=== PATIENT | female | born 1955 | race Caucasian/White ===

== ENCOUNTER 2017-05-13 21:52 | Inpatient (IN) ==
[2017-05-13 22:33] LABS: MANUAL DIFF NEEDED? NO
[2017-05-13 22:38] LABS: BASO% 0.1 % (0.0-0.8); EOS# 0.05 X1000 (0.0-0.7); EOS% 0.4 % (0.0-10.0); HEMATOCRIT 40.6 % (37.0-47.0); HEMOGLOBIN 12.5 g/dL (12.0-16.0); IMM GRAN# 0.04 X1000 (0.0-0.04); IMM GRAN% 0.3 % (0.0-0.5); LYMPH# 1.51 X1000 (1.2-3.4); LYMPH% 12.3 % (20.5-51.1); MCH 28.7 PG (27-31); MCHC 30.8 g/dL (33-37); MCV 93.3 FL (81-99); MONO# 1.63 X1000 (0.11-0.59); MONO% 13.3 % (1.7-9.3); MPV 11.4 FL (7.4-10.4); NEUT% 73.6 % (42.2-75.2); PLT 202 X1000 (130-400); RBC 4.35 XMIL (4.2-5.4)
[2017-05-13 23:01] LABS: ALBUMIN 4.5 g/dL (3.5-5.0); CALCIUM 10.4 mg/dL (8.8-10.2); POTASSIUM 3.6 mmol/L (3.5-5.1); TOTAL BILIRUBIN 0.31 mg/dL (0.20-1.00); TOTAL PROTEIN 8.3 g/dL (6.3-8.3)
[2017-05-14] MEDS ORDERED: ZITHROMAX 500 MG/NS 500 MG/250 ML IVPB IV ONE (00:29)
[2017-05-14] MEDS ORDERED: ROCEPHIN 1 GM/NS 1 GM/50 ML IVPB IV ONE (00:29)
[2017-05-14 00:54] LABS: ALLEN TEST YES; BE 9.4 mmoll (-3.0-3.0); BLOOD TYPE ARTERIAL; DRAW SITE R RADIAL; METHB 0.8 % (0.0-1.5); PCO2(98.6) 50 mmHg (35-45); SAMPLE BLOOD; SAO2 89.2 % (95.0-100.0); THB 11.5 g/dL (11.5-17.4); pH(98.6) 7.45 (7.35-7.45)
[2017-05-14 00:55] LABS: MODALITY CANNULA
[2017-05-14 00:57] LABS: PO2(98.6) 47 mmHg (60-100)
--- NOTE | 2017-05-14 01:17 | PROVIDER DOCUMENTATION ---
This chart was entered by Ángel Villavicencio Scribe, acting as scribe for Denilson Du MD. HPI-Fever - General Chief Complaint: Shortness of Breath Stated Complaint: sob Time Seen by Provider: 05/13/17 22:17 Source: patient Allergies/Adverse Reactions: Patient Allergies Allergy/AdvReac Type Severity Reaction Status Date / Time Sulfa (Sulfonamide AdvReac RASH Verified 05/14/17 00:28 Antibiotics) Home Medications: Home Medication List Medication Instructions Recorded Confirmed Last Taken Type Aspirin 81 mg PO QAM 08/02/13 04/20/17 09/11/15 09:00 History 81 MG Furosemide [Lasix] 40 mg PO QAM 08/02/13 04/20/17 09/11/15 09:00 History 40 MG Ipratropium/Albuterol Sulfate 3 ml IH TID 08/02/13 04/20/17 09/11/15 09:00 History [Iprat-Albut 0.5-3(2.5) mg/3 ml] 3 ML Pantoprazole [Protonix] 40 mg PO QHS 08/02/13 04/20/17 09/10/15 21:00 History 40 MG Hydrocodone/Acetaminophen [Empire 1 each PO TID 04/04/14 04/20/17 09/11/15 09:00 History 10-325 Tablet] 1 EACH Doxepin HCl 100 mg PO HS 10/03/14 04/20/17 09/10/15 21:00 History 100 MG Melatonin/Pyridoxine HCl (B6) 1 each PO HS 10/03/14 04/20/17 09/10/15 21:00 History [Melatonin 10 mg Tablet] 1 EACH Biotin [Nail-Ex] 5,000 mcg PO QAM 07/16/15 04/20/17 09/11/15 09:00 History 5000 MCG Iron Carbonyl/Ascorbic Acid 1 each PO DAILY #30 tablet 09/19/15 04/20/17 Unknown Rx [Icar-C] Prednisone 10 mg PO DIRECTED #20 tablet 09/19/15 04/20/17 Unknown Rx Albuterol Sulfate [Proair Hfa] 2 puff INH 4XDAY 04/20/17 04/20/17 Unknown History Alprazolam [Xanax] 0.5 mg PO TID 04/20/17 04/20/17 Unknown History Amoxicillin 875 mg PO BID 04/20/17 04/20/17 04/20/17 History Benzonatate [Tessalon Perle] 200 mg PO TID 04/20/17 04/20/17 Unknown History Fluticasone/Vilanterol [Breo 2 puff INH DAILY 04/20/17 04/20/17 Unknown History Ellipta 200-25 Mcg INH] Magnesium Oxide 500 mg PO BID 04/20/17 04/20/17 Unknown History Meloxicam [Mobic] 15 mg PO DAILY 04/20/17 04/20/17 Unknown History Montelukast Sodium [Singulair] 10 mg PO DAILY 04/20/17 04/20/17 Unknown History Oxycodone E.r. [Oxycontin] 20 mg PO BID 04/20/17 04/20/17 Unknown History Potassium Chloride E.r. [Klor-Con] 20 meq PO BID 04/20/17 04/20/17 Unknown History Ropinirole HCl [Requip] 1 mg PO QHS 04/20/17 04/20/17 Unknown History Levofloxacin [Levaquin] 500 mg PO DAILY #10 tablet 04/21/17 Unknown Rx - History of Present Illness-Fever Nature of Presenting Problem: Pt is a 62 yowf who presents to ER via EMS with CC of fever. Pt reports that her daughter checked her temperature at home and reports it was 102. Pt states that her temperature was 100 on the ambulance. Pt also complains of SOB and reports hx of idiopathic pulmonary fibrosis, but has been unable to get a referral to a pharmacy analyst (pt unable to clarify reasons). Pt also reports that she as felt nauseas and has lost her appetite. Fever Severity/Quality: reports: greater than 100.5 F (102) Onset/Duration: reports: unsure, just prior to arrival Timing: reports: still present Severity: reports: moderate Cognitive Baseline: alert, oriented x3 Associated Symptoms: reports: fever/chills, loss of appetite, nausea, shortness of breath. denies: chest pain, cough, diarrhea, vomiting Similar Symptoms Previously?: Yes Recently seen or treated by another doctor?: No Review of Systems - Adult - REVIEW OF SYSTEMS - ADULT Constitutional: reports: fever. denies: chills, fatique, night sweats, weight gain, weight loss Eyes: reports: no symptoms reported Ears, Nose, Mouth & Throat: reports: no symptoms reported Cardiovascular: reports: no symptoms reported Respiratory: reports: chronic cough, shortness of breath. denies: cough, dyspnea on exertion, excessive sputum production, hemoptysis, pleurisy, wheezing Gastrointestinal: reports: nausea, poor appetite. denies: abdominal pain, hematemesis, constipation, diarrhea, difficulty swallowing, frequent heartburn, rectal bleeding, vomiting Genitourinary: reports: no symptoms reported Musculoskeletal: reports: no symptoms reported Integumentary: reports: no symptoms reported Neurological: reports: no symptoms reported Psychiatric: reports: no symptoms reported Endocrine: reports: no symptoms reported Hematologic/Lymphatic: reports: no symptoms reported Allergic/Immunologic: reports: no symptoms reported All Other Systems: Reviewed and Negative Past History - Adult - PAST MEDICAL HISTORY-ADULT Review of Records: reports: Nursing Assessment Review, Medications Reviewed Cardiovascular: reports: CAD, hyperlipidemia Respiratory: reports: COPD, sleep apnea, other (idiopathic pulmonary fibrosis) Gastrointestinal: reports: GERD Genitourinary: reports: kidney disease Neurological: reports: Seizures/Epilepsy Psychiatric: reports: depression Endocrine/Immune: reports: Diabetes - PRIOR SURGERIES/PROCEDURES Surgical/Procedure History: reports: cholecystectomy, hysterectomy, tonsillectomy - IMMUNIZATION STATUS Childhood Immunizations: See Nurse Assessment Flu Vaccine: See Nurse Assessment Physical Exam-General - PHYSICAL EXAM-ADULT Initial Vital Signs Reviewed: Yes - CONSTITUTIONAL General Appearance: appears well, alert, mild distress, lethargic - EYES Eyes: PERRL/EOMI, pink conjunctivae - HEAD, EARS, NOSE, MOUTH & THROAT HENMT: normocephalic/atraumatic, moist mucous membranes, normal ENT inspection - NECK Neck: non-tender, full range of motion, supple - RESPIRATORY Respiratory: chest non-tender, increased rate, other ("velcro" rales diffusely) - CARDIOVASCULAR Cardiovascular: normal peripheral pulses, tachycardia. negative: regular rate, rhythm, bradycardia, irregularly irregular - GASTROINTESTINAL (ABDOMEN) Abdominal Exam: normal bowel sounds, soft, no organomegaly, no pulsatile mass, tenderness (LLQ). negative: non tender - MUSCULOSKELETAL Back Exam: normal inspection Extremity: normal range of motion, non-tender, normal gait, normal inspection, no pedal edema, no calf tenderness, normal capillary refill, pelvis stable. negative: deformity, erythema, inflammation, swelling, tenderness - SKIN Integumentary: normal color, normal turgor, warm/dry, warm (warm/hot to touch) - NEUROLOGIC Neurologic: grossly normal - PSYCHIATRIC Psych/Mental Status: normal thought content, normal thought process, oriented x 3, depressed affect. negative: normal mood/affect Progress - PLAN OF CARE/RESULTS Progress/Plan/Lab Results: Vital Signs - 8 hr 05/13/17 22:21 Temperature 99.5 F Pulse Rate 136 H Respiratory Rate 27 H Blood Pressure 114/74 O2 Sat by Pulse Oximetry 97 Laboratory Results - last 24 hr 05/13/17 05/13/17 05/13/17 22:10 22:10 22:10 WBC RBC Hgb Hct MCV MCH MCHC RDW Std Deviation Plt Count MPV Immature Gran % (Auto) Neut % (Auto) Lymph % (Auto) Garrett % (Auto) Eos % (Auto) Baso % (Auto) Immature Gran # (Auto) Neut # (Auto) Lymph # (Auto) Garrett # (Auto) Eos # (Auto) Baso # (Auto) D-Dimer 0.43 Specimen Type Sample Site pH pCO2 pO2 HCO3 Base Excess Oxyhemoglobin ABG O2 Sat (Calculated) ABG O2 Saturation ABG Carboxyhemoglobin ABG Methemoglobin Addy Test A-a O2 Difference Total Hemoglobin Lactate Liter Flow Blood Gas Modality FiO2 % Sodium 142 Potassium 3.6 Chloride 94 L Carbon Dioxide 30 Anion Gap 18 BUN 14 Creatinine 1.0 H Estimated GFR/1.73 m2 57 BUN/Creatinine Ratio 14 Glucose 128 H Calculated Osmolality 285 Calcium 10.4 H Magnesium 2.0 Total Bilirubin 0.31 AST 16 ALT 15 Alkaline Phosphatase 166 H Creatine Kinase 34 Troponin T < 0.010 Aar-[id number]-Wgflwpddjnp Pept Total Protein 8.3 Albumin 4.5 Globulin 3.8 Albumin/Globulin Ratio 1.2 Plasma Lactate 05/13/17 05/13/17 05/13/17 22:10 22:10 22:10 WBC 12.30 H RBC 4.35 Hgb 12.5 Hct 40.6 MCV 93.3 MCH 28.7 MCHC 30.8 L RDW Std Deviation 14.2 Plt Count 202 MPV 11.4 H Immature Gran % (Auto) 0.3 Neut % (Auto) 73.6 Lymph % (Auto) 12.3 L Garrett % (Auto) 13.3 H Eos % (Auto) 0.4 Baso % (Auto) 0.1 Immature Gran # (Auto) 0.04 Neut # (Auto) 9.06 H Lymph # (Auto) 1.51 Garrett # (Auto) 1.63 H Eos # (Auto) 0.05 Baso # (Auto) 0.01 D-Dimer Specimen Type Sample Site pH pCO2 pO2 HCO3 Base Excess Oxyhemoglobin ABG O2 Sat (Calculated) ABG O2 Saturation ABG Carboxyhemoglobin ABG Methemoglobin Addy Test A-a O2 Difference Total Hemoglobin Lactate Liter Flow Blood Gas Modality FiO2 % Sodium Potassium Chloride Carbon Dioxide Anion Gap BUN Creatinine Estimated GFR/1.73 m2 BUN/Creatinine Ratio Glucose Calculated Osmolality Calcium Magnesium Total Bilirubin AST ALT Alkaline Phosphatase Creatine Kinase Troponin T Mkt-G-Zqjqllmnetr Pept 61 Total Protein Albumin Globulin Albumin/Globulin Ratio Plasma Lactate 1.5 05/14/17 00:50 WBC RBC Hgb Hct MCV MCH MCHC RDW Std Deviation Plt Count MPV Immature Gran % (Auto) Neut % (Auto) Lymph % (Auto) Garrett % (Auto) Eos % (Auto) Baso % (Auto) Immature Gran # (Auto) Neut # (Auto) Lymph # (Auto) Garrett # (Auto) Eos # (Auto) Baso # (Auto) D-Dimer Specimen Type ARTERIAL Sample Site R RADIAL pH 7.45 pCO2 50 H pO2 47 L* HCO3 32.0 H Base Excess 9.4 H Oxyhemoglobin 86.5 L* ABG O2 Sat (Calculated) 14.0 L ABG O2 Saturation 89.2 L ABG Carboxyhemoglobin 2.20 ABG Methemoglobin 0.8 Addy Test YES A-a O2 Difference 119.0 Total Hemoglobin 11.5 Lactate 1.00 Liter Flow 3.0 Blood Gas Modality CANNULA FiO2 % 32.0 Sodium Potassium Chloride Carbon Dioxide Anion Gap BUN Creatinine Estimated GFR/1.73 m2 BUN/Creatinine Ratio Glucose Calculated Osmolality Calcium Magnesium Total Bilirubin AST ALT Alkaline Phosphatase Creatine Kinase Troponin T Qxi-F-Ynzadypqfdn Pept Total Protein Albumin Globulin Albumin/Globulin Ratio Plasma Lactate Orders Category Date Time Status Oxygen Therapy- ED Nursing DIRECTED Care 05/13/17 22:22 Active CHEST-2 VIEWS [RAD] Stat Exams 05/13/17 22:22 Taken ABG [RESP] Routine Lab 05/14/17 00:50 Completed BLOOD CULTURE [BLDCUL] Stat Lab 05/13/17 22:15 Results CBC WITH ELECTRONIC DIFF [HEME] Stat Lab 05/13/17 22:10 Completed CK PROFILE [SP CHEM] Stat Lab 05/13/17 22:10 Completed COMPREHENSIVE METABOLIC PANEL [CHEM] Stat Lab 05/13/17 22:10 Completed D-DIMER [CHEM] Stat Lab 05/13/17 22:10 Completed LACTATE, PLASMA [CHEM] Stat Lab 05/13/17 22:10 Completed MAGNESIUM [CHEM] Stat Lab 05/13/17 22:10 Completed PRO B-NATRIURETIC PEPTIDE Stat Lab 05/13/17 22:10 Completed PROTIME WITH INR [COAG] Stat Lab 05/13/17 22:23 Ordered PTT [COAG] Stat Lab 05/13/17 22:23 Ordered TROPONIN T Stat Lab 05/13/17 22:10 Completed Azithromycin 500 mg/Ns [Zithromax 500 mg/Ns] Med 05/14/17 00:29 Active 500 mg in 250 ml IV NOW CefTRIAXONE 1 GM/NS [Rocephin 1 gm/Ns] Med 05/14/17 00:29 Discontinued 1 gm in 50 ml IV NOW EKG [EKG] Stat Ther 05/13/17 22:22 Ordered abg returned with normal phof 7.45,pCo2 of 50 but p02 of 50 Result Diagrams: 05/13/17 22:10 05/13/17 22:10 - XRAY 1 XRAY: Bilateral XRAY Study: Chest Impression: See EMR Report XRAY Interpretation: See report - CONSULTS/PCP/HOSPITALIST Notification #1 *Consult/PCP/Hospitalist*: Dr Perry Time Discussed: 01:12 Consult Disposition: Will see in ED, Admit Departure - Departure Date of Disposition Decision: 05/14/17 Time of Disposition Decision: 01:14 DIAGNOSIS: Interstitial lung disease, Pneumonia Disposition: ADMITTED INPATIENT 09 Certified Medical Emergency: Emergent Condition: Good Referrals and Follow-Ups: None,PCP [Primary Care Provider] - - Critical Care Note This patient required my direct & personal management of CC.: No Attestation - Physician/ LORENZO Attestation Patient care was provided by Advanced Practice Provider:: No The physician spent face to face time with patient:: Yes Advanced Practice Provider documentation review:: Supervising physician onsite and consulted in the evaluation and care of this patient. The physician did have a face to face encounter with the patient. This chart was documented by the indicated scribe, (Ángel Villavicencio Malcom) and accurately reflects the services I performed and decisions made by me, Denilson Du MD, as attested by the provider's signature.
[2017-05-14] MEDS ORDERED: VANCOMYCIN IV PER PHARMACY MISC SCH (02:01)
[2017-05-14] MEDS ORDERED: DUONEB (A & A) INH PRN (02:01)
[2017-05-14] MEDS: TYLENOL PO PRN ×2 (03:18→12:20)
[2017-05-14] MEDS ORDERED: PREDNISONE PO SCH (03:24)
[2017-05-14] MEDS: DUONEB (A & A) INH SCH ×6 (03:30→23:21)
--- NOTE | 2017-05-14 03:32 | HISTORY AND PHYSICAL ---
PRIMARY CARE PHYSICIAN: Dr. Adrian Salinas. CHIEF COMPLAINT: Shortness of breath and fever. HISTORY OF PRESENT ILLNESS: This is a 62-year-old female with a past medical history of pulmonary fibrosis and diabetes and hyperlipidemia, who presented to the emergency department complaining of shortness of breath. She reports that during the last week, she was having fever on-and-off, but she did not check the temperature. She reports also a dry cough that has been getting worse over the last 2 days. She also reports some chills as well. She reports generalized weakness and tiredness. The patient reports that she had been seen 4 months ago in the office. At this point, she also wants to have a 2nd opinion about her pulmonary fibrosis, because she was seen back in 1999 in [facility], and apparently she was told that she does not have any pulmonary fibrosis. In any case, the patient is going to be admitted for community-acquired pneumonia. PAST MEDICAL HISTORY: 1. Pulmonary fibrosis, idiopathic. Patient had been seen in 1999 in the [facility] clinic. Since then, patient has been followed by Dr. Russell and Dr. Bernal. The last visit to Pulmonary was to Dr. Bernal 4 months ago. 2. Chronic migraines. 3. Diabetes mellitus. Patient reports that since 2014, she is not taking any antidiabetic oral medications. 4. Obesity. 5. Hyperlipidemia. 6. Depression. PAST SURGICAL HISTORY: 1. Tonsillectomy. 2. Hysterectomy. 3. Lung biopsies. 4. Adenoidectomy. SOCIAL HISTORY: The patient lives with son and his fiance. Patient denies drinking alcohol, smoking tobacco, or using illicit drugs. She is single. FAMILY HISTORY: Niece with cystic fibrosis. Also, heart disease and cancer runs in her family. ALLERGIES: Patient is allergic to sulfa drugs. REVIEW OF SYSTEMS: Eleven systems were reviewed, and all symptoms are related to H P. PHYSICAL EXAMINATION: VITAL SIGNS: Temperature 99.5 degrees, heart rate 136, respiratory rate 27, blood pressure 114/74, O2 saturation 97% on 3 L nasal cannula. GENERAL: This is a 62-year-old obese female lying in bed, in no acute distress. HEENT: Head is normocephalic, atraumatic. Anicteric sclerae and pale conjunctivae. Mucous membranes moist. NECK: Supple. No JVD noted. No carotid bruits. No lymphadenopathy. No thyromegaly. CARDIOVASCULAR: S1, S2 heard. No murmurs, gallops, or rubs. Regular rate and rhythm. RESPIRATORY: There are some crackles in both pulmonary jalloh. Patient is not using any accessory muscles or having work of breathing. ABDOMEN: Soft, a little bit tender to palpation in the left upper quadrant. No signs of peritoneal irritation. Bowel sounds present. No organomegaly. EXTREMITIES: No clubbing, cyanosis, or edema. Peripheral pulses present in both legs. NEUROLOGICAL: Patient alert and oriented x3. Able to move 4 extremities. Cranial nerves 2-12 grossly normal. LABORATORY DATA: White cell count 12.30. ABG shows pH 7.45, with pCO2 50, PO2 47. BMP unremarkable, except glucose 128. Calcium 10.4. Troponins negative. ASSESSMENT: 1. Acute respiratory failure. 2. Community-acquired pneumonia. 3. Idiopathic pulmonary fibrosis. 4. Diabetes mellitus. 5. Hyperlipidemia. 6. Depression. PLAN: 1. The patient is going to be admitted to the hospital for further treatment of this community- acquired pneumonia. Patient had been admitted to the hospital last time 2 years ago. Because of this pulmonary fibrosis, I prefer to treat this pneumonia with broad spectrum antibiotics, in this case, vancomycin and Zosyn. Also, we are going to continue with nebulizations with albuterol and Atrovent every 4 hours as scheduled. Just to have a better visualization of the lung anatomy, we are going to do a CT of the chest. 2. For diabetes, patient reports that she has not been on any medications for diabetes for a while. In this case, we are going to check hemoglobin A1c, and start sliding scale insulin if needed. 3. For hyperlipidemia, we will continue home medications. 4. For depression, we will continue with home medications. Further recommendations to follow according to the clinical situation of the patient. cc: Tyrone Nolasco MD
[2017-05-14] MEDS: NS 1,000 ML IV SCH ×3 (04:06→22:34)
[2017-05-14] MEDS: LOVENOX SUBQ SCH (04:07)
[2017-05-14] MEDS ORDERED: VANCOMYCIN 2,150 MG in NS 500 ML IV ONE (05:00)
[2017-05-14 07:22] LABS: MANUAL DIFF NEEDED? NO
[2017-05-14 07:28] LABS: BASO% 0.1 % (0.0-0.8); EOS# 0.06 X1000 (0.0-0.7); EOS% 0.5 % (0.0-10.0); HEMATOCRIT 35.1 % (37.0-47.0); HEMOGLOBIN 10.7 g/dL (12.0-16.0); IMM GRAN# 0.04 X1000 (0.0-0.04); IMM GRAN% 0.4 % (0.0-0.5); LYMPH# 1.95 X1000 (1.2-3.4); LYMPH% 17.7 % (20.5-51.1); MCH 28.7 PG (27-31); MCHC 30.5 g/dL (33-37); MCV 94.1 FL (81-99); MONO# 1.76 X1000 (0.11-0.59); MONO% 15.9 % (1.7-9.3); MPV 12.1 FL (7.4-10.4); NEUT% 65.4 % (42.2-75.2); PLT 173 X1000 (130-400); RBC 3.73 XMIL (4.2-5.4)
[2017-05-14 07:35] LABS: INR 1.01; PROTIME 10.6 Seconds (9.2-11.7); PTT 25.5 Seconds (22.0-36.0)
--- NOTE | 2017-05-14 07:42 | Diag Imaging Result Doc PS360 ---
EXAM: CHEST-2 VIEWS HISTORY: CP TECHNIQUE: PA and lateral chest COMMENT: There are coarse parenchymal opacities with pleural thickening particularly over the right lung. These findings have been present on previous radiographs including the previous study of 04/20/2017. There has been no significant change. IMPRESSION: Pulmonary and pleural fibrosis. Electronically signed by Raghu Uriarte 05/14/2017 7:40 AM
--- NOTE | 2017-05-14 08:02 | Diag Imaging Result Doc PS360 ---
EXAM: CT THORAX W/O CONTRAST HISTORY: pna, pulmonary fibrosis TECHNIQUE: CT of the chest without contrast with dose reduction (clarity.) COMMENT: There are coarse pulmonary opacities throughout both lungs as well as areas of focal pleural thickening particularly on the right. These were also present at the time the previous study of 04/07/2017. There are areas of traction bronchiectasis and emphysematous change. There is a small focus of alveolar opacification with air bronchogram formation in the right middle lobe which was not present at the time the previous study. There are no abnormal fluid collections. The mediastinum is stable in appearance. The compression fracture at T6 is again noted. This was also present at the time the previous study. IMPRESSION: Pulmonary fibrosis with superimposed right middle lobe pneumonia. Chronic compression fracture of T6. Electronically signed by Raghu Uriarte 05/14/2017 8:00 AM
[2017-05-14] MEDS: LASIX PO SCH (10:13)
[2017-05-14] MEDS: SINGULAIR PO SCH (10:13)
[2017-05-14] MEDS: KLOR-CON PO SCH ×2 (10:13→20:34)
[2017-05-14] MEDS: OXYCONTIN PO SCH ×2 (10:14→20:35)
[2017-05-14] MEDS: ZOSYN 3.375 GM/NS 3.375 GM/50 ML IVPB IV SCH ×3 (10:14→20:34)
[2017-05-14] MEDS: TESSALON PO SCH ×3 (10:14→18:17)
[2017-05-14] MEDS: ASPIRIN PO SCH (10:14)
[2017-05-14] MEDS: XANAX PO SCH ×3 (10:15→18:17)
[2017-05-14] MEDS: ZOFRAN IV PRN ×2 (12:20→18:52)
--- NOTE | 2017-05-14 18:24 | ECHO REPORT ---
ORDER DATE: 05/14/2017 INTERPRETING PHYSICIAN: Dr. Alan REQUESTING PHYSICIAN: CLINICAL INDICATIONS: Shortness of breath, pulmonary fibrosis, diabetes. M-MODE MEASUREMENTS: Right ventricle: 3.0 cm. Left ventricle end diastole: 4.1 cm. Left ventricle end systole: 2.8 cm. Posterior wall: 1.0 cm. Interventricular septum: 1.0 cm. Left atrium: 2.8 cm. Aortic root: 3.5 cm. SUMMARY OF 2-DIMENSIONAL IMAGING: The left ventricular function is normal. Ejection fraction 60%. The chamber does not appear to be dilated. The right ventricle appears to be borderline enlarged. The pulmonic valve looks normal. Color flow mapping unremarkable. The tricuspid valve shows a mild degree of regurgitation. The inferior vena cava was not well visualized. Pulmonary pressure estimated to be somewhere in the range of 35-40 mmHg. The mitral valve looks normal. Color flow mapping unremarkable. Pulse wave Doppler of mitral inflow shows mild reversal of the E and the A wave. Tissue Doppler of septal and lateral mitral annulus averages 9 cm per second. The pulmonary venous flow is normal. The aortic valve shows calcification especially of the right coronary cusp. There is a mild degree of aortic stenosis. The maximum gradient across the valve is 46 mmHg. Mean gradient is 26 mmHg. The aortic valve area estimated by continuity equation is 1.8 cm squared which would be consistent with a mild degree of aortic stenosis. There is no pericardial effusion, masses or thrombus. IMPRESSION: In summary, this study shows: 1. Normal left ventricular systolic function. 2. Pulmonary pressure in the range of 35-40 mmHg. 3. No diastolic dysfunction. 4. Calcification of the aortic valve with mild degree of stenosis. Valve area calculated at 1.8 cm squared. Mean gradient is 26 mmHg. Clinical correlation recommended. cc: MD Tyrone Gilman MD
[2017-05-14] MEDS ORDERED: SODIUM CHLORIDE 0.9% INJ PRN (20:19)
[2017-05-14] MEDS: REQUIP PO SCH (20:35)
[2017-05-14] MEDS: PREDNISONE PO SCH (20:35)
[2017-05-14] MEDS: PHENERGAN IV PRN ×2 (20:35→22:33)
[2017-05-14] MEDS: SINEQUAN PO SCH (20:35)
[2017-05-14] MEDS: PROTONIX PO SCH (20:35)
[2017-05-15] MEDS: LOVENOX SUBQ SCH (02:35)
[2017-05-15] MEDS: ZOSYN 3.375 GM/NS 3.375 GM/50 ML IVPB IV SCH ×4 (02:35→20:30)
[2017-05-15] MEDS: DUONEB (A & A) INH SCH ×4 (03:25→23:11)
[2017-05-15] MEDS: VANCOMYCIN 1,750 MG in NS 500 ML IV SCH (04:20)
[2017-05-15 05:11] LABS: ALLEN TEST YES; BLOOD TYPE ARTERIAL; DRAW SITE R RADIAL; METHB 0.7 % (0.0-1.5); O2(CT) 20.7 mL/dL (15.0-23.0); PO2(98.6) 110 mmHg (60-100); SAMPLE BLOOD; SAO2 99.1 % (95.0-100.0); SRATE 10 BPM; THB 15.2 g/dL (11.5-17.4)
[2017-05-15 05:14] LABS: MODALITY BI PAP; PCO2(98.6) 64 mmHg (35-45)
[2017-05-15 06:22] LABS: CALCIUM 8.3 mg/dL (8.8-10.2); POTASSIUM 4.3 mmol/L (3.5-5.1)
[2017-05-15] MEDS: NS 1,000 ML IV SCH ×2 (06:38→20:32)
[2017-05-15 06:49] LABS: HEMATOCRIT 31.5 % (37.0-47.0); HEMOGLOBIN 9.7 g/dL (12.0-16.0); LYMPH# 0.44 X1000 (1.2-3.4); LYMPH% 4.8 % (20.5-51.1); MANUAL DIFF NEEDED? YES; MCHC 30.8 g/dL (33-37); MCV 94.3 FL (81-99); MONO# 0.46 X1000 (0.11-0.59); MPV 11.8 FL (7.4-10.4); NEUT% 90.2 % (42.2-75.2); PLT 154 X1000 (130-400); RBC 3.34 XMIL (4.2-5.4)
[2017-05-15 07:56] LABS: BANDS 8 % (0-1); LYMPHS 6 % (21-51); MONO 6 % (1-9)
[2017-05-15] MEDS: XANAX PO SCH ×2 (08:13→12:33)
[2017-05-15] MEDS: SINGULAIR PO SCH (08:13)
[2017-05-15] MEDS: OXYCONTIN PO SCH ×2 (08:13→20:31)
[2017-05-15] MEDS: KLOR-CON PO SCH ×2 (08:14→20:30)
[2017-05-15] MEDS: LASIX PO SCH (08:15)
[2017-05-15] MEDS: TESSALON PO SCH ×2 (08:15→12:33)
[2017-05-15] MEDS: ASPIRIN PO SCH (08:15)
[2017-05-15] MEDS ORDERED: TESSALON PO PRN (12:45)
--- NOTE | 2017-05-15 14:14 | PROGRESS NOTE ---
DATE: 05/15/2017 SUBJECTIVE: This patient states that she is feeling better. She is still having mild shortness of breath, but compared with yesterday, She is not having respiratory distress today. This patient is alert and oriented x3. She moves all 4 extremities. The Pulmonary Department is following this patient. We will follow their recommendations. OBJECTIVE: Vital Signs: Temperature 97.4 degrees, pulse 91, respiratory rate 20, blood pressure 104/66, oxygen saturation 100% on 4 L of nasal cannula. HEENT: Head normocephalic. No trauma. PERRLA. Neck: Supple. No JVD. No masses. Central trachea. Chest: Decreased breath sounds globally, with generalized scattered rhonchi and coarse breath sounds. Abdomen: Soft, nontender, nondistended. No hepatosplenomegaly. Extremities: No edema. No clubbing. No cyanosis. Neurological: The patient is alert and oriented x3. No focal neurological deficits. LABORATORY STUDIES: WBC 9.2, hemoglobin 9.7, hematocrit 31.5, platelets 154,000. pCO2 64. Sodium 139, potassium 4.3, chloride 97, bicarbonate 29, BUN 12, creatinine 1, glucose 163, calcium 8.3. ASSESSMENT AND PLAN: 1. Acute hypoxic and hypercapnic respiratory failure. This is much better. She is tolerating nasal cannula, and the oxygen saturation has been stable. 2. Community-acquired pneumonia. Continue with the same management. 3. Idiopathic pulmonary fibrosis. Pulmonary Department has been consulted. We will follow their recommendations. 4. Type 2 diabetes, controlled. Continue with the same management. 5. Hyperlipidemia, aware. 6. Depression. This patient looks stable at this moment. No signs of severe depression. cc: Reji Clay MD
[2017-05-15] MEDS ORDERED: NS 250 ML ONE (14:29)
[2017-05-15 14:42] LABS: ALLEN TEST NO; BE 9.4 mmoll (-3.0-3.0); BLOOD TYPE ARTERIAL; DRAW SITE R BRACHIAL; PO2(98.6) 145 mmHg (60-100); SAMPLE BLOOD; pH(98.6) 7.41 (7.35-7.45)
[2017-05-15 14:45] LABS: MODALITY CANNULA; PCO2(98.6) 57 mmHg (35-45)
--- NOTE | 2017-05-15 16:25 | CONSULTATION ---
DATE OF CONSULTATION: 05/15/2017 CHIEF COMPLAINT: Shortness of breath, cough, nausea. HISTORY OF PRESENT ILLNESS: This is a 62-year-old female who has a complaint of shortness of breath. She also has a complaint of nonproductive cough which has worsened over the last few days. She also has a complaint of nausea during assessment this a.m. Other manifestations include intermittent fever and chills. REVIEW OF SYSTEMS: A 10-point review of systems was obtained and the pertinent is listed within the HPI, otherwise noncontributory. PAST MEDICAL HISTORY: Idiopathic Pulmonary fibrosis, chronic migraines, depression, hyperlipidemia, obesity, and diabetes mellitus. PAST SURGICAL HISTORY: Tonsillectomy, lung biopsies, hysterectomy, adenoidectomy. SOCIAL HISTORY: The patient denies alcohol abuse, tobacco, or illicit drug use. States she is single and she lives with son and his fiancee. FAMILY HISTORY: She has a niece with cystic fibrosis. Also heart disease and cancer runs in her family. ALLERGIES: Sulfa drugs. Medications reviewed in EMR. PHYSICAL EXAMINATION: Vital signs: Temperature 97 degrees, pulse rate 84, respiratory rate 16, blood pressure 99/53, pulse ox 100% nasal cannula at 4 L. General: This is a 62-year-old female who appears weak, in no acute distress. HEENT: Head is normocephalic, atraumatic. Eyes: Pupils round and reactive to light and accommodation. Oral mucosa is pink and moist. Neck: Supple. Cardiovascular: S1 and S2 auscultated. No murmurs, gallops, or rubs. Regular rate and rhythm. Respiratory: Decreased breath sounds with crackles bilaterally. Abdomen: Soft, nontender, nondistended with active bowel sounds. Extremities: No clubbing or cyanosis or edema. Peripheral pulses palpable bilaterally. Neurological: Patient is alert and oriented x3. LABORATORY DATA: White blood cell is 9.24, red blood cells 3.34, hematocrit 31.5, hemoglobin 9.7. PH is 7.41, pCO2 of 57, PO2 of 145, HCO3 32.3, base excess 9.4, oxyhemoglobin 96.3. Sodium 139, chloride 97, glucose 163, calcium 8.3. DIAGNOSTIC DATA: Chest CT noted on 05/14/2017, impression: Pulmonary fibrosis with superimposed right middle lobe pneumonia, chronic compression fracture of T6. ASSESSMENT AND PLAN: 1. Pulmonary fibrosis and COPD. Community-acquired pneumonia possible. Continue vancomycin, Zosyn, bronchodilators, and steroids as prescribed. Will follow ABGs and CXR as course dictates. 2. Nausea. Continue Phenergan 12.5 mg p.r.n. 3. Cough. Continue Tessalon 200 mg t.i.d. p.r.n. 4. Continue gastrointestinal prophylaxis and deep vein thrombosis prophylaxis. Thank you for the courtesy of this consult. Dictated by CARSON Herrmann for Paola Bernal MD cc: CARSON Herrmann MD [facility]
--- NOTE | 2017-05-15 17:43 | CONSULTATION ---
DATE OF CONSULTATION: 05/15/2017 CONTINUATION Abdomen soft and nondistended. Bowel sounds active. Extremities: Without edema or cyanosis. Pulses palpated bilaterally. LABORATORY DATA: White blood cells 9.24, red blood cells 3.34, hemoglobin 9.7, hematocrit 31.5, MCHC 30.8. Blood gas with pH 7.41, pCO2 of 57, pO2 of 145, HCO3 of 32.3, base excess 9.4. Oxyhemoglobin 96.3. Creatinine 1.0, glucose 163, calcium 8.3. RADIOLOGY: Chest CT noted on 05/14/2017. Impression: Pulmonary fibrosis with superimposed right middle lobe pneumonia, chronic compression fracture of T6. ASSESSMENT AND PLAN: 1. Community-acquired pneumonia. Continue vancomycin, Zosyn, bronchodilators as prescribed, and steroids. 2. Nausea. Continue Phenergan 12.5 mg p.r.n. 3. Cough. Continue Tessalon 200 mg t.i.d. p.r.n. 4. Continue GI prophylaxis and DVT prophylaxis. Thank you for the courtesy of this consult. This is partial dictation. See full other dictation for consult. cc: Paola Bernal MD [facility]
[2017-05-15] MEDS: ZOFRAN IV PRN (19:07)
[2017-05-15] MEDS: PROTONIX PO SCH (20:30)
[2017-05-15] MEDS: REQUIP PO SCH (20:31)
[2017-05-15] MEDS: SINEQUAN PO SCH (20:31)
[2017-05-15] MEDS: PREDNISONE PO SCH (20:31)
[2017-05-16] MEDS: LOVENOX SUBQ SCH (02:53)
[2017-05-16] MEDS: NS 1,000 ML IV SCH ×3 (02:53→18:46)
[2017-05-16] MEDS: ZOSYN 3.375 GM/NS 3.375 GM/50 ML IVPB IV SCH ×4 (02:53→20:45)
[2017-05-16] MEDS: DUONEB (A & A) INH SCH ×7 (03:32→23:20)
[2017-05-16] MEDS: VANCOMYCIN 1,750 MG in NS 500 ML IV SCH (05:05)
[2017-05-16 05:19] LABS: MANUAL DIFF NEEDED? NO
[2017-05-16 05:25] LABS: BASO% 0.2 % (0.0-0.8); EOS# 0.01 X1000 (0.0-0.7); EOS% 0.2 % (0.0-10.0); HEMATOCRIT 31.5 % (37.0-47.0); HEMOGLOBIN 9.5 g/dL (12.0-16.0); IMM GRAN# 0.02 X1000 (0.0-0.04); IMM GRAN% 0.3 % (0.0-0.5); LYMPH% 8.5 % (20.5-51.1); MCH 28.7 PG (27-31); MCHC 30.2 g/dL (33-37); MCV 95.2 FL (81-99); MONO# 0.34 X1000 (0.11-0.59); MONO% 5.8 % (1.7-9.3); MPV 11.6 FL (7.4-10.4); PLT 171 X1000 (130-400); RBC 3.31 XMIL (4.2-5.4)
[2017-05-16 05:46] LABS: AGAP 9; BUN 7 mg/dL (8-22); CALCIUM 8.9 mg/dL (8.8-10.2); CHLORIDE 101 mmol/L (98-107); COSMO 288; POTASSIUM 4.3 mmol/L (3.5-5.1); SODIUM 144 mmol/L (136-145); TCO2 34 mmol/L (25-35)
--- NOTE | 2017-05-16 05:57 | EKG Report ---
Test Performed on : 05/13/2017 10:36:20 PM Test Reason : Chest Pain Blood Pressure : / mmHG Vent. Rate : 133 BPM Atrial Rate : 133 BPM P-R Int : 122 ms QRS Dur : 078 ms QT Int : 270 ms P-R-T Axes : 028 -12 036 degrees QTc Int : 401 ms Sinus tachycardia. Possible Left atrial enlargement Left ventricular hypertrophy Abnormal ECG When compared with ECG of 20-APR-2017 21:19, No significant change was found Unconfirmed Result
[2017-05-16] MEDS: BREO ELLIPTA 200/25 MCG INH INH SCH ×2 (07:43→19:48)
[2017-05-16] MEDS: SINGULAIR PO SCH (08:46)
[2017-05-16] MEDS: OXYCONTIN PO SCH ×2 (08:46→20:41)
[2017-05-16] MEDS: ASPIRIN PO SCH (08:46)
[2017-05-16] MEDS: LASIX PO SCH (08:46)
[2017-05-16] MEDS: KLOR-CON PO SCH ×2 (08:46→20:40)
--- NOTE | 2017-05-16 15:07 | PROGRESS NOTE ---
DATE: 05/16/2017 SUBJECTIVE: This patient states that she is feeling better. She is still having mild shortness of breath, mostly with physical activity. I have consulted Physical Therapy to evaluate this patient. Pulmonary Department on board. I will continue following their recommendations. OBJECTIVE: Vital Signs: Temperature 97.3 degrees, pulse 97, respiratory rate 18, blood pressure 105/72, oxygen saturation 100% on 4 L of nasal cannula. HEENT: Head normocephalic. No trauma. PERRLA. Neck: Supple. No JVD. No masses. Central trachea. Chest: Decreased breath sounds globally, with generalized rales and coarse breath sounds. Abdomen: Soft, nontender, nondistended. No hepatosplenomegaly. Extremities: No edema. No clubbing. No cyanosis. Neurological: The patient is alert and oriented x3. No focal neurological deficits. LABORATORY: WBC 5.8, hemoglobin 9.5, hematocrit 31.5, platelets 171,000. Sodium 144, potassium 4.3, chloride 101, bicarbonate 34, BUN 7, creatinine 0.7, glucose 159, calcium 8.9. ASSESSMENT AND PLAN: 1. Acute hypoxic and hypercapnic respiratory failure. She feels better. She is tolerating nasal cannula, and the oxygen saturation has been stable. I will continue with the same management for now. 2. Community-acquired pneumonia. Continue with the same management. She is getting better. 3. Idiopathic pulmonary fibrosis. Pulmonary Department has been following this patient. I will continue following their recommendations. 4. Type 2 diabetes, controlled. Continue with the same management. 5. Hyperlipidemia. Aware. 6. Depression. This patient looks stable at this moment. No signs of severe depression. 7. Physical deconditioning. I have consulted Physical Therapy. CRITICAL CARE TIME: 35 minutes. cc: Reji Clay MD
[2017-05-16] MEDS ORDERED: CALMOSEPTINE OINTMENT TOP PRN (19:45)
[2017-05-16] MEDS: PROTONIX PO SCH (20:42)
[2017-05-16] MEDS: REQUIP PO SCH (20:42)
[2017-05-16] MEDS: PREDNISONE PO SCH (20:42)
[2017-05-16] MEDS: SINEQUAN PO SCH (20:43)
[2017-05-17] MEDS: DUONEB (A & A) INH SCH ×6 (03:28→22:30)
[2017-05-17 03:54] LABS: MANUAL DIFF NEEDED? NO
[2017-05-17 03:58] LABS: BASO% 0.2 % (0.0-0.8); EOS# 0.01 X1000 (0.0-0.7); EOS% 0.2 % (0.0-10.0); HEMATOCRIT 29.6 % (37.0-47.0); HEMOGLOBIN 8.9 g/dL (12.0-16.0); LYMPH# 0.67 X1000 (1.2-3.4); LYMPH% 13.9 % (20.5-51.1); MCH 28.6 PG (27-31); MCHC 30.1 g/dL (33-37); MCV 95.2 FL (81-99); MONO# 0.27 X1000 (0.11-0.59); MONO% 5.6 % (1.7-9.3); MPV 11.1 FL (7.4-10.4); NEUT% 80.1 % (42.2-75.2); PLT 174 X1000 (130-400); RBC 3.11 XMIL (4.2-5.4)
[2017-05-17] MEDS: LOVENOX SUBQ SCH (03:58)
[2017-05-17] MEDS: ZOSYN 3.375 GM/NS 3.375 GM/50 ML IVPB IV SCH ×2 (03:58→08:43)
[2017-05-17 04:25] LABS: AGAP 8; BUN 5 mg/dL (8-22); CALCIUM 9.2 mg/dL (8.8-10.2); CHLORIDE 103 mmol/L (98-107); COSMO 285; POTASSIUM 4.3 mmol/L (3.5-5.1); SODIUM 143 mmol/L (136-145); TCO2 32 mmol/L (25-35)
[2017-05-17] MEDS: VANCOMYCIN 1,750 MG in NS 500 ML IV SCH (06:09)
[2017-05-17] MEDS: BREO ELLIPTA 200/25 MCG INH INH SCH (07:41)
[2017-05-17] MEDS: ASPIRIN PO SCH (08:43)
[2017-05-17] MEDS: LASIX PO SCH (08:43)
[2017-05-17] MEDS: OXYCONTIN PO SCH ×2 (08:43→21:03)
[2017-05-17] MEDS: SINGULAIR PO SCH (08:43)
[2017-05-17] MEDS: KLOR-CON PO SCH ×2 (08:44→21:03)
[2017-05-17] MEDS: NS 1,000 ML IV SCH ×2 (12:51→13:51)
--- NOTE | 2017-05-17 13:53 | PROGRESS NOTE ---
DATE: 05/17/2017 SUBJECTIVE: This patient feels better. She is still having mild shortness of breath and weakness. I have consulted physical therapy to evaluate this patient. Pulmonary department is on board. I will continue following their recommendations. OBJECTIVE: Vital Signs: Temperature 98.7 degrees, pulse 91, respiratory rate 16, blood pressure 109/92, oxygen saturation 100% on 3 L of nasal cannula. HEENT: Head normocephalic. No trauma. PERRLA. Neck: Supple. No JVD. No masses. Central trachea. Chest: Decreased breath sounds globally with generalized rales and coarse breath sounds. Abdomen: Soft, nontender, nondistended. No hepatosplenomegaly. Extremities: No edema. No clubbing. No cyanosis. Neurological: The patient is alert and oriented x3. No focal neurological deficits. LABORATORY: WBC 4.8, hemoglobin 8.9, hematocrit 29.6, platelet 174,000. Sodium 143, potassium 4.3, chloride 103, bicarbonate 32, BUN 5, creatinine 0.7, glucose 152, calcium 9.2. ASSESSMENT AND PLAN: 1. Acute hypoxic and hypercapnic respiratory failure. She is feeling better. She is tolerating nasal cannula. Oxygen saturation has been stable. Continue with the same management for now since she is getting better. I will transfer this patient to the medical floor. 2. Community-acquired pneumonia. Continue with the same management. 3. Idiopathic pulmonary fibrosis. Pulmonary department has been following this patient. 4. Type 2 diabetes, controlled. Continue with the same treatment. 5. Hyperlipidemia. Aware. 6. Depression. This patient looks stable at this moment. No signs of severe depression. 7. Physical deconditioning. We need to continue physical therapy. I had a large conversation with this patient about her pulmonary fibrosis. Apparently she has been seen as an outpatient by Dr. Bernal and Dr. Russell as well. Also she has been seeing at [facility] for the possibility of a lung transplant. As per the patient, for some reason, she is not a candidate for a lung transplant and she was discharged from [facility]. 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 We talked about Advanced Directive and DNR status for about 30 minutes and she still wants to be full code and make her own decisions. cc: Reji Clay MD
[2017-05-17] MEDS ORDERED: ZOSYN 3.375 GM in NS 50 ML IV SCH (15:00)
[2017-05-17] MEDS: ZOSYN 3.375 GM in NS 50 ML IV SCH ×2 (16:54→23:16)
[2017-05-17] MEDS: SINEQUAN PO SCH (21:02)
[2017-05-17] MEDS: PREDNISONE PO SCH (21:03)
[2017-05-17] MEDS: REQUIP PO SCH (21:03)
[2017-05-17] MEDS: PROTONIX PO SCH (21:03)
[2017-05-18] MEDS ORDERED: VANCOMYCIN 1,750 MG in NS 500 ML IV SCH ×2
[2017-05-18] MEDS: DUONEB (A & A) INH SCH ×4 (03:44→15:38)
[2017-05-18] MEDS: ZOSYN 3.375 GM in NS 50 ML IV SCH ×2 (05:36→11:08)
[2017-05-18] MEDS: NS 1,000 ML IV SCH (05:36)
[2017-05-18] MEDS: LOVENOX SUBQ SCH (05:36)
[2017-05-18 07:00] LABS: BASO% 0.3 % (0.0-0.8); EOS# 0.02 X1000 (0.0-0.7); EOS% 0.5 % (0.0-10.0); HEMATOCRIT 31.9 % (37.0-47.0); HEMOGLOBIN 9.4 g/dL (12.0-16.0); LYMPH# 0.81 X1000 (1.2-3.4); LYMPH% 20.3 % (20.5-51.1); MANUAL DIFF NEEDED? YES; MCH 28.4 PG (27-31); MCHC 29.5 g/dL (33-37); MCV 96.4 FL (81-99); MONO# 0.32 X1000 (0.11-0.59); MPV 11.5 FL (7.4-10.4); NEUT% 70.9 % (42.2-75.2); PLT 204 X1000 (130-400); RBC 3.31 XMIL (4.2-5.4)
[2017-05-18 07:02] LABS: AGAP 8; BUN 6 mg/dL (8-22); CALCIUM 9.1 mg/dL (8.8-10.2); CHLORIDE 104 mmol/L (98-107); COSMO 286; POTASSIUM 4.4 mmol/L (3.5-5.1); SODIUM 144 mmol/L (136-145); TCO2 32 mmol/L (25-35)
[2017-05-18] MEDS: BREO ELLIPTA 200/25 MCG INH INH SCH (07:19)
[2017-05-18 07:26] LABS: BANDS 2 % (0-1); LARGE PLATELETS 1+; LYMPHS 16 % (21-51); MONO 4 % (1-9)
[2017-05-18] MEDS: OXYCONTIN PO SCH (08:19)
[2017-05-18] MEDS: SINGULAIR PO SCH (08:20)
[2017-05-18] MEDS: KLOR-CON PO SCH (08:20)
[2017-05-18] MEDS: LASIX PO SCH (08:20)
[2017-05-18] MEDS: ASPIRIN PO SCH (08:20)
[2017-05-18 11:38] VITALS: BP 145/79
--- NOTE | 2017-05-19 05:45 | DISCHARGE SUMMARY ---
ADMISSION DATE: 05/13/2017 DISCHARGE DATE: 05/18/2017 CONSULTATIONS: Dr. Bernal of Pulmonology. PERTINENT PROCEDURES: 1. Chest CT showed pulmonary fibrosis with superimposed right middle lobe pneumonia. 2. Chronic compression fracture of T6. DISCHARGE DIAGNOSES: 1. Acute hypoxemic and hypercapnic respiratory failure, improved. The patient is being set up for BiPAP machine with . 2. Community-acquired pneumonia. Continue with p.o. antibiotics. 3. Idiopathic pulmonary fibrosis. She has seen Dr. Bernal, Dr. Russell, as well as [facility]. She has been turned down for transplant. 4. She will continue to follow Dr. Bernal. 5. Diabetes type 2 controlled. 6. Hyperlipidemia aware. 7. Depression stable. 8. Physical deconditioning. Patient worked up with physical therapy. HOSPITAL COURSE: Ms. Harper is a 62-year-old female with a past medical history of pulmonary fibrosis, diabetes mellitus, hyperlipidemia who presented to the ED complaining of shortness of breath. She reported last week she was having fever on and off and dry cough. Two days prior to her admission, she was getting worse. She reported chills and generalized weakness and tiredness. The patient reports she was seen 4 months ago in the office, but she wants to have a second opinion about her pulmonary fibrosis because she was seen back in 1999 at [facility]. Apparently, she was told she does not have any pulmonary fibrosis. The patient was admitted here for community-acquired pneumonia and acute respiratory failure. She was started on broad-spectrum antibiotics of vancomycin and Zosyn. She was continued on bronchodilators and aggressive pulmonary toilet. CT of the chest was obtained. It does show pulmonary fibrosis with superimposed right middle lobe pneumonia and chronic compression fracture of T6. Echocardiogram revealed an EF of 65% and pulmonary pressure of 35-40 mmHg. Pulmonology also followed along with the patient. The patient did work with physical therapy while in house. She continues to have shortness of breath with physical exertion. Looking over manager social responsibility notes, the patient did have a sleep study with Dr. Bernal and wound care is setting up and getting her a BiPAP machine sent to her residence as well as the need for a cardiac walker with a seat. Dr. Perry has assessed the patient and feels she is appropriate for discharge back home today. VITAL SIGNS: Temperature is 97.7 degrees, heart rate 80, respirations 18, blood pressure 145/79 and O2 is 100% on 3 L nasal cannula. DISCHARGE DIET: Diabetic. DISCHARGE MEDICATIONS: As per Dr. Perry, please see MAR. FOLLOW-UP: Ms. Harper is being discharged back home with wound care services for BiPAP as well as a cardiac walker with a seat. She will need to continue to follow up with Dr. Bernal. She has also been given the number to the physician referral line. She will need to take off her antibiotics as prescribed. She can return to the ED for any worsening of symptoms. Dictated by CARSON Baez for Tyrone Nolasco MD cc: Tyrone Nolasco MD
== END 2017-05-18 16:15 | disposition home health service (06) ==
LOC: ED 21:52 → SUATTDRO 21:53 → 3S 05-14 02:28 → SUATTDRO 05-14 02:28
PROVIDERS: ATTEND Internal Medicine

== ENCOUNTER 2017-06-27 13:02 | Inpatient (IN) ==
[2017-06-27] MEDS ORDERED: ASPIRIN PO STA (13:27)
[2017-06-27] MEDS ORDERED: DUONEB (A & A) INH ONE (13:32)
[2017-06-27] MEDS ORDERED: NS 500 ML IV ONE (13:41)
[2017-06-27] MEDS ORDERED: LOPRESSOR IV ONE (13:42)
[2017-06-27 13:46] LABS: BASO% 0.1 % (0.0-0.8); EOS# 0.05 X1000 (0.0-0.7); EOS% 0.2 % (0.0-10.0); HEMATOCRIT 38.5 % (37.0-47.0); IMM GRAN# 0.38 X1000 (0.0-0.04); IMM GRAN% 1.4 % (0.0-0.5); LYMPH% 6.9 % (20.5-51.1); MANUAL DIFF NEEDED? NO; MCH 29.1 PG (27-31); MCHC 31.2 g/dL (33-37); MCV 93.2 FL (81-99); MONO# 3.41 X1000 (0.11-0.59); MONO% 12.3 % (1.7-9.3); MPV 12.3 FL (7.4-10.4); NEUT% 79.1 % (42.2-75.2); PLT 221 X1000 (130-400); RBC 4.13 XMIL (4.2-5.4)
[2017-06-27 13:57] LABS: INR 1.06; PROTIME 11.2 Seconds (9.2-11.7); PTT 28.2 Seconds (22.0-36.0)
--- NOTE | 2017-06-27 13:57 | Diag Imaging Result Doc PS360 ---
EXAM: CHEST-PORTABLE HISTORY: CP, sob TECHNIQUE: Portable upright AP COMPARISON: 05/13/2017 FINDINGS: There are increased interstitial markings particularly in the mid and lower lungs. These appear slightly more pronounced than it did previously. Heart remains mildly enlarged. There is a small right pleural effusion versus pleural thickening. IMPRESSION: There is likely a combination of acute infiltrates with chronic fibrosis. Electronically signed by Moose Morgan 06/27/2017 1:55 PM
[2017-06-27] MEDS ORDERED: SOLU-MEDROL IV ONE (14:08)
[2017-06-27] MEDS ORDERED: ZITHROMAX 500 MG/NS 500 MG/250 ML IVPB IV ONE (14:08)
[2017-06-27 14:09] LABS: ALBUMIN 4.8 g/dL (3.5-5.0); CALCIUM 9.9 mg/dL (8.8-10.2); POTASSIUM 4.1 mmol/L (3.5-5.1); TOTAL BILIRUBIN 0.75 mg/dL (0.20-1.00); TOTAL PROTEIN 7.7 g/dL (6.3-8.3)
[2017-06-27] MEDS ORDERED: ROCEPHIN 1 GM in NS 50 ML IV ONE (14:09)
[2017-06-27] MEDS ORDERED: DILAUDID IV ONE (14:13)
[2017-06-27] MEDS ORDERED: ZOFRAN IV ONE (14:13)
[2017-06-27 14:21] LABS: ALLEN TEST YES; BE 5.9 mmoll (-3.0-3.0); BLOOD TYPE ARTERIAL; DRAW SITE R RADIAL; MODALITY CANNULA; PCO2(98.6) 44 mmHg (35-45); PO2(98.6) 78 mmHg (60-100); SAMPLE BLOOD; SAO2 98.6 % (95.0-100.0); THB 11.9 g/dL (11.5-17.4); pH(98.6) 7.45 (7.35-7.45)
[2017-06-27] MEDS ORDERED: DILAUDID ONE (14:22)
--- NOTE | 2017-06-27 15:36 | EKG Report ---
Test Performed on : 06/27/2017 1:37:16 PM Test Reason : SOB Blood Pressure : / mmHG Vent. Rate : 136 BPM Atrial Rate : 136 BPM P-R Int : 118 ms QRS Dur : 076 ms QT Int : 270 ms P-R-T Axes : 030 -19 049 degrees QTc Int : 406 ms Sinus tachycardia. Possible Left atrial enlargement Left ventricular hypertrophy Nonspecific ST and T wave abnormality Abnormal ECG When compared with ECG of 13-MAY-2017 22:36, No significant change was found Unconfirmed Result
[2017-06-27 16:41] LABS: URINE MICRO REVIEW NEEDED? NO; URINE SOURCE CLEAN CATCH
[2017-06-27 16:49] LABS: BILIRUBIN URINE SMALL (NEGATIVE); BLOOD URINE NEGATIVE (NEGATIVE); COLOR YELLOW; GLUCOSE URINE NEGATIVE (NEGATIVE); LEUKOCYTES URINE TRACE (NEGATIVE); NITRITE URINE NEGATIVE (NEGATIVE); PROTEIN URINE 100 mg/dL (NEGATIVE); SP GRAVITY URINE 1.019; TURBIDITY URINE HAZY (CLEAR); UROBILINOGEN URINE NORMAL (NORMAL)
[2017-06-27 16:50] LABS: UR EPITHELIAL CELLS <10 /HPF (<10); URINE BACTERIA NEGATIVE /HPF; URINE CULTURE NEEDED? YES; URINE WBC <10 /HPF (<10)
--- NOTE | 2017-06-27 18:04 | PROVIDER DOCUMENTATION ---
This chart was entered by Jaydon Crawford Scribe, acting as scribe for Rachel Francis MD. HPI-Cardiac General - General Chief Complaint: Palpitations Stated Complaint: HIGH HR, LOW BP, FEVER, VOMITING Time Seen by Provider: 06/27/17 13:20 Source: patient, family Allergies/Adverse Reactions: Patient Allergies Allergy/AdvReac Type Severity Reaction Status Date / Time Sulfa (Sulfonamide AdvReac RASH Verified 06/27/17 13:41 Antibiotics) Home Medications: Home Medication List Medication Instructions Recorded Confirmed Last Taken Type Aspirin 81 mg PO QAM 08/02/13 06/27/17 06/26/17 08:00 History Furosemide [Lasix] 40 mg PO QAM 08/02/13 06/27/17 06/26/17 08:00 History Ipratropium/Albuterol Sulfate 3 ml IH 4XDAY 08/02/13 06/27/17 06/26/17 22:00 History [Iprat-Albut 0.5-3(2.5) mg/3 ml] Pantoprazole [Protonix] 40 mg PO QHS 08/02/13 06/27/17 06/26/17 22:00 History Doxepin HCl 100 mg PO HS 10/03/14 06/27/17 06/26/17 22:00 History Melatonin/Pyridoxine HCl (B6) 1 each PO HS 10/03/14 06/27/17 06/26/17 22:00 History [Melatonin 10 mg Tablet] Fluticasone/Vilanterol [Breo 2 puff INH DAILY 04/20/17 06/27/17 06/26/17 08:00 History Ellipta 200-25 Mcg INH] Magnesium Oxide 500 mg PO BID 04/20/17 06/27/17 06/26/17 History Meloxicam [Mobic] 15 mg PO DAILY 04/20/17 06/27/17 06/26/17 22:00 History Montelukast Sodium [Singulair] 10 mg PO DAILY 04/20/17 06/27/17 06/26/17 22:00 History Oxycodone E.r. [Oxycontin] 20 mg PO BID 04/20/17 06/27/17 06/26/17 22:00 History Potassium Chloride E.r. [Klor-Con] 20 meq PO BID 04/20/17 06/27/17 06/26/17 22: 00 History Ropinirole HCl [Requip] 1 mg PO QHS 04/20/17 06/27/17 06/26/17 21:00 History Calcium Polycarbophil [Fibercon] 625 mg PO DAILY 05/14/17 06/27/17 06/26/17 22: 00 History Cyanocobalamin (Vitamin B-12) 1,000 mcg PO DAILY 05/14/17 06/27/17 06/26/17 22: 00 History [Vitamin B-12] Hydrocodone/Acetaminophen [[place] 1 each PO DAILY PRN PRN 05/14/17 06/27/1706/26 21:00 History 7.5-325 Tablet] Pravastatin Sodium 20 mg PO QHS 05/14/17 06/27/17 06/26/17 22:00 History Prednisone 10 mg PO QHS 05/14/17 06/27/17 06/26/17 22:00 History Tiotropium [place] Inhaler 1 puff INH DAILY 05/14/17 06/27/17 06/26/17 08:00 History [Spiriva] - History of Present Illness-Cardiac Nature of Presenting Problem: patient is a 62 y/o F that presents with increased shortness of breath, palpitations, and body aches. Symptoms began 3 days after using [employer] duct cleaner. patient has COPD. Denies fever, n/v, or chest pain. Quality of Pain: reports: fullness Severity in ED: moderate Onset/Duration: abrupt, 3 days ago Timing: still present, constant Context/Activities at Onset: reports: light activity (cleaning with [employer]) Modifying Factors: worse with: exercise Palpitation Quality: fast/pounding heart beat History of arrythmia: reports: none Recent use of:: reports: no stimulants Prior Chest Pain/Cardiac Workup: reports: non-cardiac Associated Symptoms: reports: shortness of breath, weakness. denies: edema, fatigue, fever/chills, nausea, vomiting Similar Symptoms Previously?: No Recently Seen Here or By Another Healthcare Provider: No Review of Systems - Adult - REVIEW OF SYSTEMS - ADULT Constitutional: denies: chills, fever Eyes: reports: no symptoms reported Ears, Nose, Mouth & Throat: reports: no symptoms reported Cardiovascular: reports: palpitations. denies: chest pain, orthopnea Respiratory: reports: cough, shortness of breath, wheezing Gastrointestinal: denies: abdominal pain, diarrhea, nausea, vomiting Genitourinary: reports: no symptoms reported Musculoskeletal: reports: muscle aches. denies: joint swelling Integumentary: reports: no symptoms reported Neurological: reports: no symptoms reported Psychiatric: reports: no symptoms reported Endocrine: reports: no symptoms reported Hematologic/Lymphatic: reports: no symptoms reported Allergic/Immunologic: reports: no symptoms reported All Other Systems: Reviewed and Negative Past History - Adult - PAST MEDICAL HISTORY-ADULT Review of Records: reports: Old Records Reviewed, Nursing Assessment Review, Medications Reviewed Cardiovascular: reports: CAD, hyperlipidemia Respiratory: reports: COPD, sleep apnea, other (idiopathic pulmonary fibrosis) Gastrointestinal: reports: GERD Genitourinary: reports: kidney disease Neurological: reports: Seizures/Epilepsy Psychiatric: reports: depression Endocrine/Immune: reports: Diabetes - PRIOR SURGERIES/PROCEDURES Surgical/Procedure History: reports: cholecystectomy, hysterectomy, tonsillectomy - IMMUNIZATION STATUS Childhood Immunizations: See Nurse Assessment Flu Vaccine: See Nurse Assessment - SOCIAL HISTORY Smoking: non-smoker Living Situation: family Physical Exam-General - PHYSICAL EXAM-ADULT Initial Vital Signs Reviewed: Yes - CONSTITUTIONAL General Appearance: alert, mild distress, moderate distress, anxious - EYES Eyes: PERRL/EOMI, pink conjunctivae - HEAD, EARS, NOSE, MOUTH & THROAT HENMT: normocephalic/atraumatic, moist mucous membranes, normal ENT inspection - NECK Neck: full range of motion, normal inspection. 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, no motor/sensory deficits - PSYCHIATRIC Psych/Mental Status: normal thought content, normal thought process, oriented x 3, anxious Progress - PLAN OF CARE/RESULTS Progress/Plan/Lab Results: Vital Signs - 8 hr 06/27/17 13:11 06/27/17 14:23 06/27/17 14:55 Temperature 98.3 F Pulse Rate 145 H 117 H Respiratory Rate 26 H 20 Blood Pressure 118/75 109/65 O2 Sat by Pulse Oximetry 100 95 93 L 06/27/17 15:35 06/27/17 16:00 06/27/17 16:05 Temperature 98.8 F 98.2 F Pulse Rate 96 H 102 H 97 H Respiratory Rate 17 32 H Blood Pressure 99/72 85/60 99/72 O2 Sat by Pulse Oximetry 2 L 96 96 Laboratory Results - last 24 hr 06/27/17 06/27/17 06/27/17 13:25 13:25 13:25 WBC 27.70 H RBC 4.13 L Hgb 12.0 Hct 38.5 MCV 93.2 MCH 29.1 MCHC 31.2 L RDW Std Deviation 14.1 Plt Count 221 MPV 12.3 H Immature Gran % (Auto) 1.4 H Neut % (Auto) 79.1 H Lymph % (Auto) 6.9 L [place] % (Auto) 12.3 H Eos % (Auto) 0.2 Baso % (Auto) 0.1 Immature Gran # (Auto) 0.38 H Neut # (Auto) 21.94 H Lymph # (Auto) 1.90 [place] # (Auto) 3.41 H Eos # (Auto) 0.05 Baso # (Auto) 0.02 PT INR PTT (Actin FS) Specimen Type Sample Site pH pCO2 pO2 HCO3 Base Excess Oxyhemoglobin ABG O2 Sat (Calculated) ABG O2 Saturation ABG Carboxyhemoglobin ABG Methemoglobin Addy Test A-a O2 Difference Total Hemoglobin Lactate Liter Flow Blood Gas Modality FiO2 % Sodium 140 Potassium 4.1 Chloride 94 L Carbon Dioxide 30 Anion Gap 16 BUN 16 Creatinine 1.3 H Estimated GFR/1.73 m2 42 BUN/Creatinine Ratio 12 Glucose 107 H Calculated Osmolality 281 Calcium 9.9 Magnesium 2.0 Total Bilirubin 0.75 AST 20 ALT 14 Alkaline Phosphatase 110 H Creatine Kinase 31 Troponin T [id number]-[id number] Pept 164 Total Protein 7.7 Albumin 4.8 Globulin 2.9 Albumin/Globulin Ratio 1.7 Plasma Lactate Urine Source Urine Color Urine Turbidity Urine pH Ur Specific [place] Urine Protein Ur Glucose (Stick) Ur Ketones (Stick) Urine Blood Urine Nitrite Urine Bilirubin Urobilinogen Dipstick Urine Leukocytes Urine WBC (Auto) Urine RBC (Auto) U Epithel Cells (Auto) Urine Bacteria (Auto) 06/27/17 06/27/17 06/27/17 13:25 13:25 13:25 WBC RBC Hgb Hct MCV MCH MCHC RDW Std Deviation Plt Count MPV Immature Gran % (Auto) Neut % (Auto) Lymph % (Auto) [place] % (Auto) Eos % (Auto) Baso % (Auto) Immature Gran # (Auto) Neut # (Auto) Lymph # (Auto) [place] # (Auto) Eos # (Auto) Baso # (Auto) PT 11.2 INR 1.06 PTT (Actin FS) 28.2 Specimen Type Sample Site pH pCO2 pO2 HCO3 Base Excess Oxyhemoglobin ABG O2 Sat (Calculated) ABG O2 Saturation ABG Carboxyhemoglobin ABG Methemoglobin Addy Test A-a O2 Difference Total Hemoglobin Lactate Liter Flow Blood Gas Modality FiO2 % Sodium Potassium Chloride Carbon Dioxide Anion Gap BUN Creatinine Estimated GFR/1.73 m2 BUN/Creatinine Ratio Glucose Calculated Osmolality Calcium Magnesium Total Bilirubin AST ALT Alkaline Phosphatase Creatine Kinase Troponin T < 0.010 [id number]-Mkgwzgkldza Pept Total Protein Albumin Globulin Albumin/Globulin Ratio Plasma Lactate 1.7 Urine Source Urine Color Urine Turbidity Urine pH Ur Specific [place] Urine Protein Ur Glucose (Stick) Ur Ketones (Stick) Urine Blood Urine Nitrite Urine Bilirubin Urobilinogen Dipstick Urine Leukocytes Urine WBC (Auto) Urine RBC (Auto) U Epithel Cells (Auto) Urine Bacteria (Auto) 06/27/17 06/27/17 14:10 16:00 WBC RBC Hgb Hct MCV MCH MCHC RDW Std Deviation Plt Count MPV Immature Gran % (Auto) Neut % (Auto) Lymph % (Auto) [place] % (Auto) Eos % (Auto) Baso % (Auto) Immature Gran # (Auto) Neut # (Auto) Lymph # (Auto) [place] # (Auto) Eos # (Auto) Baso # (Auto) PT INR PTT (Actin FS) Specimen Type ARTERIAL Sample Site R RADIAL pH 7.45 pCO2 44 pO2 78 HCO3 29.5 H Base Excess 5.9 H Oxyhemoglobin 95.4 ABG O2 Sat (Calculated) 16.0 ABG O2 Saturation 98.6 ABG Carboxyhemoglobin 2.20 ABG Methemoglobin 1.0 Addy Test YES A-a O2 Difference 95.0 Total Hemoglobin 11.9 Lactate 0.90 Liter Flow 3.0 Blood Gas Modality CANNULA FiO2 % 32.0 Sodium Potassium Chloride Carbon Dioxide Anion Gap BUN Creatinine Estimated GFR/1.73 m2 BUN/Creatinine Ratio Glucose Calculated Osmolality Calcium Magnesium Total Bilirubin AST ALT Alkaline Phosphatase Creatine Kinase Troponin T Gal-V-Fhntwnjiwhn Pept Total Protein Albumin Globulin Albumin/Globulin Ratio Plasma Lactate Urine Source CLEAN CATCH Urine Color YELLOW Urine Turbidity HAZY Urine pH 6.0 Ur Specific [place] 1.019 Urine Protein 100 A Ur Glucose (Stick) NEGATIVE Ur Ketones (Stick) 40 A Urine Blood NEGATIVE Urine Nitrite NEGATIVE Urine Bilirubin SMALL A Urobilinogen Dipstick NORMAL Urine Leukocytes TRACE A Urine WBC (Auto) <10 Urine RBC (Auto) 10-20 A U Epithel Cells (Auto) <10 Urine Bacteria (Auto) NEGATIVE Orders Category Date Time Status Cardiac Monitoring DIRECTED Care 06/27/17 13:27 Active Saline Loc NOW Care 06/27/17 13:27 Active CHEST-PORTABLE [RAD] Stat Exams 06/27/17 13:27 Completed ABG [RESP] Routine Lab 06/27/17 14:10 Completed BLOOD CULTURE [BLDCUL] Stat Lab 06/27/17 13:24 Results CBC WITH ELECTRONIC DIFF [HEME] Stat Lab 06/27/17 13:25 Completed CK PROFILE [SP CHEM] Stat Lab 06/27/17 13:25 Completed COMPREHENSIVE METABOLIC PANEL [CHEM] Stat Lab 06/27/17 13:25 Completed LACTATE, PLASMA [CHEM] Stat Lab 06/27/17 13:25 Completed MAGNESIUM [CHEM] Stat Lab 06/27/17 13:25 Completed PRO B-NATRIURETIC PEPTIDE Stat Lab 06/27/17 13:25 Completed PROTIME WITH INR [COAG] Stat Lab 06/27/17 13:25 Completed PTT [COAG] Stat Lab 06/27/17 13:25 Completed TROPONIN T Stat Lab 06/27/17 13:25 Completed URINALYSIS W/POSS RFLX CULT-1 [URINALYSIS] Stat Lab 06/27/17 16:00 Completed 0.9% Sodium Chloride Inj [Ns] 500 ml Med 06/27/17 13:41 Discontinued IV 150 mls/hr Albuterol 2.5MG/Ipratrop 0.5MG [Duoneb (A & A)] Med 06/27/17 13:32 Discontinued 3 ml INH NOW ONE Aspirin Med 06/27/17 13:27 Discontinued 325 mg PO STAT STA Azithromycin 500 mg/Ns [Zithromax 500 mg/Ns] Med 06/27/17 14:08 Discontinued 500 mg in 250 ml IV NOW CefTRIAXONE [Rocephin] 1 gm Med 06/27/17 14:09 Discontinued 0.9% Sodium Chloride Inj [Ns] 50 ml IV NOW Hydromorphone [Dilaudid] Med 06/27/17 14:13 Discontinued 1 mg IV NOW ONE Hydromorphone [Dilaudid] Med 06/27/17 14:22 Discontinued 2 mg .ROUTE .STK-MED ONE Methylprednisolone Sod Succ [Solu-Medrol] Med 06/27/17 14:08 Discontinued 125 mg IV NOW ONE Metoprolol [Lopressor] Med 06/27/17 13:42 Discontinued 2.5 mg IV NOW ONE Ondansetron [Zofran] Med 06/27/17 14:13 Discontinued 8 mg IV NOW ONE Aerosol Treatments Routine Oth 06/27/17 13:32 Completed Aerosol Treatments Stat Oth 06/27/17 13:32 Completed EKG [EKG] Stat Ther 06/27/17 13:27 Draft Transfer/Admit Order [TRANSFER] Routine Transfer 06/27/17 15:20 Ordered Result Diagrams: 06/27/17 13:25 06/27/17 13:25 - EKG 1 Time of EKG reading by physician:: 13:37 EKG Read and Signed by:: Rachel Francis EKG Interpretation (*Must complete 3 of following elements*): Abnormal Rate: 136 Rhythm: Sinus tachycardia [place]: normal QRS: LVH ND Interval: normal ST Wave: non-specific ST changes - XRAY 1 XRAY Study: Chest Impression: Abnormal XRAY Interpretation: Likely acute infiltrates with chronic fibrosis - CONSULTS/PCP/HOSPITALIST Notification #1 *Consult/PCP/Hospitalist*: Debbie BYRD with hospitalist Time Discussed: 14:18 Reason/Comments: accepted Consult Disposition: Will see in ED, Admit Departure - Departure Date of Disposition Decision: 06/27/17 Time of Disposition Decision: 14:20 DIAGNOSIS: Bilateral pneumonia, Palpitations, Dyspnea Disposition: ADMITTED INPATIENT 09 Certified Medical Emergency: Emergent Condition: Stable - Critical Care Note This patient required my direct & personal management of CC.: Yes Total Time (mins): 35 Critical Care Statement: This patient required my direct personal management to treat or rule out processes, the absence of which, could potentiallly result in sudden, clinically significant life or limb threatening deterioration. Attestation - Physician/ LORENZO Attestation The physician spent face to face time with patient:: Yes Advanced Practice Provider documentation review:: Supervising physician onsite and consulted in the evaluation and care of this patient. The physician did have a face to face encounter with the patient. This chart was documented by the indicated scribe, (Jaydon Crawford, Scribe) and accurately reflects the services I performed and decisions made by me, Rachel Francis MD, as attested by the provider's signature.
[2017-06-27] MEDS ORDERED: TYLENOL PO PRN (20:30)
[2017-06-27] MEDS ORDERED: ZOFRAN IV PRN (20:30)
[2017-06-27] MEDS: XOPENEX NEB INH SCH ×2 (20:30→23:30)
[2017-06-27] MEDS: PULMICORT INH SCH (20:30)
[2017-06-27] MEDS: MUCOMYST 20% INH SCH (20:30)
[2017-06-27] MEDS: HUMULIN R SUBQ SCH ×2 (20:30→23:10)
[2017-06-27] MEDS: ATROVENT NEB INH SCH ×2 (20:30→23:30)
[2017-06-27] MEDS: LEVAQUIN 750 MG/D5W 750 MG/150 ML IVPB IV SCH (21:38)
[2017-06-27] MEDS: NS 1,000 ML IV SCH (21:38)
[2017-06-27] MEDS: MAG-OX PO SCH (21:52)
[2017-06-27] MEDS: MELATONIN PO SCH (21:53)
[2017-06-27] MEDS: SINEQUAN PO SCH (21:53)
[2017-06-27] MEDS: PRAVACHOL PO SCH (21:53)
[2017-06-27] MEDS: OXYCONTIN PO SCH (21:53)
[2017-06-27] MEDS: REQUIP PO SCH (21:53)
[2017-06-27] MEDS: SOLU-MEDROL IV SCH (23:10)
[2017-06-28] MEDS: XOPENEX NEB INH SCH ×6 (02:55→23:18)
[2017-06-28] MEDS: ATROVENT NEB INH SCH ×6 (02:55→23:18)
--- NOTE | 2017-06-28 03:43 | HISTORY AND PHYSICAL ---
PRIMARY CARE PROVIDER: Dr. Jan Salinas. CHIEF COMPLAINT: Shortness of breath, fever. HISTORY OF PRESENT ILLNESS: Ms. Sowmya Harper is a 62-year-old female with a medical history of idiopathic pulmonary fibrosis, diabetes mellitus, hyperlipidemia, chronic migraine, who states that this past Tuesday both of her sons were cleaning the floor with 2 different chemicals, Fabuloso and vinegar, and apparently she had a big inhalation of the fumes and started coughing and having shortness of breath since that day. Other symptoms was vomiting, fever, and chills. She states her fever got up to 101.7, that she has a productive cough that is yellow, and despite her home breathing treatments nothing improved the symptoms. She denies any other symptoms. White count has shown to be 27,000. She has bilateral bibasilar pulmonary infiltrates. Lactate is normal at 0.9. Respiratory rate is elevated. Heart rate is up to the 140s. She received Rocephin and azithromycin in the ER. We will admit to the ICU as she is mildly hypotensive with signs of sepsis and consult pulmonary. PAST MEDICAL HISTORY: Idiopathic pulmonary fibrosis, chronic migraines, diabetes mellitus type 2, hyperlipidemia, depression, congestive heart failure. PAST SURGICAL HISTORY: Tonsillectomy, hysterectomy, lung biopsies, adenoidectomy, cholecystectomy. SOCIAL HISTORY: Denies tobacco, alcohol, or illicit drug use. Lives at home with her son. FAMILY HISTORY: Had a niece with cystic fibrosis. Also family history of coronary artery disease and cancer. ALLERGIES: Sulfonamide drugs. HOME MEDICATIONS: Aspirin 81 mg p.o. daily, FiberCon 625 mg p.o. daily, vitamin B12 1000 mcg p.o. daily, doxepin HCL 100 mg p.o. nightly, Breo Ellipta 200-25 mcg inhaled 2 puffs inhaled daily, Lasix 40 mg p.o. daily, [place] 7.5/325 1 tablet p.o. daily p.r.n., albuterol Atrovent inhaled nebulizers 4 times a day, magnesium oxide 500 mg p.o. twice daily, melatonin 10 mg p.o. nightly, Mobic 15 mg p.o. daily, Singulair 10 mg p.o. daily, OxyContin extended release 20 mg p.o. twice daily, Protonix 40 mg p.o. nightly, potassium chloride extended release 20 mEq p.o. twice daily, pravastatin sodium 20 mg p.o. nightly, prednisone 10 mg p.o. nightly, Requip 1 mg p.o. nightly, Spiriva 1 puff inhaled daily. PHYSICAL EXAMINATION: VITAL SIGNS: Temperature 98.3 degrees, heart rate 145, respiratory rate 26, blood pressure 118/75, O2 saturation 100% on 3 L nasal cannula. She is 5 feet 9 inches tall, 174 pounds, BMI is 25.7. GENERAL: Ms. Sowmya Harper is a 62-year-old female. She is in mild distress but is able answer questions appropriately. HEENT: Atraumatic, normocephalic. Pupils equal, round, reactive to light. Extraocular movements intact. Mucous membranes are dry. NECK: Trachea midline. CARDIOVASCULAR: S1, S2. Tachycardic rate and rhythm. No rubs, gallops, murmurs. Negative for JVD or carotid bruits. There are +1 dorsalis pedal pulses and +2 radial pulses. Trace lower extremity edema. EXTREMITIES: Moves all extremities equally. Lower extremities cool. NEUROLOGIC: A O x4. Moves all extremities equally. GI: Soft, nontender, nondistended. Positive bowel sounds x4. SKIN: Warm, dry, intact. LABORATORY DATA: White blood cells 27,000, hemoglobin 12 hematocrit 38, platelet count 221,000. INR is 1.06 PTT is 28.2. ABGs on 3 L nasal cannula, pH 7.45, pCO2 44, PO2 78, bicarb 29, base excess 5.9, saturation 95%, lactate 0.9. Sodium 140, potassium 4.1, BUN 16, creatinine is 1.3, glucose 107, calcium 9.9, magnesium 2.0, bilirubin 0.75, AST 20, ALT 14, CK 31. Troponin less than 0.01. ProBNP 164. IMAGING: Chest x-ray: Bilateral bibasilar acute infiltrates with chronic fibrosis. EKG: Sinus tachycardia, rate is 136, QTc is 406. ASSESSMENT AND PLAN: 1. Community-acquired pneumonia with bibasilar infiltrates with signs of sepsis. Respiratory rate elevated. She is tachycardic. She is afebrile here but apparently was febrile at home up to 101.7. White count is 27,000. Lactate is okay right now at 0.9. Will give IV fluid hydration and dual antibiotic therapy. 2. Chronic idiopathic pulmonary fibrosis. Will continue with nebulizers scheduled. Consult Dr. Russell to follow along. Apparently she had been seen back in 1999 by the [facility]. States that she has been followed by Dr. Russell and Dr. Bernal. Will do p.r.n. nasal cannula as needed for oxygenation. 3. Sepsis, elevated white count, elevated heart rate, respiratory rate. We will obtain a sputum culture, blood cultures, urinalysis to fully evaluate. She is on antibiotic therapy with aggressive IV fluid hydration. Currently lactate is okay at 0.9. She is mildly hypotensive. It appears that she did get a beta-angel while she was in the ER for tachycardia which may have caused more hypotension. We will monitor overnight in the ICU for possible risk of septic shock. 4. Diabetes mellitus type 2. We will do pattern blood glucoses and sliding scale insulin. 5. Chronic migraines. She takes chronic pain medication at home, oxycodone and [place]. Will continue those. 6. Hyperlipidemia. Continue statin. 7. Depression. Continue antidepressants. 8. Dehydration with mild acute kidney injury. Creatinine is 1.3. Should fully were resolve once IV fluid hydration is. Dictated by CARSON Moore for Tyrone Nolasco MD Addendum: Patient seen and examined by myself. Agree with CARSON note. It reflects my assessment and plan. She is being admitted to hospital for a pneumonia. WBC is greatly elevated and she has pulmonary fibrosis. Will start broad spectrum antibiotics, nebulizations with Duoneb and oxygen supplementation. Blood pressure is low so will provide aggressive fluid resuscitation and will send her to ICU in case she needs vasopressors. Will continue to follow closely. cc: MD Demarcus Alaniz MD Raina Brown, CRNP Cesar Garcia-Rodriguez, MD [facility]
[2017-06-28 04:54] LABS: ALLEN TEST YES; BE 6.8 mmoll (-3.0-3.0); BLOOD TYPE ARTERIAL; DRAW SITE R RADIAL; METHB 1.2 % (0.0-1.5); PO2(98.6) 96 mmHg (60-100); SAMPLE BLOOD; THB 10.3 g/dL (11.5-17.4); pH(98.6) 7.32 (7.35-7.45)
[2017-06-28 04:56] LABS: MODALITY CANNULA; PCO2(98.6) 67 mmHg (35-45)
[2017-06-28] MEDS: SOLU-MEDROL IV SCH ×3 (06:09→21:10)
[2017-06-28 06:32] LABS: HEMATOCRIT 30.3 % (37.0-47.0); HEMOGLOBIN 9.6 g/dL (12.0-16.0); IMM GRAN# 0.07 X1000 (0.0-0.04); IMM GRAN% 0.4 % (0.0-0.5); LYMPH# 0.56 X1000 (1.2-3.4); LYMPH% 3.5 % (20.5-51.1); MANUAL DIFF NEEDED? YES; MCH 29.3 PG (27-31); MCHC 31.7 g/dL (33-37); MCV 92.4 FL (81-99); MONO# 0.56 X1000 (0.11-0.59); MONO% 3.5 % (1.7-9.3); MPV 12.1 FL (7.4-10.4); NEUT% 92.6 % (42.2-75.2); PLT 167 X1000 (130-400); RBC 3.28 XMIL (4.2-5.4)
[2017-06-28 06:41] LABS: ALBUMIN 3.6 g/dL (3.5-5.0); CALCIUM 8.9 mg/dL (8.8-10.2); POTASSIUM 4.5 mmol/L (3.5-5.1); TOTAL BILIRUBIN 0.14 mg/dL (0.20-1.00); TOTAL PROTEIN 6.7 g/dL (6.3-8.3)
[2017-06-28 06:43] LABS: LYMPHS 6 % (21-51); MONO 1 % (1-9)
[2017-06-28] MEDS: HUMULIN R SUBQ SCH ×4 (06:44→20:15)
[2017-06-28] MEDS: BREO ELLIPTA 200/25 MCG INH INH SCH (07:13)
[2017-06-28] MEDS: MUCOMYST 20% INH SCH ×2 (07:14→19:15)
[2017-06-28] MEDS: SPIRIVA INH SCH (07:14)
[2017-06-28] MEDS: PULMICORT INH SCH (07:14)
[2017-06-28] MEDS: ASPIRIN PO SCH (08:19)
[2017-06-28] MEDS: PROTONIX PO SCH (08:20)
[2017-06-28] MEDS: LOVENOX SUBQ SCH (08:22)
[2017-06-28] MEDS: MAG-OX PO SCH ×2 (08:23→20:15)
[2017-06-28] MEDS: OXYCONTIN PO SCH ×2 (08:54→20:16)
[2017-06-28] MEDS: FIBERCON PO SCH (08:54)
[2017-06-28] MEDS: VITAMIN B-12 PO SCH (08:55)
[2017-06-28] MEDS: SINGULAIR PO SCH (08:55)
[2017-06-28] MEDS: NS 1,000 ML IV SCH ×3 (10:09→19:20)
[2017-06-28] MEDS ORDERED: ROCEPHIN 1 GM in NS 50 ML IV SCH (14:00)
--- NOTE | 2017-06-28 17:07 | PROGRESS NOTE ---
DATE: 06/28/2017 SUBJECTIVE: Patient reports feeling better, breathing better. He denies any fever or chills. Coughing a little bit better today. OBJECTIVE: Vital Signs: Temperature 97.7 degrees, heart rate 65, respiratory rate 18, blood pressure 92/59, O2 saturation 99% 2 L nasal cannula. General Examination: This is a 62-year-old female lying in bed, in no acute distress. HEENT: Head is normocephalic, atraumatic. Neck: Supple. No JVD noted. No carotid bruits. Cardiovascular: S1, S2 heard. No murmurs, gallops, or rubs. Regular rate and rhythm. Respiratory: Positive breath sounds are still present in both pulmonary jalloh with some mild wheezing noted. Patient is not using any accessory muscles or having work of breathing. Abdomen: Soft, nontender to palpation. Bowel sounds present. No organomegaly. Extremities: No clubbing, cyanosis, or edema. Peripheral pulses present in both legs. Neurological: Patient is alert and oriented x3. Moves 4 extremities. Cranial nerves 2-12 grossly normal. LABORATORY DATA: White cell count 15.99, hemoglobin 9.6, hematocrit 30.3, platelets 167,000, with ABG that shows pH 7.32, pCO2 of 67 on nasal cannula 3 L, and BMP shows 2 blood sugars 190, with 1.1 creatinine. ASSESSMENT AND PLAN: 1. Community-acquired pneumonia. The patient has been started on ceftriaxone and levofloxacin. White cell count has dropped significantly from 27,000 to 15,000. We will continue with the same management. We will continue with the albuterol and Atrovent every 4 hours scheduled. 2. Sepsis secondary to condition #1. Blood pressure is still mildly low in the range of 90s most of the time. The patient reports that her blood pressure ranges between 100 and 120. We will increase the rate of IV fluids from 75 to 125 mL/h normal saline and we will see how this patient does. 3. Chronic idiopathic pulmonary fibrosis. Dr. Russell, Pulmonary, has been consulted. We will follow recommendations. 4. Diabetes mellitus type 2. Patient reports that she is not diabetic. The only time that she got really high blood sugars is when she was on IV steroids. In any case, we prefer to change diet to regular diet. 5. Migraines. We will continue with pain medications. 6. Hyperlipidemia. We will continue with the statin. 7. Depression. We will continue with home medications for this condition. 8. Mild acute kidney injury. That condition is completely resolved. cc: Tyrone Nolasco MD
[2017-06-28] MEDS: LEVAQUIN 750 MG/D5W 750 MG/150 ML IVPB IV SCH (19:44)
[2017-06-28] MEDS: PRAVACHOL PO SCH (20:16)
[2017-06-28] MEDS: MELATONIN PO SCH (20:16)
[2017-06-28] MEDS: REQUIP PO SCH (20:16)
[2017-06-28] MEDS: SINEQUAN PO SCH (20:24)
[2017-06-29] MEDS: ATROVENT NEB INH SCH ×5 (03:21→19:14)
[2017-06-29] MEDS: XOPENEX NEB INH SCH ×5 (03:21→19:14)
[2017-06-29 04:20] LABS: ALLEN TEST YES; BE 6.5 mmoll (-3.0-3.0); BLOOD TYPE ARTERIAL; DRAW SITE R RADIAL; METHB 1.4 % (0.0-1.5); PO2(98.6) 84 mmHg (60-100); SAMPLE BLOOD; SAO2 97.8 % (95.0-100.0); THB 9.6 g/dL (11.5-17.4); pH(98.6) 7.31 (7.35-7.45)
[2017-06-29 04:21] LABS: MODALITY CANNULA; PCO2(98.6) 68 mmHg (35-45)
[2017-06-29 05:02] LABS: EOS# 0.14 X1000 (0.0-0.7); EOS% 0.8 % (0.0-10.0); HEMATOCRIT 28.4 % (37.0-47.0); HEMOGLOBIN 8.9 g/dL (12.0-16.0); IMM GRAN# 0.13 X1000 (0.0-0.04); IMM GRAN% 0.8 % (0.0-0.5); LYMPH# 0.56 X1000 (1.2-3.4); LYMPH% 3.3 % (20.5-51.1); MANUAL DIFF NEEDED? YES; MCH 29.2 PG (27-31); MCHC 31.3 g/dL (33-37); MCV 93.1 FL (81-99); MONO# 0.69 X1000 (0.11-0.59); MONO% 4.1 % (1.7-9.3); MPV 12.8 FL (7.4-10.4); PLT 183 X1000 (130-400); RBC 3.05 XMIL (4.2-5.4)
[2017-06-29 05:11] LABS: AGAP 9; BUN 16 mg/dL (8-22); CALCIUM 9.3 mg/dL (8.8-10.2); CHLORIDE 100 mmol/L (98-107); COSMO 282; POTASSIUM 4.4 mmol/L (3.5-5.1); SODIUM 138 mmol/L (136-145); TCO2 29 mmol/L (25-35)
[2017-06-29] MEDS: HUMULIN R SUBQ SCH ×4 (06:11→20:18)
[2017-06-29] MEDS: SOLU-MEDROL IV SCH ×3 (06:12→21:07)
[2017-06-29] MEDS: PROTONIX PO SCH (06:12)
[2017-06-29 07:15] LABS: BANDS 14 % (0-1); LYMPHS 2 % (21-51); MONO 2 % (1-9)
[2017-06-29 07:16] LABS: HYPOCHROM 1+
[2017-06-29] MEDS: SPIRIVA INH SCH (08:08)
[2017-06-29] MEDS: BREO ELLIPTA 200/25 MCG INH INH SCH (08:08)
[2017-06-29] MEDS: MUCOMYST 20% INH SCH (08:10)
[2017-06-29] MEDS: LOVENOX SUBQ SCH (08:18)
--- NOTE | 2017-06-29 08:42 | CONSULTATION ---
DATE OF CONSULTATION: 06/29/2017 CHIEF COMPLAINT: Shortness of breath and fever. HISTORY OF PRESENT ILLNESS: This is a 62-year-old, female with past medical history of idiopathic pulmonary fibrosis, diabetes, hyperlipidemia, chronic migraines, who has been short of breath and coughing since Tuesday night. She states her symptoms began after breathing a mixture of Fabuloso and vinegar cleaning agents. She also had vomiting, fever, and chills. Diagnostics, thus far, have revealed bilateral bibasilar pulmonary infiltrates as well as hypotension and sepsis. Her symptoms have moderately improved since admission. REVIEW OF SYSTEMS: A 10-point review of systems was conducted, pertinent on HPI , otherwise, noncontributory. PAST MEDICAL HISTORY: As mentioned in HPI, otherwise, noncontributory. PAST SURGICAL HISTORY: Tonsillectomy, hysterectomy, lung biopsies, adenoidectomy, cholecystectomy. ALLERGIES: Sulfonamide drugs. FAMILY HISTORY: Notable for cystic fibrosis, CAD, and cancer. SOCIAL HISTORY: She lives at home with her son. Denies the use of tobacco, alcohol, or illicit drugs. ACTIVE MEDICATIONS: 1. Tylenol. 2. Mucomyst. 3. Aspirin. 4. FiberCon. 5. Rocephin. 6. Vitamin B12. 7. Sinequan. 8. Lovenox. 9. Breo Ellipta. 10. Lortab. 11. Humulin R. 12. Atrovent. 13. Xopenex. 14. Levaquin. 15. Mag-Ox. 16. Melatonin. 17. Solu-Medrol. 18. Singulair. 19. Zofran. 20. OxyContin. 21. Protonix. 22. Pravachol. 23. Requip. 24. Spiriva. PHYSICAL EXAMINATION: Vital Signs: Blood pressure 83/45, heart rate 93, respiratory rate 20, temperature 97.6, oxygen saturation 100%. General: No acute distress noted. HEENT: Normocephalic and atraumatic. PERRL. Cardiovascular: S1-S2 present. Chest: Reduced entry. Abdomen: Soft, nontender, nondistended. Bowel sounds present in all quadrants. Extremities: Distal pulses palpable. No edema noted. Neurologic: Alert and oriented x3. No focal deficits. LABORATORY DATA AND INVESTIGATIONS: WBC 16.77, RBC 3.05, hemoglobin 8.9, hematocrit 28.4, platelet count 183. Sodium 138, potassium 4.4, chloride 100, CO2 of 29, anion gap 9. BUN 16, creatinine 0.9, glucose 192. Blood gas reveals a pH of 7.31, pCO2 of 68, PO2 of 84, HC03 of 30. Base excess 6.5, saturated oxygen 98%. ASSESSMENT AND PLAN: This is a 62-year-old female with past medical history mentioned in the history of present illness, who was admitted to the hospital for: 1. Community-acquired pneumonia and is currently on IV antibiotics as well as inhaled bronchodilators. 2. Sepsis secondary to pneumonia. Fluids and pressors. 3. The patient has a history of chronic idiopathic pulmonary fibrosis. 4. COPD and chronic respiratory failure. 5. Diabetes that requires pattern fingersticks with sliding scale insulin. Continue with antibiotics, GI and DVT prophylaxis, steroids, and inhaled bronchodilators. Further recommendations pending diagnostic studies. Thank you for the courtesy of this consult. Dictated by CARSON Cotto for Paola Bernal MD cc: CARSON Cotto MD MTDD
[2017-06-29] MEDS: OXYCONTIN PO SCH ×3 (08:54→20:19)
[2017-06-29] MEDS: VITAMIN B-12 PO SCH (08:54)
[2017-06-29] MEDS: ASPIRIN PO SCH (08:55)
[2017-06-29] MEDS: SINGULAIR PO SCH (08:55)
[2017-06-29] MEDS: MAG-OX PO SCH ×2 (08:55→20:19)
[2017-06-29] MEDS ORDERED: VANCOMYCIN IV PER PHARMACY MISC SCH (09:00)
--- NOTE | 2017-06-29 09:37 | PROGRESS NOTE ---
DATE: 06/29/2017 SUBJECTIVE: Patient reports feeling better. Denies any fever or chills. She is still coughing but the same in comparing with yesterday. OBJECTIVE: Vital Signs: Temperature 97.6 degrees, heart rate 95, respiratory rate 20, blood pressure 83/45, O2 saturation 94% on 2 L nasal cannula. General Examination: This is a 62-year- old, female lying in bed, in no acute distress. HEENT: Head is normocephalic and atraumatic. Neck: Supple. No JVD noted. No carotid bruits. No lymphadenopathy. No thyromegaly. Cardiovascular Examination: S1 and S2 heard. No murmurs, gallops, or rubs. Regular rate and rhythm. Respiratory Examination: Coarse breath sounds still present in both pulmonary jalloh with mild wheezing noted. Patient is not using any accessory muscles or having work of breathing. Abdomen: Soft, nontender to palpation. Bowel sounds present. No organomegaly. Extremities: No clubbing, cyanosis, or edema. Peripheral pulses present in both legs. Neurological Examination: Patient is alert and oriented x3. Moves 4 extremities. Cranial nerves 2-12 grossly normal. Laboratory Data: White cell count 16.77, hemoglobin 8.9, hematocrit 28.4, platelets 183,000. ABG shows pH 7.31, pCO2 of 68, PO2 84. BMP shows normal renal function and glucose 192. ASSESSMENT/PLAN: 1. Septic shock secondary to community-acquired pneumonia. The patient has been started on ceftriaxone and levofloxacin, and although the first day white cell count dropped from 27,000 to 15,000, today the white cell count is 16,000. Blood pressure has been 80/50 all night long. The patient reports that her usual blood pressure ranges between 100-120 systolic blood pressure. In any case, the patient is on normal saline at 125 mL per hour. We were going to provide 1 bolus of normal saline at 500 mL and if that does not help and blood pressure is still the same, we are going to start vasopressors on this patient. 2. Community-acquired pneumonia. Because of the elevated white cell count and the fact that the blood pressure is still low despite using antibiotics, we prefer to switch those 2 broad spectrum antibiotics. We are going to start vancomycin and Zosyn. We will leave off Levaquin for possible atypical bacteria. 3. Chronic idiopathic pulmonary fibrosis. Dr. Bernal from pulmonary has been consulted. We will follow his recommendations. 4. Vaginal candidiasis, most likely secondary to antibiotic use. Patient will be provided fluconazole. 5. Diabetes mellitus type 2. The patient reports that she is not diabetic and the only time that blood sugars started getting higher is when she is admitted to the hospital and she receives intravenous steroids. In any case, she is on sliding scale level 2. We will continue with the same management. 6. Migraines. The patient is not complaining of any headache since she was admitted to the hospital. 7. Hyperlipidemia. We will continue with the statins. The patient will continue home medications for the condition. 8. Acute kidney injury. That condition is completely resolved. 9. Disposition. We are going to continue to monitor this patient closely here in the intensive care unit. cc: Tyrone Nolasco MD
[2017-06-29] MEDS: DIFLUCAN PO SCH (09:45)
[2017-06-29] MEDS: ZOSYN 3.375 GM in NS 50 ML IV SCH ×3 (09:46→21:07)
[2017-06-29] MEDS ORDERED: CALMOSEPTINE OINTMENT TOP PRN (09:52)
--- NOTE | 2017-06-29 10:58 | Diag Imaging Result Doc PS360 ---
EXAM: CT THORAX W/O CONTRAST HISTORY: pna, septic shock TECHNIQUE: CT chest without contrast. Dose reduction technique. COMPARISON: 05/14/2017 FINDINGS: No pleural effusions. Heart is mildly enlarged. No thoracic aortic aneurysm. Mildly prominent mediastinal adenopathy similar to the prior exam. There is prominent bronchiectasis as well as fibrosis. There are underlying emphysematous changes. Markings in the right middle lobe are less pronounced than oral prior study. Mild compression fracture to a mid thoracic vertebra. I believe this is the T6 vertebra. No change from prior exam. IMPRESSION: Prominent bilateral bronchiectasis and fibrosis. Near complete clearing of the right middle lobe infiltrate. Electronically signed by Moose Morgan 06/29/2017 10:55 AM
[2017-06-29] MEDS: FIBERCON PO SCH (11:25)
[2017-06-29] MEDS ORDERED: VANCOMYCIN 2.2 GM in NS 500 ML IV ONE (12:00)
[2017-06-29] MEDS ORDERED: HYDROCORTISONE 1% CREAM TOP PRN (14:06)
[2017-06-29] MEDS: BENADRYL PO PRN ×2 (14:55→20:19)
[2017-06-29] MEDS: LEVAQUIN 750 MG/D5W 750 MG/150 ML IVPB IV SCH (19:30)
[2017-06-29] MEDS: PRAVACHOL PO SCH (20:19)
[2017-06-29] MEDS: MELATONIN PO SCH (20:19)
[2017-06-29] MEDS: REQUIP PO SCH (20:19)
[2017-06-29] MEDS: SINEQUAN PO SCH (21:30)
[2017-06-30] MEDS: ATROVENT NEB INH SCH ×7 (00:03→23:15)
[2017-06-30] MEDS: XOPENEX NEB INH SCH ×7 (00:03→23:15)
[2017-06-30] MEDS: ZOSYN 3.375 GM in NS 50 ML IV SCH ×4 (04:13→21:42)
[2017-06-30 04:33] LABS: ALLEN TEST YES; BLOOD TYPE ARTERIAL; DRAW SITE R RADIAL; METHB 1.1 % (0.0-1.5); O2(CT) 13.1 mL/dL (15.0-23.0); PO2(98.6) 162 mmHg (60-100); SAMPLE BLOOD; SAO2 99.4 % (95.0-100.0); THB 9.3 g/dL (11.5-17.4); pH(98.6) 7.41 (7.35-7.45)
[2017-06-30 04:35] LABS: MODALITY BI PAP; PCO2(98.6) 55 mmHg (35-45)
[2017-06-30 05:32] LABS: EOS# 0.03 X1000 (0.0-0.7); EOS% 0.3 % (0.0-10.0); HEMATOCRIT 33.9 % (37.0-47.0); HEMOGLOBIN 10.4 g/dL (12.0-16.0); IMM GRAN# 0.06 X1000 (0.0-0.04); IMM GRAN% 0.5 % (0.0-0.5); LYMPH# 0.51 X1000 (1.2-3.4); LYMPH% 4.5 % (20.5-51.1); MANUAL DIFF NEEDED? NO; MCH 29.2 PG (27-31); MCHC 30.7 g/dL (33-37); MCV 95.2 FL (81-99); MONO# 0.34 X1000 (0.11-0.59); MPV 12.3 FL (7.4-10.4); NEUT% 91.7 % (42.2-75.2); PLT 208 X1000 (130-400); RBC 3.56 XMIL (4.2-5.4)
[2017-06-30] MEDS: SOLU-MEDROL IV SCH ×3 (05:48→21:43)
[2017-06-30] MEDS: PROTONIX PO SCH (05:59)
[2017-06-30] MEDS: HUMULIN R SUBQ SCH ×4 (06:00→21:45)
[2017-06-30 06:31] LABS: AGAP 15; BUN 17 mg/dL (8-22); CALCIUM 9.6 mg/dL (8.8-10.2); CHLORIDE 101 mmol/L (98-107); COSMO 292; POTASSIUM 4.8 mmol/L (3.5-5.1); SODIUM 144 mmol/L (136-145); TCO2 28 mmol/L (25-35)
[2017-06-30] MEDS: VITAMIN B-12 PO SCH (08:06)
[2017-06-30] MEDS: FIBERCON PO SCH (08:06)
[2017-06-30] MEDS: OXYCONTIN PO SCH ×2 (08:06→21:44)
[2017-06-30] MEDS: SINGULAIR PO SCH (08:06)
[2017-06-30] MEDS: DIFLUCAN PO SCH (08:08)
[2017-06-30] MEDS: LOVENOX SUBQ SCH (08:08)
[2017-06-30] MEDS: MAG-OX PO SCH ×2 (08:08→21:44)
[2017-06-30] MEDS: ASPIRIN PO SCH (08:08)
[2017-06-30] MEDS: SPIRIVA INH SCH (08:17)
[2017-06-30] MEDS: BREO ELLIPTA 200/25 MCG INH INH SCH (08:17)
--- NOTE | 2017-06-30 09:44 | PROGRESS NOTE ---
DATE: 06/30/2017 SUBJECTIVE: Patient reports feeling better. No fever or chills reported. OBJECTIVE: Vital Signs: Temperature 98.2 degrees, heart rate 63, respiratory rate 18, blood pressure 121/70, O2 saturation 96% 2 L nasal cannula. General Examination: This is a 62-year-old female lying in bed, in no acute distress. HEENT: Head is normocephalic, atraumatic. Neck: Supple. No JVD noted. No carotid bruits. Cardiovascular: S1, S2 heard. No murmurs, gallops, or rubs. Regular rate and rhythm. Respiratory: Coarse breath sounds is still present in both pulmonary jalloh with no wheezing noted. Patient is not using any accessory muscles or having work of breathing. Abdomen: Soft, nontender to palpation. Bowel sounds present. No organomegaly. Extremities: No clubbing, cyanosis, or edema. Peripheral pulses present in both legs. Neurological: Patient alert and oriented x3. Moves 4 extremities. LABORATORY DATA: White cell count 11.3, hemoglobin 10.4, hematocrit 33.9, platelets with ABG that shows pH 7.31 with pCO2 55. That ABG was taken on BiPAP. BMP unremarkable except glucose 164. The CT of the chest done yesterday showed prominent bilateral bronchiectasis and fibrosis, but near complete occlusion of the right middle lobe infiltrate. ASSESSMENT AND PLAN: 1. Septic shock secondary to community-acquired pneumonia. By now, this patient is doing fine with blood pressure that is most of the time systolic blood pressure 100 and above. Her usual blood pressure is within the range too. The patient has been started yesterday on vancomycin and Zosyn. We have continued with levofloxacin. The white cell count is almost back to normal at 11,000 today. At this point, we are going to continue with the same management. We are going to transfer this patient out of the unit today. She was never on vasopressors. 2. Community-acquired pneumonia. As I mentioned before, we will continue with antibiotics as above, and white cell count is almost back to normal. 3. Chronic idiopathic pulmonary fibrosis. Pulmonary is following this patient. We will continue with the same management. 4. Vaginal candidiasis. Patient reports that she is feeling better on this condition. Patient will continue receiving fluconazole here. 5. Diabetes mellitus type 2. Patient actually does not have diabetes. The blood sugar goes high because of the steroids. At this point, we will use insulin sliding scale. She is not going to be given any medications for diabetes. 6. Migraines. The patient does not complain of any headache in here. 7. Hyperlipidemia. We will continue with the statin. 8. Acute kidney injury, resolved. 9. Disposition. We are going to transfer this patient out to the intensive care unit. cc: Tyrone Nolasco MD
[2017-06-30] MEDS: VANCOMYCIN 1.8 GM in NS 250 ML IV SCH (11:58)
[2017-06-30] MEDS: NORCO-7.5 PO PRN (14:25)
[2017-06-30] MEDS: LEVAQUIN 750 MG/D5W 750 MG/150 ML IVPB IV SCH (21:42)
[2017-06-30] MEDS: REQUIP PO SCH (21:43)
[2017-06-30] MEDS: MELATONIN PO SCH (21:43)
[2017-06-30] MEDS: SINEQUAN PO SCH (21:43)
[2017-06-30] MEDS: PRAVACHOL PO SCH (21:44)
[2017-07-01] MEDS: XOPENEX NEB INH SCH ×8 (03:15→23:05)
[2017-07-01] MEDS: ATROVENT NEB INH SCH ×8 (03:15→23:05)
[2017-07-01] MEDS ORDERED: ZOSYN ONE (04:18)
[2017-07-01] MEDS: ZOSYN 3.375 GM in NS 50 ML IV SCH ×4 (04:23→21:58)
[2017-07-01 04:41] LABS: ALLEN TEST YES; BE 8.5 mmoll (-3.0-3.0); BLOOD TYPE ARTERIAL; DRAW SITE R RADIAL; METHB 1.2 % (0.0-1.5); O2(CT) 17.4 mL/dL (15.0-23.0); PO2(98.6) 121 mmHg (60-100); SAMPLE BLOOD; SAO2 99.6 % (95.0-100.0); THB 12.6 g/dL (11.5-17.4); pH(98.6) 7.35 (7.35-7.45)
[2017-07-01 04:43] LABS: MODALITY CANNULA; PCO2(98.6) 66 mmHg (35-45)
[2017-07-01] MEDS: SOLU-MEDROL IV SCH ×4 (05:29→21:58)
[2017-07-01] MEDS: HUMULIN R SUBQ SCH ×4 (06:02→20:33)
[2017-07-01 06:05] LABS: BASO% 0.1 % (0.0-0.8); HEMATOCRIT 28.5 % (37.0-47.0); HEMOGLOBIN 8.7 g/dL (12.0-16.0); IMM GRAN# 0.11 X1000 (0.0-0.04); IMM GRAN% 1.5 % (0.0-0.5); LYMPH# 0.54 X1000 (1.2-3.4); LYMPH% 7.3 % (20.5-51.1); MANUAL DIFF NEEDED? YES; MCH 29.2 PG (27-31); MCHC 30.5 g/dL (33-37); MCV 95.6 FL (81-99); MONO# 0.29 X1000 (0.11-0.59); MONO% 3.9 % (1.7-9.3); MPV 11.9 FL (7.4-10.4); NEUT% 87.2 % (42.2-75.2); PLT 182 X1000 (130-400); RBC 2.98 XMIL (4.2-5.4)
[2017-07-01 06:06] LABS: AGAP 7; BUN 17 mg/dL (8-22); CALCIUM 9.7 mg/dL (8.8-10.2); CHLORIDE 104 mmol/L (98-107); COSMO 293; POTASSIUM 4.5 mmol/L (3.5-5.1); SODIUM 145 mmol/L (136-145); TCO2 34 mmol/L (25-35)
[2017-07-01] MEDS: PROTONIX PO SCH (06:14)
[2017-07-01 06:52] LABS: LYMPHS 8 % (21-51); MONO 4 % (1-9)
--- NOTE | 2017-07-01 07:40 | Diag Imaging Result Doc PS360 ---
EXAM: CHEST-1 VIEW INDICATION: SOB TECHNIQUE: One view COMPARISON: 06/27/2017 FINDINGS: Increased interstitial markings with a basilar predominance persist but appear to have improved slightly. No new consolidation is appreciated. Similar to the previous study, there is probably a small right effusion versus chronic pleural thickening. Cardiac silhouette is stable. IMPRESSION: Interval slight improvement of increased interstitial markings at the lung bases. Electronically signed by Johann Valerio 07/01/2017 7:38 AM
[2017-07-01] MEDS: BREO ELLIPTA 200/25 MCG INH INH SCH ×2 (07:50→09:31)
[2017-07-01] MEDS: SPIRIVA INH SCH ×2 (07:50→09:30)
[2017-07-01] MEDS: OXYCONTIN PO SCH ×2 (09:06→20:32)
[2017-07-01] MEDS: LOVENOX SUBQ SCH (09:07)
[2017-07-01] MEDS: MAG-OX PO SCH ×2 (09:07→20:32)
[2017-07-01] MEDS: VITAMIN B-12 PO SCH (09:07)
[2017-07-01] MEDS: DIFLUCAN PO SCH (09:09)
[2017-07-01] MEDS: FIBERCON PO SCH (09:10)
[2017-07-01] MEDS: ASPIRIN PO SCH (09:11)
[2017-07-01] MEDS: SINGULAIR PO SCH (09:11)
[2017-07-01] MEDS: VANCOMYCIN 1.8 GM in NS 250 ML IV SCH (11:32)
[2017-07-01] MEDS: NORCO-7.5 PO PRN (16:34)
--- NOTE | 2017-07-01 17:54 | PROGRESS NOTE ---
DATE: 07/01/2017 SUBJECTIVE: Patient reports feeling better. Definitely not short of breath today. Still coughing. OBJECTIVE: Vital Signs: Temperature 98.4, heart rate 85, respiratory rate 16, blood pressure 161/80. O2 saturation 97% on room air. General: Examination, this is a 62-year-old female lying in bed, in no acute distress. HEENT: Head is normocephalic, atraumatic. Neck: Supple. No JVD noted. No carotid bruits. No lymphadenopathy. No thyromegaly. Cardiovascular: S1, S2 heard. No murmurs, gallops, or rubs. Regular rate and rhythm. Respiratory: Coarse breath sounds still present in both pulmonary jalloh. Same in comparing with previous days. No wheezing noted. Patient is not using any accessory muscles or work of breathing. Abdomen: Soft, nontender to palpation. Bowel sounds present. No organomegaly. Extremities: No clubbing, cyanosis, or edema. Peripheral pulses present in both legs. Neurological: Patient is alert and oriented x3. Moves 4 extremities. LABORATORY DATA: White cell count 7.32, hemoglobin 8.7, hematocrit 28.5, platelets 182. ABG shows pH 7.35 with pCO2 of 66, pO2 of 121. BMP normal except 155 blood sugars. ASSESSMENT AND PLAN: 1. Sepsis, secondary to community-acquired pneumonia. Patient is on vancomycin and Zosyn. White cell count is back to normal finally today. Also, she is on levofloxacin. At this point, we are going to continue with the same management. We are going to continue with IV fluids. 2. Community-acquired pneumonia on antibiotics as above. 3. Chronic idiopathic pulmonary fibrosis. Patient is on her usual oxygen need baseline, which is 2 L/minute. The only thing on this patient is the CO2 that is still high. Recommended patient, also instructed the nurse, to use BiPAP at least from 10 p.m. to 6 a.m. and see how she does. 4. Vaginal candidiasis. Patient is getting better. We will continue fluconazole. 5. Diabetes mellitus type 2. As we mentioned before, patient does not have any diabetes. Just the steroids that makes those blood sugars go up. At this point, we are going to use insulin sliding scale, but she is not going to be given any medication for diabetes. 6. Migraines. She does not have any headache. 7. Hyperlipidemia. We will continue the statin. 8. Acute kidney injury, resolved. DISPOSITION: We are going to keep this patient over the weekend and if she is feeling better and CO2 is better, we are going to discharge her Tuesday. Patient is working with physical therapy. cc: Tyrone Nolasco MD
[2017-07-01] MEDS: MELATONIN PO SCH (20:32)
[2017-07-01] MEDS: LEVAQUIN 750 MG/D5W 750 MG/150 ML IVPB IV SCH (20:32)
[2017-07-01] MEDS: SINEQUAN PO SCH (20:32)
[2017-07-01] MEDS: REQUIP PO SCH (20:32)
[2017-07-01] MEDS: PRAVACHOL PO SCH (20:32)
[2017-07-02] MEDS: ZOSYN 3.375 GM in NS 50 ML IV SCH ×4 (05:16→23:27)
[2017-07-02] MEDS: SOLU-MEDROL IV SCH ×3 (05:16→21:14)
[2017-07-02 05:25] LABS: ALLEN TEST YES; BE 15.5 mmoll (-3.0-3.0); BLOOD TYPE ARTERIAL; DRAW SITE R RADIAL; METHB 0.9 % (0.0-1.5); O2(CT) 12.5 mL/dL (15.0-23.0); PO2(98.6) 76 mmHg (60-100); SAMPLE BLOOD; THB 9.2 g/dL (11.5-17.4); pH(98.6) 7.42 (7.35-7.45)
[2017-07-02 05:27] LABS: MODALITY BI PAP; PCO2(98.6) 65 mmHg (35-45)
[2017-07-02] MEDS: PROTONIX PO SCH ×2 (05:54→06:16)
[2017-07-02 06:08] LABS: MANUAL DIFF NEEDED? NO
[2017-07-02 06:11] LABS: BASO% 0.1 % (0.0-0.8); EOS# 0.01 X1000 (0.0-0.7); EOS% 0.1 % (0.0-10.0); HEMATOCRIT 29.9 % (37.0-47.0); IMM GRAN# 0.34 X1000 (0.0-0.04); LYMPH# 0.82 X1000 (1.2-3.4); LYMPH% 9.6 % (20.5-51.1); MCH 28.7 PG (27-31); MCHC 30.1 g/dL (33-37); MCV 95.2 FL (81-99); MONO# 0.52 X1000 (0.11-0.59); MONO% 6.1 % (1.7-9.3); MPV 11.6 FL (7.4-10.4); NEUT% 80.1 % (42.2-75.2); PLT 197 X1000 (130-400); RBC 3.14 XMIL (4.2-5.4)
[2017-07-02] MEDS: HUMULIN R SUBQ SCH ×4 (06:16→21:15)
[2017-07-02 06:25] LABS: AGAP 5; BUN 16 mg/dL (8-22); CALCIUM 8.9 mg/dL (8.8-10.2); CHLORIDE 100 mmol/L (98-107); COSMO 289; POTASSIUM 4.3 mmol/L (3.5-5.1); SODIUM 143 mmol/L (136-145); TCO2 38 mmol/L (25-35)
[2017-07-02] MEDS: XOPENEX NEB INH SCH ×5 (08:06→23:19)
[2017-07-02] MEDS: ATROVENT NEB INH SCH ×5 (08:06→23:19)
[2017-07-02] MEDS: BREO ELLIPTA 200/25 MCG INH INH SCH (08:07)
[2017-07-02] MEDS: SPIRIVA INH SCH (08:07)
[2017-07-02] MEDS: ASPIRIN PO SCH (08:09)
[2017-07-02] MEDS: SINGULAIR PO SCH (08:09)
[2017-07-02] MEDS: FIBERCON PO SCH (08:10)
[2017-07-02] MEDS: VITAMIN B-12 PO SCH (08:10)
[2017-07-02] MEDS: OXYCONTIN PO SCH ×2 (08:10→21:12)
[2017-07-02] MEDS: LOVENOX SUBQ SCH (08:10)
[2017-07-02] MEDS: MAG-OX PO SCH ×2 (08:10→21:18)
[2017-07-02] MEDS ORDERED: LASIX IV ONE (10:15)
[2017-07-02] MEDS: VANCOMYCIN 1.8 GM in NS 250 ML IV SCH (13:45)
[2017-07-02] MEDS: NORCO-7.5 PO PRN ×2 (14:01→23:17)
--- NOTE | 2017-07-02 14:38 | Diag Imaging Result Doc PS360 ---
EXAM: CHEST-2 VIEWS INDICATION: pna TECHNIQUE: 2 views COMPARISON: 07/01/2017 FINDINGS: Inspiration is suboptimal. Bilateral increased interstitial markings are approximately stable. Most of this probably represents fibrosis. No new consolidation is appreciated. Cardiac silhouette is stable. IMPRESSION: Stable chest. Electronically signed by Johann Valerio 07/02/2017 2:36 PM
--- NOTE | 2017-07-02 17:14 | PROGRESS NOTE ---
DATE: 07/02/2017 SUBJECTIVE: Patient reports feeling fine. Denies any fever, chills. OBJECTIVE: Vital Signs: Temperature 98.0 degrees, heart rate 65, respiratory 16, blood pressure 152/79, O2 saturation 100% on 2 L nasal cannula. General Examination: This is a 62- year-old female lying in bed in no acute distress. HEENT: Head is normocephalic, atraumatic. Neck: Supple. No JVD noted. No carotid bruits. No lymphadenopathy. No thyromegaly. Cardiovascular: S1, S2 heard. No murmurs, gallops, or rubs. Regular rate and rhythm. Respiratory: Coarse breath sounds still noted in both pulmonary jalloh but patient is not using any accessory muscles or having work of breathing. Abdomen: Soft, nontender to palpation. Bowel sounds present. No organomegaly. Extremities: No clubbing, cyanosis, or edema. Peripheral pulses present in both legs. Neurologic: Patient alert and oriented x3. Moves 4 extremities. LABORATORY DATA: Reviewed. ASSESSMENT AND PLAN: 1. Sepsis secondary to community-acquired pneumonia. Patient on vancomycin and Zosyn. White cell count back to normal. Will continue with same management. 2. Chronic idiopathic pulmonary fibrosis. Continue with BiPAP because CO2 is high. 3. Vaginal candidiasis better. Patient receiving fluconazole. 4. Diabetes mellitus type 2 stable, will continue with sliding scale insulin. 5. Migraines, no headaches reported. 6. Hyperlipidemia. Will continue with the statin. 7. Acute kidney injury resolved. 8. We are going to continue keeping this patient here in the hospital over the weekend until Tuesday and will continue with physical therapy as well. cc: Tyrone Nolasco MD
[2017-07-02] MEDS: REQUIP PO SCH (21:12)
[2017-07-02] MEDS: PRAVACHOL PO SCH (21:12)
[2017-07-02] MEDS: MELATONIN PO SCH (21:14)
[2017-07-02] MEDS: SINEQUAN PO SCH (21:14)
[2017-07-02] MEDS: LEVAQUIN 750 MG/D5W 750 MG/150 ML IVPB IV SCH (21:20)
[2017-07-03] MEDS: ATROVENT NEB INH SCH ×6 (04:09→23:22)
[2017-07-03] MEDS: XOPENEX NEB INH SCH ×6 (04:09→23:22)
[2017-07-03] MEDS: ZOSYN 3.375 GM in NS 50 ML IV SCH ×4 (04:34→22:16)
[2017-07-03] MEDS: NORCO-7.5 PO PRN ×4 (04:35→23:19)
[2017-07-03 06:04] LABS: BASO% 0.4 % (0.0-0.8); HEMATOCRIT 33.5 % (37.0-47.0); HEMOGLOBIN 10.5 g/dL (12.0-16.0); IMM GRAN# 0.53 X1000 (0.0-0.04); IMM GRAN% 6.3 % (0.0-0.5); LYMPH# 0.75 X1000 (1.2-3.4); LYMPH% 8.9 % (20.5-51.1); MANUAL DIFF NEEDED? YES; MCH 29.3 PG (27-31); MCHC 31.3 g/dL (33-37); MCV 93.6 FL (81-99); MONO# 0.74 X1000 (0.11-0.59); MONO% 8.7 % (1.7-9.3); MPV 11.5 FL (7.4-10.4); NEUT% 75.7 % (42.2-75.2); PLT 216 X1000 (130-400); RBC 3.58 XMIL (4.2-5.4)
[2017-07-03] MEDS: SOLU-MEDROL IV SCH ×3 (06:15→22:16)
[2017-07-03] MEDS: VANCOMYCIN 1.8 GM in NS 250 ML IV SCH (06:16)
[2017-07-03] MEDS: PROTONIX PO SCH (06:16)
[2017-07-03] MEDS: HUMULIN R SUBQ SCH ×4 (06:17→22:15)
[2017-07-03 06:27] LABS: AGAP 10; BUN 18 mg/dL (8-22); CALCIUM 9.3 mg/dL (8.8-10.2); CHLORIDE 96 mmol/L (98-107); COSMO 292; SODIUM 144 mmol/L (136-145); TCO2 38 mmol/L (25-35)
[2017-07-03 06:48] LABS: BANDS 4 % (0-1); LYMPHS 18 % (21-51)
[2017-07-03] MEDS: BREO ELLIPTA 200/25 MCG INH INH SCH (08:05)
[2017-07-03] MEDS: SPIRIVA INH SCH (08:05)
[2017-07-03] MEDS: LOVENOX SUBQ SCH (08:34)
[2017-07-03] MEDS: SINGULAIR PO SCH (08:35)
[2017-07-03] MEDS: MAG-OX PO SCH ×2 (08:35→20:44)
[2017-07-03] MEDS: OXYCONTIN PO SCH ×2 (08:35→20:43)
[2017-07-03] MEDS: VITAMIN B-12 PO SCH (08:35)
[2017-07-03] MEDS: ASPIRIN PO SCH (08:36)
[2017-07-03] MEDS: FIBERCON PO SCH (10:31)
--- NOTE | 2017-07-03 13:36 | PROGRESS NOTE ---
DATE: 07/03/2017 SUBJECTIVE: Patient reports she is breathing better. She reports that she was using BiPAP last night. She denies any fever or chills. She is still having a mild cough. OBJECTIVE: Vital Signs: Temperature 98.0, heart rate 69, respiratory rate 18, blood pressure 153/78, O2 saturation 100% on 2 L nasal cannula. General: This is a 62-year-old female lying in bed, in no acute distress. HEENT: Head is normocephalic and atraumatic. Neck: Supple. No JVD noted. No carotid bruits. Cardiovascular: S1, S2 heard. No murmurs, gallops, or rubs. Regular rate and rhythm. Respiratory: Coarse breath sounds still present in both pulmonary jalloh, but patient is not using any accessory muscles or having work of breathing. Abdomen: Soft, nontender to palpation. Bowel sounds present. No organomegaly. Extremities: No clubbing, cyanosis, or edema. Peripheral pulses present in both legs. Neurological: Patient alert, oriented x3. Moves 4 extremities. LABORATORY DATA: White cell count 8.46, hemoglobin 10.5, hematocrit 33.5, platelets 216. No ABG from today. BMP remarkable for blood sugar 161. ASSESSMENT AND PLAN: 1. Sepsis, secondary to community-acquired pneumonia. Patient on vancomycin, Zosyn, and levofloxacin. White cell count is back to normal for the last 3 days. She is on 2 L of oxygen by nasal cannula, which is the amount of oxygen that she uses at home. We will continue at this point with the same management. 2. Acute hypercapnic respiratory failure secondary to pneumonia. The patient is on BIPAP at night, but CO2 is still high during the last 3 days. We have not checked ABG today, but we have recommend this patient to continue using BiPAP at night. We will check ABG tomorrow. 3. Vaginal candidiasis, resolved. 4. Diabetes mellitus, type 2. Actually, as was mentioned before, the patient does not have any diabetes. She just has high blood sugar secondary to IV steroids. At this time, we will continue with the sliding scale insulin. 5. Migraines. No headache is reported. 6. Hyperlipidemia. We will continue with home medications. 7. Acute kidney injury, resolved. 8. Disposition: We are going to keep this patient most likely until this Tuesday, for the next 2- 3 days. Hopefully, she will be ready to discharge when CO2 is almost back to normal, or at least in the range of low 50s. cc: Tyrone Nolasco MD
[2017-07-03] MEDS: SINEQUAN PO SCH (20:43)
[2017-07-03] MEDS: REQUIP PO SCH (20:43)
[2017-07-03] MEDS: PRAVACHOL PO SCH (20:43)
[2017-07-03] MEDS: LEVAQUIN 750 MG/D5W 750 MG/150 ML IVPB IV SCH (20:45)
[2017-07-03] MEDS: MELATONIN PO SCH (21:27)
[2017-07-04] MEDS: VANCOMYCIN 1.8 GM in NS 250 ML IV SCH ×2 (00:24→22:59)
[2017-07-04] MEDS: XOPENEX NEB INH SCH ×6 (03:37→23:35)
[2017-07-04] MEDS: ATROVENT NEB INH SCH ×6 (03:37→23:35)
[2017-07-04] MEDS: ZOSYN 3.375 GM in NS 50 ML IV SCH ×3 (03:38→16:00)
[2017-07-04 04:47] LABS: ALLEN TEST YES; BLOOD TYPE ARTERIAL; DRAW SITE R RADIAL; PO2(98.6) 121 mmHg (60-100); SAMPLE BLOOD; SAO2 99.6 % (95.0-100.0); pH(98.6) 7.39 (7.35-7.45)
[2017-07-04 04:48] LABS: MODALITY BI PAP
[2017-07-04 04:51] LABS: PCO2(98.6) 67 mmHg (35-45)
[2017-07-04 05:55] LABS: BASO% 0.3 % (0.0-0.8); HEMATOCRIT 33.6 % (37.0-47.0); HEMOGLOBIN 10.1 g/dL (12.0-16.0); IMM GRAN% 8.9 % (0.0-0.5); LYMPH# 0.62 X1000 (1.2-3.4); LYMPH% 6.9 % (20.5-51.1); MANUAL DIFF NEEDED? YES; MCH 28.1 PG (27-31); MCHC 30.1 g/dL (33-37); MCV 93.3 FL (81-99); MONO# 0.87 X1000 (0.11-0.59); MONO% 9.7 % (1.7-9.3); MPV 10.9 FL (7.4-10.4); NEUT% 74.2 % (42.2-75.2); PLT 216 X1000 (130-400)
[2017-07-04 06:07] LABS: CALCIUM 9.2 mg/dL (8.8-10.2)
[2017-07-04] MEDS: NORCO-7.5 PO PRN ×2 (06:20→14:36)
[2017-07-04] MEDS: PROTONIX PO SCH (06:21)
[2017-07-04] MEDS: SOLU-MEDROL IV SCH ×4 (06:21→23:01)
[2017-07-04] MEDS: HUMULIN R SUBQ SCH ×4 (06:31→20:13)
[2017-07-04 06:57] LABS: BANDS 6 % (0-1); HYPOCHROM 1+; LYMPHS 12 % (21-51)
[2017-07-04] MEDS: BREO ELLIPTA 200/25 MCG INH INH SCH (07:49)
[2017-07-04] MEDS: LOVENOX SUBQ SCH (08:30)
[2017-07-04] MEDS: OXYCONTIN PO SCH ×2 (08:30→20:12)
[2017-07-04] MEDS: SINGULAIR PO SCH (08:30)
[2017-07-04] MEDS: MAG-OX PO SCH ×2 (08:31→20:12)
[2017-07-04] MEDS: VITAMIN B-12 PO SCH (08:31)
[2017-07-04] MEDS: ASPIRIN PO SCH (08:31)
[2017-07-04] MEDS: FIBERCON PO SCH (08:31)
--- NOTE | 2017-07-04 11:13 | PROGRESS NOTE ---
DATE: 07/04/2017 SUBJECTIVE: Patient reports breathing better. Less cough. No fever or chills reported. She was using her BiPAP at night as she is supposed to. OBJECTIVE: Vital Signs: Temperature 98.7, heart rate 85, respiratory rate 18, blood pressure 151/86, O2 saturation 96% on 2 L nasal cannula. General Examination: This is a 62-year-old, female lying in bed, in no acute distress. HEENT: Head is normocephalic and atraumatic. Anicteric sclerae and pale conjunctivae. Mucous membranes moist. Neck: Supple. No JVD noted. No carotid bruits. No lymphadenopathy. No thyromegaly. Cardiovascular Examination: S1 and S2 heard. No murmurs, gallops, or rubs. Regular rate and rhythm. Respiratory Examination: Coarse breath sounds are still present in both pulmonary jalloh but less in comparing with previous days. Patient is not using any accessory muscles or having work of breathing. Abdomen: Soft, nontender to palpation. Bowel sounds present. No organomegaly. Extremities: No clubbing, cyanosis, or edema. Peripheral pulses present in both legs. Neurological Examination: Patient is alert and oriented x3. Moves 4 extremities. Laboratory Data: The CBC shows white cell count 8.96, hemoglobin 10.1, hematocrit 33.6, platelets 216,000. ABG shows pH 7.39, pCO2 67, PO2 121, with normal BMP. ASSESSMENT AND PLAN: 1. Sepsis secondary to community-acquired pneumonia. Patient is on vancomycin, Zosyn, and levofloxacin. She has been on those medications since admission. White cell count is back to normal for the last 4 days. She is requiring 2 L of oxygen per nasal cannula which is what she uses at home. We will continue with breathing treatments every 4 hours as scheduled. 2. Acute hypercapnic respiratory failure secondary to pneumonia. Patient is on BiPAP at night. This patient is having a pCO2 that is ranging from [address] Bernal is her primary dimensional engineer. Patient has a BiPAP machine at home. We will check with him when she is ready to go from his standpoint. My understanding is that she may need to stay until we reach levels in the 50s but in any case, we prefer to check with Dr. Bernal to see what he thinks. 3. Vaginal candidiasis, resolved. 4. Diabetes mellitus type 2. We have mentioned in our previous notes before, patient does not have any diabetes. She had elevated blood sugars when she received steroids. At discharge, she is not going to receive anything for diabetes. 5. Migraines, resolved. 6. Hyperlipidemia. We will continue home medications. 7. Acute kidney injury, resolved. 8. Disposition. Clinically, this patient is doing good. Patient is working with physical therapy and walking with them, and having just mild shortness of breath. Regarding the pCO2, this is still elevated. We will check with Dr. Bernal when she is able to go. cc: Tyrone Nolasco MD
[2017-07-04] MEDS: SPIRIVA INH SCH (11:38)
[2017-07-04] MEDS: PRAVACHOL PO SCH (20:12)
[2017-07-04] MEDS: SINEQUAN PO SCH (20:12)
[2017-07-04] MEDS: MELATONIN PO SCH (20:13)
[2017-07-04] MEDS: REQUIP PO SCH (20:13)
[2017-07-04] MEDS: LEVAQUIN 750 MG/D5W 750 MG/150 ML IVPB IV SCH (20:24)
[2017-07-05] MEDS: ZOSYN 3.375 GM in NS 50 ML IV SCH ×2 (01:31→06:30)
[2017-07-05] MEDS: NORCO-7.5 PO PRN (01:31)
[2017-07-05 02:09] VITALS: BP 129/72
[2017-07-05] MEDS: ATROVENT NEB INH SCH ×3 (03:30→11:34)
[2017-07-05] MEDS: XOPENEX NEB INH SCH ×3 (03:38→11:35)
[2017-07-05] MEDS ORDERED: ZOSYN ONE ×2 (05:50→06:15)
[2017-07-05] MEDS: PROTONIX PO SCH (06:07)
[2017-07-05] MEDS: SOLU-MEDROL IV SCH (06:08)
[2017-07-05] MEDS: HUMULIN R SUBQ SCH (06:32)
[2017-07-05] MEDS: BREO ELLIPTA 200/25 MCG INH INH SCH (08:04)
[2017-07-05] MEDS: SPIRIVA INH SCH (08:04)
[2017-07-05] MEDS: FIBERCON PO SCH (08:36)
[2017-07-05] MEDS: VITAMIN B-12 PO SCH (08:36)
[2017-07-05] MEDS: LOVENOX SUBQ SCH (08:36)
[2017-07-05] MEDS: SINGULAIR PO SCH (08:36)
[2017-07-05] MEDS: ASPIRIN PO SCH (08:36)
[2017-07-05] MEDS: MAG-OX PO SCH (08:36)
[2017-07-05] MEDS: OXYCONTIN PO SCH (08:44)
[2017-07-05 09:41] LABS: ALLEN TEST YES; BE 8.5 mmoll (-3.0-3.0); BLOOD TYPE ARTERIAL; DRAW SITE R RADIAL; O2(CT) 14.2 mL/dL (15.0-23.0); PO2(98.6) 107 mmHg (60-100); SAMPLE BLOOD; SAO2 99.7 % (95.0-100.0); THB 10.3 g/dL (11.5-17.4)
[2017-07-05 09:44] LABS: MODALITY CANNULA
[2017-07-05 09:47] LABS: PCO2(98.6) 56 mmHg (35-45)
--- NOTE | 2017-07-06 05:10 | DISCHARGE SUMMARY ---
ADMISSION DATE: 06/27/2017 DISCHARGE DATE: 07/05/2017 CONSULTATIONS: Paola Bernal MD with Pulmonology. PERTINENT PROCEDURES: 1. Chest x-ray showed a combination of acute infiltrates with chronic fibrosis. 2. Chest CT showed prominent bilateral bronchiectasis and fibrosis, near complete clearing of the right middle lobe infiltrate. 3. Final chest x-ray showed a stable chest. DISCHARGE DIAGNOSES: 1. Sepsis secondary to community-acquired pneumonia. The patient will continue on p.o. Levaquin as well as her home O2. 2. Acute hypercapnic respiratory failure secondary to pneumonia. She has been evaluated by Dr. Bernal. She does wear BiPAP machine at night at home. 3. Vaginal candidiasis, resolved. 4. Diabetes mellitus type 2 that has been ruled out. She does have hyperglycemia secondary to steroids. 5. Migraines, resolved. 6. Hyperlipidemia. Continue home medication. 7. Acute kidney injury, resolved. HOSPITAL COURSE: Ms. Harper is a 62-year-old female with a past medical history of idiopathic pulmonary fibrosis, hyperlipidemia, chronic migraine who reports that her sons were cleaning the floor with 2 to chemicals, [place] and vinegar and apparently she a big inhalation of the fumes and started coughing, having shortness of breath since that day on the previous Tuesday. Other symptoms were vomiting, fever and chills. She states her fever got up to 101.7 with a productive cough that is yellow. In the ED, her white count was noted to be 27. She has a bibasilar pulmonary infiltrates. Lactate was normal. Respiratory rate was elevated. Her heart rate was in the 140s. She was placed on Rocephin and azithromycin in the ED. She was admitted to the ICU. She was mildly hypotensive with signs of sepsis with a Pulmonary consult and started on IV hydration and bronchodilators. Her antibiotics were changed to vancomycin, Zosyn and levofloxacin. They were able to wean her O2 down to her regular home O2 at 2 L. She continue to use her home BiPAP at night. Clinically, Ms. Harper has improved. We are awaiting Pulmonology's okay to discharge her. Her CO2 on nasal cannula is back down to the 50s and Dr. Perry is discharging her back home today to continue with her home O2, as well as her nightly BiPAP and to follow up with her shipping support. Vital signs at the time of her discharge, temperature was 98.1 degrees, heart rate 91, respirations 20, blood pressure 129/72, O2 is 98% on 2 L nasal cannula, DISCHARGE DIET: Regular. DISCHARGE MEDICATIONS: As per Dr. Perry: 1. Aspirin 81 mg p.o. q.a.m. 2. FiberCon 625 mg p.o. daily. 3. Vitamin B12 1000 mcg p.o. daily. 4. Doxepin 100 mg p.o. at bedtime. 5. Breo Ellipta 200-25 mcg inhaler 2 puffs inhaled daily. 6. Lasix 40 mg p.o. q.a.m. 7. [place] 7.5-325 one each p.o. daily p.r.n. 8. Ipratropium albuterol sulfate 3 mL inhaled 4 times a day. 9. Levaquin 750 mg p.o. daily for 7 days. 10. Mag-Ox 500 mg p.o. b.i.d. 11. Melatonin 10 mg p.o. at bedtime. 12. Mobic 15 mg p.o. daily p.r.n. 13. Singulair 10 mg p.o. daily. 14. OxyContin 20 mg p.o. b.i.d. 15. Protonix 40 mg p.o. at bedtime. 16. Klor-Con 20 mEq p.o. b.i.d. 17. Pravastatin 20 mg p.o. at bedtime. 18. Prednisone 10 mg p.o. at bedtime. 19. Requip 1 mg p.o. at bedtime. 20. Spiriva 1 puff inhaled daily. FOLLOWUP: Ms. Sowmya Harper is being discharged back home with her son and daughter -in-law. She has home health with [facility]. She is to continue with her home O2 as well as her nightly BiPAP and take all medications as prescribed. She can return to the ED for any worsening of symptoms. Dictated by CARSON Baez for Tyrone Nolasco MD Addendum: Patient seen and examined by myself. Agree with CARSON note. It reflects my assessment and plan. Patient admitted to hospital for pneumonia in the setting of pulmonary fibrosis. She also developed sepsis so she was initially admitted to ICU and then blood pressure and WBC started to improved. She also started to retain CO2. After more than a week with breathing treatments and antibiotics she started to improve so she is being discharged in stable condition and follow up with primary shipping support. cc: MD Jan Schumacher MD MTDD
== END 2017-07-05 11:36 | disposition home health service (06) ==
LOC: ED 13:02 → EDIPHOLD 16:14 → ICU 06-28 16:29 → 4N 06-30 13:15
PROVIDERS: ATTEND Internal Medicine

== ENCOUNTER 2018-12-14 11:47 | Inpatient (IN) ==
--- NOTE | 2018-12-14 12:23 | Diag Imaging Result Doc PS360 ---
KUB ABDOMEN - 12/14/2018 INDICATION: abd pain COMPARISON: 01/15/2018 FINDINGS: There is a nonobstructive bowel gas pattern. No free air or abdominal calcifications. Stable cholecystectomy clips. Stable right total hip prosthesis. No significant constipation. IMPRESSION: No acute disease. Electronically signed by Vidal Roberts 12/14/2018 12:21 PM
[2018-12-14 12:44] LABS: URINE SOURCE CLEAN CATCH
[2018-12-14] MEDS ORDERED: MORPHINE IV ONE (12:52)
[2018-12-14] MEDS ORDERED: NS 1,000 ML IV ONE (12:52)
[2018-12-14] MEDS ORDERED: ZOFRAN IV ONE ×2 (12:52→17:41)
[2018-12-14] MEDS ORDERED: LR 1,000 ML IV ONE (12:53)
[2018-12-14] MEDS ORDERED: VANCOMYCIN 1 GM/NS 1 GM/250 ML IVPB IV ONE (12:54)
[2018-12-14 13:02] LABS: BILIRUBIN URINE NEGATIVE (NEGATIVE); BLOOD URINE NEGATIVE (NEGATIVE); COLOR STRAW; GLUCOSE URINE NEGATIVE (NEGATIVE); KETONE URINE NEGATIVE (NEGATIVE); LEUKOCYTES URINE NEGATIVE (NEGATIVE); NITRITE URINE NEGATIVE (NEGATIVE); PROTEIN URINE NEGATIVE (NEGATIVE); TURBIDITY URINE CLEAR (CLEAR); UROBILINOGEN URINE NORMAL (NORMAL)
[2018-12-14 13:03] LABS: UR EPITHELIAL CELLS <10 /HPF (<10); URINE BACTERIA NEGATIVE /HPF; URINE RBC <10 /HPF (<10); URINE WBC <10 /HPF (<10)
[2018-12-14 13:20] LABS: BASO# 0.02 X1000 (0.0-0.2); BASO% 0.1 % (0.0-0.8); HEMATOCRIT 37.2 % (37.0-47.0); IMM GRAN# 0.13 X1000 (0.0-0.04); IMM GRAN% 0.7 % (0.0-0.5); LYMPH# 0.46 X1000 (1.2-3.4); LYMPH% 2.6 % (20.5-51.1); MCH 27.4 PG (27-31); MCHC 29.6 g/dL (33-37); MCV 92.5 FL (81-99); MONO# 1.17 X1000 (0.11-0.59); MONO% 6.6 % (1.7-9.3); MPV 10.9 FL (7.4-10.4); NEUT# 15.96 X1000 (1.4-6.5); PLT 318 X1000 (130-400); RBC 4.02 XMIL (4.2-5.4); RDW 14.9 % (11.5-14.5); WBC 17.74 X1000 (4.8-10.8)
[2018-12-14 13:57] LABS: AGAP 13; ALBUMIN 3.8 g/dL (3.5-5.0); ALKALINE PHOSPHATASE 138 U/L (32-104); AMYLASE 57 U/L (20-200); BUN 22 mg/dL (8-22); CALCIUM 9.9 mg/dL (8.8-10.2); CHLORIDE 96 mmol/L (98-107); COSMO 287; CREATININE 0.9 mg/dL (0.5-0.9); ESTIMATED GFR > 60; GLUCOSE 144 mg/dL (70-104); GOT 18 U/L (10-30); GPT 11 U/L (10-36); LIPASE 15 U/L (13-60); SODIUM 141 mmol/L (136-145); TCO2 32 mmol/L (25-35); TOTAL BILIRUBIN 0.25 mg/dL (0.20-1.00); TOTAL PROTEIN 7.5 g/dL (6.3-8.3)
[2018-12-14] MEDS: ZOSYN 4.5 GM in NS 100 ML IV SCH ×2 (14:18→20:10)
[2018-12-14] MEDS ORDERED: DILAUDID IV ONE (17:41)
[2018-12-14] MEDS ORDERED: ZOFRAN ONE (17:49)
[2018-12-14] MEDS ORDERED: DILAUDID ONE (17:51)
--- NOTE | 2018-12-14 18:45 | PROVIDER DOCUMENTATION ---
This chart was entered by Radha Salgado Scribe, acting as scribe for Denilson Connolly MD. HPI-Abdominal Pain/GI Problem - General Source: patient, family - History of Present Illness-ABD Nature of Presenting Problems: 63 yowf presents to the ed with c/o abdominal pain RLQ>LLQ and suprapubic, constipation and urine has foul smell. pt on exam is nontoxic in appearance Abdominal Pain Onset Location: reports: suprapubic Pain Radiation: reports: RLQ, LLQ Quality of Pain: reports: aching, cramping Severity in ED: reports: moderate Onset/Duration: reports: other (11/29/18) Timing: reports: still present, intermittent Activities at Onset: reports: light activity Modifying Factors: improves with: nothing. worse with: palpation Associated Symptoms: reports: constipation, genitourinary problems (foul smell to urine), loss of appetite, malaise. denies: back/neck pain, chest pain, fever/chills, nausea, shortness of breath, vomiting, weakness Last BM: this morning Dark Stools Present?: reports: none noticed Rectal Bleeding: reports: none # of Diarrhea Episodes: 0 Rectal Pain: reports: none # of Vomiting Episodes: 0 Emesis Description: reports: none Bruising or Bleeding Gums?: No Similar Symptoms Previously?: Yes Recently seen or treated by another doctor?: Yes (saw dr krueger) <Denilson Connolly - Last Filed: 12/14/18 18:44> <Francisco Joseph - Last Filed: 12/14/18 20:31> - General Chief Complaint: Abdominal Pain Stated Complaint: R-SIDE PAIN/BACK PAIN Time Seen by Provider: 12/14/18 12:51 Allergies/Adverse Reactions: Patient Allergies Allergy/AdvReac Type Severity Reaction Status Date / Time methocarbamol [From Robaxin] Allergy Unknown Verified 02/17/18 23:53 Sulfa (Sulfonamide AdvReac RASH Verified 02/17/18 21:26 Antibiotics) Home Medications: Home Medication List Medication Instructions Recorded Confirmed Last Taken Type Aspirin 81 mg PO QAM 08/02/13 09/04/18 04/01/18 08:00 History Ropinirole HCl [Requip] 1.5 mg PO QHS 04/20/17 09/04/1803/31/18 20:00 History Pravastatin Sodium 20 mg PO QHS 05/14/17 09/04/18 03/31/18 20:00 History Albuterol 2.5MG/Ipratrop 0.5MG 3 ml INH Q2H PRN PRN neb 01/17/18 09/04/18 04/01/18 18:00 Rx [Duoneb (A & A)] Furosemide [Lasix] 40 mg PO QAM #90 tab 01/17/18 09/04/18 04/01/18 08:00 Rx Guaifenesin E.r. [Mucinex] 600 mg PO BID #10 tab 01/17/18 09/04/18 03/30/18 08:00 Rx Melatonin 10 mg PO HS #90 tab 01/17/18 09/04/18 03/31/18 20:00 Rx Biotin 1,000 mcg PO DAILY 02/17/18 09/04/18 04/01/18 08:00 History Doxepin HCl 100 mg PO HS 02/17/18 09/04/18 03/31/18 20:00 History Hydrocodone/Acetaminophen [Lindsay 1 each PO DAILY 02/17/18 09/04/18 04/01/18 08:00 History 7.5-325 Tablet] Magnesium Oxide [Diasense 400 mg PO HS 02/17/18 09/04/18 03/31/18 20:00 History Magnesium] Meloxicam [Mobic] 15 mg PO DAILY 02/17/18 09/04/18 04/01/18 08:00 History Morphine E.r. [Ms Contin] 1 tab PO Q12H 02/17/18 09/04/18 04/01/18 08:00 History Potassium Chloride E.r. [Klor-Con] 20 meq PO BID 2 Days tablet 02/22/1809/0404/01/18 08:00 Rx Fluticasone/Vilanterol [Breo 1 puff IH DAILY 04/01/18 09/04/18 04/01/18 08:00 History Ellipta 100-25 Mcg INH] Pantoprazole [Protonix] 40 mg PO QHS 04/01/18 09/04/18 03/31/18 20:00 History Tiotropium [place] Inhaler 1 puff IH DAILY 04/01/18 09/04/18 04/01/18 08:00 Hi story [Spiriva] Metoprolol Succinate E.r. [Toprol 25 mg PO DAILY #30 tab 04/09/18 09/04/18 U nknown Rx Xl] Omeprazole [Prilosec] 40 mg PO DAILY #30 capsule. 04/09/18 09/04/18 Unknown Rx Ciprofloxacin HCl [Cipro] 500 mg PO BID 14 Days #28 tab 09/08/18 Unknown Rx Doxycycline 100 mg PO BID 14 Days #24 tab 09/08/18 Unknown Rx Prednisone 20 mg PO DAILY 15 Days #1 tab 09/08/18 Unknown Rx Review of Systems - Adult - REVIEW OF SYSTEMS - ADULT Constitutional: denies: fever Eyes: reports: no symptoms reported Ears, Nose, Mouth & Throat: reports: no symptoms reported Cardiovascular: denies: chest pain, palpitations Respiratory: denies: cough, excessive sputum production, shortness of breath, wheezing Gastrointestinal: reports: see HPI, abdominal pain, constipation. denies: diarrhea, nausea, vomiting Genitourinary: reports: no symptoms reported Musculoskeletal: denies: back pain, neck pain Integumentary: reports: no symptoms reported Neurological: reports: no symptoms reported Psychiatric: reports: no symptoms reported Endocrine: reports: no symptoms reported Hematologic/Lymphatic: reports: no symptoms reported Allergic/Immunologic: reports: no symptoms reported All Other Systems: Reviewed and Negative <Denilson Connolly - Last Filed: 12/14/18 18:44> Past History - Adult - PAST MEDICAL HISTORY-ADULT Review of Records: reports: Old Records Reviewed, Nursing Assessment Review, Medications Reviewed, Social history reviewed & non-contributory. Major Childhood Illnesses: reports: denies history Cardiovascular: reports: CAD, hyperlipidemia Respiratory: reports: COPD, sleep apnea, other (idiopathic pulmonary fibrosis) Gastrointestinal: reports: GERD, other (constipation) Obstetrical/Gynecological: reports: denies history Genitourinary: reports: kidney disease Musculoskeletal: reports: denies history Hand Dominance: Right Handed Neurological: reports: Seizures/Epilepsy Psychiatric: reports: depression Endocrine/Immune: reports: Diabetes Diabetes Type: Type 2 Other Conditions: reports: denies history - PRIOR SURGERIES/PROCEDURES Surgical/Procedure History: reports: cholecystectomy, hysterectomy, tonsillectomy - IMMUNIZATION STATUS Childhood Immunizations: See Nurse Assessment Flu Vaccine: See Nurse Assessment - FAMILY HISTORY Family History: reviewed, not pertinent - SOCIAL HISTORY Smoking: denies Substance Use: denies Living Situation: family <Denilson Connolly - Last Filed: 12/14/18 18:44> Physical Exam-General - PHYSICAL EXAM-ADULT Initial Vital Signs Reviewed: Yes - CONSTITUTIONAL General Appearance: appears well, alert, mild distress - EYES Eyes: PERRL/EOMI, pink conjunctivae - HEAD, EARS, NOSE, MOUTH & THROAT HENMT: normocephalic/atraumatic, moist mucous membranes, normal ENT inspection - NECK Neck: non-tender, full range of motion, supple, normal inspection - RESPIRATORY Respiratory: chest non-tender, lungs clear, normal breath sounds - CARDIOVASCULAR Cardiovascular: normal peripheral pulses, tachycardia (158) - GASTROINTESTINAL (ABDOMEN) Abdominal Exam: soft, abnormal bowel sounds (hyper), guarding, tenderness. negative: rigid, rebound - LYMPHATIC Lymphatic: no adenopathy - MUSCULOSKELETAL Back Exam: normal inspection, no CVA tenderness, no vertebral tenderness Extremity: normal range of motion, non-tender, normal gait, normal inspection - SKIN Integumentary: normal turgor, warm/dry, pallor - NEUROLOGIC Neurologic: grossly normal, no motor/sensory deficits - PSYCHIATRIC Psych/Mental Status: normal mood/affect, normal thought content, normal thought process, oriented x 3 <Denilson Connolly - Last Filed: 12/14/18 18:44> Progress - PLAN OF CARE/RESULTS Progress/Plan/Lab Results: Vital Signs - 8 hr 12/14/18 11:50 Temperature 97.8 F Pulse Rate 158 H Respiratory Rate 20 Blood Pressure 135/108 O2 Sat by Pulse Oximetry 93 L Laboratory Results - last 24 hr 12/14/18 12:41 Urine Source CLEAN CATCH Urine Color STRAW Urine Turbidity CLEAR Urine pH 7.0 Ur Specific [place] 1.000 Urine Protein NEGATIVE Ur Glucose (Stick) NEGATIVE Ur Ketones (Stick) NEGATIVE Urine Blood NEGATIVE Urine Nitrite NEGATIVE Urine Bilirubin NEGATIVE Urobilinogen Dipstick NORMAL Urine Leukocytes NEGATIVE Urine WBC (Auto) <10 Urine RBC (Auto) <10 U Epithel Cells (Auto) <10 Urine Bacteria (Auto) NEGATIVE Orders Category Date Time Status NPO Diet 12/14/18 11:54 Active KUB ABDOMEN [RAD] Stat Exams 12/14/18 11:55 Completed AMYLASE [CHEM] Stat Lab 12/14/18 13:05 Received CBC WITH ELECTRONIC DIFF [HEME] Stat Lab 12/14/18 13:05 Results COMPREHENSIVE METABOLIC PANEL [CHEM] Stat Lab 12/14/18 13:05 Received LACTATE, PLASMA [CHEM] Stat Lab 12/14/18 13:05 Received LIPASE [CHEM] Stat Lab 12/14/18 13:05 Received TYPE & SCREEN [BBK] Stat Lab 12/14/18 13:05 Received URINALYSIS W/POSS RFLX CULT [URINALYSIS] Stat Lab 12/14/18 12:41 Completed 0.9% Sodium Chloride Inj [Ns] 1,000 ml Med 12/14/18 12:52 Active IV 999 mls/hr Lactated Ringers Inj [Lr] 1,000 ml Med 12/14/18 12:53 Discontinued IV Wide Open mls/hr Morphine Med 12/14/18 12:52 Discontinued 4 mg IV NOW ONE Ondansetron [Zofran] Med 12/14/18 12:52 Discontinued 4 mg IV NOW ONE Piperacillin/Tazobactam [Zosyn] 4.5 gm Med 12/14/18 13:00 Active 0.9% Sodium Chloride Inj [Ns] 100 ml IV Q6H Vancomycin 1 gm/Ns Med 12/14/18 12:54 Active 1 gm in 250 ml IV NOW Result Diagrams: 12/14/18 13:05 12/14/18 13:05 - REASSESSMENT Reassessment #1 Time Reassessed: 17:49 (dr connolly at bedside) Status: unchanged Reassessment #2 Time Reassessed: 18:30 Status: unchanged (I JUST CHECKED AND PT STILL HAS NOT RECEIVED ORDERED CT ABD, STILL IN RLQ PAIN) - XRAY 1 XRAY: Bilateral XRAY Study: Abdomen Impression: See EMR Report (KUB ABDOMEN - 12/14/2018 INDICATION: abd pain COMPARISON: 01/15/2018 FINDINGS: There is a nonobstructive bowel gas pattern. No free air or abdominal calcifications. Stable cholecystectomy clips. Stable right total hip prosthesis. No significant constipation. IMPRESSION: No acute disease. Electronically signed by Vidal Roberts 12/14/2018 12:21 PM 12/14/18 1221 Interpreting Physician: Vidal Roberts MD Dictated Date/Time: 12/14/18 1220 cc: Denilson Connolly MD; José Miguel Krueger MD) - CHANGE OF SHIFT REPORT (ED Provider) 1 Report Given and Care Transferred to:: DR Al BAHENA Time of Transfer: 19:00 Items Pending: CT/MRI Results <Denilson Connolly - Last Filed: 12/14/18 18:44> - PLAN OF CARE/RESULTS Progress/Plan/Lab Results: Vital Signs - 8 hr 12/14/18 11:50 12/14/18 12:52 12/14/18 12:53 Temperature 97.8 F Pulse Rate 158 H 147 H 141 H Respiratory Rate 20 16 16 Blood Pressure 135/108 135/91 O2 Sat by Pulse Oximetry 93 L 98 100 12/14/18 13:00 12/14/18 13:10 12/14/18 13:20 Temperature Pulse Rate 143 H 142 H 139 H Respiratory Rate 16 20 20 Blood Pressure O2 Sat by Pulse Oximetry 91 L 100 100 12/14/18 13:30 12/14/18 13:40 12/14/18 13:50 Temperature Pulse Rate 143 H 137 H 134 H Respiratory Rate 17 20 20 Blood Pressure O2 Sat by Pulse Oximetry 99 100 100 12/14/18 14:00 12/14/18 14:10 12/14/18 14:20 Temperature Pulse Rate 130 H 128 H 123 H Respiratory Rate 20 18 22 Blood Pressure O2 Sat by Pulse Oximetry 100 100 99 12/14/18 14:30 12/14/18 14:40 12/14/18 14:50 Temperature Pulse Rate 119 H 112 H 114 H Respiratory Rate 20 18 20 Blood Pressure O2 Sat by Pulse Oximetry 100 99 99 12/14/18 15:00 12/14/18 15:14 12/14/18 15:20 Temperature Pulse Rate 112 H 111 H 98 H Respiratory Rate 20 20 19 Blood Pressure O2 Sat by Pulse Oximetry 98 100 12/14/18 15:30 12/14/18 15:40 12/14/18 15:50 Temperature Pulse Rate 93 H 93 H 99 H Respiratory Rate 17 22 20 Blood Pressure O2 Sat by Pulse Oximetry 100 100 99 12/14/18 16:00 12/14/18 16:10 12/14/18 16:20 Temperature Pulse Rate 102 H 96 H 98 H Respiratory Rate 18 18 21 Blood Pressure O2 Sat by Pulse Oximetry 99 100 100 12/14/18 16:30 12/14/18 16:40 12/14/18 16:50 Temperature Pulse Rate 94 H 95 H 89 Respiratory Rate 17 16 19 Blood Pressure O2 Sat by Pulse Oximetry 100 100 100 12/14/18 17:00 12/14/18 17:10 12/14/18 17:20 Temperature Pulse Rate 90 87 93 H Respiratory Rate 19 19 17 Blood Pressure O2 Sat by Pulse Oximetry 100 100 100 12/14/18 17:30 12/14/18 17:47 12/14/18 17:50 Temperature Pulse Rate 99 H 94 H 92 H Respiratory Rate 18 20 20 Blood Pressure O2 Sat by Pulse Oximetry 100 97 99 12/14/18 18:00 12/14/18 18:10 12/14/18 18:20 Temperature Pulse Rate 85 81 84 Respiratory Rate 21 17 20 Blood Pressure O2 Sat by Pulse Oximetry 100 99 100 12/14/18 19:07 12/14/18 19:10 12/14/18 19:20 Temperature Pulse Rate 94 H 91 H 98 H Respiratory Rate 19 21 17 Blood Pressure O2 Sat by Pulse Oximetry 99 100 100 12/14/18 19:21 Temperature Pulse Rate 91 H Respiratory Rate 15 Blood Pressure 112/68 O2 Sat by Pulse Oximetry 100 Laboratory Results - last 24 hr 12/14/18 12/14/18 12/14/18 12:41 13:05 13:05 WBC 17.74 H RBC 4.02 L Hgb 11.0 L Hct 37.2 MCV 92.5 MCH 27.4 MCHC 29.6 L RDW Std Deviation 14.9 H Plt Count 318 MPV 10.9 H Immature Gran % (Auto) 0.7 H Neut % (Auto) 90.0 H Lymph % (Auto) 2.6 L [place] % (Auto) 6.6 Eos % (Auto) 0.0 Baso % (Auto) 0.1 Immature Gran # (Auto) 0.13 H Neut # (Auto) 15.96 H Lymph # (Auto) 0.46 L [place] # (Auto) 1.17 H Eos # (Auto) 0.00 Baso # (Auto) 0.02 Sodium 141 Potassium 4.0 Chloride 96 L Carbon Dioxide 32 Anion Gap 13 BUN 22 Creatinine 0.9 Estimated GFR/1.73 m2 > 60 BUN/Creatinine Ratio 24 Glucose 144 H Calculated Osmolality 287 Calcium 9.9 Total Bilirubin 0.25 AST 18 ALT 11 Alkaline Phosphatase 138 H Total Protein 7.5 Albumin 3.8 Globulin 3.7 Albumin/Globulin Ratio 1.0 Amylase 57 Lipase 15 Plasma Lactate Urine Source CLEAN CATCH Urine Color STRAW Urine Turbidity CLEAR Urine pH 7.0 Ur Specific [place] 1.000 Urine Protein NEGATIVE Ur Glucose (Stick) NEGATIVE Ur Ketones (Stick) NEGATIVE Urine Blood NEGATIVE Urine Nitrite NEGATIVE Urine Bilirubin NEGATIVE Urobilinogen Dipstick NORMAL Urine Leukocytes NEGATIVE Urine WBC (Auto) <10 Urine RBC (Auto) <10 U Epithel Cells (Auto) <10 Urine Bacteria (Auto) NEGATIVE Blood Type Antibody Screen 12/14/18 12/14/18 13:05 13:05 WBC RBC Hgb Hct MCV MCH MCHC RDW Std Deviation Plt Count MPV Immature Gran % (Auto) Neut % (Auto) Lymph % (Auto) Loving % (Auto) Eos % (Auto) Baso % (Auto) Immature Gran # (Auto) Neut # (Auto) Lymph # (Auto) Loving # (Auto) Eos # (Auto) Baso # (Auto) Sodium Potassium Chloride Carbon Dioxide Anion Gap BUN Creatinine Estimated GFR/1.73 m2 BUN/Creatinine Ratio Glucose Calculated Osmolality Calcium Total Bilirubin AST ALT Alkaline Phosphatase Total Protein Albumin Globulin Albumin/Globulin Ratio Amylase Lipase Plasma Lactate 1.7 Urine Source Urine Color Urine Turbidity Urine pH Ur Specific [place] Urine Protein Ur Glucose (Stick) Ur Ketones (Stick) Urine Blood Urine Nitrite Urine Bilirubin Urobilinogen Dipstick Urine Leukocytes Urine WBC (Auto) Urine RBC (Auto) U Epithel Cells (Auto) Urine Bacteria (Auto) Blood Type A NEGATIVE Antibody Screen NEGATIVE Orders Category Date Time Status Repeat Vital Signs .Blood Pressure Care 12/14/18 19:15 Active NPO Diet 12/14/18 11:[address] ABD/PELVIS W/IV CONT ONLY [CT] Stat Exams 12/14/18 16:07 Completed KUB ABDOMEN [RAD] Stat Exams 12/14/18 11:55 Completed AMYLASE [CHEM] Stat Lab 12/14/18 13:05 Completed BLOOD CULTURE [BLDCUL] Stat Lab 12/14/18 14:06 Results CBC WITH ELECTRONIC DIFF [HEME] Stat Lab 12/14/18 13:05 Completed COMPREHENSIVE METABOLIC PANEL [CHEM] Stat Lab 12/14/18 13:05 Completed LACTATE, PLASMA [CHEM] Stat Lab 12/14/18 13:05 Completed LIPASE [CHEM] Stat Lab 12/14/18 13:05 Completed TYPE & SCREEN [BBK] Stat Lab 12/14/18 13:05 Completed URINALYSIS W/POSS RFLX CULT [URINALYSIS] Stat Lab 12/14/18 12:41 Completed 0.9% Sodium Chloride Inj [Ns] 1,000 ml Med 12/14/18 12:52 Discontinued IV 999 mls/hr Hydromorphone [Dilaudid] Med 12/14/18 17:41 Discontinued 0.5 mg IV NOW ONE Hydromorphone [Dilaudid] Med 12/14/18 17:51 Discontinued 2 mg .ROUTE .STK-MED ONE Lactated Ringers Inj [Lr] 1,000 ml Med 12/14/18 12:53 Discontinued IV Wide Open mls/hr Morphine Med 12/14/18 12:52 Discontinued 4 mg IV NOW ONE Ondansetron [Zofran] Med 12/14/18 17:49 Discontinued 4 mg .ROUTE .STK-MED ONE Ondansetron [Zofran] Med 12/14/18 12:52 Discontinued 4 mg IV NOW ONE Ondansetron [Zofran] Med 12/14/18 17:41 Discontinued 4 mg IV NOW ONE Piperacillin/Tazobactam [Zosyn] 4.5 gm Med 12/14/18 13:00 Active 0.9% Sodium Chloride Inj [Ns] 100 ml IV Q6H Vancomycin 1 gm/Ns Med 12/14/18 12:54 Discontinued 1 gm in 250 ml IV NOW Result Diagrams: 12/14/18 13:05 12/14/18 13:05 - CT/MRI 1 CT Study: Abdomen Impression: Abnormal, See EMR Report (EXAM: CT ABD/PELVIS W/IV CONT ONLY HISTORY: RLQ TENDER TECHNIQUE: CT abdomen and pelvis with intravenous contrast COMPARISON: None. FINDINGS: There is bronchiectasis most pronounced in the right lung base. There is free air beneath the diaphragm. The gallbladder has been removed. No focal hepatic abnormality. Normal spleen. There is fatty infiltration of the pancreas. Normal adrenal glands and kidneys. No hydronephrosis. No aortic aneurysm. Prominent stool within the colon. There are distal diverticula. The uterus has been removed. The urinary bladder is only mildly distended. Small amount of free fluid within the pelvis. L1 compression fracture. IMPRESSION: 1.Free air in the abdomen and pelvis 2.Diverticulosis 3.Constipation 4.Hysterectomy 5.Cholecystectomy 6.Bronchiectasis This report was discussed with Dr. Denilson Connolly in the emergency room on 12/14/2018 at 7:30 PM and was readback. This exam was performed using automated exposure control, adjustment of mA or kV according to patient size, and/or use of iterative reconstruction technique. Electronically signed by Moose Morgan 12/14/2018 7:31 PM 12/14/181930 Interpreting Physician: Moose Morgan MD Dictated Date/Time: 12/14/181924 cc: Denilson Connolly MD; José Miguel Krueger MD) - CONSULTS/PCP/HOSPITALIST Notification #1 *Consult/PCP/Hospitalist*: Dr Hernandez Time Discussed: 19:43 Consult Disposition: Will see in ED <Francisco Joseph - Last Filed: 12/14/18 20:31> Departure <Denilson Connolly - Last Filed: 12/14/18 18:44> - Departure Date of Disposition Decision: 12/14/18 Time of Disposition Decision: 20:26 Certified Medical Emergency: Emergent - Critical Care Note This patient required my direct & personal management of CC.: Yes Total Time (mins): 35 Critical Care Statement: This patient required my direct personal management to treat or rule out processes, the absence of which, could potentiallly result in sudden, clinically significant life or limb threatening deterioration. <Francisco Joseph - Last Filed: 12/14/18 20:31> - Departure DIAGNOSIS: Abdominal pain, Bowel perforation Disposition: ADMITTED INPATIENT 09 Condition: Fair Referrals and Follow-Ups: José Miguel Krueger MD [Primary Care Provider] - Attestation - Physician/ LORENZO Attestation Patient care was provided by Advanced Practice Provider:: No The physician spent face to face time with patient:: Yes Advanced Practice Provider documentation review:: Supervising physician onsite and consulted in the evaluation and care of this patient. The physician did have a face to face encounter with the patient. <Denilson Connolly - Last Filed: 12/14/18 18:44> - Physician/ LORENZO Attestation Patient care was provided by Advanced Practice Provider:: No The physician spent face to face time with patient:: Yes Advanced Practice Provider documentation review:: Supervising physician onsite and consulted in the evaluation and care of this patient. The physician did have a face to face encounter with the patient. <Francisco Joseph - Last Filed: 12/14/18 20:31> This chart was documented by the indicated scribe, (Radha Salgado, Malcom) and accurately reflects the services I performed and decisions made by me, Denilson Connolly MD, as attested by the provider's signature.
--- NOTE | 2018-12-14 19:34 | Diag Imaging Result Doc PS360 ---
EXAM: CT ABD/PELVIS W/IV CONT ONLY HISTORY: RLQ TENDER TECHNIQUE: CT abdomen and pelvis with intravenous contrast COMPARISON: None. FINDINGS: There is bronchiectasis most pronounced in the right lung base. There is free air beneath the diaphragm. The gallbladder has been removed. No focal hepatic abnormality. Normal spleen. There is fatty infiltration of the pancreas. Normal adrenal glands and kidneys. No hydronephrosis. No aortic aneurysm. Prominent stool within the colon. There are distal diverticula. The uterus has been removed. The urinary bladder is only mildly distended. Small amount of free fluid within the pelvis. L1 compression fracture. IMPRESSION: 1.Free air in the abdomen and pelvis 2.Diverticulosis 3.Constipation 4.Hysterectomy 5.Cholecystectomy 6.Bronchiectasis This report was discussed with Dr. Denilson Coelho in the emergency room on 12/14/2018 at 7:30 PM and was readback. This exam was performed using automated exposure control, adjustment of mA or kV according to patient size, and/or use of iterative reconstruction technique. Electronically signed by Moose Morgan 12/14/2018 7:31 PM
--- NOTE | 2018-12-14 21:10 | HISTORY AND PHYSICAL ---
CHIEF COMPLAINT: Abdominal pain. HISTORY OF PRESENT ILLNESS: This is a 63-year-old female who reports an over 2 week history of initially low back pain, progressing to right and left lower quadrant abdominal pain which especially started getting worse over the last week, and even today was at its worst. It is worsened with coughing and movement. It is lessened with lying still. She thinks she has had some low-grade fever. No chills. No nausea or vomiting. She has had some loose stools this week, but has been on MiraLAX per her primary care physician for constipation. PAST MEDICAL HISTORY: 1. Pulmonary fibrosis. 2. Diabetes. 3. Depression. 4. Chronic neck and back pain. PAST SURGICAL HISTORY: 1. Laparoscopic cholecystectomy. 2. Chest tube placement. 3. Right hip replacement. 4. Tonsillectomy, 5. Adenoidectomy. 6. Vaginal hysterectomy. ALLERGIES: No known drug allergies. FAMILY HISTORY: Reviewed and nonpertinent. SOCIAL HISTORY: Negative for tobacco, alcohol, or illicit drug use. CURRENT MEDICATIONS: 1. Aspirin. 2. Requip. 3. Pravastatin. 4. Lasix. 5. Mucinex. 6. Doxepin. 7. [place]. 8. Mobic. 9. MS Contin. 10. Klor-Con. 11. Fluticasone. 12. Protonix. 13. Spiriva. REVIEW OF SYSTEMS: 10 systems were reviewed and negative except as noted above. PHYSICAL EXAMINATION: VITAL SIGNS: Temperature 97.8 degrees. Pulse initially in the 140s and 150s. Some fluids have been given and now it is 108. Respiratory rate 19. Blood pressure initially 135/108, now 94/57. O2 saturation 100%. GENERAL: Well developed, elderly female who looks her stated age, in no acute distress. HEENT: Normocephalic, atraumatic. Extraocular muscles intact. Pupils equal, round, reactive to light. Sclerae anicteric. Moist mucous membranes. NECK: Supple. No thyromegaly. CV: Tachycardic and regular. RESPIRATORY: Bilateral breath sounds. No work of breathing. GI: Soft, nondistended, very tender in the lower abdomen, left greater than right, with some guarding. No organomegaly or mass appreciated. No hernias appreciated. EXTREMITIES: No clubbing, cyanosis, or edema. SKIN: Warm and dry. No rash. MUSCULOSKELETAL: Moves all extremities equally and well. LABORATORY: White blood cell count 17,000, hemoglobin 11, hematocrit 37, platelet count 318,000. Electrolytes reviewed and unremarkable. Urinalysis reviewed and unremarkable. IMAGING: Abdominal and pelvic CT scan was reviewed by me as well as the official report. There is free air under the diaphragm and focal droplets of air scattered throughout the mesentery and notably around the sigmoid colon. There appears to be a little free fluid around the sigmoid colon on my view. Otherwise, there is apparent constipation. ASSESSMENT AND PLAN: A 63-year-old female with abdominal pain and perforated viscus. Differential diagnosis includes perforated diverticulitis, perforated peptic ulcer or other small bowel or colon source. Given her free air and abdominal tenderness and septic picture, we are proceeding to the operating room tonight for exploratory laparotomy. I discussed the risks, benefits, and alternatives with her, including bleeding, infection, injury to surrounding organs such as the intestines, ureter, bladder, respiratory failure, cardiac complications, and other imponderables. She understands and agrees to proceed. cc: Gilberto Hernandez MD
[2018-12-14] MEDS ORDERED: KETAMINE ONE (22:58)
[2018-12-14] MEDS ORDERED: DIPRIVAN 1% ONE (23:26)
[2018-12-14] MEDS ORDERED: STERILE WATER INJ. ONE (23:27)
[2018-12-14] MEDS ORDERED: QUELICIN (DOSE) ONE (23:27)
[2018-12-14] MEDS ORDERED: OFIRMEV 1000 MG/ISOTONIC SOLN 1,000 MG/100 ML BOTTLE ONE (23:27)
[2018-12-14] MEDS ORDERED: SUFENTA ONE (23:27)
[2018-12-14] MEDS ORDERED: ROBINUL ONE (23:27)
[2018-12-14] MEDS ORDERED: SOLU-CORTEF ONE (23:27)
[2018-12-14] MEDS ORDERED: NORCURON ONE (23:27)
[2018-12-14] MEDS ORDERED: NEO-SYNEPHRINE ONE (23:27)
[2018-12-14] MEDS ORDERED: VENTOLIN HFA ONE (23:27)
[2018-12-14] MEDS ORDERED: XYLOCAINE-MPF 2% ONE (23:27)
[2018-12-15] MEDS ORDERED: LR 1,000 ML ONE (00:51)
[2018-12-15 01:11] LABS: ALLEN TEST YES; BE 5.6 mmoll (-3.0-3.0); BLOOD TYPE ARTERIAL; HCO3-(ACT) 29.3 mmoll (20.0-26.0); METHB 1.2 % (0.0-1.5); O2(CT) 13.1 mL/dL (15.0-23.0); O2HB 96.4 % (95.0-99.0); PO2(98.6) 120 mmHg (60-100); SAMPLE BLOOD; SAO2 98.6 % (95.0-100.0); THB 9.5 g/dL (11.5-17.4); pH(98.6) 7.33 (7.35-7.45)
[2018-12-15 01:12] LABS: MODALITY CANNULA; PCO2(98.6) 62 mmHg (35-45)
[2018-12-15] MEDS ORDERED: DUONEB (A & A) INH ONE (01:21)
[2018-12-15 01:38] LABS: ALLEN TEST YES; BE 5.1 mmoll (-3.0-3.0); BLOOD TYPE ARTERIAL; HCO3-(ACT) 28.9 mmoll (20.0-26.0); O2(CT) 13.4 mL/dL (15.0-23.0); O2HB 96.6 % (95.0-99.0); PO2(98.6) 132 mmHg (60-100); SAMPLE BLOOD; THB 9.7 g/dL (11.5-17.4); pH(98.6) 7.26 (7.35-7.45)
[2018-12-15 01:39] LABS: MODALITY BI PAP; PCO2(98.6) 75 mmHg (35-45)
[2018-12-15] MEDS: DUONEB (A & A) INH SCH ×4 (01:46→21:39)
[2018-12-15] MEDS: ZOSYN 4.5 GM in NS 100 ML IV SCH ×5 (02:15→20:07)
[2018-12-15] MEDS ORDERED: NS 1,000 ML ONE (02:26)
[2018-12-15] MEDS: DILAUDID ONE ×3 (02:28→07:23)
--- NOTE | 2018-12-15 03:00 | OPERATIVE NOTE ---
PROCEDURE DATE: 12/15/2018 PREOPERATIVE DIAGNOSIS: Perforated viscus. POSTOPERATIVE DIAGNOSIS: Perforated viscus. OPERATION: 1. Exploratory laparotomy. 2. Open sigmoid colon resection and creation of end colostomy. SURGEON: Gilberto Hernandez MD ANESTHESIA: General. ESTIMATED BLOOD LOSS: 50 mL COMPLICATIONS: None apparent. SPECIMEN: Sigmoid colon. FINDINGS: There was quite a bit of feculent liquid material and exudate on the surface of the small bowel, cecum and sigmoid colon. We found an area of perforation of the sigmoid colon where there was significant inflammation around it. It did not feel like a malignant mass. The rest of the colon, appendix and right small bowel all appeared normal, aside from reactive peritonitis. DRAINS: None. PROCEDURE: The patient was brought to the operating room and placed supine on the table. After general anesthesia was induced she was prepped and draped in the usual sterile fashion. Dr. Kelly, the anesthesiologist, performed a TAP block procedure prior to prepping and draping. I then made a midline incision from above the umbilicus down to the symphysis pubis with a knife and carried it down through the subcutaneous tissues with the knife and then cautery. We entered through the fascia and peritoneum with cautery and blunt finger dissection through the peritoneum. I lengthened the peritoneum and fascial incision throughout without injuring underlying bowel. We immediately encountered feculent fluid. We cultured it. I examined the cecum and appendix. There was thickened feculent rind on it, but no evidence of perforation of the cecum. The appendix had some reactive peritonitis, but did not appear to be acutely inflamed. I then ran the small bowel from the terminal ileum back to the ligament of Treitz, and it appeared to be okay. I then examined the sigmoid colon and rectum, and we indeed found an area of perforation and severe inflammation of sigmoid colon. There was no gross stool, but again, murky malodorous fluid was in the pelvis. We suctioned this out. I then proceeded to mobilize the left fallopian tube and ovary off of the inflamed colon bluntly and with cautery. I then went down to the rectum several centimeters proximal to the peritoneal reflection, probably more in the mid rectum. I scored the mesentery on either side and bluntly dissected through it with my finger, and then transected it with a TA stapler. I also placed 2-0 Prolene sutures on either side for future marking of this rectal stump. I then went up above the area of pathology to the descending colon-sigmoid junction and created a mesenteric window as before, and divided it with a linear TERESITA stapler. I then divided the intervening mesentery with the LigaSure device. The specimen was passed off the field. We copiously irrigated the pelvis, followed by the right and left quadrants and up above the liver and spleen with warm saline and suctioned this out. I checked for any bleeding. There was none seen. I then mobilized the descending colon, incising the lateral peritoneal attachments along the white line of Toldt for several centimeters. I also divided a band of remaining sigmoid mesentery to further allow the stoma to reach up to the anterior abdominal wall. It appeared to have adequate blood supply. I then made a circular incision over the left rectus muscle and somewhat inferolateral to the umbilicus. This was carried down through the skin and subcutaneous tissue with cautery, and then through the rectus muscle with cautery. I could admit 3 fingers through it. I then brought the stoma up through this defect. I then closed the peritoneum with a running #1 Vicryl and the fascia with a running #1 looped Maxon suture. The skin was closed with skin clips. I should also point out that I did place a wound protector in our wound while we were performing the operation to hopefully reduce the chance of a wound infection. I then covered the incision with a blue towel. The staple line was removed with cautery. I began maturing the ostomy using 3- 0 Polysorb, taking a full-thickness bite of the bowel and attaching it to the dermis at 12 o'clock, 3 o'clock, 6 o'clock and 9 o'clock, and then some intervening sutures in between. During this time, the patient did have copious amounts of soft stool come through the stoma and we did our best to clean it and keep it away from the incision, but inevitably some stool did contaminate the periumbilical part of the incision. I washed this area off with saline, completed the maturation of the stoma and then placed a stoma bag. A sterile dressing was then placed on the skin. She was transferred to the recovery room in stable condition, without apparent complication. cc: Gilberto Hernandez MD
--- NOTE | 2018-12-15 03:07 | CONSULTATION ---
DATE OF CONSULTATION: 12/15/2018 PRIMARY CARE PROVIDER: José Miguel Krueger. JOURNEYMAN PIPE FITTER: Dr. Russell. CONSULTING PHYSICIAN: Gilberto Hernandez. REASON FOR CONSULTATION: Assistance with medical management. HISTORY OF PRESENT ILLNESS: Ms. Harper is a 63-year-old female well known to our service. She has a history of idiopathic pulmonary fibrosis, COPD, diabetes mellitus type 2, hyperlipidemia, congestive heart failure which I believe may be diastolic in nature and depression. She has had multiple admissions in the past for acute respiratory failure. Yesterday, she came in through the emergency room related to abdominal pain. From what I understand, she has had abdominal pain for the past couple of weeks. I believe she saw her primary care provider, José Miguel Krueger, yesterday. At any rate, yesterday became to where she felt as if she had possibly broken her back that the pain in her abdomen was so bad so she came into the emergency room. CT of the abdomen showed free air likely related to a perforation. Dr. Hernandez was consulted and took the patient to surgery for repair of perforated viscus. From what I understand, she did well during the surgical procedure. After intubation, the patient started having dyspnea and hypoxia. She was placed on BiPAP. Chest x-ray was obtained which showed her chronic pulmonary fibrosis but increased pulmonary vascular congestion. The patient is also marginally hypotensive. She will be placed in the ICU for further evaluation and treatment. PAST MEDICAL HISTORY: See HPI. PREVIOUS SURGICAL HISTORY: 1. Tonsillectomy. 2. Hysterectomy. 3. Lung biopsies. 4. Adenoidectomy. 5. Cholecystectomy. 6. Perforated viscus repair with ostomy placement by Dr. Hernandez. SOCIAL HISTORY: No alcohol, tobacco or illicit drugs. Lives with her son. She is on home oxygen 25/04. FAMILY HISTORY: Lung cancer, diabetes mellitus type 2, coronary artery disease and cystic fibrosis. ALLERGIES: Sulfa and Robaxin. HOME MEDICATION LIST: A medication list is not available. Order was placed for Nursing to reconcile medications and these can be restarted when appropriate. REVIEW OF SYSTEMS: Fourteen point review of systems conducted with the patient. Resting comfortably on BiPAP. She has no complaint at this time. Her pain is well controlled. Other pertinent positives are listed above in the HPI. All other systems are reviewed and found to be negative. PHYSICAL EXAMINATION: VITAL SIGNS: Temperature 97.8, pulse 108, respirations 20, blood pressure 96/64, oxygen saturation 98% on BiPAP. GENERAL: A 63-year-old female lying in the PACU stretcher, is alert and oriented times 3, chronically ill appearing. She is on BiPAP and is in no acute respiratory distress at this time. HEENT: Head is atraumatic, normocephalic. Pupils equal, round, reactive to light. Extraocular eye movement is intact. Sclerae are anicteric. Conjunctiva is pink. Oral mucosa is moist. NECK: Supple. Mild JVD noted. Trachea is midline. No cervical lymphadenopathy. CARDIAC: S1, S2 appreciated. No murmurs, gallops, or rubs. LUNGS: Coarse bilaterally. Lung jalloh are decreased. No wheezing. Symmetrical rise and fall with respirations. ABDOMEN: Soft, nondistended, diffusely tender to palpation. Midline incision dressing clean, dry and intact. Left-sided stoma noted. Very minimal drainage in bag. EXTREMITIES: No clubbing, cyanosis, or edema. Mildly cool to touch. Decreased pedal pulses bilaterally. SKIN: Cool, dry and intact. No acute lesions or rash. NEUROLOGICAL: Awake, alert and oriented times 3. No focal motor deficits. Otherwise nonfocal examination. DIAGNOSTIC DATA: Chest x-ray shows pulmonary fibrosis with increased pulmonary vascular congestion. LABORATORY DATA: WBC 17.74. Hemoglobin 11. Hematocrit 37. Platelet count 318. ABG: pH 7.33, pCO2 of 62, pO2 of 120, bicarbonate 29.3. Chemistry panel within normal limits other than glucose of 144. Urine unremarkable. ASSESSMENT AND PLAN: 1. Status post repair of perforated viscus. Continue Zosyn. Dilaudid for pain management. Patient is NPO. We will place in ICU as patient is marginally hypotensive as well as fluid volume overloaded. We may have to start pressors as she will need to be diuresed somewhat to improve her respiratory status. 2. Acute on chronic respiratory failure, likely secondary to fluid volume overload. The patient received multiple boluses in the emergency room. I am unsure how much fluid she received during surgery. We will decrease her maintenance fluids to 50 mL an hour, give 40 mL of Lasix. Continue to monitor in the ICU with strict I's and O's. Reassess fluid volume status tomorrow morning. We will consult Dr. Russell, her developer trading systems. Continue her bronchodilators and aggressive pulmonary toilet. 3. Diabetes mellitus type 2. Fingerstick blood sugars with low-dose sliding scale. She is NPO. Continue to monitor. 4. History of hypertension. As noted above, she is hypotensive. We will not resume any antihypertensives at this time. These can be restarted when appropriate. Thank you for this consultation. Further recommendations per patient clinical course. Dictated by CARSON Perla for Danny Muñoz MD cc: CARSON Perla MD James E. Boyle, MD Jason R. Seale, MD Jeb S. Hornsby, MD I have seen and examined Ms Harper who is immediate postop for medical management. She underwent exploratory lap for perforated sigmoid colon. She developed hypoxemic respiratory failure after abdominal surgery. She is currently under Bipap. I agree with the above consult note MTDD
[2018-12-15] MEDS ORDERED: LEVOPHED 8 MG in D5 1/2 NS 250 ML IV SCH (03:34)
[2018-12-15] MEDS ORDERED: LASIX IV ONE (03:34)
[2018-12-15] MEDS ORDERED: ZOFRAN IV PRN (03:34)
[2018-12-15] MEDS: NS 1,000 ML IV SCH (03:50)
[2018-12-15] MEDS: OFIRMEV 1000 MG/ISOTONIC SOLN 1,000 MG/100 ML BOTTLE IV SCH ×5 (03:55→21:03)
[2018-12-15] MEDS: DILAUDID IV PRN ×6 (05:14→23:31)
[2018-12-15 05:19] LABS: BASO# 0.06 X1000 (0.0-0.2); BASO% 0.2 % (0.0-0.8); HEMATOCRIT 33.4 % (37.0-47.0); HEMOGLOBIN 9.5 g/dL (12.0-16.0); IMM GRAN# 0.44 X1000 (0.0-0.04); IMM GRAN% 1.4 % (0.0-0.5); LYMPH# 0.56 X1000 (1.2-3.4); LYMPH% 1.8 % (20.5-51.1); MCH 26.8 PG (27-31); MCHC 28.4 g/dL (33-37); MCV 94.1 FL (81-99); MONO# 0.84 X1000 (0.11-0.59); MONO% 2.7 % (1.7-9.3); MPV 11.4 FL (7.4-10.4); NEUT# 29.46 X1000 (1.4-6.5); NEUT% 93.9 % (42.2-75.2); PLT 280 X1000 (130-400); RBC 3.55 XMIL (4.2-5.4); RDW 15.3 % (11.5-14.5); WBC 31.36 X1000 (4.8-10.8)
[2018-12-15 05:28] LABS: AGAP 12; BUN 18 mg/dL (8-22); CALCIUM 8.6 mg/dL (8.8-10.2); CHLORIDE 99 mmol/L (98-107); COSMO 288; CREATININE 0.9 mg/dL (0.5-0.9); ESTIMATED GFR > 60; GLUCOSE 190 mg/dL (70-104); POTASSIUM 3.8 mmol/L (3.5-5.1); SODIUM 141 mmol/L (136-145); TCO2 30 mmol/L (25-35)
[2018-12-15] MEDS: HUMALOG SUBQ SCH ×4 (06:14→20:01)
--- NOTE | 2018-12-15 06:45 | EKG Report ---
Test Performed on : 12/14/2018 8:56:29 PM Test Reason : preop Blood Pressure : / mmHG Vent. Rate : 101 BPM Atrial Rate : 101 BPM P-R Int : 124 ms QRS Dur : 080 ms QT Int : 328 ms P-R-T Axes : 034 -25 038 degrees QTc Int : 425 ms Sinus tachycardia. Possible Left atrial enlargement Left ventricular hypertrophy Abnormal ECG When compared with ECG of 01-APR-2018 20:29, Vent. rate has decreased BY 59 BPM Nonspecific T wave abnormality now evident in Anterior leads T wave inversion no longer evident in Lateral leads Unconfirmed Result
--- NOTE | 2018-12-15 07:18 | Diag Imaging Result Doc PS360 ---
CHEST-PORTABLE - 12/15/2018 INDICATION: s/p surgery COMPARISON: 09/05/2018 FINDINGS: There are extensive bilateral anomaly interstitial peripheral opacities compatible with fibrosis. There may be new infiltrates in the right upper and lower lobes. No pneumothorax or significant pleural effusion. Heart size remains enlarged. IMPRESSION: Pulmonary fibrosis. Cardiomegaly. Questionable infiltrates in the right upper and lower lobes. Electronically signed by Vidal Roberts 12/15/2018 7:16 AM
[2018-12-15] MEDS: SPIRIVA INH SCH (07:38)
[2018-12-15] MEDS: BREO ELLIPTA 100/25 MCG INH INH SCH (07:45)
[2018-12-15] MEDS: LOVENOX SUBQ SCH (08:37)
[2018-12-15] MEDS: PERIDEX MT SCH ×2 (08:39→20:01)
--- NOTE | 2018-12-15 09:46 | GENERAL SURGERY PROGRESS NOTE ---
DATE: 12/15/2018 SUBJECTIVE: She feels better overall. No nausea or vomiting. OBJECTIVE: Vital Signs: She is afebrile. Vital signs are stable. Pulse 97, blood pressure 105/70, O2 saturation 100%, respiratory rate 17. Urine output 1150 mL. General: She is awake, alert, oriented x4. No acute distress. CV: Regular rate and rhythm. Respiratory: Bilateral breath sounds. No work of breathing. GI: Soft, nondistended, appropriately tender. Incisional dressing is clean and dry. Stoma is a little dusky, but appears viable. LABORATORY: White blood cell count 31,000, hemoglobin 9.5, hematocrit 33, platelet count 280. Electrolytes reviewed and unremarkable. ASSESSMENT AND PLAN: A 63-year-old female status post Leigha procedure for perforated sigmoid colon, likely diverticulitis. She will remain on Zosyn as there was gross fecal soilage and wound contamination. We will get her up to a chair today and consult physical therapy. I will let her have a liquid diet as tolerated, and I anticipate she can transfer to the floor tomorrow. The hospitalist has been consulted to assist with her medical management. She does have pulmonary fibrosis. My partners will assist in her care over the next week as I am out of town. cc: MD Twin Harrison MD
[2018-12-15 10:35] LABS: ALLEN TEST YES; BE 11.6 mmoll (-3.0-3.0); BLOOD TYPE ARTERIAL; METHB 1.3 % (0.0-1.5); O2(CT) 13.2 mL/dL (15.0-23.0); O2HB 96.6 % (95.0-99.0); PO2(98.6) 152 mmHg (60-100); SAMPLE BLOOD; SAO2 99.1 % (95.0-100.0); THB 9.5 g/dL (11.5-17.4); pH(98.6) 7.36 (7.35-7.45)
[2018-12-15 10:37] LABS: MODALITY CANNULA; PCO2(98.6) 69 mmHg (35-45)
--- NOTE | 2018-12-15 12:20 | PROGRESS NOTE ---
DATE: 12/15/2018 The patient is looking better. She was a bit hypercapnic this morning, but that is improved so we will continue treatment and follow. Blood sugars are stable. We will continue to monitor closely. Blood sugars are pretty stable. We will continue to follow closely. cc: Twin Camacho MD
--- NOTE | 2018-12-15 16:07 | ECHO REPORT ---
ORDER DATE: 12/15/2018 ECHOCARDIOGRAPHIC MEASUREMENTS: 1. Interventricular septum 1.1. 2. Left ventricular posterior wall 1.0. 3. Diastolic diameter 4.9. 4. Left atrium 3.8. 5. Aorta 3.5. SUMMARY: 1. Pulmonic valve was normal. There is trace pulmonary regurgitation. 2. Aortic valve leaflets sclerosed, trileaflet opening normally. 3. Mitral valve was normal. 4. Tricuspid valve was normal. 5. There is mild mitral regurgitation. 6. Mild tricuspid regurgitation. 7. Peak velocity across the tricuspid valve was 3.2 m/sec. 8. Pulmonary artery systolic pressure of 51 mmHg. 9. Peak velocity across the aortic valve was 2.6 m/sec. 10. There is aortic sclerosis, there is no aortic stenosis. 11. There is mild aortic regurgitation. 12. Normal left ventricular cavity size. 13. Estimated ejection fraction of 60%. 14. There is mild hypokinesis in the inferior base. 15. Estimated ejection fraction of 60%. 16. There is diastolic dysfunction. 17. There is left atrial enlargement. 18. There is no pericardial effusion. cc: MD Toni Hdz CRNP Alexis R. Penot, MD
--- NOTE | 2018-12-15 17:42 | CONSULTATION ---
DATE OF CONSULTATION: 12/15/2018 REASON FOR CONSULTATION: Pulmonary fibrosis. HISTORY OF PRESENT ILLNESS: This is a 63-year-old female with a medical history of pulmonary fibrosis, bronchiectasis, diabetes, hyperlipidemia, depression, congestive heart failure. She presented to the ER yesterday late afternoon with suprapubic and abdominal pain, right lower quadrant worse than left lower quadrant. Initial workup in the ER revealed perforated viscus. She underwent open sigmoid colon resection and creation of end-colostomy by Dr. Hernandez early this morning. After the surgical procedure, the patient was extubated and she developed dyspnea and hypoxia. She was placed on BiPAP. Chest x-ray revealed pulmonary fibrosis, cardiomegaly, and questionable infiltrate in the right upper and lower lobes. She has been placed in the ICU for further evaluation and management. At the time of my examination, the patient is resting in bed comfortably with no acute respiratory distress noted. She states she feel much better generally. She has no nausea or vomiting. She did have ostomy from the surgery. She is complaining of severe pain on the surgical site. She also states she already got her pain medicine and it is getting better slowly. She reports dry cough at times which is really painful with a midline abdominal incision. She has no chest pain, or palpitations. PAST MEDICAL AND SURGICAL HISTORY: 1. Pulmonary fibrosis, idiopathic, on continuous oxygen, Breo and Spiriva at home. 2. Bronchiectasis. 3. Diabetes mellitus type 2. 4. Hyperlipidemia. 5. Depression. 6. Congestive heart failure. 7. Cholecystectomy. 8. Adenoidectomy. 9. Tonsillectomy. 10. Vaginal hysterectomy. 11. Right hip replacement. 12. Lung biopsy. 13. Chest tube placement. SOCIAL HISTORY: The patient lives at home with her son. She has no history of tobacco, alcohol or illicit drug use. FAMILY HISTORY: Positive for lung cancer, diabetes, coronary artery disease, and cystic fibrosis. ALLERGIES: Methocarbamol and sulfa. REVIEW OF SYSTEMS: A 10 point review of systems was conducted and the pertinent is listed within the HPI, otherwise noncontributory. PHYSICAL EXAMINATION: Vital Signs: Blood pressure 93/61, pulse 91, respiratory rate 19, oxygen saturation 99% on nasal cannula at 3 L. General: The patient appears chronically ill, weak and drowsy at this time. She rests comfortably in bed with no acute respiratory distress noted. HEENT: Atraumatic. Trachea midline. Mucosa pink and slightly dry. Respiratory: Lung expansion equal bilaterally. Auscultation revealed diminished breathing sounds bibasilarly with rhonchi and crackles bilaterally noted. Cardiovascular: Regular rate and rhythm with no murmur noted. Gastrointestinal: Tender, semi-firm, foam distended. Midline incision. Dressing dry and clean. Left-sided stoma noted. No drainage noted in bed at this time. Extremities: No pedal edema. No cyanosis. No clubbing. Dorsalis pedis 2+ bilaterally. Neurologic: Alert, oriented x3. Speech fluent. Follow commands. IMAGING DATA: See HPI. LABORATORY DATA: White blood cells 31.36, hemoglobin 9.5, hematocrit 33.4, platelets 280,000. Sodium 141, potassium 3.8, chloride 99, carbon dioxide 30, BUN 18, creatinine 0.9, glucose 119. ABG, pH 7.26, pCO2 75, pO2 132, HC03 28.9, base excess 5.1, oxyhemoglobin 96.6. ASSESSMENT: This is a 63-year-old female with a medical history of idiopathic pulmonary fibrosis, bronchiectasis, diabetes mellitus type 2, hyperlipidemia, depression, congestive heart failure. She has been admitted to the ICU with perforated viscus status post repair, acute on chronic hypoxic hypercapnic respiratory failure likely secondary to fluid volume overload and idiopathic pulmonary fibrosis. 1. Acute hypercapnic respiratory failure. 2. Acute on chronic hypoxemic respiratory failure. 3. Volume overload. 4. Status post repair of perforated viscus. PLAN: 1. Continue supplemental oxygen as needed. 2. Start BiPAP at bedtime as needed. 3. Continue antibiotic, bronchodilators, and aerosol treatments. 4. Encourage patient to use incentive spirometry, take a deep breath and cough hourly. 4. The patient did received Lasix 40 mg IV 1 dose early this morning. She has been improved. She is currently on nasal cannula at 3 L. 5. Follow up with chest x-ray, CBC, BMP and ABG. 6. Continue GI and DVT prophylaxis. 7. Further recommendations pending hospital course. Thank you for the courtesy of this consult. Dictated by CARSON Gonzalez for Paola Bernal MD cc: CARSON Gonzalez MD Twin R. Penot, MD [facility]
[2018-12-15] MEDS ORDERED: PHENERGAN IV ONE (21:00)
[2018-12-15] MEDS ORDERED: SODIUM CHLORIDE 0.9% INJ ONE (21:00)
[2018-12-16] MEDS: NS 1,000 ML IV SCH (01:33)
[2018-12-16] MEDS: DUONEB (A & A) INH SCH ×4 (02:45→22:03)
[2018-12-16] MEDS: ZOSYN 4.5 GM in NS 100 ML IV SCH ×4 (03:24→20:22)
[2018-12-16] MEDS: DILAUDID IV PRN ×6 (04:09→21:23)
[2018-12-16] MEDS ORDERED: CHLORASEPTIC SPRAY MT PRN (04:14)
[2018-12-16 05:10] LABS: ALLEN TEST YES; BE 11.1 mmoll (-3.0-3.0); BLOOD TYPE ARTERIAL; HCO3-(ACT) 33.6 mmoll (20.0-26.0); METHB 0.8 % (0.0-1.5); O2(CT) 14.9 mL/dL (15.0-23.0); O2HB 96.6 % (95.0-99.0); PO2(98.6) 117 mmHg (60-100); SAMPLE BLOOD; SAO2 98.8 % (95.0-100.0); THB 10.8 g/dL (11.5-17.4); pH(98.6) 7.32 (7.35-7.45)
[2018-12-16 05:12] LABS: MODALITY CANNULA; PCO2(98.6) 77 mmHg (35-45)
[2018-12-16 06:11] LABS: HEMATOCRIT 31.8 % (37.0-47.0); HEMOGLOBIN 9.2 g/dL (12.0-16.0); MCH 27.5 PG (27-31); MCHC 28.9 g/dL (33-37); MCV 94.9 FL (81-99); MPV 11.5 FL (7.4-10.4); RBC 3.35 XMIL (4.2-5.4); RDW 15.4 % (11.5-14.5); WBC 23.57 X1000 (4.8-10.8)
[2018-12-16] MEDS: HUMALOG SUBQ SCH ×4 (06:35→21:21)
[2018-12-16 06:53] LABS: POTASSIUM 2.9 mmol/L (3.5-5.1)
--- NOTE | 2018-12-16 07:16 | Diag Imaging Result Doc PS360 ---
CHEST-PORTABLE - 12/16/2018 INDICATION: NG tube placement COMPARISON: 12/15/2018 FINDINGS: There is a new nasogastric tube with the tip in the stomach. IMPRESSION: Nasogastric tube with the tip in the stomach. Electronically signed by Vidal Roberts 12/16/2018 7:14 AM
[2018-12-16] MEDS: PERIDEX MT SCH ×2 (08:27→20:22)
[2018-12-16] MEDS: LOVENOX SUBQ SCH (08:28)
[2018-12-16] MEDS: SPIRIVA INH SCH (09:35)
[2018-12-16] MEDS: BREO ELLIPTA 100/25 MCG INH INH SCH (09:35)
[2018-12-16] MEDS: D5 1/2 NS + KCL 20 MEQ 1,000 ML IV SCH (11:56)
--- NOTE | 2018-12-16 13:01 | PROGRESS NOTE ---
DATE: 12/16/2018 Ms. Sowmya Harper is a 63-year-old female who underwent an open sigmoid colon resection with end colostomy per Dr. Hernandez on 12/15/2018. She is in the ICU. We had to place an NG tube last night because of nausea. This morning she is awake and seems to be comfortable. She has an NG tube and Negrete catheter tube in. Her heart rate is 115, blood pressure 111/70, and O2 saturation 100%. She is afebrile. She is receiving IV antibiotics. Her white blood cell count is 23. Hematocrit is 32%. Electrolytes were within normal limits. PLAN: We will continue her NG tube today. We will leave her Negrete catheter tube in place. We will try to increase her activity. Continue IV antibiotics. cc: MD Twin Hendrix MD
[2018-12-16] MEDS: POTASSIUM CHLORIDE 20 MEQ/SWI 20 MEQ/100 ML IVPB IV SCH ×2 (13:30→15:04)
--- NOTE | 2018-12-16 14:06 | PROGRESS NOTE ---
DATE: 12/16/2018 SUBJECTIVE: Patient has no focal complaints. OBJECTIVE: Vital Signs: Blood pressure 111/70, heart rate 115, respiratory rate 13, temperature 97.4 degrees, 100% on 3 L. Cardiovascular: Regular rate and rhythm. Pulmonary: Bilateral breath sounds. Clear to auscultation. GI: Soft, nontender, nondistended. Bowel sounds are positive. LABORATORY DATA: White count 23,000, hemoglobin 9, hematocrit 31, platelets 294,000. pH 7.32, pCO2 77, PaO2 117. Potassium 2.9, creatinine of 1. ProBNP 327. PROBLEM LIST: 1. Perforated diverticulitis. Clinically, she seems to be doing okay but she did develop nausea and vomiting for which we had to place an NG tube. She is on Zosyn for possible residual peritonitis. 2. Acute on chronic respiratory failure. We will continue to follow closely. The patient is overall improved. She is still requiring intermittent BiPAP. Pulmonary is following. 3. Type 2 diabetes. She has sliding scale insulin. We will continue to monitor. 4. History of hypertension. She is a bit on the hypotensive side but overall doing okay. DISPOSITION: Pending her clinical status. She is hypokalemic. We will supplement that. Follow her magnesium and phosphorus levels. Appreciate consultation and follow closely. cc: Twin Camacho MD
--- NOTE | 2018-12-16 15:21 | PULMONOLOGY PROGRESS NOTE ---
DATE: 12/16/2018 SUBJECTIVE: The patient is awake, alert, and conversant. She is without specific complaints except for mild abdominal tenderness. She did have an episode of emesis yesterday. OBJECTIVE: Vital Signs: The patient has been afebrile for the last 24 hours. Blood pressure 111/70, heart rate 115, respiratory rate 13, oxygen saturation 100% on nasal cannula at 3 L. HEENT: Pupils are equal and reactive. Oropharynx appears clear. Neck: Supple. Chest: Bilateral crackles. Cardiac: S1, S2. Abdomen: Soft with mild tenderness. Bowel sounds are present. Extremities: Without edema. LABORATORY DATA: White blood count 40654, hemoglobin 9.2, platelet count 294,000. Sodium 142, potassium 2.9, chloride 96, bicarbonate 38, BUN 20, creatinine 1.0. Arterial blood gas, pH 7.32, pCO2 of 77, PO2 of 117. Chest x-ray reveals bilateral pulmonary infiltrates. IMPRESSION: A 63-year-old with pulmonary fibrosis status post emergent surgery for perforated colon requiring end colostomy and a Leigha's pouch. The patient has developed acute hypoxemic and acute hypercapnic respiratory failure. Her pulmonary status remains marginal. RECOMMENDATIONS: 1. Continue oxygen and BiPAP for acute hypoxemic and acute hypercapnic respiratory failure. 2. Continue bronchial hygiene with incentive spirometry and nebulizer therapy. 3. Begin physical therapy soon. cc: MD Twin Sandhu MD
[2018-12-17] MEDS: D5 1/2 NS + KCL 20 MEQ 1,000 ML IV SCH (01:24)
[2018-12-17] MEDS: ZOSYN 4.5 GM in NS 100 ML IV SCH ×4 (01:24→20:00)
[2018-12-17] MEDS: DILAUDID IV PRN ×6 (02:04→22:09)
[2018-12-17] MEDS: DUONEB (A & A) INH SCH ×2 (03:39→09:35)
[2018-12-17 05:02] LABS: BLOOD TYPE ARTERIAL; SAMPLE BLOOD
[2018-12-17 05:03] LABS: pH(98.6) 7.35 (7.35-7.45)
[2018-12-17 05:04] LABS: HCO3-(ACT) 42.5 mmoll (20.0-26.0); PCO2(98.6) 77 mmHg (35-45); PO2(98.6) 118 mmHg (60-100)
[2018-12-17 05:06] LABS: ALLEN TEST YES; MODALITY CANNULA
[2018-12-17 06:51] LABS: AGAP 10; ALB/GLOB RATIO 0.8; ALBUMIN 2.3 g/dL (3.5-5.0); ALKALINE PHOSPHATASE 102 U/L (32-104); BUN 19 mg/dL (8-22); CALCIUM 8.8 mg/dL (8.8-10.2); CHLORIDE 101 mmol/L (98-107); COSMO 296; CREATININE 0.9 mg/dL (0.5-0.9); ESTIMATED GFR > 60; GLUCOSE 121 mg/dL (70-104); GOT 14 U/L (10-30); GPT 13 U/L (10-36); MAGNESIUM 1.9 mg/dL (1.5-2.7); PHOSPHORUS 2.5 mg/dL (2.7-4.5); POTASSIUM 3.4 mmol/L (3.5-5.1); SODIUM 147 mmol/L (136-145); TCO2 36 mmol/L (25-35); TOTAL BILIRUBIN < 0.15 mg/dL (0.20-1.00); TOTAL PROTEIN 5.3 g/dL (6.3-8.3)
[2018-12-17 06:55] LABS: BASO# 0.01 X1000 (0.0-0.2); EOS# 0.06 X1000 (0.0-0.7); EOS% 0.3 % (0.0-10.0); HEMATOCRIT 29.6 % (37.0-47.0); HEMOGLOBIN 8.3 g/dL (12.0-16.0); IMM GRAN# 0.13 X1000 (0.0-0.04); IMM GRAN% 0.6 % (0.0-0.5); LYMPH# 0.65 X1000 (1.2-3.4); LYMPH% 3.1 % (20.5-51.1); MCH 26.8 PG (27-31); MCV 95.5 FL (81-99); MONO# 0.96 X1000 (0.11-0.59); MONO% 4.6 % (1.7-9.3); MPV 11.4 FL (7.4-10.4); NEUT# 19.18 X1000 (1.4-6.5); NEUT% 91.4 % (42.2-75.2); PLT 299 X1000 (130-400); RDW 15.4 % (11.5-14.5); WBC 20.99 X1000 (4.8-10.8)
[2018-12-17 07:15] LABS: ANISOCYTOSIS 1+; BANDS 26 % (0-1); HYPOCHROM 2+; LYMPHS 6 % (21-51); SEGS 68 % (42-75)
[2018-12-17] MEDS: HUMALOG SUBQ SCH ×4 (07:22→20:09)
--- NOTE | 2018-12-17 07:55 | Diag Imaging Result Doc PS360 ---
CHEST-PORTABLE - 12/17/2018 INDICATION: abnormal exam COMPARISON: 12/16/2018 FINDINGS: Stable nasogastric tube in good position. Stable coarse interstitial infiltrates diffusely and bilaterally. Heart size remains top normal. IMPRESSION: No change from prior. Electronically signed by Vidal Roberts 12/17/2018 7:53 AM
[2018-12-17] MEDS: LOVENOX SUBQ SCH (08:01)
[2018-12-17] MEDS: PERIDEX MT SCH ×2 (08:01→20:43)
[2018-12-17] MEDS: SPIRIVA INH SCH (09:35)
[2018-12-17] MEDS: BREO ELLIPTA 100/25 MCG INH INH SCH (09:35)
[2018-12-17] MEDS ORDERED: B & O 15A SUPP PR ONE (11:00)
[2018-12-17] MEDS: D5W 1,000 ML IV SCH (11:42)
[2018-12-17] MEDS: POTASSIUM CHLORIDE 20 MEQ/SWI 20 MEQ/100 ML IVPB IV SCH ×2 (11:43→13:30)
[2018-12-17] MEDS ORDERED: B & O 15A SUPP PR PRN (11:51)
[2018-12-17] MEDS ORDERED: SODIUM CHLORIDE 0.9% INJ SCH (12:00)
[2018-12-17] MEDS ORDERED: PROTONIX IV SCH (12:00)
--- NOTE | 2018-12-17 12:11 | PROGRESS NOTE ---
DATE: 12/17/2018 SUBJECTIVE: Patient has no major complaints except for her NG tube. OBJECTIVE: Vital Signs: Blood pressure 81/61. The last one I saw was in the 100s/60s. Heart rate was in the 110s. Saturations 94-97 on 2 L. Cardiovascular: Regular rate and rhythm. Pulmonary: Bilateral breath sounds clear to auscultation. GI: Soft, nontender, nondistended. Bowel sounds were positive. Extremity Examination: No clubbing or cyanosis. Lymph Examination: No peripheral edema. Neurological: Examination was nonfocal. Laboratory Data: She seems to be doing okay. White count is 20, hemoglobin and hematocrit 8 and 29, platelets 299,000. PH 7.35, pCO2 77, PaO2 118. Sodium is 147, potassium 3.4. PROBLEM LIST: 1. Perforated viscus associated with diverticulitis. She is status post colostomy. She has a nasogastric tube in place because of ileus. She is currently on Zosyn for peritonitis. This will be day 3 of treatment. 2. Chronic obstructive pulmonary disease exacerbation or chronic obstructive pulmonary disease with hypercapnia. She seems to be doing okay. She is a bit on the tachycardic side so we will continue to follow closely. Pulmonary is also following. 3. Hypercapnic respiratory failure. She is not very tolerant of BiPAP. She refuses it, in fact, but her pH has normalized so we will continue to monitor that. 4. Hypernatremia, hypokalemia. These have been corrected by Dr. Russell. 5. Disposition. I think she is probably stable enough to go to stepdown. I will go ahead and work on that, assuming surgical folks are accepting of that plan. Disposition pending her clinical status. cc: Twin Camacho MD
--- NOTE | 2018-12-17 12:52 | PULMONOLOGY PROGRESS NOTE ---
DATE: 12/17/2018 SUBJECTIVE: The patient has some sputum production. She denies shortness of breath at rest. She is having some bladder spasms associated with her catheter. OBJECTIVE: Vital Signs: The patient is afebrile for the last 24 hours, blood pressure 108/76, heart rate 109, respiratory rate 21, oxygen saturation 97% on 2 L per nasal cannula. HEENT: Pupils are equal and reactive. Oropharynx is clear. Neck: Supple. Chest: Scattered crackles and rhonchi. Cardiac: S1, S2. Abdomen: Soft. No bowel sounds present. Postsurgical colostomy at the left base. Extremities: Without edema. DIAGNOSTIC STUDIES: Chest x-ray reveals coarse bilateral infiltrates diffusely, which are unchanged. White blood count 20.9K, hemoglobin 8.3, platelet count 299,000. Arterial blood gas, pH 7.35, pCO2 of 77, PO2 of 118. Sodium 147, potassium 3.4, chloride 101, bicarbonate 36, BUN 19, creatinine 0.9. IMPRESSION: A 63-year-old with: 1. Pulmonary fibrosis. 2. Chronic hypoxemic respiratory failure with acute hypoxemic and acute hypercapnic respiratory failure following emergent surgery for perforated colon. 3. The patient required a colostomy and Leigha's pouch. 4. She is having some bladder spasms. 5. Pulmonary status remains marginal, but she otherwise is doing well. RECOMMENDATION: 1. Continue oxygen and BiPAP for acute hypoxemic and acute hypercapnic respiratory failure. 2. Continue bronchial hygiene with incentive spirometry. 3. We will give a B O suppository for bladder spasm. 4. Initiate D5W for hypernatremia. 5. Recommend physical therapy soon. cc: MD Twin Sandhu MD
[2018-12-17] MEDS: PROTONIX IV SCH (14:34)
[2018-12-17] MEDS: XOPENEX NEB INH SCH ×2 (15:36→22:52)
--- NOTE | 2018-12-17 18:30 | PROGRESS NOTE ---
DATE: 12/17/2018 Ms. Sowmya Harper is postop day 2 from open sigmoid colon resection with end colostomy. She has been hospitalized in the ICU but was transferred to CICU today. She still has an NG tube and Negrete catheter tube in place. She is awake. She seems to be comfortable. She has had not much output from her ostomy. Her abdomen is mostly soft. Her midline incision is dressed. Her heart rate is 119, blood pressure 109/69, O2 saturation 98%. She is afebrile. She is on IV Zosyn. Her white blood cell count is decreased from 24 to 21. Hematocrit is 30%. Electrolytes are within normal limits. Her ABG is satisfactory. A chest x-ray was essentially normal. PLAN: We will leave her NG tube in place for now and her Negrete catheter tube. She has been good about getting up in a chair. We will continue to increase her activity. Keep her on IV antibiotics. cc: MD Twin Hendrix MD
[2018-12-18] MEDS: XOPENEX NEB INH SCH ×4 (03:24→21:00)
[2018-12-18 04:07] LABS: ALLEN TEST YES; BE 29.7 mmoll (-3.0-3.0); BLOOD TYPE ARTERIAL; HCO3-(ACT) 48.1 mmoll (20.0-26.0); METHB 0.9 % (0.0-1.5); O2(CT) 11.9 mL/dL (15.0-23.0); O2HB 96.6 % (95.0-99.0); PO2(98.6) 153 mmHg (60-100); SAMPLE BLOOD; THB 8.5 g/dL (11.5-17.4); pH(98.6) 7.39 (7.35-7.45)
[2018-12-18 04:08] LABS: MODALITY CANNULA
[2018-12-18 04:09] LABS: PCO2(98.6) 97 mmHg (35-45)
[2018-12-18] MEDS: ZOSYN 4.5 GM in NS 100 ML IV SCH ×5 (04:19→21:22)
[2018-12-18] MEDS: D5W 1,000 ML IV SCH ×2 (04:19→08:29)
[2018-12-18] MEDS: DILAUDID IV PRN ×5 (04:20→21:21)
[2018-12-18 05:40] LABS: HEMATOCRIT 27.8 % (37.0-47.0); HEMOGLOBIN 7.7 g/dL (12.0-16.0); MCH 27.3 PG (27-31); MCHC 27.7 g/dL (33-37); MCV 98.6 FL (81-99); MPV 10.8 FL (7.4-10.4); RBC 2.82 XMIL (4.2-5.4); RDW 15.7 % (11.5-14.5); WBC 10.1 X1000 (4.8-10.8)
[2018-12-18 05:44] LABS: INR 1.05; PROTIME 14.6 Seconds (11.0-16.0)
[2018-12-18 05:57] LABS: AGAP 5; ALB/GLOB RATIO 0.8; ALBUMIN 2.4 g/dL (3.5-5.0); ALKALINE PHOSPHATASE 97 U/L (32-104); BUN 16 mg/dL (8-22); CALCIUM 8.6 mg/dL (8.8-10.2); CHLORIDE 99 mmol/L (98-107); COSMO 288; CREATININE 0.6 mg/dL (0.5-0.9); ESTIMATED GFR > 60; GLUCOSE 103 mg/dL (70-104); GOT 11 U/L (10-30); GPT 10 U/L (10-36); PHOSPHORUS 2.2 mg/dL (2.7-4.5); POTASSIUM 3.5 mmol/L (3.5-5.1); SODIUM 144 mmol/L (136-145); TCO2 40 mmol/L (25-35); TOTAL BILIRUBIN < 0.15 mg/dL (0.20-1.00); TOTAL PROTEIN 5.6 g/dL (6.3-8.3)
[2018-12-18] MEDS: HUMALOG SUBQ SCH ×4 (06:29→21:06)
--- NOTE | 2018-12-18 07:38 | Diag Imaging Result Doc PS360 ---
CHEST-PORTABLE - 12/18/2018 INDICATION: abnormal exam COMPARISON: 12/17/2018 FINDINGS: Stable nasogastric tube in the stomach. Stable coarse bilateral interstitial opacities. No new infiltrates. Stable mild cardiomegaly. IMPRESSION: No change from prior. Electronically signed by Vidal Roberts 12/18/2018 7:36 AM
[2018-12-18] MEDS: BREO ELLIPTA 100/25 MCG INH INH SCH (07:57)
[2018-12-18] MEDS: SPIRIVA INH SCH (07:58)
[2018-12-18] MEDS: NS NEB INH SCH (07:59)
[2018-12-18] MEDS: PERIDEX MT SCH ×2 (08:27→21:22)
[2018-12-18] MEDS ORDERED: NS 250 ML ONE (08:44)
[2018-12-18 09:33] LABS: URINE SOURCE CATH
[2018-12-18 09:37] LABS: BILIRUBIN URINE NEGATIVE (NEGATIVE); BLOOD URINE MODERATE (NEGATIVE); COLOR YELLOW; GLUCOSE URINE NEGATIVE (NEGATIVE); KETONE URINE NEGATIVE (NEGATIVE); LEUKOCYTES URINE NEGATIVE (NEGATIVE); NITRITE URINE NEGATIVE (NEGATIVE); PH URINE 8.5; PROTEIN URINE 30 mg/dL (NEGATIVE); TURBIDITY URINE HAZY (CLEAR); UROBILINOGEN URINE NORMAL (NORMAL)
[2018-12-18 09:43] LABS: UR EPITHELIAL CELLS >10 /HPF (<10); URINE BACTERIA NEGATIVE /HPF; URINE WBC <10 /HPF (<10)
[2018-12-18 10:02] LABS: URINE YEAST NONE SEEN
[2018-12-18] MEDS: LOVENOX SUBQ SCH (11:38)
[2018-12-18] MEDS: PROTONIX IV SCH ×2 (11:46→12:07)
[2018-12-18 12:25] LABS: HEMATOCRIT 28.6 % (37.0-47.0); HEMOGLOBIN 7.8 g/dL (12.0-16.0)
--- NOTE | 2018-12-18 14:08 | PROGRESS NOTE ---
DATE: 12/18/2018 SUBJECTIVE: Patient has no focal complaints. OBJECTIVE: Vital signs: Blood pressure is stable at 118/68, heart rate 98, respiratory 21, temperature 98 degrees, 100% on 2 L. Cardiovascular: Regular rate and rhythm. Pulmonary: Bilateral breath sounds clear to auscultation. Gastrointestinal: Soft, nontender, nondistended. Bowel sounds are positive. Ostomy output looks good. LABORATORY DATA: White count is 10, hemoglobin 7.8, hematocrit 28, platelets 278. The pH is 7.39, pCO2 of 97, PaO2 of 153. UA was negative. PROBLEM LIST: 1. Perforated viscus related to diverticulitis, status post colostomy. This is postoperative day 3. She has good ostomy output. She just has persistent NG output, although I feel like her NG is starting to reba a bit and we may be able to start cycling it. I am going to go ahead and proceed with that. 2. Hypercapnic respiratory failure. Overall, patient seems to be doing better. She is not really tolerating BiPAP. 3. She is hypernatremic. That is improved. I am going to go ahead and start Clinimix on her because she is still not eating and it has been several days and she is nutritionally depleted. I do not think at baseline she has a very strong nutritional standpoint. I am going to stop the D5 because the Clinimix tends to be hypotonic. 4. Chronic obstructive pulmonary disease (COPD). Appears to be well compensated. We will continue to follow closely. I think if she is stable, we may be able to get her to the floor tomorrow at the discretion of Surgical Services. cc: Twin Camacho MD
[2018-12-18] MEDS: CLINIMIX E 4.25%-5% SOLUTION 1,000 ML IV SCH ×2 (14:30→23:40)
--- NOTE | 2018-12-18 19:25 | PROGRESS NOTE ---
DATE: 12/18/2018 SUBJECTIVE: Ms. Sowmya Harper is now postop day 3 from a sigmoid colon resection with end- colostomy and Leigha's pouch. She has had some gas out of her ostomy. Her abdomen is still distended. She has had little output from her NG tube. She still has a Negrete catheter tube in place. Midline incision looks okay. She is awake and cooperative, but she has not moved around much. OBJECTIVE: Her heart rate is 86, blood pressure 119/68, O2 saturation 100%. She is afebrile. She is on IV antibiotics. Her white blood cell count is now normal. Hematocrit is 28%. PLAN: I have removed her NG tube this evening. I will remove her Negrete catheter tube first thing tomorrow. We will start her on some liquids and we need to increase her activity. cc: MD Twin Hendrix MD
[2018-12-19] MEDS: DILAUDID IV PRN ×7 (00:09→21:00)
--- NOTE | 2018-12-19 00:41 | PULMONOLOGY PROGRESS NOTE ---
DATE: 12/18/2018 SUBJECTIVE: The patient has been transferred to the CIC unit. She reports she is having a good day. She is not yet taking p.o. intake. She is having some gas from her colostomy which did come loose today and had to be replaced. OBJECTIVE: Vital Signs: The patient has been afebrile for the last 24 hours. Blood pressure 126/63, heart rate 106, respiratory rate 28, oxygen saturation 97% on 2 L per nasal cannula. HEENT: Pupils are equal and reactive. Oropharynx is clear. Neck: Is supple. Chest: Reveals bilateral crackles. Cardiac: S1-S2. Abdomen: Is soft with positive bowel sounds. Extremities: Reveal trace edema. LABORATORIES: Chest x-ray reveals coarse bilateral infiltrates which have not changed. White blood count has now normalized at 10.1, hemoglobin 7.7, platelet count 270,000. Arterial blood gas pH 7.39, pCO2 of 97, PO2 of 153. Chemistry. Sodium 144, potassium 3.5, chloride 99, bicarbonate 40, BUN 16, creatinine 0.6, magnesium 2.0, phosphorus 2.2. IMPRESSION: 1. A 63-year-old with pulmonary fibrosis. 2. Chronic hypoxemic respiratory failure. 3. Status post emergent surgery for perforated colon requiring a colostomy and a Leigha pouch. 4. Protein calorie malnutrition. RECOMMENDATIONS: 1. Continue to cycle oxygen and BiPAP as needed for hypoxemic respiratory failure. 2. Continue bronchial hygiene. 3. Agree with Clinimix and discontinuation of D5W following correction of her hypernatremia. 4. Anticipate transition to p.o. intake in the near future. cc: MD Twin Sandhu MD
[2018-12-19] MEDS: ZOSYN 4.5 GM in NS 100 ML IV SCH ×4 (02:45→21:00)
[2018-12-19] MEDS: NS NEB INH SCH (03:29)
[2018-12-19] MEDS: XOPENEX NEB INH SCH ×4 (03:29→21:04)
[2018-12-19 05:38] LABS: BASO# 0.02 X1000 (0.0-0.2); BASO% 0.2 % (0.0-0.8); EOS# 0.02 X1000 (0.0-0.7); EOS% 0.2 % (0.0-10.0); HEMATOCRIT 29.2 % (37.0-47.0); HEMOGLOBIN 8.1 g/dL (12.0-16.0); IMM GRAN# 0.37 X1000 (0.0-0.04); IMM GRAN% 3.1 % (0.0-0.5); LYMPH# 0.92 X1000 (1.2-3.4); LYMPH% 7.6 % (20.5-51.1); MCH 26.8 PG (27-31); MCHC 27.7 g/dL (33-37); MCV 96.7 FL (81-99); MONO# 1.23 X1000 (0.11-0.59); MONO% 10.2 % (1.7-9.3); MPV 10.7 FL (7.4-10.4); NEUT# 9.47 X1000 (1.4-6.5); NEUT% 78.7 % (42.2-75.2); PLT 260 X1000 (130-400); RBC 3.02 XMIL (4.2-5.4); RDW 15.7 % (11.5-14.5); WBC 12.03 X1000 (4.8-10.8)
[2018-12-19 05:52] LABS: AGAP 8; BUN 17 mg/dL (8-22); CALCIUM 8.3 mg/dL (8.8-10.2); CHLORIDE 97 mmol/L (98-107); COSMO 285; CREATININE 0.4 mg/dL (0.5-0.9); ESTIMATED GFR > 60; GLUCOSE 144 mg/dL (70-104); PHOSPHORUS 2.4 mg/dL (2.7-4.5); POTASSIUM 3.7 mmol/L (3.5-5.1); SODIUM 141 mmol/L (136-145); TCO2 36 mmol/L (25-35)
[2018-12-19] MEDS: HUMALOG SUBQ SCH ×4 (06:33→22:28)
[2018-12-19] MEDS: LOVENOX SUBQ SCH (08:08)
[2018-12-19] MEDS: PERIDEX MT SCH ×2 (08:08→21:00)
[2018-12-19] MEDS: CLINIMIX E 4.25%-5% SOLUTION 1,000 ML IV SCH ×2 (08:09→11:07)
[2018-12-19] MEDS: SPIRIVA INH SCH (09:23)
[2018-12-19] MEDS: BREO ELLIPTA 100/25 MCG INH INH SCH (09:23)
[2018-12-19] MEDS ORDERED: SODIUM PHOSPHATE 40 MEQ in NS 250 ML IV ONE (09:54)
--- NOTE | 2018-12-19 11:41 | PROGRESS NOTE ---
DATE: 12/19/2018 Ms. Sowmya Harper is now postoperative day 4 from a sigmoid colon resection and colostomy with Leigha's pouch per Dr. Hernandez. Her ostomy is starting a function. I placed her on clear liquids last night. She seems to be tolerating those well. She is sitting up in a chair. She is awake, cooperative. Her midline incision is intact. She is receiving some IV nutrition. PLAN: We will advance her diet to a full liquid diet and will plan to stop her Clinimix when this current bags has infused. Teaching of the care of her ostomy needs to continue. cc: MD Twin Hendrix MD
[2018-12-19] MEDS: PROTONIX IV SCH (14:05)
--- NOTE | 2018-12-19 14:35 | PROGRESS NOTE ---
DATE: 12/19/2018 SUBJECTIVE: She looks a lot better today. No major complaints. NG tube was discontinued or is out. OBJECTIVE: Vital signs: Blood pressure is 124/65, heart rate 110, respiratory rate 18, temperature 97.9 degrees, 100% on 2.5 L. Cardiovascular: Regular rate and rhythm. Pulmonary: Bilateral breath sounds. Clear to auscultation. GI: Soft, nontender, nondistended. Bowel sounds are positive. LABORATORY DATA: White count is 12, hemoglobin and hematocrit 8 and 29, platelets 260,000. Basic looked okay. PROBLEM LIST: 1. Perforated viscus due to diverticulitis, status post colostomy. I think this is postop day 4. NG is finally out and she is doing well. Surgery following. 2. Hypercapnic respiratory failure. She is also stable, at baseline. 3. Moderate protein calorie malnutrition. She has been on Clinimix. We just started some Clinimix. Surgery, I think, discontinued it because I am sure just a concern over impeding her ability to eat or taking away her drive to eat. Of course, I think that is the way to go. 4. Chronic obstructive pulmonary disease. Appears to be stable. 5. As far as her diverticulitis, she is on Zosyn. Day 7 will be tomorrow. I defer to them about stopping antibiotics, maybe a 10 day course. We will continue to follow. We need to start getting her up, getting PT involved. She tends to not participate in activity, but we will work on getting her a little stronger and go from there. cc: Twin Camacho MD
[2018-12-19] MEDS: TOPROL XL PO SCH (14:57)
[2018-12-19] MEDS ORDERED: CLINIMIX E 4.25%-5% SOLUTION 1,000 ML IV SCH (17:00)
--- NOTE | 2018-12-19 21:17 | PULMONOLOGY PROGRESS NOTE ---
DATE: 12/19/2018 SUBJECTIVE: The patient is awake and alert. She reports she is tolerating p.o. liquids. She denies shortness of breath. OBJECTIVE: Vital Signs: The patient has been afebrile for the last 24 hours. Blood pressure 133/64, heart rate 102, respiratory rate 19, oxygen saturation 99% on 2 L nasal cannula. HEENT: Pupils are equal and reactive. Oropharynx is clear. Neck: Supple. Chest: Reveals bilateral crackles. Cardiac: S1, S2. Abdomen: Soft, with positive air in the ostomy. Extremities: Reveal trace edema. LABORATORIES: White blood count 12.0, hemoglobin 8.1, platelet count 260,000. Chemistries: Sodium 141, potassium 3.7, chloride 97, bicarbonate 36, BUN 17, creatinine 0.4. IMPRESSION: A 63-year-old with: 1. Pulmonary fibrosis. 2. Chronic hypoxemic respiratory failure. 3. Protein calorie malnutrition. 4. Status post surgery for perforated colon requiring a colostomy and Leigha pouch. RECOMMENDATIONS: 1. Continue bronchial hygiene. 2. Wean oxygen as tolerated. 3. Encourage p.o. intake as tolerated. 4. Anticipate probable need for rehab at the time of discharge. cc: MD Twin Sandhu MD
[2018-12-20] MEDS: DILAUDID IV PRN ×8 (00:05→23:30)
[2018-12-20] MEDS: ZOSYN 4.5 GM in NS 100 ML IV SCH ×4 (02:41→20:26)
[2018-12-20] MEDS: XOPENEX NEB INH SCH ×4 (03:00→21:12)
[2018-12-20 03:40] LABS: ALLEN TEST YES; BLOOD TYPE ARTERIAL; HCO3-(ACT) 36.6 mmoll (20.0-26.0); METHB 0.6 % (0.0-1.5); O2(CT) 12.4 mL/dL (15.0-23.0); O2HB 95.9 % (95.0-99.0); PO2(98.6) 91 mmHg (60-100); SAMPLE BLOOD; SAO2 97.9 % (95.0-100.0); THB 9.1 g/dL (11.5-17.4); pH(98.6) 7.45 (7.35-7.45)
[2018-12-20 03:42] LABS: MODALITY BI PAP; PCO2(98.6) 59 mmHg (35-45)
[2018-12-20 05:46] LABS: BASO# 0.03 X1000 (0.0-0.2); BASO% 0.2 % (0.0-0.8); EOS# 0.05 X1000 (0.0-0.7); EOS% 0.3 % (0.0-10.0); HEMATOCRIT 28.3 % (37.0-47.0); IMM GRAN% 3.5 % (0.0-0.5); LYMPH# 1.14 X1000 (1.2-3.4); LYMPH% 6.7 % (20.5-51.1); MCH 26.9 PG (27-31); MCHC 28.3 g/dL (33-37); MCV 95.3 FL (81-99); MONO# 1.86 X1000 (0.11-0.59); MONO% 10.9 % (1.7-9.3); MPV 11.1 FL (7.4-10.4); NEUT# 13.44 X1000 (1.4-6.5); NEUT% 78.4 % (42.2-75.2); PLT 255 X1000 (130-400); RBC 2.97 XMIL (4.2-5.4); RDW 15.8 % (11.5-14.5); WBC 17.12 X1000 (4.8-10.8)
[2018-12-20] MEDS: HUMALOG SUBQ SCH ×4 (06:31→20:26)
[2018-12-20 06:57] LABS: AGAP 8; BUN 12 mg/dL (8-22); CALCIUM 8.6 mg/dL (8.8-10.2); CHLORIDE 102 mmol/L (98-107); COSMO 288; CREATININE 0.4 mg/dL (0.5-0.9); ESTIMATED GFR > 60; GLUCOSE 96 mg/dL (70-104); MAGNESIUM 1.8 mg/dL (1.5-2.7); PHOSPHORUS 2.8 mg/dL (2.7-4.5); POTASSIUM 3.5 mmol/L (3.5-5.1); SODIUM 145 mmol/L (136-145); TCO2 35 mmol/L (25-35)
[2018-12-20 07:25] LABS: LYMPHS 8 % (21-51); MONO 2 % (1-9); SEGS 90 % (42-75)
[2018-12-20] MEDS: LOVENOX SUBQ SCH (08:08)
[2018-12-20] MEDS: TOPROL XL PO SCH (08:08)
[2018-12-20] MEDS: PERIDEX MT SCH ×2 (08:08→20:26)
[2018-12-20] MEDS: BREO ELLIPTA 100/25 MCG INH INH SCH (09:17)
[2018-12-20] MEDS: SPIRIVA INH SCH (09:18)
--- NOTE | 2018-12-20 10:01 | PROGRESS NOTE ---
DATE: 12/20/2018 SUBJECTIVE: Ms. Sowmya Harper is a 63-year-old white female who is status post open sigmoid colon resection with end colostomy and Leigha's pouch per Dr. Hernandez for ruptured diverticulum and intra-abdominal infection. She has been hospitalized and receiving IV antibiotics post surgery. Her NG tube is out, as is her Negrete catheter tube. We have started a diet on her, and we are stopping her peripheral nutrition. Her ostomy is beginning to function. It is viable. Midline incision is without infection. OBJECTIVE: Her abdomen is mostly soft. She is awake and cooperative. Her heart rate is 94, blood pressure 130/63, O2 saturation is 100% on nasal cannula O2, she is afebrile. LABORATORY DATA: Her white blood cell count has gone up. She remains on IV Zosyn postoperatively. Her white count is 17, hematocrit is 28%. Electrolytes are within normal limits. PLAN: Will continue to advance her diet, and now start increasing her activity. She is also being followed by Dr. Russell for her pulmonary function. cc: MD Twin Hendrix MD
[2018-12-20] MEDS: SODIUM CHLORIDE 0.9% INJ SCH (14:30)
[2018-12-20] MEDS: PROTONIX IV SCH (14:30)
--- NOTE | 2018-12-20 14:51 | PROGRESS NOTE ---
DATE: 12/20/2018 SUBJECTIVE: The patient looks well. She is much improved. She is eating. I think she is doing a lot better. OBJECTIVE: Vital signs: Blood pressure is 114/57, heart rate 85, respiratory rate 15, temperature is 97.3 degrees and afebrile. Cardiovascular: Regular rate and rhythm. Pulmonary: Bilateral breath sounds clear to auscultation. Gastrointestinal: Soft, nontender, nondistended. Bowel sounds are positive. LABORATORY DATA: White count is 17, hemoglobin 8, hematocrit 28, platelets 255,000. PH 7.45, pCO2 of 59 PaO2 of 91. Basic was normal. PROBLEM LIST: 1. Perforated viscus related to diverticulitis status post colon resection and currently with colostomy, postoperative day 4. Diet is being advanced. 2. Acute on chronic hypercapnic respiratory failure. She seems to be improving. 3. Moderate protein-calorie malnutrition. She is on Clinimix and seems to be doing okay. 4. Leukocytosis. She had a drop, and then now she is going back up. No fevers. It is really unclear what is causing this, but we will repeat chest x-ray, abdomen, and urine and see if anything turns up. DISPOSITION: I think she is stable to go out of step-down, and we will follow. I think we probably could advance her diet, which I think Dr. Salgado already has. We will continue to follow. cc: Twin Camacho MD
--- NOTE | 2018-12-20 16:35 | Diag Imaging Result Doc PS360 ---
EXAM: FLAT/UPRIGHT ABD/1 VIEW CHEST INDICATION: elevated wbc TECHNIQUE: 3 views COMPARISON: Chest radiograph dated 12/18/2018 FINDINGS: Midline skin germán project over the abdomen. There are cholecystectomy clips in the right upper quadrant and there is a bowel staple line rejecting of the pelvis. There are unremarkable bowel gas and stool patterns. There is no obstructive bowel pattern. There is no evidence of large volume free abdominal gas. There has been interval placement of right PICC line. The tip projects over the region of the atriocaval junction in the expected position. An NG tube has been removed. Coarse interstitial opacities throughout both lungs are stable. No new consolidation is identified. Cardiac silhouette is stable. IMPRESSION: 1.Grossly unremarkable postsurgical abdomen by plain radiograph. 2.Stable coarse interstitial opacities throughout both lungs. 3.Interval placement of right PICC line as described. Electronically signed by Johann Valerio 12/20/2018 4:33 PM
--- NOTE | 2018-12-20 21:46 | PULMONOLOGY PROGRESS NOTE ---
DATE: 12/20/2018 SUBJECTIVE: The patient is drinking some liquids. She has had some abdominal distention and tenderness today but is passing gas. OBJECTIVE: Vital Signs: Blood pressure 105/66, heart rate 97, respiratory rate 18, oxygen saturation 100% on 2 L per nasal cannula. HEENT: Pupils are equal and reactive. Oropharynx is clear. Neck: Supple. Chest: Reveals bilateral crackles. Abdomen: Soft and mildly distended, with increased tympany. She has flatus with some air in the ostomy bag. Extremities: Without edema. LABORATORIES: White blood count 17.1, hemoglobin 8.0, platelet count 255,000. Arterial blood gas: pH 7.45, pCO2 of 59, pO2 of 91. IMPRESSION: A 63-year-old with: 1. Pulmonary fibrosis. 2. Chronic hypoxemic respiratory failure. 3. Protein-calorie malnutrition. 4. Status post surgery for perforated colon requiring a colostomy and a Leigha pouch. RECOMMENDATION: 1. Continue bronchial hygiene. 2. Wean oxygen as tolerated. 3. Cautious p.o. intake. 4. Anticipate the need for rehab stay. cc: MD Twin Sandhu MD
[2018-12-21] MEDS: ZOSYN 4.5 GM in NS 100 ML IV SCH ×4 (02:22→21:20)
[2018-12-21] MEDS: DILAUDID IV PRN ×8 (02:22→23:51)
[2018-12-21] MEDS: XOPENEX NEB INH SCH ×4 (03:05→21:17)
[2018-12-21 05:37] LABS: BASO# 0.03 X1000 (0.0-0.2); BASO% 0.2 % (0.0-0.8); EOS# 0.03 X1000 (0.0-0.7); EOS% 0.2 % (0.0-10.0); HEMATOCRIT 28.5 % (37.0-47.0); HEMOGLOBIN 7.9 g/dL (12.0-16.0); IMM GRAN% 3.9 % (0.0-0.5); LYMPH# 1.44 X1000 (1.2-3.4); LYMPH% 8.1 % (20.5-51.1); MCH 26.6 PG (27-31); MCHC 27.7 g/dL (33-37); MONO# 2.14 X1000 (0.11-0.59); MPV 10.8 FL (7.4-10.4); NEUT# 13.47 X1000 (1.4-6.5); NEUT% 75.6 % (42.2-75.2); PLT 251 X1000 (130-400); RBC 2.97 XMIL (4.2-5.4); RDW 15.8 % (11.5-14.5); WBC 17.81 X1000 (4.8-10.8)
[2018-12-21 05:41] LABS: AGAP 7; BUN 7 mg/dL (8-22); CALCIUM 8.5 mg/dL (8.8-10.2); CHLORIDE 101 mmol/L (98-107); COSMO 286; CREATININE 0.4 mg/dL (0.5-0.9); ESTIMATED GFR > 60; GLUCOSE 127 mg/dL (70-104); POTASSIUM 3.5 mmol/L (3.5-5.1); SODIUM 144 mmol/L (136-145); TCO2 36 mmol/L (25-35)
[2018-12-21] MEDS: HUMALOG SUBQ SCH ×4 (06:13→21:21)
[2018-12-21] MEDS: PERIDEX MT SCH ×2 (08:21→20:51)
[2018-12-21] MEDS: LOVENOX SUBQ SCH (08:21)
[2018-12-21] MEDS: TOPROL XL PO SCH (08:21)
[2018-12-21] MEDS: SPIRIVA INH SCH (11:38)
[2018-12-21] MEDS: BREO ELLIPTA 100/25 MCG INH INH SCH (11:39)
[2018-12-21] MEDS: PROTONIX IV SCH (14:57)
[2018-12-21] MEDS: SODIUM CHLORIDE 0.9% INJ SCH (14:57)
--- NOTE | 2018-12-21 17:00 | PROGRESS NOTE ---
DATE: 12/21/2018 SUBJECTIVE: Ms. Sowmya Harper is now postop day 6 from a low anterior colon resection with end colostomy and Leigha's pouch for ruptured diverticula. She is being transferred from the [facility] to the 4th floor. We have advanced her diet over this week. Her ostomy started functioning. However, her white blood cell count has gone from 12 to 17. Hematocrit is 28%. OBJECTIVE: Her heart rate is 101, blood pressure 111/65, O2 saturation is 100% on nasal cannula O2. She is afebrile. ASSESSMENT AND PLAN: She is on IV Zosyn. She is good about getting in the chair. She is on a cardiac diet with protein shakes. cc: MD Adarsh Hendrix MD
--- NOTE | 2018-12-21 17:17 | PROGRESS NOTE ---
DATE: 12/21/2018 SUBJECTIVE: Patient resting in bed. Seems to have some abdominal discomfort. Otherwise she is doing okay. OBJECTIVE: Vital signs: Temperature 98.6 degrees, pulse 101, respiratory rate is 19, blood pressure 111/65, oxygen saturation 100%. HEENT: Atraumatic, normocephalic. Cardiovascular system: S1, S2. Respiratory system: Has evidence of good entry bilaterally. Abdomen: Soft. Nontender. Has an ostomy on the left side of the abdomen. Extremities: No evidence of edema. Central nervous system: No obvious focal deficits noted. LABORATORY DATA: WBC is 17.81, hematocrit. 28.5, with a platelet count of 251. Sodium is 144, potassium 3.5, chloride is 101, bicarbonate is 36, BUN 7, creatinine 0.4. ASSESSMENT AND PLAN: 1. Perforated viscus related to diverticulitis status post colon resection. Currently the patient has a colostomy. Optimize her pain control. Maintain patient on DVT prophylaxis. Surgery is following. 2. Pulmonary fibrosis/chronic hypercapnic respiratory failure. Maintain patient on oxygen. Use BiPAP if necessary. Pulmonary team is following. 3. Moderate protein-calorie malnutrition. Continue Clinimix. 4. Leukocytosis. The patient's white counts seem to be trending upwards. Cultures from the ascitic fluid are positive for Escherichia coli as well as Providencia alcalifaciens. The patient is currently on piperacillin/tazobactam, and both organisms are sensitive to that antibiotic. We will continue patient on Zosyn and ]follow up on patient's white count. 5. Deep vein thrombosis (DVT) prophylaxis. Lovenox. 6. Gastrointestinal (GI) prophylaxis. PPI. cc: Adarsh Paige MD [facility]
[2018-12-22] MEDS: ZOSYN 4.5 GM in NS 100 ML IV SCH ×4 (02:30→21:02)
[2018-12-22] MEDS: DILAUDID IV PRN ×7 (02:30→21:03)
[2018-12-22] MEDS: XOPENEX NEB INH SCH ×4 (03:30→21:08)
--- NOTE | 2018-12-22 08:23 | Diag Imaging Result Doc PS360 ---
EXAM: CHEST-PORTABLE 12/22/2018 HISTORY: dyspnea TECHNIQUE: AP portable at 0810 COMMENT: There is a PICC line on the right with its tip in the right atrium. There is pleural thickening and/or loculated effusion on the right. There are coarse opacities throughout both lungs. There is slightly denser opacification of the left lower lobe than on the previous study of 12/20/2018. IMPRESSION: Pulmonary and pleural fibrosis with possible superimposed pneumonia in the left lower lobe. Electronically signed by Raghu Uriarte 12/22/2018 8:20 AM
[2018-12-22] MEDS: PERIDEX MT SCH ×2 (08:45→21:03)
[2018-12-22] MEDS: TOPROL XL PO SCH (08:45)
[2018-12-22] MEDS: LOVENOX SUBQ SCH (08:46)
--- NOTE | 2018-12-22 08:50 | PROGRESS NOTE ---
DATE: 12/22/2018 SUBJECTIVE: Ms. Sowmya Harper is now 1 week status post sigmoid colon resection with end colostomy and Leigha's secondary to ruptured diverticulum per Dr. Hernandez. She is now on [address] [place] [address] [place]. OBJECTIVE: She is sitting up in a chair. She is awake and appears to be comfortable. Her midline incision is without infection. Her end colostomy is functional. She has nasal cannula in place. Her heart rate is 104, blood pressure 109/60, O2 saturation 100% on 2 L nasal cannula. She is afebrile. She remains on IV Zosyn. Her white blood cell count is 17, hematocrit is 28%. Electrolytes are within normal limits. A recent chest x-ray suggested pulmonary fibrosis, possible left lower lobe pneumonia. She does have a right-sided PICC line in place. PLAN: She is on a regular diet. Her ostomy is functioning. Her midline incision is without infection. She needs to increase her activity and strength. I think the plan at discharge is to send her to rehab. We will continue to follow with you. cc: MD Andie Hendrix MD
[2018-12-22] MEDS ORDERED: ZYVOX 600 MG/D5W 600 MG/300 ML IVPB IV SCH (09:15)
[2018-12-22 09:39] LABS: BASO# 0.07 X1000 (0.0-0.2); BASO% 0.4 % (0.0-0.8); EOS# 0.05 X1000 (0.0-0.7); EOS% 0.3 % (0.0-10.0); IMM GRAN# 0.34 X1000 (0.0-0.04); LYMPH# 1.14 X1000 (1.2-3.4); LYMPH% 6.5 % (20.5-51.1); MCH 26.6 PG (27-31); MCHC 27.6 g/dL (33-37); MCV 96.3 FL (81-99); MONO# 2.31 X1000 (0.11-0.59); MONO% 13.3 % (1.7-9.3); MPV 11.2 FL (7.4-10.4); NEUT% 77.5 % (42.2-75.2); PLT 279 X1000 (130-400); RBC 3.01 XMIL (4.2-5.4); WBC 17.41 X1000 (4.8-10.8)
[2018-12-22] MEDS ORDERED: MAXIPIME 2 GM in NS 100 ML IV SCH (10:00)
[2018-12-22 10:05] LABS: AGAP 9; ALB/GLOB RATIO 0.6; ALBUMIN 2.2 g/dL (3.5-5.0); ALKALINE PHOSPHATASE 96 U/L (32-104); BANDS 1 % (0-1); BUN 5 mg/dL (8-22); CALCIUM 8.4 mg/dL (8.8-10.2); CHLORIDE 98 mmol/L (98-107); COSMO 283; CREATININE 0.5 mg/dL (0.5-0.9); ESTIMATED GFR > 60; GLUCOSE 141 mg/dL (70-104); GOT 17 U/L (10-30); GPT 9 U/L (10-36); HYPOCHROM 1+; LYMPHS 8 % (21-51); MONO 7 % (1-9); POTASSIUM 4.2 mmol/L (3.5-5.1); SEGS 82 % (42-75); SODIUM 142 mmol/L (136-145); TARGET CELLS OCCASIONAL; TCO2 35 mmol/L (25-35); TOTAL BILIRUBIN < 0.15 mg/dL (0.20-1.00); TOTAL PROTEIN 6.2 g/dL (6.3-8.3)
[2018-12-22 10:06] LABS: STOMATOCYTES 1+
[2018-12-22] MEDS: HUMALOG SUBQ SCH ×4 (13:21→21:24)
[2018-12-22] MEDS: PROTONIX IV SCH (15:02)
[2018-12-22] MEDS: BREO ELLIPTA 100/25 MCG INH INH SCH (15:45)
[2018-12-22] MEDS: SPIRIVA INH SCH (15:46)
--- NOTE | 2018-12-22 16:09 | PROGRESS NOTE ---
DATE: 12/22/2018 SUBJECTIVE: The patient is resting comfortably in bed. She complains of a productive cough with abdominal pain. She is afebrile. No acute events noted overnight. She is having liquid stools. OBJECTIVE: Vital Signs: Temperature 97.8 degrees, blood pressure 125/73, heart rate 113, respirations 16, O2 saturation 95% on 3 L nasal cannula. General: This is an elderly female lying in bed in no acute distress. Heart: S1, S2 normal. Tachycardic. Lungs: Diminished breath sounds at the bases. No wheezing, no rales. Abdomen: Positive bowel sounds. Soft, nontender, nondistended. Extremities: No edema, no cyanosis, no calf tenderness. Neurologic: The patient is alert and oriented x4. LABS: White blood cell count 17, hemoglobin 8, hematocrit 29, platelets 279. Sodium 142, potassium 4.2, chloride 98, CO2 35. BUN 5, creatinine 0.5, glucose 141, calcium 8.4. AST 17, ALT 9, albumin 2.2. X-RAYS: Chest x-ray shows left lower lobe pneumonia. ASSESSMENT AND PLAN: 1. Pneumonia. Continue on zosyn. Will increase the dosage to 4.5gm. Pulmonary is following. 2. Status post exploratory laparotomy with open sigmoid colon resection and end- colostomy. Management as per the general surgeon. 3. Pulmonary fibrosis. Aware. 4. Leukocytosis. Unchanged. 5. Deep vein thrombosis prophylaxis. Continue on Lovenox. cc: Andie Michel MD MTDD
[2018-12-22] MEDS: DIFLUCAN PO SCH (17:46)
--- NOTE | 2018-12-22 18:51 | PULMONOLOGY PROGRESS NOTE ---
DATE: 12/22/2018 SUBJECTIVE: The patient reports her breathing is doing well, and she has a clear cough, but she is having some intermittent abdominal pain and bloating. She is tolerating liquids and p.o. intake yesterday, but she reports she is eating less today. OBJECTIVE: Vital signs: Heart rate 101, respiratory rate 16, blood pressure 125/73, oxygen saturation 95%. HEENT: Pupils are equal and reactive. Oropharynx appears clear. Neck: Supple. Chest: Reveals bilateral crackles and rhonchi. Cardiac exam: S1, S2. Abdomen: Soft with mild increased tympany. Extremities: Reveal trace edema. LABORATORIES: Chest x-ray reveals increased interstitial markings bilaterally. Shallow lung jalloh on the right. No obvious change when compared to 12/20/2018, but the radiologist suggest she may have increased infiltrate in the left base. IMPRESSION: A 63-year-old with: 1. Chronic hypoxemic respiratory failure. 2. Protein calorie malnutrition. 3. Pulmonary fibrosis. 4. Status post surgery for a perforated colon requiring a colostomy and a Leigha pouch. RECOMMENDATIONS: 1. Continue current antibiotic regimen. 2. Continue bronchial hygiene. 3. Continue oxygen. 4. P.o. intake as tolerated. 5. Anticipate a rehabilitation stay. 6. Followup chest x-ray planned for tomorrow. cc: MD Andie Sandhu MD
[2018-12-23] MEDS: DILAUDID IV PRN ×8 (00:13→23:05)
[2018-12-23] MEDS: XOPENEX NEB INH SCH ×4 (03:21→21:10)
[2018-12-23] MEDS: ZOSYN 4.5 GM in NS 100 ML IV SCH ×4 (03:30→23:38)
[2018-12-23] MEDS: HUMALOG SUBQ SCH ×4 (06:06→23:05)
[2018-12-23 07:00] LABS: AGAP 9; BUN 6 mg/dL (8-22); CALCIUM 8.5 mg/dL (8.8-10.2); CHLORIDE 100 mmol/L (98-107); COSMO 289; CREATININE 0.5 mg/dL (0.5-0.9); ESTIMATED GFR > 60; GLUCOSE 107 mg/dL (70-104); POTASSIUM 3.6 mmol/L (3.5-5.1); SODIUM 146 mmol/L (136-145); TCO2 37 mmol/L (25-35)
[2018-12-23 07:22] LABS: BASO# 0.03 X1000 (0.0-0.2); BASO% 0.2 % (0.0-0.8); EOS# 0.02 X1000 (0.0-0.7); EOS% 0.1 % (0.0-10.0); HEMATOCRIT 26.6 % (37.0-47.0); HEMOGLOBIN 7.6 g/dL (12.0-16.0); IMM GRAN# 0.31 X1000 (0.0-0.04); IMM GRAN% 1.8 % (0.0-0.5); LYMPH% 8.2 % (20.5-51.1); MCH 27.3 PG (27-31); MCHC 28.6 g/dL (33-37); MCV 95.7 FL (81-99); MONO# 2.32 X1000 (0.11-0.59); MONO% 13.6 % (1.7-9.3); MPV 11.7 FL (7.4-10.4); NEUT# 12.97 X1000 (1.4-6.5); NEUT% 76.1 % (42.2-75.2); PLT 202 X1000 (130-400); RBC 2.78 XMIL (4.2-5.4); WBC 17.05 X1000 (4.8-10.8)
[2018-12-23 07:24] LABS: LYMPHS 9 % (21-51); MONO 14 % (1-9); SEGS 77 % (42-75)
--- NOTE | 2018-12-23 07:58 | Diag Imaging Result Doc PS360 ---
EXAM: CHEST-PORTABLE INDICATION: pneumonia TECHNIQUE: 2 views COMPARISON: 12/22/2018 FINDINGS: The right PICC line is in stable position. Coarse interstitial opacities throughout both lungs are stable. No new consolidation is identified. Cardiac silhouette is stable. IMPRESSION: Stable chest. Electronically signed by Johann Valerio 12/23/2018 7:56 AM
[2018-12-23] MEDS: DIFLUCAN PO SCH (09:06)
[2018-12-23] MEDS: PERIDEX MT SCH ×2 (09:06→23:04)
[2018-12-23] MEDS: TOPROL XL PO SCH (09:06)
[2018-12-23] MEDS: LOVENOX SUBQ SCH (09:06)
[2018-12-23] MEDS: SPIRIVA INH SCH (10:32)
--- NOTE | 2018-12-23 13:46 | PROGRESS NOTE ---
DATE: 12/23/2018 SUBJECTIVE: The patient continues to complain of lower abdominal pain. OBJECTIVE: Vital Signs: Temperature 97.8 degrees, blood pressure 115/70, heart rate 103, respirations 16, O2 saturations 100% on 2.5 L nasal cannula. General: This is an elderly female lying in bed in no acute distress. Heart: S1, S2 normal. Tachycardic. Lungs: Equal air entry bilaterally. No wheezing. No rales. Abdomen: Positive bowel sounds. Tender to palpation. The incision site is clean, dry and intact. No erythema noted. Extremities: No edema. No cyanosis. No calf tenderness. Neurologic: The patient is alert and oriented x4. LABS: White blood cell count 17, hemoglobin 7.6, hematocrit 26, platelets 202,000. Sodium 146, potassium 3.6, chloride 100, CO2 37, BUN 6, creatinine 0.5, glucose 107, calcium 8.5. Chest x-ray shows coarse interstitial opacities throughout both lungs. ASSESSMENT AND PLAN: 1. Acute hypoxemic respiratory failure. Continue with pulmonary toiletry. The patient has been encouraged to continue with her incentive spirometer. 2. Pulmonary infiltrates. Continue with antibiotic therapy and bronchodilator therapy. 3. Status post exploratory laparotomy with open sigmoid colon resection and colostomy. Management as per the general surgeon. 4. Pulmonary fibrosis. Aware. 5. Leukocytosis. Unchanged. Continue with antibiotic therapy. 6. Deep vein thrombosis prophylaxis. Continue on Lovenox. cc: Andie Michel MD MTDD
[2018-12-23] MEDS: PROTONIX IV SCH (14:17)
[2018-12-23] MEDS: BREO ELLIPTA 100/25 MCG INH INH SCH (15:37)
[2018-12-23] MEDS: D5W 1,000 ML IV SCH (16:28)
--- NOTE | 2018-12-23 17:02 | GENERAL SURGERY PROGRESS NOTE ---
DATE: 12/23/2018 Ms. Harper is now about 9 days after a sigmoid resection and end colostomy for diverticular disease with perforation. She is eating. Her stoma is functional. Her midline wound looks okay. There is no erythema. She does complain about some a little induration inferiorly and some discomfort but there is no induration or redness that I can appreciate. Her white count though remains elevated at 17,000, hemoglobin 7.6, hematocrit 26.6. Her chemistry is satisfactory. She is mildly tachypneic and her chest x-ray is read as some bilateral interstitial infiltrates. PLAN: To continue with the IV antibiotic therapy. We will recheck her labs tomorrow to see if her white count is improving. cc: MD Andie Morin MD
--- NOTE | 2018-12-23 19:51 | PULMONOLOGY PROGRESS NOTE ---
DATE: 12/23/2018 SUBJECTIVE: The patient is awake and alert. She is eating. She is having ostomy output. She has pain, but no specific complaints. OBJECTIVE: BP 118/70, heart rate 93, respiratory rate 16, oxygen saturation 100%. HEENT: Pupils are equal and reactive. Oropharynx is clear. Neck is supple. Chest reveals coarse crackles bilaterally with no increased accessory muscle use. Cardiac exam: S1, S2. Abdomen is soft, with positive bowel sounds and positive ostomy output. Extremities are without edema. LABORATORY DATA: White blood count 17.0, hemoglobin 7.6, platelet count 202,000. Sodium 146, potassium 3.6, chloride 100, bicarbonate 37, BUN 6, creatinine 0.5, glucose is 107. DIAGNOSTIC DATA: Chest x-ray reveals chronic interstitial infiltrates bilaterally without change. IMPRESSION: A 63-year-old with: 1. Chronic hypoxemic respiratory failure. 2. Protein-calorie malnutrition following surgery. 3. Pulmonary fibrosis, which is stable. 4. Status post surgery for perforated colon requiring a colostomy and a Leigha pouch. RECOMMENDATIONS: 1. Continue oxygen for hypoxemic respiratory failure. 2. Continue bronchial hygiene. 3. Continue antibiotic regimen. 4. Continue physical therapy. 5. Anticipate need for rehabilitation stay. cc: MD Andie Sandhu MD
[2018-12-24] MEDS: DILAUDID IV PRN ×7 (02:09→21:03)
[2018-12-24] MEDS: XOPENEX NEB INH SCH ×4 (03:28→21:22)
[2018-12-24] MEDS: ZOSYN 4.5 GM in NS 100 ML IV SCH ×4 (05:21→21:04)
[2018-12-24] MEDS: HUMALOG SUBQ SCH ×4 (06:44→21:00)
[2018-12-24 06:56] LABS: BASO# 0.03 X1000 (0.0-0.2); BASO% 0.1 % (0.0-0.8); EOS# 0.02 X1000 (0.0-0.7); EOS% 0.1 % (0.0-10.0); HEMOGLOBIN 7.3 g/dL (12.0-16.0); IMM GRAN# 0.19 X1000 (0.0-0.04); IMM GRAN% 0.9 % (0.0-0.5); LYMPH# 1.28 X1000 (1.2-3.4); MCH 26.2 PG (27-31); MCV 96.8 FL (81-99); MONO# 2.13 X1000 (0.11-0.59); MONO% 9.9 % (1.7-9.3); MPV 11.1 FL (7.4-10.4); NEUT# 17.77 X1000 (1.4-6.5); PLT 314 X1000 (130-400); RBC 2.79 XMIL (4.2-5.4); RDW 15.8 % (11.5-14.5); WBC 21.42 X1000 (4.8-10.8)
[2018-12-24 07:15] LABS: AGAP 9; BUN 6 mg/dL (8-22); CALCIUM 8.5 mg/dL (8.8-10.2); CHLORIDE 99 mmol/L (98-107); COSMO 285; CREATININE 0.4 mg/dL (0.5-0.9); ESTIMATED GFR > 60; GLUCOSE 108 mg/dL (70-104); POTASSIUM 3.6 mmol/L (3.5-5.1); SODIUM 144 mmol/L (136-145); TCO2 36 mmol/L (25-35)
--- NOTE | 2018-12-24 07:47 | GENERAL SURGERY PROGRESS NOTE ---
DATE: 12/24/2018 Ms. Harper remains afebrile, heart rate 109, blood pressure 119/72. She had 1598 in and 1955 out. She has eaten some of her meals. Her colostomy is functioning. Her white count today, however, is up to 21,000, hemoglobin 7.3, hematocrit 27. Chemistry looks fine. I did open up her inferior incision and there was purulence underneath. I did culture the wound. We probed it. This may be the source of her white count, even though she does have some pulmonary dysfunction as well. Opening the lower wound and releasing the purulence there may help her white count. She is on Zosyn and Diflucan. cc: MD Andie Morin MD
[2018-12-24] MEDS: DIFLUCAN PO SCH (08:24)
[2018-12-24] MEDS: TOPROL XL PO SCH (08:25)
[2018-12-24] MEDS: PERIDEX MT SCH ×2 (08:25→21:03)
[2018-12-24] MEDS: LOVENOX SUBQ SCH (08:25)
--- NOTE | 2018-12-24 08:55 | Diag Imaging Result Doc PS360 ---
EXAM: CHEST-PORTABLE INDICATION: pneumonia TECHNIQUE: One view COMPARISON: 05/25/2019 FINDINGS: The right PICC line is in stable position. Bilateral diffuse coarse interstitial opacities, worse on the right, are essentially stable. No new consolidation is identified. Cardiac silhouette is stable. IMPRESSION: Stable chest. Electronically signed by Johann Valerio 12/24/2018 8:53 AM
[2018-12-24] MEDS: SPIRIVA INH SCH (11:08)
[2018-12-24] MEDS: BREO ELLIPTA 100/25 MCG INH INH SCH (11:23)
[2018-12-24] MEDS: D5W 1,000 ML IV SCH ×2 (13:31→14:22)
[2018-12-24] MEDS: ZYVOX 600 MG/D5W 600 MG/300 ML IVPB IV SCH (13:31)
--- NOTE | 2018-12-24 14:22 | INFECTIOUS DISEASE PROGRESS NO ---
DATE: 12/24/2018 CONCLUSION: I have been asked to see the patient because she appears to have developed pneumonia. She is status post resection of part of the colon and creation of a colostomy secondary to a perforated colon most likely due to diverticulitis. 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 The patient has developed a sanguinous type drainage from the bottom of her incision. There may be a localized infection present. RECOMMENDATIONS: The patient already is on Zosyn and to this I have added Zyvox. I have ordered immunoglobulin levels. DISCUSSION: The patient had right lower quadrant abdominal pain and tenderness. She underwent surgery performed by Dr. Hernandez with the findings as mentioned above. Postoperatively, she has had continued pain in her abdomen, although it is slightly better. She has not been coughing a lot and she has not been vomiting. Her laboratory studies show a CBC with a white count of 21,420, hemoglobin 7.3, and platelet count 314,000 creatinine is 0.4, GFR is greater than 60. Procalcitonin was 0.19. From the ascites E- coli and Providencia were grown. The patient's sputum gram stain shows gram-positive cocci. Blood cultures are negative. Wound culture from the patient's lower part of the incision is pending. The patient's X-ray shows bilateral opacities. TITLE AGENT HISTORY: She is a 3 para 2 AB1. She has had a hysterectomy review. REVIEW OF SYSTEMS: Eyes ears she has decreased vision but her hearing is okay. Neck: No pain with movement. Respiratory: The patient has not been coughing much and she is not complaining of dyspnea. She, however, does have COPD due to pulmonary fibrosis and she has dyspnea especially with exertion. Cardiac: No chest pain or palpitations. Genitourinary: No dysuria or flank pain. GI: She is not having any vomiting and prior to surgery she was not having any diarrhea. Neurologic: No history of seizures. The patient has not lost any motor or sensory function recently. PREVIOUS HOSPITALIZATIONS AND OPERATIONS: She has had atelectasis of her lung. She has had admissions for pneumonia. She has also had a total hip arthroplasty performed. Another time she was hospitalized with bacteremia but the origin of it was not known by the patient. MEDICAL DISEASES: Positive for hyperlipidemia, diabetes mellitus ( but only when she is receiving steroids), COPD due to pulmonary fibrosis and use of steroids for her pulmonary fibrosis. INFECTIOUS DISEASE HISTORY: Positive for recurrent pneumonia and sinusitis. Patient has also had a urinary tract infection in the past. FAMILY HISTORY: Positive for hypertension, myocardial infarction and cancer. SOCIAL HISTORY: [place] She is . She lives with her son. She has dogs for pets. She does not smoke cigarettes. She rarely takes an alcoholic drink. She does not abuse drugs. ALLERGIES: Methocarbamol and Sulfa HOME MEDICATIONS: Include the following 1. Albuterol inhaler. 2. Doxepin. 3. Fluticasone. 4. Lasix. 5. Mucinex. 6. Hydrocodone. 7. Melatonin. 8. Mobic. 9. Metoprolol. 10. Morphine. 11. Pantoprazole. 12. Pravastatin. 13. Prednisone. 14. Requip. 15. Spiriva. PHYSICAL EXAMINATION: Vital Signs: Temperature is 98.3 degrees, pulse 95, respirations 18, blood pressure 111/70. The patients weight is listed as 150 pounds. General: This is an ill-appearing middle-aged female. She is in no acute distress. Head/eyes/ears/nose/throat: She can hear my spoken words and see near objects. She does not have any white patches on her tongue. Neck: No pain with movement. Lungs: Clear to auscultation. Cardiovascular: Heart rate is regular. Abdomen: The patient's incision is intact except for the lower part where there is some sanguinous drainage. The patient's colostomy is functioning well. The abdomen was soft and was and was slightly tender in the right lower quadrant. Neurologic: The patient is alert. She can move her extremities. There is no tremor. Her sensation was intact to touch. Her memory as regarding her medical history is intact. Thank you for the consult. cc: MD Andie Daley MD
[2018-12-24] MEDS: PROTONIX IV SCH (14:23)
[2018-12-24] MEDS: SODIUM CHLORIDE 0.9% INJ SCH (14:23)
--- NOTE | 2018-12-24 15:16 | PROGRESS NOTE ---
DATE: 12/24/2018 SUBJECTIVE: The patient is resting comfortably in bed. No acute events noted overnight. OBJECTIVE: Vital Signs: Temperature 98.3, blood pressure 111/70, heart rate 95, respirations 18. O2 sat is 100% on 3 L nasal cannula. General: This is an elderly female lying in bed in no acute distress. Heart: S1, S2 normal. Tachycardic. Lungs: Equal air entry bilaterally. No wheezing. No rales. No rhonchi. Abdomen: Positive bowel sounds. Soft. Generalized tenderness. The incision site is clean, dry and intact. Extremities: No edema no cyanosis. Neurologic: The patient is alert and oriented x 4. LABS: White blood cell count 21, hemoglobin 7.3, hematocrit 27, platelets 314,000. Sodium 144, potassium 3.6, chloride 99, CO2 36, BUN 6, creatinine 0.4, glucose 108. ASSESSMENT AND PLAN: 1. Acute hypoxemic respiratory failure. Continue with the current treatment regimen. 2. Pulmonary infiltrates. The patient's white blood cell count is increased. Will continue with antibiotic therapy as directed by Dr. Armstrong. 3. Abdominal drainage. Wound culture was taken today. Antibiotics have been adjusted by Dr. Armstrong. 4. Status post exploratory laparotomy with open sigmoid colon resection and colostomy. Management as per the general surgeon. 5. Pulmonary fibrosis. Aware. 6. Leukocytosis. Worse. The patient's antibiotic therapy has been adjusted. 7. DVT prophylaxis. Continue on Lovenox. cc: Andie Michel MD
--- NOTE | 2018-12-24 16:39 | PULMONOLOGY PROGRESS NOTE ---
DATE: 12/24/2018 SUBJECTIVE: The patient is awake, alert, and conversant. She reports she had some drainage from her lower excision and a staple has been removed and purulence cultured. OBJECTIVE: Vital Signs: The patient has been afebrile for the last 24 hours. Blood pressure 117/67, heart rate 106, respiratory rate 16, oxygen saturation 100% on nasal cannula. HEENT: Pupils are equal and reactive. Oropharynx is clear. Neck: Supple. Chest: Reveals bilateral crackles. Cardiac exam: Increased rate, regular rhythm. Abdomen: Soft with a dressing over removal of the lower staple. IMAGING: Chest x-ray reveals increased interstitial markings bilaterally without change. IMPRESSIONS: This is a 63-year-old with: 1. Chronic hypoxemic respiratory failure. 2. Stable pulmonary fibrosis. 3. Protein calorie malnutrition. 4. Status post surgery for perforated colon requiring colostomy and a Leigha's pouch. 5. Leukocytosis with possible localized wound infection which has been drained by Dr. Sprague. RECOMMENDATIONS: 1. Continue oxygen for hypoxemic respiratory failure. 2. Continue bronchial hygiene. 3. Continue antibiotics per Dr. Marty Armstrong. 4. Anticipate the need for a rehabilitation stay after this hospitalization. cc: MD Andie Sandhu MD
[2018-12-25] MEDS: ZYVOX 600 MG/D5W 600 MG/300 ML IVPB IV SCH ×2 (00:26→13:04)
[2018-12-25] MEDS: DILAUDID IV PRN ×7 (00:26→20:22)
[2018-12-25] MEDS: XOPENEX NEB INH SCH ×4 (03:35→22:45)
[2018-12-25] MEDS: ZOSYN 4.5 GM in NS 100 ML IV SCH ×4 (03:57→20:22)
[2018-12-25 06:14] LABS: BASO# 0.01 X1000 (0.0-0.2); EOS# 0.04 X1000 (0.0-0.7); EOS% 0.2 % (0.0-10.0); HEMATOCRIT 25.6 % (37.0-47.0); IMM GRAN# 0.13 X1000 (0.0-0.04); IMM GRAN% 0.6 % (0.0-0.5); LYMPH# 0.97 X1000 (1.2-3.4); LYMPH% 4.8 % (20.5-51.1); MCH 26.6 PG (27-31); MCHC 27.3 g/dL (33-37); MCV 97.3 FL (81-99); MONO# 1.93 X1000 (0.11-0.59); MONO% 9.6 % (1.7-9.3); MPV 11.1 FL (7.4-10.4); NEUT# 16.94 X1000 (1.4-6.5); NEUT% 84.8 % (42.2-75.2); PLT 359 X1000 (130-400); RBC 2.63 XMIL (4.2-5.4); RDW 15.6 % (11.5-14.5); RETIC% 1.31 % (0.8-2.1); RETIC-HE 32.4 PG (28.2-36.6); WBC 20.02 X1000 (4.8-10.8)
[2018-12-25 06:22] LABS: AGAP 7; BUN 3 mg/dL (8-22); CALCIUM 8.5 mg/dL (8.8-10.2); CHLORIDE 90 mmol/L (98-107); COSMO 280; CREATININE 0.5 mg/dL (0.5-0.9); ESTIMATED GFR > 60; GLUCOSE 364 mg/dL (70-104); IRON SATURATION 15 %; POTASSIUM 3.4 mmol/L (3.5-5.1); SODIUM 134 mmol/L (136-145); TCO2 37 mmol/L (25-35); TIBC 142 ug/dL; TOTAL IRON 22 ug/dL (49-151); UNBOUND IRON 120 ug/dL (112-346)
[2018-12-25] MEDS ORDERED: LASIX IV SCH ×2 (06:30→17:00)
[2018-12-25 06:38] LABS: LYMPHS 2 % (21-51); SEGS 90 % (42-75)
[2018-12-25 06:39] LABS: FERRITIN 282 ng/mL (13-150)
[2018-12-25] MEDS: HUMALOG SUBQ SCH ×4 (06:48→21:07)
[2018-12-25] MEDS ORDERED: KLOR-CON PO ONE (08:00)
[2018-12-25] MEDS: PERIDEX MT SCH ×2 (08:59→20:22)
[2018-12-25] MEDS: LOVENOX SUBQ SCH (08:59)
[2018-12-25] MEDS: TOPROL XL PO SCH (08:59)
[2018-12-25] MEDS: DIFLUCAN PO SCH (09:00)
[2018-12-25] MEDS ORDERED: NS 500 ML IV SCH (09:00)
[2018-12-25] MEDS: BREO ELLIPTA 100/25 MCG INH INH SCH (10:00)
[2018-12-25] MEDS: SPIRIVA INH SCH (10:05)
[2018-12-25] MEDS: SODIUM CHLORIDE 0.9% INJ SCH (13:05)
[2018-12-25] MEDS: PROTONIX IV SCH (13:05)
[2018-12-25] MEDS: MYCOSTATIN SUSP PO SCH ×2 (17:07→20:22)
--- NOTE | 2018-12-25 17:23 | INFECTIOUS DISEASE PROGRESS NO ---
DATE: 12/25/2018 PRESENT ILLNESS: Ms. Harper had a perforated viscus and is status post open sigmoid colon resection with end colostomy. She is being treated for a peritonitis, which has grown Escherichia coli and Providencia alcalifaciens. There may also be a local infection to the lower incisional area, which is draining. On x-ray, there are diffuse, coarse interstitial opacities, which may represent some pneumonia. She also has a leukocytosis. Today, there are early signs of oral candidiasis. MEDICATIONS: The patient is receiving Zosyn 4.5 g IV every 6 hours and Zyvox 600 mg IV every 12 hours. PHYSICAL EXAMINATION: Vital Signs: Temperature is 98.5 degrees, pulse rate 104, respiratory rate 18, blood pressure 114/75, O2 saturations 100% on 2 L nasal cannula. General: This is an acutely ill-appearing, middle-aged female. She is lying in bed, currently in no acute distress. HEENT: Atraumatic, normocephalic. Oral mucous membranes are mildly erythematous, and she is complaining of some soreness on her on her tongue and hard palate. Conjunctiva are pink. Neck: Supple. Trachea is midline. Cardiovascular: Heart rate and rhythm are regular and tachycardic. Sinus tach on the monitor. Respiratory: Lung sounds are clear to auscultation in the upper lobes. Diminished in the bases with some bibasilar rales. Abdomen: Soft, round, and tender. Bowel sounds are active. The incision is open to air with germán in place except for a dressing to the lower part of the incision where some drainage has occurred. There is a colostomy with a pink budded stoma and green-brown stool in the bag. Neurologic: She is awake, alert, oriented, and able to get up with assistance to the bedside commode. LABORATORY AND X-RAY: Today her white count is 20.02, hemoglobin 7, platelet count 359,000, creatinine is 0.5, estimated GFR is greater than 60. Her immunoglobulin levels are normal. The abdominal wound culture from yesterday has shown no growth on the preliminary report. No imaging reports today. ASSESSMENT AND PLAN: Ms. Harper is being treated for a peritonitis as well as a possible pneumonia. I have encouraged her to use her incentive spirometry regularly. She is receiving broad-spectrum coverage with Zosyn and Zyvox, which will cover the organisms that had grown in her ascitic fluid previously and will also cover the possibility of methicillin-resistant Staphylococcus aureus pneumonia. For now we will continue Zyvox and Zosyn as ordered. There is a continued leukocytosis, which decreased slightly today. There is also an early oral candidiasis developing. We will go ahead and start her on nystatin swish and swallow. These plans have been discussed with and recommended by Dr. Armstrong. COMORBIDITIES: For Ms. Harper include diabetes mellitus, COPD with pulmonary fibrosis and frequent use of steroids. Dictated by CARSON Augustine for Marty Armstrong MD This chart was documented by, CARSON Augustine and accurately reflects the services performed, treatment plan and medical decisions as attested by the providers signature Marty Armstrong MD. cc: MD Andie Daley MD MTDD
[2018-12-26] MEDS: ZYVOX 600 MG/D5W 600 MG/300 ML IVPB IV SCH ×2 (00:01→15:27)
[2018-12-26] MEDS: DILAUDID IV PRN ×6 (00:01→20:48)
[2018-12-26] MEDS: XOPENEX NEB INH SCH ×4 (03:27→22:50)
--- NOTE | 2018-12-26 03:45 | PROGRESS NOTE ---
DATE: 12/25/2018 SUBJECTIVE: The patient is resting comfortably in bed. No acute events noted overnight. OBJECTIVE: Vital Signs: Temperature 97.9 degrees, blood pressure 123/76, heart rate 109, respirations 18, O2 saturation is 100% on 2 L nasal cannula. General: This is a chronically ill- appearing elderly female, lying in bed in no acute distress. Heart: S1, S2 normal, tachycardic. Lungs: Coarse breath sounds bilaterally. Abdomen: Positive bowel sounds. Soft, nontender, nondistended. Extremities: No edema, no cyanosis. Neurologic: The patient is alert and oriented x3. LABORATORY DATA: White blood cell count 20, hemoglobin 7, hematocrit 25, platelets 359,000. Sodium 134, potassium 3.4, chloride 90, CO2 of 37, BUN 3, creatinine 0.5, glucose 364. ASSESSMENT AND PLAN: 1. Pneumonia. Continue with antibiotic therapy as directed by Dr. Armstrong. 2. Peritonitis. The patient is on antibiotic therapy. 3. Status post exploratory laparotomy with open sigmoid colon resection and colostomy. Management as per the general surgeon. 4. Pulmonary fibrosis. Aware. 5. Leukocytosis. Unchanged. Continue with antibiotic therapy. 6. Gastrointestinal prophylaxis. Continue on Protonix. 7. Iron deficiency anemia. The patient will receive 2 units of packed red blood cells today. 8. Deep vein thrombosis (DVT) prophylaxis. Continue on Lovenox. cc: Andie Michel MD
[2018-12-26] MEDS: ZOSYN 4.5 GM in NS 100 ML IV SCH ×3 (04:01→22:23)
[2018-12-26 06:18] LABS: BASO# 0.02 X1000 (0.0-0.2); BASO% 0.1 % (0.0-0.8); EOS# 0.07 X1000 (0.0-0.7); EOS% 0.4 % (0.0-10.0); HEMATOCRIT 35.8 % (37.0-47.0); HEMOGLOBIN 10.7 g/dL (12.0-16.0); IMM GRAN# 0.15 X1000 (0.0-0.04); IMM GRAN% 0.9 % (0.0-0.5); LYMPH# 1.02 X1000 (1.2-3.4); MCH 27.6 PG (27-31); MCHC 29.9 g/dL (33-37); MCV 92.3 FL (81-99); MONO# 1.74 X1000 (0.11-0.59); MONO% 10.2 % (1.7-9.3); MPV 11.2 FL (7.4-10.4); NEUT# 14.03 X1000 (1.4-6.5); NEUT% 82.4 % (42.2-75.2); PLT 231 X1000 (130-400); RBC 3.88 XMIL (4.2-5.4); RDW 16.6 % (11.5-14.5); WBC 17.03 X1000 (4.8-10.8)
[2018-12-26 06:28] LABS: AGAP 10; BUN 4 mg/dL (8-22); CALCIUM 8.9 mg/dL (8.8-10.2); CHLORIDE 92 mmol/L (98-107); COSMO 279; CREATININE 0.6 mg/dL (0.5-0.9); ESTIMATED GFR > 60; GLUCOSE 111 mg/dL (70-104); POTASSIUM 3.5 mmol/L (3.5-5.1); SODIUM 141 mmol/L (136-145); TCO2 39 mmol/L (25-35)
[2018-12-26 06:29] LABS: HEMOGLOBIN A1C 5.7 % (4.8-6.0)
[2018-12-26] MEDS: HUMALOG SUBQ SCH ×4 (06:38→20:50)
[2018-12-26 06:53] LABS: ANISOCYTOSIS 1+; BANDS 2 % (0-1); HYPOCHROM 1+; LARGE PLATELETS 1+; LYMPHS 12 % (21-51); MONO 6 % (1-9); SEGS 78 % (42-75)
[2018-12-26] MEDS: PERIDEX MT SCH ×2 (09:10→22:29)
[2018-12-26] MEDS: MYCOSTATIN SUSP PO SCH ×4 (09:11→22:29)
[2018-12-26] MEDS: TOPROL XL PO SCH (09:11)
[2018-12-26] MEDS: DIFLUCAN PO SCH (09:11)
[2018-12-26] MEDS: LOVENOX SUBQ SCH (09:11)
[2018-12-26] MEDS: BREO ELLIPTA 100/25 MCG INH INH SCH (11:17)
[2018-12-26] MEDS: SPIRIVA INH SCH (11:17)
[2018-12-26] MEDS ORDERED: CATHFLO IV ONE ×2 (12:48→12:53)
[2018-12-26] MEDS ORDERED: STERILE WATER INJ. INJ ONE ×2 (12:48→12:53)
--- NOTE | 2018-12-26 14:01 | PROGRESS NOTE ---
DATE: 12/26/2018 SUBJECTIVE: Patient was admitted on 12/14/2018, came in with abdominal pain. A 63-year-old with 2-week history of lower back pain, progressive right and lower quadrant abdominal pain, increased coughing. She has a history of pulmonary fibrosis, diabetes mellitus, hypertension, chronic neck and back pain with surgical history of laparoscopic cholecystectomy, chest tube, right hip replacement, tonsillectomy and adenoidectomy, vaginal hysterectomy. Was admitted with abdominal pain and perforated viscus. Abdominopelvic CT showed some free air. Patient underwent surgery, exploratory laparotomy, open sigmoid colon resection with creation of an end colostomy. She is comfortable. She is still hurting in her abdomen. Apparently she has had trouble with infusion in her PICC line, so they wanted to use some to see if they can open up the PICC line. OBJECTIVE: Exam today, temperature 98.5 degrees, pulse 109, respirations 20, blood pressure 126/74. Pupils are equal and round. Lungs: Clear in all lung jalloh. Cardiovascular: Regular rhythm and rate without murmur or S3. Abdomen is soft. Skin is warm and dry. Output: Urine output was 2000 mL. DIAGNOSTIC STUDIES: Review of her lab from yesterday: White count elevated at 17,030, hematocrit is 35, hemoglobin 10, platelet count 231,000. Sodium 141, potassium 3.5, chloride 92, BUN 4, creatinine 0.6, blood sugars 111, 108, 186. ASSESSMENT AND PLAN: 1. Pneumonia. Continue present antibiotics. 2. Peritonitis. On antibiotic therapy. 3. Status post exploratory laparotomy, open sigmoid colon resection, and colostomy. Seems to be improving as far as bowel motility and function. 4. Pulmonary fibrosis. Aware. 5. Leukocytosis. Aware. 6. Gastrointestinal prophylaxis. On Protonix. 7. Iron deficiency anemia. She got 2 units of packed red blood cells yesterday. 8. Continue deep venous thrombosis (DVT) prophylaxis. 9. I do not see any change: On Lovenox 40 mg subcutaneous q.24 h., Diflucan 100 mg p.o. daily, fluticasone inhaler 1 a day, Lasix 20 mg IV was received yesterday, Xopenex 1.25 mg inhalation q.6 h., metoprolol 25 mg daily, opium belladonna 1 per rectum q.6 h. p.r.n., Protonix 40 mg IV q.24 h., tiotropium bromide 1 puff daily, Zosyn 4.5 g IV q.6 h., linezolid 600 mg IV q.12 h., and she received some Cathflo trying to open up her left PICC line. 10. Once again, on review of lab today: Hematocrit 35, hemoglobin 10. Yesterday, hematocrit was 25 and hemoglobin 7. Received 2 units of packed red blood cells. cc: Addy Martinez MD [facility]
[2018-12-26] MEDS: PROTONIX IV SCH (14:54)
[2018-12-26] MEDS: SODIUM CHLORIDE 0.9% INJ SCH (14:54)
--- NOTE | 2018-12-26 18:04 | GENERAL SURGERY CONSULTATION ---
DATE: 12/26/2018 SUBJECTIVE: The patient complains of ongoing abdominal soreness; however, she does report that it is better today than it was a week ago. No nausea or vomiting. She is eating and stooling, and able to ambulate some with assistance. OBJECTIVE: She is afebrile. Pulse is 87 to 111 today, respiratory rate 20 to 21, blood pressure 126/74, O2 saturation 96%. General: She is a well-developed female in no distress. She looks her stated age. CV: Regular rate and rhythm. Respiratory: No work of breathing. Gastrointestinal: Soft, nondistended. Appropriately tender. Incision is clean and dry. There is some mild erythema around some of the germán in the midportion. The lower part of the incision has had germán removed and there is minimal serous drainage. No surrounding erythema. Her left lower quadrant stoma is patent. LABORATORY DATA: White blood cell count 17,000, hemoglobin 10.7, hematocrit 35.8. Electrolytes reviewed and unremarkable. ASSESSMENT AND PLAN: A 63-year-old female status post end colostomy and Leigha pouch for perforated diverticulitis. She also has longstanding pulmonary fibrosis and has been treated for perioperative pneumonia. She overall appears to be making progress. I have discussed with Dr. Armstrong stopping her antibiotics, which I am in agreement with. I would anticipate her being able to go to rehab very soon. I did remove some of the other germán today. cc: MD Addy Harrison MD
--- NOTE | 2018-12-26 18:09 | INFECTIOUS DISEASE PROGRESS NO ---
DATE: 12/26/2018 PRESENT ILLNESS: The patient is status post surgery for perforated viscus. She has peritonitis from which E coli and Providencia were isolated. The patient on x-ray had diffuse coarse interstitial opacities; however, her procalcitonin level is only 0.19 and I doubt that she has pneumonia. The patient also has oral candidiasis. MEDICATIONS: The patient is receiving Zosyn and see receiving Zosyn, Zyvox and fluconazole. OBJECTIVE: Vital signs: Temperature is 98.5 degrees, pulse 109, respirations 21, blood pressure 126/74. Generally this is an ill-appearing middle-aged female. She is in no acute distress. Head, eyes, ears, nose, throat: She can hear my spoken words and see near objects. There is no white coating of her tongue. Neck: No meningismus. Lungs are clear to auscultation. Cardiovascular: Heart rate is regular with a systolic murmur. Abdomen is soft and not tender to light palpation. The patient does have an incision, and the lower part of the incision which previously was draining has stopped draining and it is not erythematous. The patient also has a colostomy present and it is working well. Neurologic: The patient is alert. She can move her extremities. There is no tremor. LABORATORY DATA: The patient's CBC shows a white count 17,030, hemoglobin 10.7, platelet count 231,000. Creatinine is 0.6. GFR is greater than 60. Immunoglobulin levels are normal. Procalcitonin level is 0.19, which makes pneumonia unlikely. ASSESSMENT AND PLAN: 1. The patient had a peritonitis due to viscus perforation; therefore, for right now I am going to leave the patient on Zosyn but discontinue Zyvox and fluconazole. Also nystatin will be continued for the patient's oral candidiasis. 2. Comorbidities: She has diabetes mellitus, chronic obstructive pulmonary disease, pulmonary fibrosis and frequent use of steroids. cc: MD Addy Daley MD
--- NOTE | 2018-12-26 22:13 | PULMONOLOGY PROGRESS NOTE ---
DATE: 12/26/2018 SUBJECTIVE: Patient is awake, alert, and conversant. Her appetite is improving. She is without specific complaints today. OBJECTIVE: Vital Signs: The patient has been afebrile for the last 24 hours. Blood pressure 113/77, heart rate 92, respiratory rate 20, oxygen saturation 98% on 2 L per nasal cannula. HEENT: Pupils are equal and reactive. Oropharynx is clear. Neck: Supple. Chest: Reveals bilateral crackles. Cardiac exam: S1, S2. Abdomen: Soft without drainage. Extremities: Reveal trace edema. LABORATORIES: White blood count 17,000, hemoglobin 10.7, platelet count 231,000, sodium 141, potassium 3.5, chloride 92, bicarbonate 31, BUN 4, creatinine 0.6. IMPRESSION: A 63-year-old with: 1. Chronic hypoxemic respiratory failure. 2. Pulmonary fibrosis. 3. Protein calorie malnutrition. 4. Leukocytosis with some improvement. 5. Status post surgery for a perforated colon requiring colostomy and a Leigha pouch. RECOMMENDATIONS: 1. Continue oxygen for chronic hypoxemic respiratory failure. 2. Continue bronchial hygiene. 3. Follow up chest x-ray tomorrow. cc: MD Addy Sandhu MD
[2018-12-27] MEDS: DILAUDID IV PRN ×8 (00:02→21:33)
[2018-12-27] MEDS: ZOSYN 4.5 GM in NS 100 ML IV SCH ×4 (03:08→21:33)
[2018-12-27] MEDS: XOPENEX NEB INH SCH ×4 (04:00→22:30)
[2018-12-27] MEDS: HUMALOG SUBQ SCH ×4 (06:36→21:33)
[2018-12-27] MEDS: MYCOSTATIN SUSP PO SCH ×4 (08:51→21:33)
[2018-12-27] MEDS: PERIDEX MT SCH ×2 (08:51→21:33)
[2018-12-27] MEDS: LOVENOX SUBQ SCH (08:51)
[2018-12-27] MEDS: TOPROL XL PO SCH (08:51)
--- NOTE | 2018-12-27 10:17 | GENERAL SURGERY PROGRESS NOTE ---
DATE: 12/27/2018 SUBJECTIVE: The patient is doing okay this morning. No new complaints. Some mild continued abdominal pain. No nausea or vomiting she is eating, stooling in the bag and walking. OBJECTIVE: She is afebrile. Vital signs are stable.General: She is awake, alert, no acute distress. Respiratory: No work of breathing. Gastrointestinal: Soft, mildly tender along the incision. No rebound or guarding. She has stool in her stoma. LABORATORY: None today. ASSESSMENT AND PLAN: A 63-year-old female status post end colostomy with Leigha's pouch for perforated diverticulitis. She has had perioperative respiratory failure and pneumonia. She overall appears improved. Her GI function appears to be working well and I anticipate her being able to be discharged to rehab soon. cc: MD Addy Harrison MD
[2018-12-27] MEDS: BREO ELLIPTA 100/25 MCG INH INH SCH (11:36)
[2018-12-27] MEDS: SPIRIVA INH SCH (11:37)
--- NOTE | 2018-12-27 12:21 | PROGRESS NOTE ---
DATE: 12/27/2018 SUBJECTIVE: Ms. Harper is feeling better; her tummy is feeling better. She still has a lot of discomfort in her abdomen, but passing gas and passing stool by report. OBJECTIVE: Vital Signs: Temp 98 degrees, pulse 94, respirations 20, blood pressure 116/75. HEENT: Pupils are equal. No distended neck veins. Lungs: Are clear in all lung jalloh. Cardiovascular: Regular rhythm and rate without murmur or S3. LABORATORY: Urine output is 6200 mL. Blood sugars 170, 115, 130. ASSESSMENT AND PLAN: 1. Status post end colostomy with Leigha's pouch for perforated diverticulitis. She is doing well postop. She had respiratory failure and pneumonia. Bowels are improving. 2. Chronic hypoxemic respiratory failure and pulmonary fibrosis. Her respiratory status is improving. Breathing air and gas exchange improved. She has O2 at home already. 3. Protein calorie malnutrition. Advance p.o. intake as we can. 4. Leukocytosis is improved. White count has come down. 5. General weakening and deconditioning. She would like to go to rehab. However, she is status post perforated viscus and peritonitis for which E coli and Providencia were isolated. X-ray had diffuse coarse interstitial opacities. However, the procalcitonin level was 0.19 and do not feel she had pneumonia. They are treating her for oral candidiasis. She is showing improvement. Social Service involved as she would like to go to rehab. Continue physical therapy. cc: Addy Martinez MD
[2018-12-27] MEDS: PROTONIX IV SCH (14:54)
--- NOTE | 2018-12-27 15:29 | INFECTIOUS DISEASE PROGRESS NO ---
DATE: 12/27/2018 PRESENT ILLNESS: Ms. Harper is being treated for an E coli and Providencia peritonitis, status post repair of perforated viscus. She also has an oral candidiasis. MEDICATIONS: She is receiving Zosyn 4.5 g IV every 6 hours. She also has nystatin swish and swallow. PHYSICAL EXAMINATION: Vital Signs: Temperature is 98 degrees, pulse rate 94, respiratory rate 20, blood pressure 116/75, O2 saturation 100% on 2 L nasal cannula. General: This is a middle- aged, chronically ill-appearing female. She is lying in the bed, currently in no acute distress. HEENT: Atraumatic, normocephalic. Oral mucous membranes are pink and moist. Conjunctivae are pink. Neck: Supple. Trachea is midline. Cardiovascular: Heart rate and rhythm are regular. She does have a systolic murmur. Normal sinus rhythm on the monitor. Respiratory: Lung sounds are clear to auscultation bilaterally. Abdomen: Soft, round, and tender on palpation. Bowel sounds are active. There is a midline abdominal incision with some germán and a colostomy noted. The incision has a small amount of pink to the site with no drainage noted. Colostomy stoma is pink and budded with some green stool noted in the bag. Neurologic: She is awake, alert, oriented, and able to get up with assistance. LABORATORY AND X-RAY: None available today. ASSESSMENT AND PLAN: Ms. Harper is being treated for a peritonitis using high-dose Zosyn, which we will continue at this time. The plan is for her to be discharged to [facility] tomorrow. They have agreed to continue giving her the Zosyn, and we have written out orders for that to be done for the next 2 weeks, after which time we will see the patient back in our office. She will also need to continue the nystatin swish and swallow for her oral candidiasis. These plans have been discussed with and recommended by Dr. Armstrong. COMORBIDITIES: Comorbidities for Ms. Harper include diabetes mellitus, chronic obstructive pulmonary disease, pulmonary fibrosis and frequent steroid administration. Dictated by CARSON Augustine for Marty Armstrong MD This chart was documented by, CARSON Augustine and accurately reflects the services performed, treatment plan and medical decisions as attested by the providers signature Marty Armstrong MD. cc: MD Addy Daley MD MTDD
--- NOTE | 2018-12-27 21:58 | PULMONOLOGY PROGRESS NOTE ---
DATE: 12/27/2018 SUBJECTIVE: The patient is awake, alert and conversant. She is ambulating in the hallway. She is tolerating p.o. intake. She reports episodic pain, but none this evening. OBJECTIVE: The patient has been afebrile for the last 24 hours. Blood pressure 118/62, heart rate 101, respiratory rate 16, oxygen saturation 98% on nasal cannula. HEENT: Pupils are equal and reactive. Oropharynx appears clear. Neck is supple. Chest reveals bilateral crackles. Cardiac exam: S1, S2. Abdomen is soft, without drainage from her incision sites. She has good bowel sounds with ostomy output. Extremities reveal trace pretibial edema. LABORATORY DATA: No new chemistries or CBC today. IMPRESSION: A 63-year-old with: 1. Pulmonary fibrosis. 2. Chronic hypoxemic respiratory failure. 3. Protein-calorie malnutrition. 4. Leukocytosis. 5. Status post surgery for perforated colon, requiring colostomy and Leigha pouch. 6. Continued clinical improvement. RECOMMENDATIONS: 1. Continue oxygen for hypoxemic respiratory failure. 2. Continue bronchial hygiene. 3. Anticipate discharge to a rehab facility tomorrow if she continues to improve. cc: MD Addy Sandhu MD
[2018-12-28] MEDS: DILAUDID IV PRN ×6 (00:40→15:27)
[2018-12-28] MEDS: ZOSYN 4.5 GM in NS 100 ML IV SCH ×3 (03:43→14:57)
[2018-12-28] MEDS: XOPENEX NEB INH SCH ×2 (03:50→10:07)
[2018-12-28 06:33] LABS: BASO# 0.03 X1000 (0.0-0.2); BASO% 0.2 % (0.0-0.8); EOS# 0.02 X1000 (0.0-0.7); EOS% 0.1 % (0.0-10.0); HEMATOCRIT 38.5 % (37.0-47.0); HEMOGLOBIN 11.1 g/dL (12.0-16.0); IMM GRAN# 0.13 X1000 (0.0-0.04); LYMPH% 8.1 % (20.5-51.1); MCH 27.5 PG (27-31); MCHC 28.8 g/dL (33-37); MCV 95.5 FL (81-99); MONO# 1.87 X1000 (0.11-0.59); MONO% 13.7 % (1.7-9.3); NEUT# 10.51 X1000 (1.4-6.5); NEUT% 76.9 % (42.2-75.2); PLT 372 X1000 (130-400); RBC 4.03 XMIL (4.2-5.4); RDW 15.7 % (11.5-14.5); WBC 13.66 X1000 (4.8-10.8)
[2018-12-28 07:11] LABS: AGAP 11; ALB/GLOB RATIO 0.5; ALBUMIN 2.5 g/dL (3.5-5.0); ALKALINE PHOSPHATASE 118 U/L (32-104); BUN 6 mg/dL (8-22); CALCIUM 9.2 mg/dL (8.8-10.2); CHLORIDE 100 mmol/L (98-107); COSMO 286; CREATININE 0.5 mg/dL (0.5-0.9); ESTIMATED GFR > 60; GLUCOSE 97 mg/dL (70-104); GOT 25 U/L (10-30); GPT 13 U/L (10-36); POTASSIUM 3.8 mmol/L (3.5-5.1); SODIUM 145 mmol/L (136-145); TCO2 34 mmol/L (25-35); TOTAL BILIRUBIN 0.15 mg/dL (0.20-1.00); TOTAL PROTEIN 7.4 g/dL (6.3-8.3)
[2018-12-28] MEDS: HUMALOG SUBQ SCH ×2 (07:47→13:58)
--- NOTE | 2018-12-28 08:56 | GENERAL SURGERY PROGRESS NOTE ---
DATE: 12/28/2018 SUBJECTIVE: The patient is doing okay. Intermittent abdominal pain and shortness of breath but overall stable. She is eating. She is stooling. She is walking. OBJECTIVE: Vital Signs: She is afebrile. Pulse from the 90s to low 100s over the last 24 hours. Blood pressure 125/79, O2 saturation 100%. General: She is alert and oriented x4. No acute distress. CV: Regular rate and rhythm. Respiratory: Bilateral breath sounds. No work of breathing. Gastrointestinal: Soft, nondistended. Minimally tender. Incision is clean, dry, and intact. Stoma is patent and pink. Laboratory: White cell count 13.6, hemoglobin 11, hematocrit 38. Electrolytes were reviewed and unremarkable. ASSESSMENT AND PLAN: A 63-year-old female status post Leigha's pouch and end colostomy for perforated diverticulitis. She has been treated also for perioperative respiratory failure and pneumonia. She is gradually improving. Her gastrointestinal function is intact. She is scheduled to go to [facility] today and will continue a course of Zosyn for the next [address] Armstrong for the peritonitis. I will see her back in my office in 2 weeks for a checkup. cc: MD Addy Harrison MD
[2018-12-28] MEDS ORDERED: PROTONIX PO SCH (10:00)
[2018-12-28] MEDS: SPIRIVA INH SCH (10:06)
[2018-12-28] MEDS: BREO ELLIPTA 100/25 MCG INH INH SCH (10:06)
--- NOTE | 2018-12-28 11:10 | DISCHARGE SUMMARY ---
ADMISSION DATE: 12/15/2018 DISCHARGE DATE: 12/28/2018 ADMITTING PHYSICIAN: Dr. Gilberto Hernandez. CONSULTANTS: Pulmonology with Dr. Russell and the Hospitalist service, Dr. Marty Armstrong with Infectious Disease ADMITTING DIAGNOSES: 1. Perforated viscus. 2. Pulmonary fibrosis. 3. Diabetes. 4. Chronic neck and back pain. 5. History of depression. DISCHARGE DIAGNOSES: 1. Perforated viscus. 2. Pulmonary fibrosis. 3. Diabetes. 4. Chronic neck and back pain. 5. History of depression. New diagnoses: 1. Perforated diverticulitis. 2. Acute hypoxemic respiratory failure. 3. Perioperative pneumonia. 4. Acute hypercapnic respiratory failure. 5. Volume overload. 6. Protein calorie malnutrition. 7. Peritonitis. 8. Postoperative wound infection. 9. Oral candidiasis. HOSPITAL COURSE: This is a 63-year-old female who presented to the hospital with severe abdominal pain and imaging evidence for perforated viscus. She was taken urgently to the operating room for exploration and found to have perforated diverticulitis. She underwent a Leigha's operation. For full details, please see the dictated operative report. Postoperatively, she was initially managed in the ICU and stabilized and was transferred to the floor. She developed the above- mentioned perioperative difficulties and complications. The consultants were helpful in managing these. She was maintained on broad-spectrum antibiotics throughout her course and then narrowed to Zosyn toward the end of her course as the culture results from her operation were the only positive cultures that grew out E coli and Providencia. They were both sensitive to Zosyn. She improved her activity level significantly. She was able to walk. She was able to eat. Toward the end of her hospitalization, she was having good stoma function. Her wound had a small area of purulence that cleared up after taking a few germán out and letting it drain and on 12/28/2018, she was deemed stable and ready for discharge to rehab. DISCHARGE MEDICATIONS: 1. Aspirin 81 mg p.o. q.a.m. 2. Ropinirole 1.5 mg p.o. at bedtime. 3. Pravastatin 20 mg p.o. at bedtime. 4. DuoNeb q.2 hours p.r.n. shortness of breath. 5. Mucinex 600 mg p.o. b.i.d. 6. Melatonin 10 mg p.o. at bedtime. 7. Doxepin 100 mg p.o. at bedtime. 8. Haynes 7.5 mg p.o. daily as needed for pain. 9. Magnesium oxide 400 mg p.o. at bedtime. 10. Mobic 15 mg p.o. daily. 11. Biotin 1000 mcg p.o. daily. 12. Morphine ER 1 tab p.o. q.12 hours. 13. Klor-Con 20 mEq p.o. b.i.d. 14. Breo Ellipta inhaler 100-25 mcg 1 puff inhaled daily. 15. Spiriva 1 puff inhaled daily. 16. Protonix 40 mg p.o. at bedtime. 17. Toprol-XL 25 mg p.o. daily. 18. Lasix 20 mg p.o. q.a.m.. 19. Prednisone 10 mg p.o. daily. 20. Diflucan 100 mg p.o. daily. 21. Zosyn 4.5 g IV q.6 hours x2 weeks. INSTRUCTIONS: She may walk and do light activity as tolerated. She may eat a soft diet as tolerated. She should follow up with Dr. Hernandez in 2 weeks after rehab stay, with Dr. Marty Armstrong in 2 weeks, with Dr. Bernal, her regular sand filler, and Dr. Krueger, her primary care physician. cc: MD Addy Harrison MD
[2018-12-28 11:19] VITALS: BP 113/76
--- NOTE | 2018-12-28 13:29 | DISCHARGE SUMMARY ---
ADMISSION DATE: 12/15/2018 DISCHARGE DATE: 12/28/2018 HISTORY: The patient was admitted on 12/14/2018 and discharged on 12/28/2018 to go to rehab at [facility]. The patient presented on 12/15/2018. Her doctor is Dr. José Miguel Krueger. This is a 63- year-old presented with abdominal pain. Reports that over 2-week history of initially lower back pain progressing to right and left lower quadrant abdominal pain which especially started getting worse over the week before admission. She presented to the emergency room, and it worsened with coughing and movement, lessened with lying still. She thinks she has had some low-grade fever. No chills. No nausea or vomiting. She had some loose stools in the past week, but had been on MiraLAX per primary care physician. PAST MEDICAL HISTORY: 1. Pulmonary fibrosis. 2. Diabetes mellitus type 2. 3. Depression. 4. Chronic neck and back pain. PAST SURGICAL HISTORY: 1. Laparoscopic cholecystectomy. 2. Chest tube replacement. 3. Right hip replacement. 4. Tonsillectomy. 5. Adenoidectomy. 6. Vaginal hysterectomy. ALLERGIES: No known drug allergies. HOSPITAL COURSE: The patient was admitted with abdominal pain and found on CT scan. There was free air under the diaphragm. Focal droplets of air scattered throughout the mesentery notably around the sigmoid colon so she is concerned about perforated viscus, and free air in abdomen with tenderness, and had a septic picture when she presented. She went to the operating room for exploratory laparotomy per Dr. Gilberto Trinidad. She had an open colon sigmoid colon resection and creation of colostomy. She had a perforated sigmoid colon. She did well postop. She had an echocardiogram on 12/15/2018. Pulmonic valve was normal. Aortic valve was sclerosed but opening normally. Mitral valve normal. Tricuspid valve normal. Mild tricuspid regurgitation. Pulmonary arterial pressure at 51 mmHg. There was some aortic sclerosis, but no stenosis. Left ventricular cavity size was normal. Ejection fraction 60%. There was some diastolic dysfunction. Mild left enlargement. No pericardial effusion. She had a consult with Dr. Benral. Acute hypercapnic respiratory failure, acute on chronic hypoxemic respiratory failure, volume overload. This was postop. The patient was extubated, and she developed dyspnea and hypoxemia, and placed on BiPAP. Chest x-ray revealed pulmonary fibrosis, and was moved to the ICU. She showed steady improvement. She was on BiPAP for a while and then used at bedtime as needed. Continued her bronchodilators and antibiotics. She received some Lasix 40 mg 1 dose, and was on supplementary O2. She showed steady improvement and physical therapy started. We were able to advance diet, and felt she was ready go to rehab. I should add also that she was treated for E. Coli, Providencia and peritonitis status post repair of viscus repair. She also had Mycostatin swish and swallow. She got Zosyn every 6 hours. She will be discharged to [facility] today, going to continue her Zosyn. Orders are written out for the next [address] Armstrong will follow her back in the office. DISCHARGE MEDICATIONS: She will be discharged to the rehab. She gets belladonna, alkaloid opium suppositories 1 q.6 hours p.r.n. bladder spasms. She is on Peridex mouth wash. We will stop her Lovenox. She is on Breo Ellipta 100-25 1 puff daily, Lasix 20 mg IV. We will stop that. She only got 1 dose of that. Dilaudid will be stopped. She is on Xopenex 1.25 mg q.6 h., Toprol-XL 25 mg a day, Mycostatin swish and swallow 5 mL 4 times a day for another 10 days. Protonix 40 mg p.o. daily. She will continue her Zosyn 4.5 g IV q.6 hours for another 2 weeks. Spiriva 1 puff daily. cc: Addy Martinez MD
[2018-12-28] MEDS: PERIDEX MT SCH (13:44)
[2018-12-28] MEDS: TOPROL XL PO SCH (13:44)
[2018-12-28] MEDS: MYCOSTATIN SUSP PO SCH ×2 (13:44→13:59)
[2018-12-28] MEDS: LOVENOX SUBQ SCH (13:45)
== END 2018-12-28 15:43 | DRG 329 ==
LOC: ED 11:47 → ICU 12-15 03:38 → 3S 12-17 17:51 → 4N 12-21 16:33
PROVIDERS: ADMIT Emergency Medicine; ATTEND Surgery
PROC: GE.COLS (2018-12-14 22:32)
CPT/HCPCS: 36430; 36569; 51702; 71010; 71045; 74000; 74018; 74022; 74177; 80048; 80053; 81001; 82150; 82607; 82728; 82746; 82784; 82805; 82948; 83036; 83540; 83550; 83605; 83690; 83735; 83880; 84100; 84145; 84443; 85014; 85018; 85025; 85027; 85045; 85610; 86850; 86900; 86901; 86920; 87040; 87070; 87075; 87077; 87186; 87205; 88307; 93005; 93306; 94640; 94660; 94760; 94761; 94799; 96365; 96366; 96368; 96375; 96376; 97110; 97162; 97530; 99285; 99291; A9270; C9113; J0131; J0330; J0692; J1170; J1650; J1720; J1815; J1940; J2020; J2270; J2370; J2405; J2543; J2550; J2997; J3370; J3480; J7030; J7040; J7050; J7070; J7120; P9016; Q9967; S0164; XXXXX

== ENCOUNTER 2019-04-30 13:10 | Inpatient (IN) ==
[2019-04-30] MEDS ORDERED: NS 1,000 ML IV ONE ×2 (13:44→14:09)
--- NOTE | 2019-04-30 13:50 | Diag Imaging Result Doc PS360 ---
CHEST-1 VIEW - 04/30/2019 INDICATION: SOB/POSSIBLE SEPSIS COMPARISON: 01/22/2019 FINDINGS: There is stable significant right hemidiaphragm elevation. Stable severely low lung volumes. Stable severe coarse peripheral pulmonary fibrosis. There is new severe diffuse bilateral fine interstitial infiltrate. This likely indicates interstitial pneumonitis or pulmonary edema. No large pleural effusion. Heart size remains borderline enlarged. IMPRESSION: Severe worsening diffuse bilateral interstitial infiltrates compatible with interstitial pneumonitis or pulmonary edema. Electronically signed by Vidal Roberts 04/30/2019 1:48 PM
[2019-04-30] MEDS ORDERED: ZOSYN 3.375 GM in NS 50 ML IV ONE (14:06)
[2019-04-30] MEDS ORDERED: VANCOMYCIN 1 GM/NS 1 GM/250 ML IVPB IV ONE (14:06)
[2019-04-30] MEDS ORDERED: DUONEB (A & A) INH ONE (14:06)
[2019-04-30] MEDS ORDERED: SOLU-MEDROL IV ONE (14:06)
[2019-04-30 14:42] LABS: URINE SOURCE CLEAN CATCH
[2019-04-30 14:46] LABS: BILIRUBIN URINE NEGATIVE (NEGATIVE); BLOOD URINE SMALL (NEGATIVE); COLOR YELLOW; GLUCOSE URINE NEGATIVE (NEGATIVE); KETONE URINE TRACE mg/dL (NEGATIVE); LEUKOCYTES URINE LARGE (NEGATIVE); NITRITE URINE NEGATIVE (NEGATIVE); PROTEIN URINE 300 mg/dL (NEGATIVE); SP GRAVITY URINE 1.026; TURBIDITY URINE TURBID (CLEAR); UROBILINOGEN URINE NORMAL (NORMAL)
[2019-04-30 14:59] LABS: ALBUMIN 3.5 g/dL (3.5-5.0); CALCIUM 9.5 mg/dL (8.8-10.2); TOTAL BILIRUBIN 0.39 mg/dL (0.20-1.00); TOTAL PROTEIN 6.9 g/dL (6.3-8.3)
--- NOTE | 2019-04-30 15:10 | EKG Report ---
Test Performed on : 04/30/2019 1:13:52 PM Test Reason : ED. No order in [place] Blood Pressure : / mmHG Vent. Rate : 160 BPM Atrial Rate : 160 BPM P-R Int : 120 ms QRS Dur : 076 ms QT Int : 312 ms P-R-T Axes : 036 -41 063 degrees QTc Int : 509 ms Sinus tachycardia. Left axis deviation Nonspecific ST and T wave abnormality Abnormal ECG When compared with ECG of 14-DEC-2018 20:56, Vent. rate has increased BY 59 BPM Nonspecific T wave abnormality now evident in Lateral leads Unconfirmed Result
[2019-04-30 15:15] LABS: BASO# 0.01 X1000 (0.0-0.2); EOS# 0.02 X1000 (0.0-0.7); EOS% 0.1 % (0.0-10.0); HEMATOCRIT 34.7 % (37.0-47.0); HEMOGLOBIN 10.4 g/dL (12.0-16.0); IMM GRAN# 0.26 X1000 (0.0-0.04); IMM GRAN% 0.9 % (0.0-0.5); LYMPH% 3.2 % (20.5-51.1); MCH 27.4 PG (27-31); MCV 91.6 FL (81-99); MONO# 3.07 X1000 (0.11-0.59); MONO% 10.9 % (1.7-9.3); MPV 12.4 FL (7.4-10.4); NEUT# 23.87 X1000 (1.4-6.5); NEUT% 84.9 % (42.2-75.2); PLT 218 X1000 (130-400); RBC 3.79 XMIL (4.2-5.4); RDW 14.4 % (11.5-14.5); WBC 28.13 X1000 (4.8-10.8)
[2019-04-30 15:16] LABS: UR EPITHELIAL CELLS <10 /HPF (<10); URINE BACTERIA 1+ /HPF; URINE RBC <10 /HPF (<10); URINE WBC TNTC /HPF (<10)
[2019-04-30 15:19] LABS: URINE CASTS GRANULAR PRESENT; URINE SMALL ROUND CELLS TRANS PRESENT; URINE YEAST NONE SEEN
[2019-04-30 15:31] LABS: POTASSIUM 6.1 mmol/L (3.5-5.1)
[2019-04-30 15:32] LABS: INR 1.06
[2019-04-30 15:34] LABS: PTT 33.5 Seconds (22.3-41.8)
[2019-04-30] MEDS ORDERED: CALCIUM GLUCONATE 1 GM in NS 50 ML IV ONE (15:39)
[2019-04-30] MEDS ORDERED: D50W SYRINGE IV ONE (15:40)
[2019-04-30] MEDS ORDERED: HUMALOG IV ONE (15:40)
[2019-04-30] MEDS ORDERED: ALBUTEROL 0.5% INH CONC FOR HYPERKALEMIA INH ONE (15:40)
--- NOTE | 2019-04-30 15:45 | PROVIDER DOCUMENTATION ---
This chart was entered by Hermelinda Araujo Scribe, acting as scribe for Larry Hall MD. HPI-Respiratory General - General Chief Complaint: SEPSIS ALERT - D Stated Complaint: CANT BREATHE Time Seen by Provider: 04/30/19 13:44 Source: patient Allergies/Adverse Reactions: Patient Allergies Allergy/AdvReac Type Severity Reaction Status Date / Time methocarbamol [From Robaxin] Allergy Unknown Verified 04/30/19 13:30 Sulfa (Sulfonamide AdvReac RASH Verified 04/30/19 13:30 Antibiotics) Home Medications: Home Medication List Medication Instructions Recorded Confirmed Last Taken Type Aspirin 81 mg PO QAM 08/02/13 12/16/18 12/14/18 09:00 History 81 mg Ropinirole HCl [Requip] 1.5 mg PO QHS 04/20/17 12/16/18 12/13/18 21:00 History 1.5mg Pravastatin Sodium 20 mg PO QHS 05/14/17 12/16/18 12/14/18 09:00 History 20mg Albuterol 2.5MG/Ipratrop 0.5MG 3 ml INH Q2H PRN PRN neb 01/17/18 12/16/18 12/14/18 09:00 Rx [Duoneb (A & A)] 3ml Guaifenesin E.r. [Mucinex] 600 mg PO BID #10 tab 01/17/18 12/16/18 12/14/18 09:00 Rx 600mg Melatonin 10 mg PO HS #90 tab 01/17/18 12/16/18 12/13/18 21:00 Rx 10mg Biotin 1,000 mcg PO DAILY 02/17/18 12/16/18 12/14/18 09:00 History 1000mcg Doxepin HCl 100 mg PO HS 02/17/18 12/16/18 12/13/18 21:00 History 100mg Hydrocodone/Acetaminophen [[place] 1 each PO DAILY 02/17/18 12/16/18 12/14/18 09:00 History 7.5-325 Tablet] 1tab Magnesium Oxide [[place] 400 mg PO HS 02/17/18 12/16/18 12/14/18 09:00 History Magnesium] 400mg Potassium Chloride E.r. [Klor-Con] 20 meq PO BID 2 Days tablet 02/22/18 12/16/18 12/14/18 09:00 Rx 20meq Fluticasone/Vilanterol [Bre[place] 1 puff IH DAILY 04/01/18 12/16/18 12/14/18 09:00 History Ellipta 100-25 Mcg INH] 1puff Pantoprazole [Protonix] 40 mg PO QHS 04/01/18 12/16/18 12/14/18 09:00 History 40mg Tiotropium [place] Inhaler 1 puff IH DAILY 04/01/18 12/16/18 12/14/18 09:00 History [Spiriva] 1puff Metoprolol Succinate E.r. [Toprol 25 mg PO DAILY #30 tab 04/09/18 12/16/18 12/13/18 21:00 Rx Xl] 25mg Furosemide [Lasix] 20 mg PO QAM 12/16/18 12/16/18 12/14/18 09:00 History 20mg Prednisone 10 mg PO DAILY 12/16/18 12/16/18 12/14/18 09:00 History 10mg Fluconazole [Diflucan] 100 mg PO DAILY #7 tab 12/27/18 Unknown Rx Chlorhexidine Gluconate [Peridex] 15 ml MT BID udc 12/28/18 Unknown Rx Levalbuterol Neb [Xopenex Neb] 1.25 mg INH RTQ6H neb 12/28/18 Unknown Rx Metoprolol Succinate E.r. [Toprol 25 mg PO DAILY tab 12/28/18 Unknown Rx Xl] Morphine E.r. [Ms Contin] 1 tab PO Q12H #60 tab 12/28/18 Unknown Rx Opium/Belladonna Supp [B & O 15A 1 ea [place] Q6H PRN PRN supp 12/28/18 Unknown Rx Supp] Pantoprazole [Protonix] 40 mg PO DAILY tab 12/28/18 Unknown Rx Phenol 1.4% [place] [Chloraseptic 1 ml MT PRN PRN bottle 12/28/18 Unknown Rx [place]] Azithromycin [Zithromax Z-Brian] 250 mg PO DIRECTED #1 pkg 01/22/19 Unknown Rx Prednisone 20 mg PO DIRECTED #18 tab 01/22/19 Unknown Rx Tizanidine HCl [Zanaflex] 2 mg PO Q6HR PRN #15 cap 01/22/19 Unknown Rx - History of Present Illness-Resp Nature of Presenting Problem: [id number] presents to ED cc cough with mucous production, SOB, wheezing, chills, fever, nausea and pain in left rib with cough and inspiration. Pt reports she has been taking her breathing treatments TID as directed but still getting wors e. Pt has hx of COPD and CAD. Pt reports she was in a half-way in January or January. Quality of Pain: reports: tightness Severity in ED: reports: moderate Onset/Duration: reports: unsure Timing: reports: still present, constant, changing over time Cough Quality/Degree: reports: severe, productive cough, sputum Episode Frequency: chronic episodes Current Respiratory Medication Therapy: Initiated see nurses note Modifying Factors: worse with: exertion, coughing, deep breath Associated Symptoms: reports: cough, fever/chills, heart racing, muscle/bodyaches, shortness of breath, wheezing Similar Symptoms Previously?: Yes Recently seen or treated by another doctor?: No Review of Systems - Adult - REVIEW OF SYSTEMS - ADULT Constitutional: reports: see HPI, chills, fever, fatique, weight loss Eyes: reports: no symptoms reported Ears, Nose, Mouth & Throat: reports: no symptoms reported Cardiovascular: reports: no symptoms reported Respiratory: reports: see HPI, chronic cough, cough, dyspnea on exertion, excessive sputum production, shortness of breath, wheezing Gastrointestinal: reports: no symptoms reported Genitourinary: reports: no symptoms reported Musculoskeletal: reports: no symptoms reported Integumentary: reports: no symptoms reported Neurological: reports: no symptoms reported Psychiatric: reports: no symptoms reported Endocrine: reports: no symptoms reported Hematologic/Lymphatic: reports: no symptoms reported Allergic/Immunologic: reports: no symptoms reported All Other Systems: Reviewed and Negative Past History - Adult - PAST MEDICAL HISTORY-ADULT Review of Records: reports: Nursing Assessment Review, Medications Reviewed, S ocial history reviewed & non-contributory. Major Childhood Illnesses: reports: denies history Cardiovascular: reports: CAD, hyperlipidemia Respiratory: reports: COPD, sleep apnea, other (idiopathic pulmonary fibrosis) Gastrointestinal: reports: GERD Obstetrical/Gynecological: reports: denies history Genitourinary: reports: kidney disease Musculoskeletal: reports: denies history Neurological: reports: Seizures/Epilepsy Psychiatric: reports: depression Endocrine/Immune: reports: Diabetes Other Conditions: reports: denies history - PRIOR SURGERIES/PROCEDURES Surgical/Procedure History: reports: cholecystectomy, hysterectomy, tonsil lectomy - IMMUNIZATION STATUS Childhood Immunizations: See Nurse Assessment Flu Vaccine: See Nurse Assessment - FAMILY HISTORY Family History: reviewed, not pertinent - SOCIAL HISTORY Smoking: denies Physical Exam-General - PHYSICAL EXAM-ADULT Initial Vital Signs Reviewed: Yes - CONSTITUTIONAL General Appearance: alert, moderate distress. negative: anxious, combative - EYES Eyes: PERRL/EOMI, pink conjunctivae. negative: photophobia - HEAD, EARS, NOSE, MOUTH & THROAT HENMT: normocephalic/atraumatic, moist mucous membranes. negative: angioedema - RESPIRATORY Respiratory: chest non-tender, normal breath sounds, no pleuratic chest pain, crackles, rales, rhonchi. negative: lungs clear - CARDIOVASCULAR Cardiovascular: normal peripheral pulses, no edema, no gallop, no JVD, no murmur , tachycardia. negative: regular rate, rhythm, bradycardia - GASTROINTESTINAL (ABDOMEN) Abdominal Exam: normal bowel sounds, non tender, soft, no organomegaly, no pulsatile mass, other (pt has colostomy bag left side). negative: distended, guarding, rigid, rebound, tenderness, hernia, mass - MUSCULOSKELETAL Extremity: normal range of motion, non-tender, normal gait, normal inspection, no pedal edema, no calf tenderness, normal capillary refill, pelvis stable. negative: deformity, erythema - SKIN Integumentary: normal color, normal turgor, warm/dry. negative: cyanosis, diaphoresis, ecchymosis, erythema, jaundice, rash - NEUROLOGIC Neurologic: set staff fitter II-XII nml as tested, grossly normal, no motor/sensory deficits. negative: facial droop, focal weakness - PSYCHIATRIC Psych/Mental Status: normal mood/affect, normal thought content, normal thought process, oriented x 3. negative: disoriented x 3, anxious, disheveled, depressed affect - HEART Score HEART Score: History: Slightly Suspicious HEART Score: ECG: Non-Specific Repolarization Disturbance/LBBB/PM HEART Score: Age: 45-65 Years HEART Score: Risk Factors for Atherosclerotic Disease: 1 or 2 Risk Factors HEART Score: Troponin: < or = Normal Limit Total HEART Score:: 3 Progress - PLAN OF CARE/RESULTS Progress/Plan/Lab Results: Vital Signs - 8 hr 04/30/19 13:21 04/30/19 13:29 04/30/19 13:31 Temperature 98.1 F Pulse Rate 160 H Respiratory Rate 23 Blood Pressure 115/69 109/84 117/81 O2 Sat by Pulse Oximetry 92 L 96 98 04/30/19 14:00 04/30/19 14:05 04/30/19 15:01 Temperature Pulse Rate 144 H 141 H 115 H Respiratory Rate 25 H 23 20 Blood Pressure 105/83 111/71 O2 Sat by Pulse Oximetry 93 L 99 96 04/30/19 15:32 Temperature Pulse Rate 106 H Respiratory Rate 15 Blood Pressure 106/75 O2 Sat by Pulse Oximetry 98 Laboratory Results - last 24 hr 04/30/19 04/30/19 04/30/19 14:03 14:03 14:03 WBC 28.13 H RBC 3.79 L Hgb 10.4 L Hct 34.7 L MCV 91.6 MCH 27.4 MCHC 30.0 L RDW Std Deviation 14.4 Plt Count 218 MPV 12.4 H Immature Gran % (Auto) 0.9 H Neut % (Auto) 84.9 H Lymph % (Auto) 3.2 L [place] % (Auto) 10.9 H Eos % (Auto) 0.1 Baso % (Auto) 0.0 Immature Gran # (Auto) 0.26 H Neut # (Auto) 23.87 H Lymph # (Auto) 0.90 L [place] # (Auto) 3.07 H Eos # (Auto) 0.02 Baso # (Auto) 0.01 PT INR PTT (Actin FS) Sodium 137 Potassium 6.1 H* Chloride 92 L Carbon Dioxide 29 Anion Gap 16 BUN 22 Creatinine 1.0 H Estimated GFR/1.73 m2 56 BUN/Creatinine Ratio 22 Glucose 126 H Calculated Osmolality 282 Calcium 9.5 Total Bilirubin 0.39 AST 23 ALT 27 Alkaline Phosphatase 168 H Creatine Kinase 27 Troponin T Total Protein 6.9 Albumin 3.5 Globulin 3.4 Albumin/Globulin Ratio 1.0 Plasma Lactate 2.3 H Urine Source Urine Color Urine Turbidity Urine pH Ur Specific [place] Urine Protein Ur Glucose (Stick) Ur Ketones (Stick) Urine Blood Urine Nitrite Urine Bilirubin Urobilinogen Dipstick Urine Leukocytes Urine WBC (Auto) Urine RBC (Auto) U Epithel Cells (Auto) Urine Bacteria (Auto) Urine Crystals Small Round Cells Urine Casts Urine Yeast-like Cells 04/30/19 04/30/1904/30/19 14:03 14:03 14:31 WBC RBC Hgb Hct MCV MCH MCHC RDW Std Deviation Plt Count MPV Immature Gran % (Auto) Neut % (Auto) Lymph % (Auto) [place] % (Auto) Eos % (Auto) Baso % (Auto) Immature Gran # (Auto) Neut # (Auto) Lymph # (Auto) [place] # (Auto) Eos # (Auto) Baso # (Auto) PT 14.0 INR 1.06 PTT (Actin FS) 33.5 Sodium Potassium Chloride Carbon Dioxide Anion Gap BUN Creatinine Estimated GFR/1.73 m2 BUN/Creatinine Ratio Glucose Calculated Osmolality Calcium Total Bilirubin AST ALT Alkaline Phosphatase Creatine Kinase Troponin T 0.054 Total Protein Albumin Globulin Albumin/Globulin Ratio Plasma Lactate Urine Source CLEAN CATCH Urine Color YELLOW Urine Turbidity TURBID Urine pH 6.0 Ur Specific [place] 1.026 Urine Protein 300 A Ur Glucose (Stick) NEGATIVE Ur Ketones (Stick) TRACE A Urine Blood SMALL A Urine Nitrite NEGATIVE Urine Bilirubin NEGATIVE Urobilinogen Dipstick NORMAL Urine Leukocytes LARGE A Urine WBC (Auto) TNTC A Urine RBC (Auto) <10 U Epithel Cells (Auto) <10 Urine Bacteria (Auto) 1+ Urine Crystals Small Round Cells TRANS PRESENT Urine Casts GRANULAR PRESENT Urine Yeast-like Cells NONE SEEN Orders Category Date Time Status Cardiac Monitoring DIRECTED Care 04/30/19 13:23 Active IV Insertion ORDERED Care 04/30/19 13:23 Completed Notify MD of + Sepsis Screen NOW Care 04/30/19 13:23 Active Notify Physician As Ordered Care 04/30/19 13:23 Active CHEST-1 VIEW [RAD] Stat Exams 04/30/19 13:23 Completed BLOOD CULTURE [BLDCUL] Stat Lab 04/30/19 14:03 Results CBC WITH DIFF [HEME] Stat Lab 04/30/19 14:03 Results CK PROFILE [SP CHEM] Stat Lab 04/30/19 14:03 Completed COMPREHENSIVE METABOLIC PANEL [CHEM] Stat Lab 04/30/19 14:03 Completed LACTATE, PLASMA [CHEM] Lab 04/30/19 14:03 Completed LACTATE, PLASMA [CHEM] Lab 04/30/19 16:30 Uncollected LACTATE, PLASMA [CHEM] Lab 04/30/19 19:30 Uncollected PROTIME WITH INR [COAG] Stat Lab 04/30/19 14:03 Completed PTT [COAG] Stat Lab 04/30/19 14:03 Completed TROPONIN T Stat Lab 04/30/19 14:03 Completed URINALYSIS W/POSS RFLX CULT [URINALYSIS] Stat Lab 04/30/19 14:31 Completed URINE MANUAL MICROSCOPIC [URINALYSIS] Stat Lab 04/30/19 14:31 Completed 0.9% Sodium Chloride Inj [Ns] 1,000 ml Med 04/30/19 13:44 Discontinued IV 999 mls/hr 0.9% Sodium Chloride Inj [Ns] 1,000 ml Med 04/30/19 14:09 Discontinued IV 999 mls/hr Albuterol 0.5% INH Conc [Albuterol 0.5% INH Conc For Med 04/30/19 15:40 Once Hyperkalemia] 25 mg INH NOW ONE Albuterol 2.5MG/Ipratrop 0.5MG [Duoneb (A & A)] Med 04/30/19 14:06 Discontinued 3 ml INH NOW ONE Calcium Gluconate 1 gm Med 04/30/19 15:39 Ordered 0.9% Sodium Chloride Inj [Ns] 50 ml IV NOW Dextrose 50% Syringe [D50w Syringe] Med 04/30/19 15:40 Once 50 ml IV NOW ONE Insulin Lispro [Humalog] Med 04/30/19 15:40 Once 5 units IV NOW ONE Methylprednisolone Sod Succ [Solu-Medrol] Med 04/30/19 14:06 Discontinued 80 mg IV NOW ONE Piperacillin/Tazobactam [Zosyn] 3.375 gm Med 04/30/19 14:06 Discontinued 0.9% Sodium Chloride Inj [Ns] 50 ml IV NOW Vancomycin 1 gm/Ns Med 04/30/19 14:06 Discontinued 1 gm in 250 ml IV NOW Aerosol Treatments Routine Oth 04/30/19 14:07 Active Aerosol Treatments Routine Oth 04/30/19 15:41 Ordered Aerosol Treatments Stat Oth 04/30/19 14:07 Active Aerosol Treatments Stat Oth 04/30/19 15:41 Ordered Oxygen Device Stat Oth 04/30/19 13:23 Active EKG [EKG] Stat Ther 04/30/19 13:13 Draft A/P: Sepsis, bilateral pneumonia. started sepsis protocol, vanc zosyn, steroids, duo nebd, hyperglycemia protocol started, Dr mercado will accept admission. Result Diagrams: 04/30/19 14:03 04/30/19 14:03 - EKG 1 Time of EKG reading by physician:: 13:13 EKG Read and Signed by:: Francisco Joseph EKG Interpretation (*Must complete 3 of following elements*): Abnormal Rate: 160 Rhythm: sinus tachycardia Elizabeth: left ST Wave: non-specific ST changes - XRAY 1 XRAY: Bilateral XRAY Study: Chest Impression: See EMR Report (IMPRESSION: Severe worsening diffuse bilateral interstitial infiltrates compatible with interstitial pneumonitis or pulmonary edema. Electronically signed by Vidal Roberts 04/30/2019 1:48 PM) - CONSULTS/PCP/HOSPITALIST Notification #1 *Consult/PCP/Hospitalist*: Dr Mercado Time Discussed: 15:42 Consult Disposition: Admit Departure - Departure Date of Disposition Decision: 04/30/19 Time of Disposition Decision: 15:43 DIAGNOSIS: COPD exacerbation, Bilateral pneumonia, Hyperkalemia Disposition: ADMITTED INPATIENT 09 Certified Medical Emergency: Emergent Condition: Stable Referrals and Follow-Ups: José Miguel Krueger MD [Primary Care Provider] - - Critical Care Note This patient required my direct & personal management of CC.: No Attestation - Physician/ LORENOZ Attestation Patient care was provided by Advanced Practice Provider:: No The physician spent face to face time with patient:: Yes Advanced Practice Provider documentation review:: Supervising physician onsite and consulted in the evaluation and care of this patient. The physician did have a face to face encounter with the patient. This chart was documented by the indicated scribe, (Hermelinda Araujo Scribe) and accurately reflects the services I performed and decisions made by me, Larry Hall MD, as attested by the provider's signature.
[2019-04-30 16:31] LABS: BANDS 4 % (0-1); LYMPHS 5 % (21-51); MONO 4 % (1-9); SEGS 86 % (42-75)
[2019-04-30] MEDS: DUONEB (A & A) INH SCH ×2 (19:20→23:39)
[2019-04-30] MEDS ORDERED: KAYEXALATE PO ONE (19:29)
[2019-04-30] MEDS ORDERED: VANCOMYCIN IV PER PHARMACY MISC SCH (19:29)
[2019-04-30] MEDS: ZOSYN 3.375 GM in NS 50 ML IV SCH (20:50)
[2019-04-30] MEDS ORDERED: VANCOMYCIN 1,700 MG in NS 250 ML IV ONE (21:00)
--- NOTE | 2019-04-30 21:02 | HISTORY AND PHYSICAL ---
PRIMARY CARE PHYSICIAN: Dr. Krueger. CHIEF COMPLAINT: Productive cough, shortness of breath, wheezing, chills and a subjective fever over the past couple of days that has progressively worsened. HISTORY OF PRESENTING ILLNESS: This is a 63-year-old female who presents to [facility] with complaints of a productive cough, shortness of breath, wheezing, chills, a subjective fever and nausea and pain in the left rib with cough and inspiration. Her workup in the emergency room showed a heart rate on arrival of 160, was saturating 92% on 4 L via nasal cannula. Her white blood cell count was 28.13. Her potassium was 6.1. Plasma lactate of 2.3. Urinalysis showed negative nitrites, large leukocytes, and 1+ bacteria. Chest x-ray: Severe worsening diffuse bilateral interstitial infiltrates compatible with interstitial pneumonitis or pulmonary edema. So she is being admitted for further evaluation and treatment. PAST MEDICAL HISTORY: COPD, CAD, hyperlipidemia, sleep apnea, a perforated colon in December, diabetes type 2, depression, idiopathic pulmonary fibrosis, GERD, chronic kidney disease, seizures, depression. PAST SURGICAL HISTORY: Of a cholecystectomy, hysterectomy, tonsillectomy and a colostomy placement in December after her colon perforation. FAMILY HISTORY: Reviewed and noncontributory. SOCIAL HISTORY: She currently lives with her son. Denies any tobacco, alcohol or illicit drug use. ALLERGIES TO: Methocarbamol and sulfa. HOME MEDICATIONS: A current list of home medications will need to be obtained, reconciled, reviewed and restarted as appropriate. We will place an order for nursing to update and confirm home medications. LABORATORY DATA: Showed a white blood cell count of 28.13, hemoglobin 10.4, hematocrit 34.7, platelets 218,000. PT and INR of 14 and 1.06. Sodium of 137, potassium 6.1, chloride 92, CO2 29, BUN of 22, creatinine 1, glucose 126. Cardiac enzyme was negative. Plasma lactate of 2.3. Urinalysis showed negative nitrites, large leukocytes, 1+ bacteria. EKG showed sinus tachycardia at 160 on arrival. Chest x-ray showed severe worsening diffuse bilateral interstitial infiltrates compatible with interstitial pneumonitis or pulmonary edema. REVIEW OF SYSTEMS: She was positive for a subjective fever, chills, productive cough, shortness of breath and wheezing. Denied any abdominal pain, constipation, diarrhea, or burning or hurting with urination. PHYSICAL EXAMINATION: VITAL SIGNS: On arrival she had a temperature of 98.1 degrees, pulse 160, respirations 23, blood pressure 115/69, saturating 92% on 4 L via nasal cannula. Currently heart rate is down to 105. GENERAL: This is a 63-year-old female who is sitting up in the bed and answers questions appropriately. HEENT: Normocephalic, atraumatic. Normal ENT inspection. Oropharynx and nares are clear. EYES: Pupils are equal, round, and reactive to light and accommodation. Extraocular movements are intact. NECK: Normal inspection normal range of motion. LUNGS: With some scattered rhonchi, rales and crackles and equal lung expansion. Chest wall movement noted. HEART: Regular rate and rhythm. No murmurs, rubs, or gallops. She was noted to be tachycardic on arrival, but that is improved at this time. ABDOMEN: Soft, nontender, nondistended. Bowel sounds are present x4 quadrants. MUSCULOSKELETAL: She had 5/5 strength x4 extremities. NEUROLOGICAL: The cranial nerves 2-12 appear grossly intact. ASSESSMENT: 1. Sepsis. 2. Bilateral pneumonia. 3. Leukocytosis. 4. Hyperkalemia. 5. Possible urinary tract infection. PLAN: She is being admitted to the medical unit, placed on telemetry O2 per protocol. Diabetic diet. Turn cough and deep breathe incentive spirometry. We are going to check a CT of the thorax, abdomen and pelvis without contrast. Placed on Zosyn 3.375 g IV q.6h, vancomycin per pharmacy protocol. Kayexalate 15 g p.o. x1. She also received an albuterol 25 mg inhalation, calcium gluconate 1 gram IV x1, D50 IV x1 and Humalog 5 units IV x1 in the emergency room. I am going to recheck a potassium at 8 p.m. tonight. Recheck a CBC and BMP in the a.m. and further orders after seen by attending. Dictated by CARSON Feliz for Micah Mercado MD cc: CARSON Feliz MD Agree with the above. the following is my own face to face assessment. Patient with worsening dyspnea. severe crackles on exam with R>L. mildly increased work of breathing with minimal exertion including speech. given history of fibrosis, will get CT chest to better clarify whether this is pneumonia alone, worsening of her fibrosis, or (likely) both. MTDD
[2019-05-01] MEDS: ZOSYN 3.375 GM in NS 50 ML IV SCH ×4 (01:37→20:00)
[2019-05-01] MEDS: DUONEB (A & A) INH SCH ×6 (03:39→22:47)
--- NOTE | 2019-05-01 06:36 | Diag Imaging Result Doc PS360 ---
CT THORAX/ABD/PELVIS W/O CON - 04/30/2019 INDICATION: Earnest Pn,Sepsis,Leukocytosis COMPARISON: 04/02/2018, 12/14/2018 FINDINGS: CHEST: There is severe pulmonary fibrosis with peripheral honeycombing and severe bronchiectasis. No adenopathy. Heart size is top normal. There are chronic reticulonodular tree-in-bud infiltrates in the upper lobes bilaterally. These are very similar to the prior CT from 2018. Otherwise very little change in the pattern of fibrosis. There are several high-grade compression fractures in the spine. These have significantly progressed since prior. The fracture levels are T4, T6, T8, and T12. T4 and T12 are new from prior. T6 has progressed since prior. Abdomen pelvis: Since prior, there is been sigmoid colon resection and left lower quadrant colostomy. There is severe constipation of the proximal and ascending colon. No bowel obstruction or inflammation. No free air or free fluid. Stable cholecystectomy clips. No radiodense renal stones. No hydronephrosis or hydroureter. The uterus is absent. Urinary bladder and rectum are normal. Stable right hip prosthesis. There are mild compression deformities diffusely throughout the entire lumbar spine. The worse level is L1, but there is compression of every vertebral body. IMPRESSION: 1. Chronic reticulonodular infiltrates in the lung apices bilaterally compatible with chronic atypical pneumonia. 2. Severe pulmonary fibrosis similar to prior. 3. Severe worsening compression fractures in the thoracic and lumbar spine. This exam was performed using automated exposure control, adjustment of mA or kV according to patient size, and/or use of iterative reconstruction technique Electronically signed by Vidal Roberts 05/01/2019 6:33 AM
[2019-05-01 07:02] LABS: HEMATOCRIT 29.2 % (37.0-47.0); HEMOGLOBIN 8.5 g/dL (12.0-16.0); IMM GRAN# 0.06 X1000 (0.0-0.04); IMM GRAN% 0.6 % (0.0-0.5); MCH 27.1 PG (27-31); MCHC 29.1 g/dL (33-37); MONO# 0.54 X1000 (0.11-0.59); MONO% 5.4 % (1.7-9.3); MPV 11.7 FL (7.4-10.4); NEUT# 8.83 X1000 (1.4-6.5); PLT 177 X1000 (130-400); RBC 3.14 XMIL (4.2-5.4); RDW 14.6 % (11.5-14.5); WBC 9.93 X1000 (4.8-10.8)
[2019-05-01 07:14] LABS: AGAP 9; BUN 19 mg/dL (8-22); CALCIUM 8.9 mg/dL (8.8-10.2); CHLORIDE 104 mmol/L (98-107); COSMO 287; CREATININE 0.8 mg/dL (0.5-0.9); ESTIMATED GFR > 60; GLUCOSE 159 mg/dL (70-104); POTASSIUM 4.8 mmol/L (3.5-5.1); SODIUM 141 mmol/L (136-145); TCO2 28 mmol/L (25-35)
[2019-05-01] MEDS: BREO ELLIPTA 100/25 MCG INH INH SCH (11:19)
[2019-05-01] MEDS: SPIRIVA INH SCH (11:20)
[2019-05-01] MEDS ORDERED: SOLU-MEDROL IV ONE (11:30)
--- NOTE | 2019-05-01 12:10 | PROGRESS NOTE ---
DATE: 05/01/2019 INTERVAL HISTORY: Ms. Harper was admitted yesterday for sepsis due to bilateral pneumonia and suspected urinary tract infection symptoms. She has been receiving intravenous antibiotics. She did not have any other acute overnight events. Her potassium has normalized. Her acute kidney injury has resolved. Her WBC has normalized. SUBJECTIVE: She continues to complain of mild shortness of breath and a dry cough. She states she did have urinary frequency symptoms without any burning. She states she takes prednisone 10 mg at nighttime every day. VITALS: Currently, temperature 97.5 degrees, pulse 100, respiratory rate 18, blood pressure 88/58. She is saturating 100% on 3 L nasal cannula. PHYSICAL EXAMINATION: General: Does not appear in any acute distress. She has an anxious look on her face. She is also tremulous. Oral cavity is moist. No oral candidiasis. No pallor, cyanosis, clubbing, or icterus. She has diffuse crackles in bilateral lung jalloh without any wheeze. Cardiovascular: S1, S2 normal. Systolic crescendo-decrescendo murmur best heard over entire precordium without any radiation, around grade 3/5. No rub or gallop. Abdomen: Soft, nontender. She has a colostomy which has a recently changed bag. No lower extremity edema. LABS: Suggestive of resolution of leukocytosis, normocytic anemia, normal platelet count, normal electrolytes, and normal kidney function. MICROBIOLOGY: Blood culture and urine cultures are in the lab. IMAGING: Chest, abdomen, and pelvis CT yesterday had suggested chronic reticulonodular infiltrate, severe pulmonary fibrosis, and severe compression fractures of her spine at multiple levels. ASSESSMENT AND PLAN: 1. Sepsis and acute on chronic hypoxic respiratory failure with a history of passive smoking, idiopathic pulmonary fibrosis, and long-term steroid use. This could be acute pulmonary fibrosis exacerbation with/without bilateral pneumonia/COPD exacerbation. Follow up sputum culture, urine antigen, blood culture results. Follow up urine culture for suspected acute cystitis. Continue albuterol ipratropium nebulization, Breo Ellipta, and tiotropium nebulization. Give intravenous steroid today and start on her home oral steroids tomorrow. Continue intravenous vancomycin and Zosyn. 2. Hyperkalemia and acute kidney injury on presentation, likely prerenal azotemia because of volume depletion because of poor oral intake, now improved. Continue oral diet. 3. Multiple thoracic compression fracture: Likely due to nursing home steroid use. She has seen orthopedic doctor for this in the past. I would advise outpatient follow up . 3. Others. Continue metoprolol succinate for hypertension, pravastatin for hyperlipidemia, furosemide for history of heart failure with preserved ejection fraction. Outpatient cardiology follow up suspected aortic sclerosis/stenosis. 4. Disposition. I will get physical therapy evaluation to keep monitoring patient inside the hospital. I will also advise her to have outpatient orthopedic followup for her multiple spinal fractures of thoracic vertebrae, likely because of steroid use. Plan of care discussed with her. All of her questions have been answered. cc: Clarence Azar MD MTDD
[2019-05-01] MEDS: TOPROL XL PO SCH (12:30)
[2019-05-01] MEDS: MS CONTIN PO SCH ×2 (12:30→20:26)
[2019-05-01] MEDS ORDERED: NS 250 ML ONE (13:54)
[2019-05-01] MEDS: SENOKOT PO SCH ×2 (15:28→20:27)
[2019-05-01] MEDS: SINEQUAN PO SCH (20:26)
[2019-05-01] MEDS: PRAVACHOL PO SCH (20:27)
[2019-05-02] MEDS: ZOSYN 3.375 GM in NS 50 ML IV SCH ×4 (01:10→20:37)
[2019-05-02] MEDS: VANCOMYCIN 1,450 MG in NS 250 ML IV SCH (02:27)
[2019-05-02] MEDS: DUONEB (A & A) INH SCH ×5 (03:04→21:25)
[2019-05-02 04:59] LABS: BASO# 0.01 X1000 (0.0-0.2); BASO% 0.1 % (0.0-0.8); HEMOGLOBIN 9.5 g/dL (12.0-16.0); IMM GRAN# 0.06 X1000 (0.0-0.04); IMM GRAN% 0.5 % (0.0-0.5); LYMPH# 1.25 X1000 (1.2-3.4); LYMPH% 11.4 % (20.5-51.1); MCH 27.1 PG (27-31); MCHC 28.8 g/dL (33-37); MCV 94.3 FL (81-99); MONO# 0.92 X1000 (0.11-0.59); MONO% 8.4 % (1.7-9.3); MPV 11.8 FL (7.4-10.4); NEUT# 8.74 X1000 (1.4-6.5); NEUT% 79.6 % (42.2-75.2); PLT 225 X1000 (130-400); RDW 14.8 % (11.5-14.5); WBC 10.98 X1000 (4.8-10.8)
[2019-05-02 05:22] LABS: AGAP 11; BUN 17 mg/dL (8-22); CALCIUM 9.1 mg/dL (8.8-10.2); CHLORIDE 104 mmol/L (98-107); COSMO 290; CREATININE 0.7 mg/dL (0.5-0.9); ESTIMATED GFR > 60; GLUCOSE 125 mg/dL (70-104); MAGNESIUM 2.1 mg/dL (1.5-2.7); PHOSPHORUS 3.8 mg/dL (2.7-4.5); POTASSIUM 4.5 mmol/L (3.5-5.1); SODIUM 144 mmol/L (136-145); TCO2 29 mmol/L (25-35)
[2019-05-02] MEDS: BREO ELLIPTA 100/25 MCG INH INH SCH (07:22)
[2019-05-02] MEDS: SPIRIVA INH SCH (07:22)
[2019-05-02] MEDS: SENOKOT PO SCH ×2 (08:28→20:38)
[2019-05-02] MEDS: PREDNISONE PO SCH (08:28)
[2019-05-02] MEDS: MS CONTIN PO SCH ×2 (08:28→20:38)
[2019-05-02] MEDS: SINGULAIR PO SCH (08:29)
[2019-05-02] MEDS: LASIX PO SCH (08:29)
[2019-05-02] MEDS: TOPROL XL PO SCH (08:31)
[2019-05-02] MEDS: BIDEX PO SCH ×2 (12:04→17:13)
[2019-05-02] MEDS ORDERED: PREDNISONE PO ONE (12:30)
--- NOTE | 2019-05-02 13:02 | PROGRESS NOTE ---
DATE: 05/02/2019 INTERVAL HISTORY: No acute events overnight. In the morning time, she had a food piece stuck in her throat, following which she started having coughing and since then she has been constantly coughing. She states whenever she comes out of bed she starts feeling dizzy and she is short of breath after the coughing spell. We discussed about pulmonary fibrosis. She also tells me that she is not sure if she is a carrier for cystic fibrosis or not. We also discussed about compression fracture, need for orthopedic. She sees a pain doctor for epidural injections for that. No other new complaints. VITAL SIGNS: Temperature 97.6 degrees, pulse of 90 per minute, blood pressure of 107/75. She is saturating 100% on 3 L nasal cannula. PHYSICAL EXAMINATION: General: Does not appear in any acute distress except after coughing spell when she gets a little anxious. HEENT: Oral cavity is moist. Chest: She has diffuse crackles bilateral lung jalloh with equal air entry. Cardiovascular: S1, S2 normal. Systolic crescendo-decrescendo murmur heard over entire precordium, grade 3 on 5. No rub or gallop. Abdomen: Soft, nontender. She has a colostomy with brownish output. Extremity: No lower extremity edema. Neurologic: She is alert and oriented x3. LABORATORY DATA: Suggestive of mild leukocytosis, normocytic anemia, normal platelet count. She also has normal electrolytes. Blood culture and urine culture have not shown any growth to date. Urine streptococcal and Legionella antigens were not collected. ASSESSMENT AND PLAN: 1. Sepsis and acute on chronic hypoxic respiratory failure in the setting of idiopathic pulmonary fibrosis exacerbation with bilateral pneumonia. She has history of passive smoking exposure through her and cystic fibrosis carrier in her brother. Continue intravenous antibiotics and around 1 mg/kg dose of steroids. Continue albuterol ipratropium nebulization, oxygen, Breo Ellipta, tiotropium nebulization. Follow up chest x-ray and consult Pulmonology considering her persistent symptoms. 2. Multiple thoracic compression fractures involving T4, T6, T8 and T12, likely because of long- term steroid use. She has seen orthopedic physician outpatient and had epidural injections for pain management 4 weeks prior to current presentation. 3. Her acute kidney injury and hyperkalemia on presentation have resolved; continue metoprolol succinate for essential hypertension; pravastatin for hyperlipidemia; furosemide for history of heart failure with preserved ejection fraction; outpatient cardiology followup for suspected aortic sclerosis or stenosis. She has colostomy after perforated colon in 12/2018. 4. Disposition. The patient has become weak recently because of her idiopathic pulmonary fibrosis and has been using a walker at home and continuous oxygen. Considering she may benefit from going to the rehab, Social Work rehab consult has been placed. All of the patient's questions have been answered. cc: Clarence Azar MD MTDD
--- NOTE | 2019-05-02 13:02 | Diag Imaging Result Doc PS360 ---
EXAM: CHEST-2 VIEWS HISTORY: Follow up pneumonia/ worsening cough TECHNIQUE: Chest two views COMPARISON: 04/30/2019 FINDINGS: Slightly improved inspiratory effort. There are diffuse bilateral infiltrates. These are less pronounced than on the prior study. The cardiac megaly. No pleural effusions. There is a right-sided PICC line with tip overlying the right atrium. There are several lower thoracic and upper lumbar compression fractures. IMPRESSION: Persistent bilateral infiltrates although there has been interval improvement. Electronically signed by Moose Morgan 05/02/2019 12:59 PM
--- NOTE | 2019-05-02 13:12 | EKG Report ---
Test Performed on : 05/02/2019 1:09:02 PM Test Reason : Tachycardia Blood Pressure : / mmHG Vent. Rate : 122 BPM Atrial Rate : 122 BPM P-R Int : 122 ms QRS Dur : 080 ms QT Int : 292 ms P-R-T Axes : 060 -61 093 degrees QTc Int : 416 ms Sinus tachycardia. with occasional premature ventricular complexes. Possible Left atrial enlargement Left anterior fascicular block Nonspecific ST abnormality Abnormal QRS-T angle, consider primary T wave abnormality Abnormal ECG When compared with ECG of 30-APR-2019 13:13, (Unconfirmed) premature ventricular complexes. are now present Confirmed by Raghu Garcia MD ([id number]) on 05/03/2019 7:50:07 AM
[2019-05-02] MEDS: PEPCID IV SCH (13:14)
[2019-05-02] MEDS: ZOFRAN IV PRN (13:14)
[2019-05-02] MEDS: SODIUM CHLORIDE 0.9% INJ SCH (13:14)
--- NOTE | 2019-05-02 14:52 | PROGRESS NOTE ---
DATE: 05/02/2019 ADDENDUM: The chest x-ray suggests improvement in bilateral infiltrate. I was informed by the nursing team that the patient was looking in moderate distress so I reevaluated the patient. She has been tachycardic recently and I got the EKG which had sinus tachycardia. On my re-evaluation, the patient is tremulous and she thinks that nebulization could be contributing to it. Her labs in the morning time were largely unremarkable. I am going to continue to observe her under telemetry unit with current treatment. Plan of care again discussed with the nursing team. cc: Clarence Azar MD
[2019-05-02] MEDS: SINEQUAN PO SCH (20:38)
[2019-05-02] MEDS: PRAVACHOL PO SCH (20:38)
[2019-05-02] MEDS: REQUIP PO SCH (21:34)
--- NOTE | 2019-05-02 21:46 | PULMONOLOGY CONSULTATION ---
DATE: 05/02/2019 REQUESTING PHYSICIAN: Dr. Azar. REASON FOR CONSULTATION: Pulmonary fibrosis exacerbation. HISTORY OF PRESENT ILLNESS: Ms. Harper is a 63-year-old white female with pulmonary fibrosis. The patient does not have idiopathic pulmonary fibrosis. The patient most likely has a nonspecific interstitial pneumonitis with significant bronchiectasis. The patient has carried the diagnosis of pulmonary fibrosis since 1985, which is not seen with the progressive pulmonary fibrosis of IPF. The patient has had difficulty with exacerbation of bronchiectasis with her underlying fibrosis, and prior cultures have revealed Pseudomonas along with Stenotrophomonas maltophilia. The patient's course has also been complicated by a spontaneous pneumothorax requiring a tube thoracostomy in 2018. The patient reports she was doing well until approximately 6 days ago when she developed increasing shortness of breath, left-sided chest pain/pleurisy, fevers, sweats, nausea, vomiting, and intermittent diarrhea. She was evaluated by her primary small animal caretaker and was felt to be too ill to be treated as an outpatient. The patient was referred to the emergency room. CT scan of the chest, abdomen and pelvis was performed. The patient had evidence of pulmonary fibrosis and honeycombing with bronchiectasis. There was very little change. The patient has multiple compression fractures with some increase since her last scan in 2018. PAST MEDICAL HISTORY PROBLEM LIST: 1. Nonspecific pulmonary fibrosis as outlined above. 2. Bronchiectasis as outlined above. 3. History of spontaneous pneumothorax. 4. Diabetes. 5. Dyslipidemia. 6. Status post cholecystectomy. 7. Status post adenoidectomy. 8. Status post tonsillectomy. 9. Perforated colon and in December, requiring colostomy placement. 10. Gastroesophageal reflux disease. 11. Seizures. 12. Chronic kidney disease. 13. Osteoporosis with multiple vertebral fractures. SOCIAL HISTORY: Patient is a never-smoker. No alcohol use. No drug use. FAMILY HISTORY: Noncontributory to current presentation. PHYSICAL EXAMINATION: General: Reveals a chronically ill-appearing white female who is arousable to alert. Vital Signs: The heart rate is 107, respiratory rate 16, oxygen saturation 100% on 3 L of cannula. HEENT: Pupils are equal and reactive. Oropharynx is clear. Neck: Supple. Chest: Reveals crackles bilaterally with scattered rhonchi. Cardiac exam: S1, S2. Abdomen: Soft. Extremities: Without edema. LABORATORIES: Sodium 141, potassium 4.8, chloride 104, bicarbonate 28, BUN 19, creatinine 0.8. IMPRESSION: 1. A 63-year-old with chest pain, possibly due to new vertebral compression fracture. 2. Exacerbation of bronchiectasis. 3. Chronic hypoxemic and chronic hypercapnic respiratory failure. 4. Pulmonary fibrosis which has been present for greater than 30 years, making it not likely to be idiopathic pulmonary fibrosis. RECOMMENDATIONS: 1. Agree with broad-spectrum antibiotics as you are doing. 2. Attempt to collect sputum for C and S. 3. Would recommend weaning patient off all steroids given her osteoporosis. 4. Long-term prognosis is guarded. cc: Demarcus Russell MD
[2019-05-03] MEDS: PEPCID IV SCH ×2 (02:03→12:33)
[2019-05-03] MEDS: ZOSYN 3.375 GM in NS 50 ML IV SCH ×4 (02:03→19:55)
[2019-05-03] MEDS: DUONEB (A & A) INH SCH ×2 (04:03→10:00)
[2019-05-03] MEDS: MS CONTIN PO SCH (08:29)
[2019-05-03] MEDS: BIDEX PO SCH ×3 (08:29→16:28)
[2019-05-03] MEDS: TOPROL XL PO SCH (08:30)
[2019-05-03] MEDS: SINGULAIR PO SCH (08:30)
[2019-05-03] MEDS: PREDNISONE PO SCH (08:30)
[2019-05-03] MEDS: LASIX PO SCH (08:30)
[2019-05-03] MEDS: SENOKOT PO SCH (08:30)
[2019-05-03] MEDS: VANCOMYCIN 1,450 MG in NS 250 ML IV SCH (09:46)
[2019-05-03] MEDS: SPIRIVA INH SCH (10:00)
[2019-05-03] MEDS: BREO ELLIPTA 100/25 MCG INH INH SCH (10:00)
[2019-05-03] MEDS: SODIUM CHLORIDE 0.9% INJ SCH (12:33)
--- NOTE | 2019-05-03 13:03 | PROGRESS NOTE ---
DATE: 05/03/2019 INTERVAL HISTORY: No acute events overnight. The patient has been more sleepy today. She answers simple questions and lapses back into sleep. Chest x-ray yesterday had suggested improvement. [employer] had recommended continuing current antibiotics and tapering steroids as tolerated. SUBJECTIVE: She is very sleepy and answers questions in yes and no and falls back to sleep. VITALS: Temperature 98.3 degrees, pulse 79, respiratory rate 18, blood pressure 120/66, and saturating 100% on 2 L nasal cannula. PHYSICAL EXAMINATION: General: Not in any acute distress. HEENT: Oral cavity is dry. Lungs: Air entry bilaterally equal. She has inspiratory crackles bilaterally. No wheeze or rhonchi. Heart: S1, S2 normal. Systolic crescendo decreased decrescendo murmur heard over the apex, and base of the heart. No rub or gallop. Abdomen: Soft and nontender. She has a colostomy with yellowish output. Extremities: No lower extremity edema. She is drowsy. She is moving in her bed spontaneously. She has also some resting tremors, which are chronic for her. No facial asymmetry. Speech is coherent. She is able to shake my hand with her both hands. LABORATORY: Labs are suggestive of no CBC or BMP today. Her blood sugars are 125. MICROBIOLOGY: No data. Sputum culture has not been collected yet. IMAGING: No new chest x-ray today. ASSESSMENT AND PLAN: 1. Sepsis and acute on chronic hypoxic respiratory failure due to bilateral pneumonia on baseline pulmonary fibrosis and bronchiectasis. Continue intravenous antibiotics. Day 1 is 04/30/2019. Continue current dose of steroids, hold albuterol ipratropium nebulization for now considering it was making her tremors worse. Continue Breo Ellipta, tiotropium nebulization. Sputum culture has not been collected. 2. Multiple thoracic compression fractures involving T4, T6, T8, and T12 with new thoracic fractures due to long-term steroid use. Continue outpatient orthopedic care, and epidural pain injections. I discussed with the patient's daughter about tapering steroids down outpatient. 3. Current drowsiness and tremors. Her tremors are baseline, which have been significantly getting worse even at rest since last few years as per the history provided by daughter. She was not sure about use of MS Contin, so I am going to hold off, which is likely contributing to her drowsiness. She was able to sit at the edge of the bed, doesn't have facial asymmetry or unilateral motor weakness to suggest new CVA. 4. Acute kidney injury hyperkalemia on presentation have resolved; continue metoprolol succinate for essential hypertension; pravastatin for hyperlipidemia; Lasix for history of heart failure with preserved ejection fraction; outpatient cardiology follow up for suspected aortic stenosis or sclerosis. She does have colostomy for perforated colon in December of 2018. 5. Disposition: Continue physical therapy. Our plan is to continue her IV antibiotics and reassess her. I am planning discharge to rehab in next 24 to 48 hours depending on her course. Plan of care discussed with patient's daughter on phone. I have left a voice message for her son. cc: Clarence Azar MD MTDD
[2019-05-03] MEDS: KEPPRA 750 MG in NS 100 ML IV SCH (18:03)
--- NOTE | 2019-05-03 19:58 | PROGRESS NOTE ---
DATE: 05/03/2019 ADDENDUM: I re-evaluated the patient at bedside. She keeps her eyes open, but she appears to have myoclonic jerks affecting all extremities. She occasionally responds to verbal stimuli by saying okay. She is alert, but not oriented and does not engage in meaningful conversation. She did take morphine extended release in the morning time, but her confusion has not improved over last several hours. I will go ahead and get the CT scan of head. My suspicion for acute CVA is less considering her suspected myoclonic jerks. I would start patient on intravenous levetiracetam and consult Neurology. I went to the bedside and initially had discussed plan of care with the patient's son as well. cc: Clarence Azar MD
--- NOTE | 2019-05-03 21:14 | Diag Imaging Result Doc PS360 ---
EXAM: CT HEAD W/O CONTRAST 05/03/2019 HISTORY: encephalopathy TECHNIQUE: This exam was performed using automated exposure control, adjustment of mA or kV according to patient size, and/or use of iterative reconstruction technique. COMMENT: There is no evidence of mass effect, bleed, or abnormal extra-axial fluid collection. The calvarium is intact. The visualized paranasal sinuses are clear. Compared to 04/05/2018 there has been no significant change in the appearance the brain. IMPRESSION: No evidence of acute intracranial disease. Electronically signed by Raghu Uriarte 05/03/2019 9:12 PM
[2019-05-03] MEDS ORDERED: ATIVAN IV PRN (23:19)
[2019-05-04] MEDS: PRAVACHOL PO SCH ×2 (01:40→20:36)
[2019-05-04] MEDS: REQUIP PO SCH ×2 (01:41→20:36)
[2019-05-04] MEDS: SENOKOT PO SCH ×3 (01:41→20:36)
[2019-05-04] MEDS: ZOSYN 3.375 GM in NS 50 ML IV SCH ×4 (01:55→19:31)
[2019-05-04] MEDS: PEPCID IV SCH ×2 (01:55→12:34)
--- NOTE | 2019-05-04 02:12 | EKG Report ---
Test Performed on : 05/04/2019 01:15:21 AM Test Reason : abnormal rythym Blood Pressure : / mmHG Vent. Rate : 120 BPM Atrial Rate : 120 BPM P-R Int : 120 ms QRS Dur : 092 ms QT Int : 304 ms P-R-T Axes : 036 -40 068 degrees QTc Int : 429 ms Sinus tachycardia. Left axis deviation Left ventricular hypertrophy with repolarization abnormality Abnormal ECG When compared with ECG of 02-MAY-2019 13:09, premature ventricular complexes. are no longer present Confirmed by Aniket Can MD ([id number]) on 05/07/2019 4:09:32 PM
[2019-05-04] MEDS: KEPPRA 750 MG in NS 100 ML IV SCH ×2 (04:57→17:32)
--- NOTE | 2019-05-04 07:57 | PULMONOLOGY PROGRESS NOTE ---
DATE: 05/03/2019 SUBJECTIVE: The patient is somnolent. She is having periodic twitching. With stimulation, she will arouse to alert. She will follow commands. She will answer questions but she will drift back off to sleep. OBJECTIVE: Vital Signs: The patient has been afebrile for the last 24 hours. Blood pressure 111/60, heart rate 77, respiratory rate 18, oxygen saturation 100% on 2 L per nasal cannula. HEENT: Pupils are equal and reactive. Oropharynx appears clear. Neck: Supple. Reveals crackles bilaterally. Cardiac: S1-S2. Abdomen: Soft. Extremities: Without edema. LABORATORIES: No chemistries or CBC today. CT scan of the head reveals no evidence of acute intracranial disease. IMPRESSION: A 63-year-old with: 1. Exacerbation of bronchiectasis. 2. Chronic hypoxemic and chronic hypercapnic respiratory failure. 3. Multiple vertebral compression fractures. 4. Chronic pain, medication requirement. 5. Pulmonary fibrosis present for greater than 30 years. 6. Myoclonic twitching and encephalopathy. RECOMMENDATIONS: 1. Continue current antibiotic regimen. 2. Continue to hold morphine as you are doing. This may be a toxic metabolite effect from morphine. 3. Add IV fluids tomorrow if her p.o. intake remains limited. 4. Await neurology evaluation. cc: Demarcus Russell MD
[2019-05-04] MEDS: SPIRIVA INH SCH (08:06)
[2019-05-04] MEDS: BREO ELLIPTA 100/25 MCG INH INH SCH (08:06)
[2019-05-04] MEDS: TOPROL XL PO SCH (08:37)
[2019-05-04] MEDS: BIDEX PO SCH ×3 (08:37→17:32)
[2019-05-04] MEDS: PREDNISONE PO SCH (08:38)
[2019-05-04] MEDS: SINGULAIR PO SCH (08:38)
[2019-05-04] MEDS: LASIX PO SCH (08:38)
--- NOTE | 2019-05-04 10:16 | PROGRESS NOTE ---
DATE: 05/04/2019 INTERVAL HISTORY: CT scan of head was performed yesterday which did not detect any acute intracranial pathology. She was started on IV Keppra. She was also given 1 time dose of intravenous 1 mg lorazepam overnight. SUBJECTIVE: She is still drowsy, keeps mumbling incomprehensible words with strong verbal stimuli. Occasionally, she opens eyes and responds, but again lapses back into sleep. VITALS: Temperature 98.2 degrees, pulse 113, respiratory 20 and blood pressure 114/68. She is saturating 100% on 2 L nasal cannula. PHYSICAL EXAMINATION: She does not appear in any acute distress. Oral cavity is dry. She has secretions in her pharynx when she is coughing but not bringing up. She has decreased air entry bilaterally with inspiratory crackles. No wheeze.Cardiovascular: S1, S2 normal. Tachycardic. Systolic crescendo-decrescendo murmur heard at the apex as well as base. No rub or gallop. Abdomen: Soft, nontender. Colostomy with brownish output. Extremity: No lower extremity edema. Neurologic: She is drowsy and occasionally arousable to strong verbal stimuli. Pupils are bilaterally equal reacting to light. She is wincing and withdrawing to painful stimuli in all extremities. She is about to get her EEG. LABORATORY: Labs today with a serial potassium of 3.3. Her Legionella antigen is in lab. Streptococcal antigen was not collected. EKG had sinus tachycardia and left axis deviation. ASSESSMENT AND PLAN: 1. Acute encephalopathy. Differential includes opioid induced encephalopathy. Seizure on top of baseline cognitive impairment. Apparently in April of 2018, she had similar presentation. I will continue intravenous Keppra for the myoclonic twitching I saw yesterday. We will follow up with Neurology recommendation and EEG. 2. Sepsis and acute on chronic hypoxic respiratory failure due to bilateral pneumonia on baseline pulmonary fibrosis and bronchiectasis. Continue intravenous antibiotics. Day 1 is 04/30. Continue Breo Ellipta, tiotropium nebulization, and follow up urine Legionella antigen, which was collected. I am continuing her on current dose of steroids. 3. Multiple thoracic compression fractures involving T4, T6, T8, and T12 with new T4 and T12 fractures due to long-term steroid use. I have discussed this with the patient as well as her son. Continue outpatient orthopedic follow-up and pain follow-up, and further discussion to be held about stopping steroids with her outpatient [employer]. 4. Acute kidney injury and hyperkalemia on presentation have resolved; continue metoprolol succinate for essential hypertension; pravastatin for hyperlipidemia; Lasix for heart failure with preserved ejection fraction; outpatient cardiology follow up for suspected aortic stenosis or sclerosis. She does have colostomy for perforated colon in December of 2018. 5. Disposition: I am keeping patient NPO considering her current mental status, and will follow up with EEG Neurology recommendation. Yesterday, plan of care was discussed with the patient's daughter on phone and son at bedside. cc: Clarence Azar MD
[2019-05-04 11:19] LABS: EOS# 0.06 X1000 (0.0-0.7); EOS% 0.5 % (0.0-10.0); HEMATOCRIT 35.9 % (37.0-47.0); HEMOGLOBIN 9.9 g/dL (12.0-16.0); IMM GRAN# 0.06 X1000 (0.0-0.04); IMM GRAN% 0.5 % (0.0-0.5); LYMPH# 0.73 X1000 (1.2-3.4); LYMPH% 5.6 % (20.5-51.1); MCH 26.9 PG (27-31); MCHC 27.6 g/dL (33-37); MCV 97.6 FL (81-99); MONO# 1.54 X1000 (0.11-0.59); MONO% 11.7 % (1.7-9.3); MPV 11.1 FL (7.4-10.4); NEUT# 10.72 X1000 (1.4-6.5); NEUT% 81.7 % (42.2-75.2); PLT 230 X1000 (130-400); RBC 3.68 XMIL (4.2-5.4); RDW 14.4 % (11.5-14.5); WBC 13.11 X1000 (4.8-10.8)
[2019-05-04 11:20] LABS: ESTIMATED GFR > 60
[2019-05-04 11:23] LABS: CHLORIDE 97 mmol/L (98-107); POTASSIUM 3.3 mmol/L (3.5-5.1); SODIUM 150 mmol/L (136-145); TCO2 42 mmol/L (25-35)
[2019-05-04 11:24] LABS: AGAP 11; BUN 19 mg/dL (8-22); CALCIUM 9.4 mg/dL (8.8-10.2); COSMO 300; CREATININE 0.6 mg/dL (0.5-0.9); GLUCOSE 99 mg/dL (70-104); MAGNESIUM 1.7 mg/dL (1.5-2.7); PHOSPHORUS 2.2 mg/dL (2.7-4.5)
[2019-05-04 11:39] LABS: BANDS 4 % (0-1); HYPOCHROM 2+; LYMPHS 4 % (21-51); MONO 10 % (1-9); SEGS 82 % (42-75)
[2019-05-04] MEDS: SODIUM CHLORIDE 0.9% INJ SCH (12:34)
--- NOTE | 2019-05-04 17:28 | CONSULTATION ---
DATE OF CONSULTATION: 05/04/2019 HISTORY: Ms. Harper is 63 years old and there has been reported limb jerking and altered consciousness. At this time, she is not able to provide history. I have reviewed the hospital notes. She was admitted with respiratory symptoms 4 days ago. She seemed to become more sleepy. She had some tremulousness and some limb jerking noted. I am not certain unconsciousness has been documented. LABORATORY AND DIAGNOSTICS: Workup includes noncontrast CT of the head 05/03/2019 showing nothing remarkable and nothing changed compared to scan done 04/05/2018. Lab showed initial WBC 28,000, down to 10,000 now. She has some minor blood sugar elevations and nothing else remarkable on chemistry profile. There is evidence of UTI. She was found to have pneumonia and that has been treated. HOME MEDICATIONS: Her home medicine list includes morphine and hydrocodone filled at regular intervals, often filled early. Home medicine list as recorded on admission includes 19 entries on my count. Several of these are potentially RESIDENTIAL DIRECTOR active. These include tizanidine, ropinirole, opium/belladonna suppository, morphine, hydrocodone, doxepin. We do not have urine drug screen this admission. I do not know her baseline cognitive status. I saw her 04/06/2018 for inpatient neurology consultation with altered mental status. I suspected last year that there might be a baseline cognitive impairment syndrome predisposing her to encephalopathy with any toxic or metabolic disturbance. On exam now, Ms. Harper is supine and she appeared to be sleeping peacefully. With moderate stimulation, she was awake, moaning and groaning some, sometimes repeating "okay, okay" but not communicating with me. She had brisk withdrawal with minor stimulation of each limb. She vigorously resisted passive eye opening. There is full lateral eye movement with passive head turning. Facial motility is symmetric. Neck is supple without meningismus. Limb tone is symmetric. Plantar response is silent bilaterally. Reflexes are difficult to criminal court judge with brisk withdrawal, but I believe she has trace ankle jerks. IMPRESSION: Global encephalopathy, uncertain etiology. There may be multiple factors. There has been reported to be tremulousness and limb jerking, but I did not see any abnormal movement during my time at the bedside. Levetiracetam is on board now and may be controlling seizure. I have ordered EEG to make sure there is no evidence of ongoing seizure. If she has had seizure, etiology is not certain. As before, I wonder if she might have a baseline cognitive impairment syndrome which predisposes her to encephalopathy with any toxic or metabolic disturbance. I do not know if she might have made mistakes with some of her medicines prior to admission. If the opiate doses provided here have been different from what she had been accustomed to taking, we could see an intoxication or withdrawal state, but neither of those possibilities seem likely. Negative CT is reassuring. I do not think we need any further imaging right now. Thanks for asking n neurology to see Ms. Harper. cc: Siva Patel III, MD MTDD
[2019-05-04] MEDS: VANCOMYCIN 1,450 MG in NS 250 ML IV SCH (17:32)
[2019-05-04] MEDS: MAGNESIUM SULFATE 2 GM/S.W.I. 2 GM/50 ML IVPB IV SCH ×2 (18:00→21:13)
[2019-05-04] MEDS: D5 1/2 NS 1,000 ML IV SCH (18:03)
[2019-05-04] MEDS: POTASSIUM CHLORIDE 20 MEQ/SWI 20 MEQ/100 ML IVPB IV SCH ×2 (18:04→19:21)
[2019-05-04 18:36] LABS: URINE SOURCE CATH
[2019-05-04 18:56] LABS: UR EPITHELIAL CELLS <10 /HPF (<10); URINE BACTERIA NEGATIVE /HPF; URINE RBC <10 /HPF (<10); URINE WBC <10 /HPF (<10)
[2019-05-04 18:58] LABS: BILIRUBIN URINE NEGATIVE (NEGATIVE); BLOOD URINE TRACE (NEGATIVE); COLOR YELLOW; GLUCOSE URINE NEGATIVE (NEGATIVE); KETONE URINE 80 mg/dL (NEGATIVE); LEUKOCYTES URINE SMALL (NEGATIVE); NITRITE URINE NEGATIVE (NEGATIVE); PROTEIN URINE 30 mg/dL (NEGATIVE); SP GRAVITY URINE 1.025; TURBIDITY URINE CLEAR (CLEAR); UROBILINOGEN URINE NORMAL (NORMAL)
--- NOTE | 2019-05-04 20:44 | EEG REPORT ---
DATE: 05/04/2019 EEG NUMBER: [id number]. COMMENT: This is a digitally recorded EEG on a 63-year-old patient with poor attention, poor responsiveness, global encephalopathy, recent limb jerking, raising question of seizure. FINDINGS: During waking, muscle contraction artifact is sometimes prominent, but does not hinder interpretation. Most of the record is recorded in apparent drowsing and sleep with symmetric features. During waking, very poorly sustained 9 Hz posterior rhythm is present bilaterally with uncertain reactivity to eye opening. Waking background contains polymorphic and rhythmic theta frequencies across the frontal and central regions symmetrically with slowing into the delta range at higher amplitude frontally. At times, there are sharply contoured waves occurring repetitively, but there was not definite distinguished epileptiform discharge or seizure. Photic stimulation did not significantly alter the record. INTERPRETATION: Abnormal EEG because of generalized slowing. CORRELATION: This is indicative of a diffuse encephalopathy and is nonspecific. The absence of definite epileptiform discharges on a single EEG does not exclude a clinical diagnosis of seizures. cc: Siva Patel III, MD MTDD
[2019-05-04] MEDS: LOVENOX SUBQ SCH (21:13)
[2019-05-05] MEDS: PEPCID IV SCH ×3 (00:17→20:26)
[2019-05-05] MEDS: ZOSYN 3.375 GM in NS 50 ML IV SCH ×4 (01:27→20:26)
[2019-05-05] MEDS: KEPPRA 750 MG in NS 100 ML IV SCH ×2 (04:35→18:05)
[2019-05-05] MEDS: D5 1/2 NS 1,000 ML IV SCH (08:28)
[2019-05-05] MEDS: BREO ELLIPTA 100/25 MCG INH INH SCH ×2 (08:51→09:41)
[2019-05-05 08:57] LABS: ESTIMATED GFR > 60
[2019-05-05 09:00] LABS: EOS# 0.05 X1000 (0.0-0.7); EOS% 0.7 % (0.0-10.0); HEMATOCRIT 31.1 % (37.0-47.0); HEMOGLOBIN 8.6 g/dL (12.0-16.0); IMM GRAN# 0.04 X1000 (0.0-0.04); IMM GRAN% 0.6 % (0.0-0.5); LYMPH# 0.84 X1000 (1.2-3.4); LYMPH% 11.7 % (20.5-51.1); MCH 26.6 PG (27-31); MCHC 27.7 g/dL (33-37); MCV 96.3 FL (81-99); MONO# 0.87 X1000 (0.11-0.59); MONO% 12.2 % (1.7-9.3); NEUT# 5.36 X1000 (1.4-6.5); NEUT% 74.8 % (42.2-75.2); PLT 226 X1000 (130-400); RBC 3.23 XMIL (4.2-5.4); RDW 13.8 % (11.5-14.5); WBC 7.16 X1000 (4.8-10.8)
[2019-05-05 09:06] LABS: AGAP 5; BUN 18 mg/dL (8-22); CALCIUM 8.4 mg/dL (8.8-10.2); CHLORIDE 102 mmol/L (98-107); COSMO 304; CREATININE 0.6 mg/dL (0.5-0.9); GLUCOSE 138 mg/dL (70-104); MAGNESIUM 2.5 mg/dL (1.5-2.7); PHOSPHORUS 1.3 mg/dL (2.7-4.5); POTASSIUM 3.7 mmol/L (3.5-5.1); SODIUM 151 mmol/L (136-145); TCO2 44 mmol/L (25-35)
[2019-05-05] MEDS: SPIRIVA INH SCH (09:41)
--- NOTE | 2019-05-05 10:10 | PROGRESS NOTE ---
DATE: 05/05/2019 INTERVAL HISTORY: EEG did not detect any epileptiform discharges. Neurology was in agreement with current plan of keeping her off sedative medications and Keppra which could have subsided her seizure episodes. She did not have any other acute events. SUBJECTIVE: She is drowsy but arousable to strong verbal stimuli. She keeps on mumbling, okay, okay. She does not engage in conversation meaningfully. She does not appear in any acute distress. Her vitals were unremarkable. She had a Negrete catheter placed yesterday. VITAL SIGNS: Currently temperature 98.6 degrees, pulse 96, respiratory rate 19, blood pressure 140/78. She is saturating 100% on 3 L nasal cannula. PHYSICAL EXAMINATION: General: She does not appear in any acute distress. Oral cavity is moist. She does have inspiratory crackles bilateral infrascapular region. No wheeze or rhonchi. S1, S2 normal. Prominent systolic crescendo-decrescendo murmur heard at the apex as well as base. No rub or gallop. Abdomen: Soft, nontender. Colostomy with brownish output. No lower extremity edema. She has urine catheter. Neurologic: She is drowsy but arousable. Pupils are bilaterally equal reacting to light. During my encounter she repositions herself using all extremities spontaneously. There was no obvious facial droop. LABORATORY DATA: No CBC today. BMP is also pending. ASSESSMENT AND PLAN: 1. Acute encephalopathy on baseline cognitive impairment based on discussion with her daughter, likely global metabolic or toxic encephalopathy. Her opioids have been held. Continue intravenous levetiracetam for myoclonic jerks which were noticed on May 03, which have now resolved. CT scan head was unremarkable. EEG did not detect any epileptiform discharges. Neurology on board. 2. Sepsis and acute on chronic hypoxic respiratory failure due to bilateral pneumonia on baseline pulmonary fibrosis and bronchiectasis. Continue intravenous antibiotics. Day 1 is April 30, Breo Ellipta, tiotropium, and follow up urine streptococcal Legionella antigens and current dose of steroids. 3. Multiple thoracic compression fractures involving T4, T5, T8, T12 with new T4 and T12 fractures due to long-term steroid use. Continue outpatient orthopedic and pain follow-up with discussion about tapering steroids down with a ammonium hydroxide operator. 4. Acute kidney injury and hyperkalemia on presentation now resolved; continue metoprolol succinate as tolerated for essential hypertension; famotidine for GI prophylaxis on steroids; ropinirole for restless legs syndrome; pravastatin for hyperlipidemia; D5 containing fluids for poor p.o. intake. DISPOSITION: The patient continues to remain in [facility] for close monitoring of her mental status. Plan of care discussed with nursing team. I will update the patient's family about her care. ADDENDUM: I had an extensive discussion about patient's clinical condition with her daughter. Patient has a significant family history of Dementia and personal history of what sounds like cognitive impairment vs early dementia. cc: Clarence Azar MD MTDD
[2019-05-05] MEDS: BIDEX PO SCH ×3 (11:00→18:20)
[2019-05-05] MEDS: SINGULAIR PO SCH (11:01)
[2019-05-05] MEDS: PREDNISONE PO SCH (11:01)
[2019-05-05] MEDS: SENOKOT PO SCH ×2 (11:01→20:10)
[2019-05-05] MEDS: TOPROL XL PO SCH (11:01)
[2019-05-05] MEDS ORDERED: D5W 1,000 ML IV SCH (13:15)
[2019-05-05 13:25] LABS: ALLEN TEST YES; BLOOD TYPE ARTERIAL; HCO3-(ACT) 43.7 mmoll (20.0-26.0); METHB 1.2 % (0.0-1.5); O2(CT) 13.2 mL/dL (15.0-23.0); O2HB 96.7 % (95.0-99.0); PO2(98.6) 153 mmHg (60-100); SAMPLE BLOOD; SAO2 98.9 % (95.0-100.0); THB 9.5 g/dL (11.5-17.4); pH(98.6) 7.43 (7.35-7.45)
[2019-05-05 13:29] LABS: MODALITY CANNULA
[2019-05-05 13:31] LABS: PCO2(98.6) 78 mmHg (35-45)
[2019-05-05] MEDS: VANCOMYCIN 1,450 MG in NS 250 ML IV SCH (16:25)
--- NOTE | 2019-05-05 18:23 | EKG Report ---
Test Performed on : 05/05/2019 6:17:47 PM Test Reason : bradycardia Blood Pressure : / mmHG Vent. Rate : 054 BPM Atrial Rate : 054 BPM P-R Int : 108 ms QRS Dur : 090 ms QT Int : 426 ms P-R-T Axes : 044 -22 017 degrees QTc Int : 403 ms Sinus bradycardia. with short DC Moderate voltage criteria for LVH, may be normal variant Borderline ECG When compared with ECG of 04-MAY-2019 01:15, (Unconfirmed) Vent. rate has decreased BY 66 BPM Non-specific change in ST segment in Lateral leads Confirmed by Aniket Can MD ([id number]) on 05/07/2019 4:10:45 PM
[2019-05-05] MEDS: REQUIP PO SCH (20:10)
[2019-05-05] MEDS: PRAVACHOL PO SCH (20:10)
[2019-05-05] MEDS: LOVENOX SUBQ SCH (20:26)
[2019-05-06] MEDS: ZOSYN 3.375 GM in NS 50 ML IV SCH ×4 (02:31→21:16)
[2019-05-06 04:25] LABS: ALLEN TEST YES; BLOOD TYPE ARTERIAL; HCO3-(ACT) 40.6 mmoll (20.0-26.0); METHB 0.4 % (0.0-1.5); O2(CT) 12.2 mL/dL (15.0-23.0); O2HB 97.7 % (95.0-99.0); PO2(98.6) 111 mmHg (60-100); SAMPLE BLOOD; SAO2 99.9 % (95.0-100.0); THB 8.7 g/dL (11.5-17.4); pH(98.6) 7.45 (7.35-7.45)
[2019-05-06 04:26] LABS: MODALITY BI PAP
[2019-05-06] MEDS: KEPPRA 750 MG in NS 100 ML IV SCH ×2 (05:13→17:00)
[2019-05-06 05:51] LABS: EOS# 0.07 X1000 (0.0-0.7); EOS% 0.9 % (0.0-10.0); HEMATOCRIT 31.4 % (37.0-47.0); HEMOGLOBIN 9.1 g/dL (12.0-16.0); IMM GRAN# 0.04 X1000 (0.0-0.04); IMM GRAN% 0.5 % (0.0-0.5); LYMPH# 1.11 X1000 (1.2-3.4); LYMPH% 14.1 % (20.5-51.1); MCH 27.1 PG (27-31); MCV 93.5 FL (81-99); MONO# 0.93 X1000 (0.11-0.59); MONO% 11.8 % (1.7-9.3); MPV 11.2 FL (7.4-10.4); NEUT# 5.75 X1000 (1.4-6.5); NEUT% 72.7 % (42.2-75.2); PLT 238 X1000 (130-400); RBC 3.36 XMIL (4.2-5.4); RDW 13.8 % (11.5-14.5)
--- NOTE | 2019-05-06 05:58 | Diag Imaging Result Doc PS360 ---
EXAM: CHEST-PORTABLE HISTORY: dyspnea TECHNIQUE: Chest single view COMPARISON: 05/02/2019 FINDINGS: Poor inspiratory effort. The heart is enlarged. There are small pleural effusions. There are increased interstitial markings diffusely throughout both lungs. These are likely due to fibrosis although there appear to be underlying infiltrates which are more prominent than on the prior study. No change in the right-sided. IMPRESSION: Interval worsening. Electronically signed by Moose Morgan 05/06/2019 5:56 AM
[2019-05-06 06:25] LABS: AGAP 12; BUN 13 mg/dL (8-22); CHLORIDE 100 mmol/L (98-107); COSMO 295; CREATININE 0.6 mg/dL (0.5-0.9); GLUCOSE 113 mg/dL (70-104); POTASSIUM 2.9 mmol/L (3.5-5.1); SODIUM 148 mmol/L (136-145); TCO2 36 mmol/L (25-35)
[2019-05-06 06:26] LABS: ALBUMIN 3.1 g/dL (3.5-5.0); ALKALINE PHOSPHATASE 94 U/L (32-104); CALCIUM 8.2 mg/dL (8.8-10.2); ESTIMATED GFR > 60; GOT 15 U/L (10-30); GPT 19 U/L (10-36); PHOSPHORUS 1.2 mg/dL (2.7-4.5); TOTAL BILIRUBIN 0.21 mg/dL (0.20-1.00); TOTAL PROTEIN 6.2 g/dL (6.3-8.3)
[2019-05-06] MEDS ORDERED: NS IV ONE (07:19)
[2019-05-06] MEDS ORDERED: POTASSIUM PHOSPHATE IV ONE (07:19)
[2019-05-06] MEDS: POTASSIUM CHLORIDE 20 MEQ/SWI 20 MEQ/100 ML IVPB IV SCH ×2 (07:40→09:55)
[2019-05-06] MEDS: SPIRIVA INH SCH ×2 (07:41→15:41)
[2019-05-06] MEDS: BREO ELLIPTA 100/25 MCG INH INH SCH ×2 (07:41→15:40)
[2019-05-06] MEDS ORDERED: LASIX IV ONE (08:19)
--- NOTE | 2019-05-06 08:53 | PROGRESS NOTE ---
DATE: 05/06/2019 INTERVAL HISTORY: She was started on intravenous fluids and BiPAP, considering her hypercarbia. She also had an episode of bradycardia where her heart rate would drop to 40s and 50s. It was sinus bradycardia on EKG. She was not hypotensive. Her hypophosphatemia and hypokalemia are currently being repleted. SUBJECTIVE: She is drowsy. Does not engage in encounter. She is spontaneously moving inside the bed and covering her up when I am trying to examine her. VITALS: Temperature 98.4 degrees, pulse 64, respiratory rate 17, blood pressure 127/72. She is saturating 100% on BiPAP. PHYSICAL EXAMINATION: General: Appears to have severe protein energy malnutrition, not in any acute distress. Oral Cavity: Dry. Lungs: She has inspiratory crackles in bilateral lung jalloh. No wheeze or rhonchi. Cardiovascular: S1, S2 regular, normal. No murmur, rub, or gallop. Abdomen: Soft, nontender. She has a urine catheter. No lower extremity edema. She is moving all extremities spontaneously and repositioning herself in the bed. LABS: Suggestive of normocytic anemia, normal platelet count, hypercarbia without acidosis, so appears to have chronic hypercarbic respiratory failure, hypernatremia, and hypokalemia, as well as hypophosphatemia which is currently being repleted. IMAGING: Chest x-ray performed today suggests interval worsening with increased interstitial markings. ASSESSMENT AND PLAN: 1. Acute encephalopathy on baseline cognitive impairment, likely toxic metabolic global encephalopathy due to concurrent medical illnesses, hypercarbia. Continue to hold opioids, intravenous levetiracetam for myoclonic jerks. CT scan and EEG were unremarkable. 2. Sepsis and acute on chronic hypoxic respiratory failure, with chronic hypercarbic respiratory failure, with bilateral pneumonia, on baseline pulmonary fibrosis and bronchiectasis. Continue intravenous antibiotics. Day 1 is 04/30/2019. Home dose of steroids, Breo Ellipta, tiotropium. Her blood culture and urine culture have been negative so far. 3. Multiple thoracic compression fractures with new T4 and T12 fractures due to long-term steroid use. Continue outpatient orthopedic and pain followup and discussion with Pulmonology outpatient about tapering steroid off. 4. Kidney injury and hyperkalemia on presentation have resolved. Continue holding parameters with metoprolol considering her bradycardia. 6. Famotidine for gastrointestinal prophylaxis on steroids. 7. Ropinirole for restless legs syndrome. 8. Pravastatin for hyperlipidemia. 9. I will insert nasogastric tube and start her on tube feeds. 10. Disposition. Patient remains in [facility] for persistent encephalopathy. Plan of care discussed with the nursing team. I had an extensive discussion about her clinical condition with her daughter yesterday, and her questions were answered. cc: Clarence Azar MD MTDD
[2019-05-06] MEDS: PEPCID IV SCH ×2 (09:04→21:15)
[2019-05-06] MEDS: SENOKOT PO SCH ×2 (09:06→21:15)
[2019-05-06] MEDS: BIDEX PO SCH ×3 (09:06→17:01)
[2019-05-06] MEDS: PREDNISONE PO SCH (09:06)
[2019-05-06] MEDS: SINGULAIR PO SCH (09:07)
[2019-05-06] MEDS: TOPROL XL PO SCH (09:07)
[2019-05-06] MEDS: TYLENOL PO PRN (15:54)
[2019-05-06] MEDS: VANCOMYCIN 1,450 MG in NS 250 ML IV SCH (17:00)
[2019-05-06] MEDS ORDERED: KLOR-CON PO ONE (17:45)
[2019-05-06] MEDS ORDERED: POTASSIUM CHLORIDE 20 MEQ/SWI 20 MEQ/100 ML IVPB IV SCH (21:00)
[2019-05-06] MEDS: REQUIP PO SCH (21:13)
[2019-05-06] MEDS: LOVENOX SUBQ SCH (21:15)
[2019-05-06] MEDS: PRAVACHOL PO SCH (21:15)
[2019-05-06] MEDS ORDERED: BLISTEX MEDICATED BERRY LIP BALM TOP ONE (22:18)
[2019-05-06] MEDS: POTASSIUM CHLORIDE 20% LIQUID PO SCH (23:52)
[2019-05-07] MEDS: TYLENOL PO PRN (00:09)
[2019-05-07] MEDS: ZOSYN 3.375 GM in NS 50 ML IV SCH ×3 (00:56→08:28)
[2019-05-07] MEDS: ZOFRAN IV PRN ×4 (00:56→19:35)
[2019-05-07] MEDS: POTASSIUM CHLORIDE 20% LIQUID PO SCH (03:07)
[2019-05-07] MEDS: KEPPRA 750 MG in NS 100 ML IV SCH (04:52)
[2019-05-07 06:04] LABS: EOS# 0.07 X1000 (0.0-0.7); EOS% 0.9 % (0.0-10.0); HEMATOCRIT 31.5 % (37.0-47.0); HEMOGLOBIN 9.3 g/dL (12.0-16.0); IMM GRAN# 0.09 X1000 (0.0-0.04); IMM GRAN% 1.2 % (0.0-0.5); LYMPH# 1.71 X1000 (1.2-3.4); MCHC 29.5 g/dL (33-37); MCV 91.6 FL (81-99); MONO# 0.93 X1000 (0.11-0.59); MONO% 12.5 % (1.7-9.3); MPV 10.5 FL (7.4-10.4); NEUT# 4.64 X1000 (1.4-6.5); NEUT% 62.4 % (42.2-75.2); PLT 246 X1000 (130-400); RBC 3.44 XMIL (4.2-5.4); RDW 13.8 % (11.5-14.5); WBC 7.44 X1000 (4.8-10.8)
[2019-05-07 06:24] LABS: AGAP 10; BUN 13 mg/dL (8-22); CALCIUM 8.7 mg/dL (8.8-10.2); CHLORIDE 101 mmol/L (98-107); COSMO 290; CREATININE 0.9 mg/dL (0.5-0.9); ESTIMATED GFR > 60; GLUCOSE 126 mg/dL (70-104); MAGNESIUM 1.6 mg/dL (1.5-2.7); PHOSPHORUS 1.1 mg/dL (2.7-4.5); POTASSIUM 4.5 mmol/L (3.5-5.1); SODIUM 145 mmol/L (136-145); TCO2 34 mmol/L (25-35)
[2019-05-07] MEDS: SPIRIVA INH SCH (07:51)
[2019-05-07] MEDS: BREO ELLIPTA 100/25 MCG INH INH SCH (07:52)
[2019-05-07 08:03] LABS: BE 16.2 mmoll (-3.0-3.0); BLOOD TYPE ARTERIAL; HCO3-(ACT) 37.6 mmoll (20.0-26.0); METHB 1.2 % (0.0-1.5); O2(CT) 12.5 mL/dL (15.0-23.0); O2HB 95.8 % (95.0-99.0); PO2(98.6) 88 mmHg (60-100); SAMPLE BLOOD; SAO2 98.1 % (95.0-100.0); THB 9.2 g/dL (11.5-17.4); pH(98.6) 7.45 (7.35-7.45)
[2019-05-07 08:04] LABS: ALLEN TEST YES; MODALITY CANNULA; PCO2(98.6) 61 mmHg (35-45)
[2019-05-07] MEDS: SENOKOT PO SCH ×2 (08:29→20:25)
[2019-05-07] MEDS: PREDNISONE PO SCH (08:29)
[2019-05-07] MEDS: BIDEX PO SCH ×3 (08:29→17:10)
[2019-05-07] MEDS: PEPCID IV SCH ×2 (08:29→20:27)
[2019-05-07] MEDS: TOPROL XL PO SCH (08:29)
[2019-05-07] MEDS: SINGULAIR PO SCH (08:29)
[2019-05-07] MEDS: DUONEB (A & A) INH PRN ×2 (11:16→16:03)
[2019-05-07] MEDS ORDERED: TYLENOL PO PRN (11:17)
[2019-05-07] MEDS ORDERED: LASIX PO ONE (11:20)
[2019-05-07] MEDS: LEVAQUIN PO SCH (12:21)
[2019-05-07] MEDS: K-PHOS PO SCH ×2 (12:21→17:10)
[2019-05-07] MEDS: NORCO-7.5 PO PRN ×2 (12:21→20:26)
[2019-05-07] MEDS: LIDODERM TOP SCH (12:21)
--- NOTE | 2019-05-07 12:27 | DISCHARGE SUMMARY ---
ADMISSION DATE: 04/30/2019 DISCHARGE DATE: DISCHARGE DISPOSITION: [facility]. DISCHARGE CONDITION: Hemodynamically stable. She is breathing well on 2 to 3 L nasal cannula oxygen. Denies any shortness of breath. She is alert and oriented x3. We had discussed about use of daily BiPAP, which she has been using at home. DISCHARGE DIAGNOSES: 1. Acute on chronic hypoxic respiratory failure due to bilateral pneumonia. 2. Acute hypercarbic respiratory failure on top of chronic hypercarbia. 3. Sepsis due to bilateral pneumonia. 4. Acute encephalopathy on baseline cognitive impairment, likely toxic-metabolic global encephalopathy in the setting of use of opioids as well as hypercarbia. 5. Multiple thoracic compression fractures with new T4 and T12 fractures due to long-term steroid use. 6. Acute kidney failure with hyperkalemia. OTHER DIAGNOSES: 1. History of pulmonary fibrosis for 30 years. 2. Hyperlipidemia. 3. Anxiety and depression. 4. Restless legs syndrome. 5. Chronic gastroesophageal reflux disease. 6. Hyperlipidemia. 7. Chronic pain from multiple thoracic compression fractures. 8. Muscle spasms. 9. History of chronic obstructive pulmonary disease and sleep apnea. 10. History of seizures. 11. History of perforated colon requiring colostomy. DISCHARGE MEDICATIONS: Pravastatin 20 mg at nighttime, ropinirole 1.5 mg at nighttime, aspirin 81 mg in the morning time, biotin 1000 mcg daily, magnesium oxide 400 mg at nighttime, doxepin 100 mg at nighttime, albuterol-ipratropium nebulization 3 mL inhaled every 2 hours as needed for shortness of breath, furosemide 40 mg daily, prednisone 10 mg daily, pantoprazole 40 mg daily, tizanidine 4 mg t.i.d. as needed, levofloxacin 750 mg every day for 3 days for pneumonia, lidocaine 5% patch to be applied over back pain site daily, melatonin 10 mg at nighttime, guaifenesin 600 mg b.i.d., [place] 7.5 mg 1 tablet every 8 hours as needed for pain more than 7/10 (25 tablets have been prescribed), senna 2 tablets b.i.d., metoprolol succinate 25 mg daily, acetaminophen 1000 mg every 8 hours as needed for fever and pain less than 7/10. VITALS: At the time of discharge, temperature 97.8 degrees, pulse 81, respiratory rate 20, blood pressure 111/71, saturating 100% on 3 L nasal cannula. PHYSICAL EXAMINATION: The patient does not appear in any acute distress. Oral cavity is moist. Lungs: Air entry bilaterally equal except decreased air entry in the infrascapular region. Diffuse inspiratory crackles bilaterally. S1, S2 normal, regular. Systolic murmur best heard over the apex. No rub or gallop. Abdomen: Soft, nontender. She has a colostomy with greenish output. No lower extremity edema. She is moving all extremities spontaneously, and alert and oriented x3. LABS: At the time of discharge, WBC 7.4, hemoglobin 9.3, platelets 246,000. PH of 7.4, pCO2 of 61, lactate 0.6, PO2 of 88 on 3 L nasal cannula. Potassium 4.6, BUN 13, creatinine 0.9, GFR more than 60. Urine Legionella antigen was negative. SIGNIFICANT MICROBIOLOGY DURING HOSPITAL ADMISSION: Urine culture and blood culture did not have any growth. SIGNIFICANT IMAGING DURING HOSPITAL ADMISSION: Chest, abdomen, pelvis CT on April 30 had chronic reticulonodular infiltrates in the lung apices, compatible with chronic atypical pneumonia, severe pulmonary fibrosis, severe compression fracture in the thoracic and lumbar spine with T4, T6, T8, and T12. The T4 and T12 are new from prior and there was progression of T6 from prior. There was also mild compression deformity diffusely throughout the entire lumbar spine. Worst level is L1. Head CT on May 03 did not have any evidence of acute intracranial pathology. Chest x-ray on May 06 had small pleural effusions, increased interstitial markings diffusely throughout both lungs due to fibrosis. EKG on April 30 had sinus tachycardia and left axis deviation. Electroencephalogram was suggestive of abnormal EEG because of generalized slowing. CONSULTATION DURING ADMISSION: Pulmonology, Dr. Russell; neurology, Dr. Patel. HOSPITAL COURSE SUMMARY: Ms. Harper is a 64-year-old, lady with a past medical history of pulmonary fibrosis, on chronic steroids, sleep apnea, on nighttime BiPAP, multiple compression fractures, history of colon perforation requiring colostomy, COPD though she was never a smoker. Came in with chief complaints of cough with mucus production, shortness of breath, and wheezing, with subjective fever of the past 2 to 3 days' duration. In the emergency room, CT scan of the chest had suggested bilateral reticulonodular opacities, suggestive of atypical pneumonia. She was admitted for intravenous antibiotics and oxygenation for acute hypoxic respiratory failure. On admission, she was also found to have hyperkalemia with potassium of 6.1, and acute kidney injury. She was resuscitated with intravenous fluids. With antibiotics, her pneumonia started getting better and she was feeling more comfortable on 3 L nasal cannula, which is her baseline. During hospital admission, she had suddenly developed episodes of confusion and drowsiness that she would not wake up to strong or verbal stimuli and would lapse back into sleep. CT scan of the head was unremarkable. EEG had diffuse slowing, suggestive of global encephalopathy. It was thought that her acute episode of encephalopathy and confusion were likely from long-acting morphine use that she was taking for her chronic back pain, as well as acute hypercarbia where her pCO2 had increased to more than 70, though her pH was normal. Her long-acting morphine was stopped and she was started on a BiPAP which she tolerated well. Later on, her confusion had improved. At the time of discharge, she was provided detailed discharge instructions about not taking morphine long-acting and only take short-acting opioid medication and have a followup with her pain doctor. She was also advised to keep using nighttime BiPAP. More than 30 minutes were spent discharging this patient. Plan of care discussed with her in detail. All of her questions were satisfactorily answered. cc: Clarence Azar MD [id number]
--- NOTE | 2019-05-07 14:19 | PROGRESS NOTE ---
DATE: 05/07/2019 INTERVAL HISTORY: She became awake and alert yesterday and since then she has been awake and alert. She states she wants to eat regular food rather than a soft food. We discussed about possible discharge plan today. She states that she has not been using her BiPAP at home because it needed a filter placement and I discussed with her that she needs to be using it regularly. SUBJECTIVE: She denies any chest pain or shortness of breath. She denies increasing cough though her cough appears to be improving better. No other acute events. VITALS: Temperature 97.8 degrees, pulse 81, respiratory 20, blood pressure 110/70, saturating 100% 2 L nasal cannula. PHYSICAL EXAMINATION: General: Does not appear in any acute distress. Oral cavity is dry. She had decreased air entry with inspiratory crackles bilateral prakash lung jalloh more pronounced in infrascapular region. S1, S2 normal. She does have diastolic murmur affecting base of the heart. Abdomen: Soft, nontender. No lower extremity edema. I discussed about taking the urine catheter out. LABS: Suggestive of normocytic anemia, normal platelet count. She does have hypercarbia which is well compensated, normal kidney function. Hypophosphatemia which is currently being repleted. No new imaging today. ASSESSMENT AND PLAN: 1. Acute encephalopathy on baseline cognitive impairment likely toxic metabolic global encephalopathy due to concurrent medical illnesses, use of long-acting opioids and hypercarbia now resolved. Continue to hold long-acting opioids. Stop levetiracetam since EEG did not detect any epileptiform discharges and CT scan head was unremarkable. 2. Sepsis, acute on chronic hypoxic respiratory failure with chronic hypercarbic respiratory failure with bilateral pneumonia and baseline pulmonary fibrosis and bronchiectasis. Change intravenous to oral antibiotics to Levaquin. Continue home steroids, Breo Ellipta, tiotropium. 3. Multiple thoracic compression fractures with new T4-T12 fractures and multiple lumbar fractures. Outpatient orthopedic evaluation. Start patient on lidocaine patch and outpatient pain management. 4. Her kidney injury, hyperkalemia have resolved. Continue famotidine for GI prophylaxis, ropinirole for restless legs syndrome, pravastatin for hyperlipidemia and a regular diet. 5. Disposition. Awaiting insurance approval for rehab. Plan of care discussed with her. All questions were answered in the morning time and the discharge order has been canceled now. cc: Clarence Azar MD
[2019-05-07 15:37] LABS: PCO2(98.6) 67 mmHg (35-45)
[2019-05-07] MEDS: REQUIP PO SCH (20:25)
[2019-05-07] MEDS: PRAVACHOL PO SCH (20:26)
[2019-05-07] MEDS: LOVENOX SUBQ SCH (20:27)
[2019-05-08] MEDS: NORCO-7.5 PO PRN ×3 (04:29→22:42)
[2019-05-08 04:46] LABS: ALLEN TEST YES; BE 14.6 mmoll (-3.0-3.0); BLOOD TYPE ARTERIAL; HCO3-(ACT) 36.3 mmoll (20.0-26.0); METHB 0.6 % (0.0-1.5); O2(CT) 13.6 mL/dL (15.0-23.0); O2HB 97.6 % (95.0-99.0); PCO2(98.6) 36 mmHg (35-45); PO2(98.6) 185 mmHg (60-100); SAMPLE BLOOD; SAO2 99.3 % (95.0-100.0); THB 9.6 g/dL (11.5-17.4)
[2019-05-08 04:48] LABS: MODALITY BI PAP
[2019-05-08 04:50] LABS: pH(98.6) 7.62 (7.35-7.45)
[2019-05-08] MEDS: BREO ELLIPTA 100/25 MCG INH INH SCH (08:13)
[2019-05-08] MEDS: SPIRIVA INH SCH (08:13)
[2019-05-08] MEDS: SENOKOT PO SCH ×2 (09:35→21:35)
[2019-05-08] MEDS: ZOFRAN IV PRN ×2 (09:47→16:16)
[2019-05-08] MEDS: TOPROL XL PO SCH (09:48)
[2019-05-08] MEDS: PREDNISONE PO SCH (09:48)
[2019-05-08] MEDS: BIDEX PO SCH ×2 (09:48→14:25)
[2019-05-08] MEDS: SINGULAIR PO SCH (09:48)
[2019-05-08] MEDS: LIDODERM TOP SCH (09:49)
[2019-05-08] MEDS: LEVAQUIN PO SCH (14:25)
--- NOTE | 2019-05-08 16:20 | PROGRESS NOTE ---
DATE: 05/08/2019 INTERVAL HISTORY: No acute events. Yesterday she could not go to rehab since the insurance approval was pending so I had to cancel the discharge order. SUBJECTIVE: She now states she wants to go home. I explained to her about her poor functional status and that she would benefit from rehab. She states if she does not have a rehab bed until Tuesday, then she would like to go home on home physical therapy. Otherwise, she denies any complaints. VITAL SIGNS: Temperature 98.1 degrees, pulse 80, respiratory rate 19, blood pressure 100/73, saturating 100% on 3 L nasal cannula. PHYSICAL EXAMINATION: General: Appears anxious, not in any distress. HEENT: Oral cavity is dry. Lungs: Inspiratory crackles bilateral hemithorax. Cardiovascular: S1, S2 normal. Diastolic murmur affecting base of the heart. Abdomen: Soft, nontender. Extremities: No lower extremity edema. She has severe protein energy malnutrition. Neurologic: She is alert and oriented x3. LABS: She does have what appears to be a pH of 7.6, pCO2 of 36. Her phosphorus has been repleted. MICROBIOLOGY: No data. IMAGING: No new imaging. ASSESSMENT AND PLAN: 1. Acute encephalopathy on baseline cognitive impairment, likely toxic metabolic global encephalopathy due to medical illnesses, use of long-acting opioids, and hypercarbia without acidosis, now resolved. She is at her baseline which is alert and oriented x3 with occasional memory impairment and mumbling. Continue to hold long-acting opioids. Stop levetiracetam since the EEG did not detect any epileptiform discharges and she does not have any more myoclonic jerks. CT scan head was unremarkable. 2. Sepsis and acute hypoxic respiratory failure on chronic hypoxic, hypercarbic respiratory failure due to bilateral pneumonia on baseline pulmonary fibrosis and bronchiectasis. Continue oral antibiotics, home dose steroids, Breo Ellipta, tiotropium, home Lasix as needed, and light time BiPAP which she has been supposed to be using for her chronic hypercarbia at home. 3. Multiple thoracic compression fractures with new T4 and T12 fractures and multiple lumbar fractures. Continue outpatient orthopedic evaluation and pain management. I have counseled her and her family about having discussion with outpatient braider operator about tapering steroids down, which she has been on for more than 20 years now. 4. Acute kidney injury and hyperkalemia on admission, has resolved. Continue famotidine for GI prophylaxis; ropinirole for restless legs syndrome; pravastatin for hyperlipidemia, and regular diet. 5. Disposition. I am still awaiting insurance approval and update from the [employer] team. If they have insurance approval the plan is to discharge the patient to rehab tomorrow. If not, then the patient would like to go home on home physical therapy. Discharge summary and rehab paperwork has already been done. Plan of care discussed with the patient. Her questions have been answered. cc: Clarence Azar MD
[2019-05-08] MEDS: REQUIP PO SCH (21:33)
[2019-05-08] MEDS: PRAVACHOL PO SCH (21:35)
[2019-05-08] MEDS: LOVENOX SUBQ SCH (21:44)
[2019-05-09] MEDS: ZOFRAN IV PRN ×2 (01:08→09:39)
[2019-05-09 04:59] LABS: BLOOD TYPE ARTERIAL; SAMPLE BLOOD
[2019-05-09 05:00] LABS: ALLEN TEST YES; BE 12.6 mmoll (-3.0-3.0); HCO3-(ACT) 34.8 mmoll (20.0-26.0); METHB 1.2 % (0.0-1.5); O2(CT) 12.2 mL/dL (15.0-23.0); O2HB 96.4 % (95.0-99.0); PO2(98.6) 103 mmHg (60-100); SAO2 98.5 % (95.0-100.0); THB 8.9 g/dL (11.5-17.4); pH(98.6) 7.38 (7.35-7.45)
[2019-05-09 05:02] LABS: MODALITY CANNULA; PCO2(98.6) 67 mmHg (35-45)
[2019-05-09] MEDS: NORCO-7.5 PO PRN ×2 (06:50→15:13)
[2019-05-09] MEDS ORDERED: PRILOSEC PO SCH (07:00)
[2019-05-09] MEDS: BREO ELLIPTA 100/25 MCG INH INH SCH (08:04)
[2019-05-09] MEDS: SPIRIVA INH SCH (08:05)
[2019-05-09 08:07] LABS: BASO# 0.01 X1000 (0.0-0.2); BASO% 0.1 % (0.0-0.8); EOS# 0.08 X1000 (0.0-0.7); EOS% 0.7 % (0.0-10.0); HEMATOCRIT 32.1 % (37.0-47.0); HEMOGLOBIN 9.3 g/dL (12.0-16.0); IMM GRAN# 0.43 X1000 (0.0-0.04); IMM GRAN% 3.5 % (0.0-0.5); LYMPH# 1.99 X1000 (1.2-3.4); LYMPH% 16.4 % (20.5-51.1); MCH 26.3 PG (27-31); MCV 90.9 FL (81-99); MONO# 1.19 X1000 (0.11-0.59); MONO% 9.8 % (1.7-9.3); MPV 10.8 FL (7.4-10.4); NEUT# 8.45 X1000 (1.4-6.5); NEUT% 69.5 % (42.2-75.2); PLT 224 X1000 (130-400); RBC 3.53 XMIL (4.2-5.4); RDW 14.3 % (11.5-14.5); WBC 12.15 X1000 (4.8-10.8)
[2019-05-09 08:23] LABS: CALCIUM 9.3 mg/dL (8.8-10.2); CREATININE 1.1 mg/dL (0.5-0.9); MAGNESIUM 1.6 mg/dL (1.5-2.7); POTASSIUM 3.8 mmol/L (3.5-5.1)
[2019-05-09] MEDS: LIDODERM TOP SCH (09:40)
[2019-05-09] MEDS: TOPROL XL PO SCH (09:40)
[2019-05-09] MEDS: PREDNISONE PO SCH (09:40)
[2019-05-09] MEDS: SENOKOT PO SCH (09:40)
[2019-05-09] MEDS: SINGULAIR PO SCH (09:40)
[2019-05-09] MEDS: LEVAQUIN PO SCH (10:45)
[2019-05-09 12:45] VITALS: BP 101/64
--- NOTE | 2019-05-12 21:05 | DISCHARGE SUMMARY ---
ADMISSION DATE: 04/30/2019 DISCHARGE DATE: 05/09/2019 DISCHARGE ADDENDUM: Please see full discharge summary dictated 05/07/[address] Azar. Previous plan was for patient to go to rehab. However, she is off oxygen, ambulating well with no confusion and strongly desires to go home with home health. She has done very well with physical therapy here and appears to be able to ambulate almost completely independently. This seemed appropriate and was facilitated. Previous discharge summary remains otherwise accurate. No medication changes made.
== END 2019-05-09 16:22 | disposition home health service (06) | DRG 871 ==
LOC: ED 13:10 → 1N 17:17 → SUATTDRO 17:17 → 3S 05-04 12:58 → 3N 05-07 22:43
PROVIDERS: ATTEND Internal Medicine

== ENCOUNTER 2019-09-29 10:19 | Inpatient (IN) ==
[2019-09-29] MEDS ORDERED: NS 500 ML IV ONE (10:35)
[2019-09-29] MEDS ORDERED: VANCOMYCIN 1 GM/NS 1 GM/250 ML IVPB IV ONE (10:35)
[2019-09-29] MEDS ORDERED: MAXIPIME 2 GM in NS 100 ML IV ONE (10:35)
[2019-09-29] MEDS ORDERED: NS 1,000 ML IV ONE (10:35)
[2019-09-29 11:01] LABS: BASO# 0.02 X1000 (0.0-0.2); BASO% 0.1 % (0.0-0.8); EOS# 0.04 X1000 (0.0-0.7); EOS% 0.1 % (0.0-10.0); HEMATOCRIT 34.2 % (37.0-47.0); HEMOGLOBIN 9.8 g/dL (12.0-16.0); IMM GRAN# 0.37 X1000 (0.0-0.04); IMM GRAN% 1.2 % (0.0-0.5); LYMPH# 0.66 X1000 (1.2-3.4); LYMPH% 2.1 % (20.5-51.1); MCH 27.5 PG (27-31); MCHC 28.7 g/dL (33-37); MCV 96.1 FL (81-99); MONO# 1.73 X1000 (0.11-0.59); MONO% 5.6 % (1.7-9.3); MPV 11.4 FL (7.4-10.4); NEUT# 28.05 X1000 (1.4-6.5); NEUT% 90.9 % (42.2-75.2); PLT 189 X1000 (130-400); RBC 3.56 XMIL (4.2-5.4); RDW 14.1 % (11.5-14.5); WBC 30.87 X1000 (4.8-10.8)
[2019-09-29 11:10] LABS: INR 1.04; PROTIME 13.7 Seconds (11.0-16.0)
[2019-09-29 11:11] LABS: PTT 31.4 Seconds (22.3-41.8)
[2019-09-29 11:22] LABS: BANDS 12 % (0-1); LYMPHS 3 % (21-51); MONO 7 % (1-9); SEGS 78 % (42-75)
[2019-09-29 11:23] LABS: ANISOCYTOSIS 2+; HYPOCHROM 1+; LARGE PLATELETS OCCASIONAL
--- NOTE | 2019-09-29 11:31 | Diag Imaging Result Doc PS360 ---
CHEST-1 VIEW - 09/29/2019 INDICATION: shortness of breat COMPARISON: 06/05/2019 FINDINGS: Stable critically low lung volumes. Stable coarse interstitial opacities diffusely and bilaterally. Heart size remains grossly normal. No pneumothorax or large pleural effusion. IMPRESSION: No change from prior. Electronically signed by Vidal Roberts 09/29/2019 11:28 AM
[2019-09-29 11:36] LABS: AGAP 10; ALB/GLOB RATIO 1.5; ALBUMIN 4.3 g/dL (3.5-5.0); ALKALINE PHOSPHATASE 147 U/L (32-104); BUN 19 mg/dL (8-22); CALCIUM 9.8 mg/dL (8.8-10.2); CHLORIDE 98 mmol/L (98-107); CK PROFILE 30 U/L (24-173); COSMO 289; CREATININE 0.8 mg/dL (0.5-0.9); ESTIMATED GFR > 60; GLUCOSE 129 mg/dL (70-104); GOT 24 U/L (10-30); GPT 21 U/L (10-36); POTASSIUM 4.8 mmol/L (3.5-5.1); SODIUM 143 mmol/L (136-145); TCO2 35 mmol/L (25-35); TOTAL BILIRUBIN 0.41 mg/dL (0.20-1.00); TOTAL PROTEIN 7.1 g/dL (6.3-8.3)
[2019-09-29 11:55] LABS: URINE SOURCE CLEAN CATCH
[2019-09-29 11:59] LABS: BILIRUBIN URINE NEGATIVE (NEGATIVE); BLOOD URINE TRACE (NEGATIVE); COLOR YELLOW; GLUCOSE URINE NEGATIVE (NEGATIVE); KETONE URINE TRACE mg/dL (NEGATIVE); LEUKOCYTES URINE NEGATIVE (NEGATIVE); NITRITE URINE NEGATIVE (NEGATIVE); PROTEIN URINE 100 mg/dL (NEGATIVE); TURBIDITY URINE CLEAR (CLEAR); UR EPITHELIAL CELLS <10 /HPF (<10); URINE BACTERIA NEGATIVE /HPF; URINE RBC <10 /HPF (<10); URINE WBC <10 /HPF (<10); UROBILINOGEN URINE NORMAL (NORMAL)
[2019-09-29] MEDS ORDERED: DUONEB (A & A) INH PRN (12:32)
[2019-09-29] MEDS ORDERED: ZOFRAN IV PRN (13:19)
[2019-09-29] MEDS ORDERED: CHLORASEPTIC SPRAY MT PRN (13:22)
[2019-09-29] MEDS ORDERED: VANCOMYCIN IV PER PHARMACY MISC SCH (13:30)
[2019-09-29 14:20] LABS: BLOOD TYPE ARTERIAL; SAMPLE BLOOD
[2019-09-29 14:21] LABS: ALLEN TEST NO; BE 12.5 mmoll (-3.0-3.0); HCO3-(ACT) 34.6 mmoll (20.0-26.0); METHB 1.2 % (0.0-1.5); MODALITY CANNULA; O2(CT) 12.6 mL/dL (15.0-23.0); PO2(98.6) 73 mmHg (60-100); SAO2 96.9 % (95.0-100.0); THB 9.5 g/dL (11.5-17.4); pH(98.6) 7.34 (7.35-7.45)
[2019-09-29 14:22] LABS: PCO2(98.6) 75 mmHg (35-45)
--- NOTE | 2019-09-29 14:53 | HISTORY AND PHYSICAL ---
CHIEF COMPLAINT: Increasing shortness of breath, fever, hemoptysis. HPI: This is a 64-year-old female with a history of unspecified pulmonary fibrosis. The patient does not have idiopathic pulmonary fibrosis. She is more likely to have a nonspecific interstitial pneumonitis with significant bronchiectasis. She was 1st diagnosed with pulmonary fibrosis in 1985. Of note prior cultures have revealed Pseudomonas aeruginosa and Stenotrophomonas maltophilia. The patient states that she was in her normal state of health until the last 24 hours she began to have dyspnea on exertion and through the night last night became shortness of breath at rest. She has had blood tinged sputum this morning prompting her coming to the emergency room. She denied any chest pain, syncope, dizziness. She does report subjective fevers and "coughing up stuff of every color you can imagine." PAST MEDICAL HISTORY: 1. Pulmonary fibrosis unspecified. 2. Bronchiectasis. 3. History of spontaneous pneumothorax. 4. Diabetes mellitus. 5. Dyslipidemia. 6. Gastroesophageal reflux disease. 7. Seizure disorder. 8. Chronic kidney disease. 9. Osteoporosis with multiple vertebral fractures. 10. Obstructive sleep apnea. 11. History of perforated colon. PAST SURGICAL HISTORY: 1. Colostomy secondary to perforated colon. 2. Cholecystectomy. 3. Adenoidectomy. 4. Tonsillectomy. SOCIAL HISTORY: She has never smoked, used alcohol our illicit drugs. ALLERGIES: Methocarbamol, sulfa. HOME MEDICATIONS: A list will be obtained by the nursing staff and once verified will review and restart as appropriate. REVIEW OF SYSTEMS: Discussed with the patient with pertinent positives stated in the HPI. She denied any syncope, dizziness, any chest pains or palpitations, any vomiting, diarrhea, constipation, black or bloody vomitus or stools, any hematuria, dysuria, frequency urgency. PHYSICAL EXAMINATION: GENERAL: This is a 64-year-old female who is sitting up on the stretcher in the emergency room in no distress. VITAL SIGNS: Blood pressure is 96/62 with a heart rate of 106, respirations are 22, temperature is 98.1 degrees oral with O2 saturations 96 to 98 percent on 2 L nasal cannula. HEENT: Head is normocephalic, atraumatic. Mucous membranes are moist. NECK: Supple. Trachea midline. CARDIOVASCULAR: Regular rate and rhythm. She is tachycardic, S1 and S2 appreciated. Calves are nontender bilateral with peripheral pulses palpable x4 extremities. PULMONARY: Breath sounds with expiratory wheezes and crackles throughout. Chest rises and falls symmetric respiration. Chest wall is nontender to palpation. GASTROINTESTINAL: Soft, nontender, nondistended. Bowel sounds in all 4 quadrants. NEUROLOGIC: She is alert, oriented x3. SKIN: Warm and dry. LABS: WBC is 30.8 with hemoglobin 9.8, hematocrit 34.2 and platelets 189,000. INR is 1.04. Sodium is 143, potassium 4.8, BUN 19, creatinine 0.,8 glucose of 129. Urinalysis is essentially negative. Plasma lactate is 2.8 with repeat lactate 1 . Blood cultures and throat culture are pending. Group A rapid strep is negative with influenza A and B negative. Chest x-ray reveals stable critically low lung volumes, stable coarse interstitial opacities diffusely bilaterally. Heart remains grossly normal. No pneumothorax or large pleural effusion. ASSESSMENT AND PLAN: 1. Chronic hypercapnic respiratory failure. Will continue with supplemental oxygen. 2. Unspecified pulmonary fibrosis present for 30 years making it not idiopathic pulmonary fibrosis. 3. Exacerbation of bronchiectasis. 4. History of previous cultures revealing Pseudomonas and Stenotrophomonas. 5. Leukocytosis. 6. Sore throat with a negative quick strep. 7. Anemia. 8. History of perforated colon requiring colostomy. 9. History of chronic pain secondary to multiple thoracic compression fractures secondary to chronic steroid use. PLAN: The patient will be admitted to PVC unit for close monitoring. She will be placed on telemetry. Will continue with supplemental oxygen. Cultures are pending. She will receive antibiotic coverage of cefepime, Levaquin and vancomycin covering for prior Pseudomonas and Stenotrophomonas and further antibiotics will be culture driven. We will consult Dr. Russell, pulmonology. He is aware of the patient's admission. Give DuoNeb q.4 hours with q.2 hours p.r.n. with steroids to taper. Will identify her home medications and continue these as appropriate. We will order a sputum culture. Start incentive spirometer up in the chair 3 times a day. For her chronic pain will continue oxycodone. Patient was examined and plan was discussed with Dr. Perry. Further treatments pending hospital. Dictated by CARSON Mejía for Tyrone Nolasco MD cc: CARSON Mejía, MD
[2019-09-29] MEDS ORDERED: VANCOMYCIN 650 MG in NS 250 ML IV ONE (15:00)
[2019-09-29] MEDS: DUONEB (A & A) INH SCH ×3 (15:09→23:12)
[2019-09-29] MEDS: NS 1,000 ML IV SCH (17:27)
[2019-09-29] MEDS: SOLU-MEDROL IV SCH ×2 (17:27→20:38)
[2019-09-29] MEDS: PERCOCET-10 PO PRN (18:11)
--- NOTE | 2019-09-29 20:29 | EKG Report ---
Test Performed on : 09/29/2019 10:39:35 AM Test Reason : shortness of breath Blood Pressure : / mmHG Vent. Rate : 140 BPM Atrial Rate : 140 BPM P-R Int : 162 ms QRS Dur : 076 ms QT Int : 262 ms P-R-T Axes : 033 -36 036 degrees QTc Int : 399 ms Sinus tachycardia. Possible Left atrial enlargement Left axis deviation Left ventricular hypertrophy Abnormal ECG When compared with ECG of 05-MAY-2019 18:17, Vent. rate has increased BY 86 BPM Unconfirmed Result
[2019-09-29] MEDS: MELATONIN PO SCH (20:37)
[2019-09-29] MEDS: REQUIP PO SCH (20:37)
[2019-09-29] MEDS: MAG-OX PO SCH (20:37)
[2019-09-29] MEDS: PRAVACHOL PO SCH (20:38)
[2019-09-29] MEDS: MUCINEX PO SCH (20:38)
[2019-09-29] MEDS: SINEQUAN PO SCH (20:38)
[2019-09-29] MEDS: LEVAQUIN 750 MG/D5W 750 MG/150 ML IVPB IV SCH (20:43)
[2019-09-29] MEDS: MAXIPIME 2 GM/NS 2 GM/100 ML IVPB IV SCH (22:57)
[2019-09-30] MEDS: SOLU-MEDROL IV SCH ×3 (02:25→17:53)
[2019-09-30] MEDS: DUONEB (A & A) INH SCH ×6 (03:10→23:03)
[2019-09-30] MEDS: NS 1,000 ML IV SCH (03:45)
[2019-09-30 04:00] LABS: ALLEN TEST YES; BE 9.1 mmoll (-3.0-3.0); BLOOD TYPE ARTERIAL; METHB 0.9 % (0.0-1.5); O2(CT) 11.9 mL/dL (15.0-23.0); O2HB 94.6 % (95.0-99.0); PO2(98.6) 75 mmHg (60-100); SAMPLE BLOOD; SAO2 97.2 % (95.0-100.0); THB 8.9 g/dL (11.5-17.4); pH(98.6) 7.28 (7.35-7.45)
[2019-09-30 04:01] LABS: PCO2(98.6) 80 mmHg (35-45)
[2019-09-30 04:02] LABS: MODALITY BI PAP
[2019-09-30 06:42] LABS: BASO# 0.03 X1000 (0.0-0.2); BASO% 0.1 % (0.0-0.8); HEMATOCRIT 30.9 % (37.0-47.0); HEMOGLOBIN 8.6 g/dL (12.0-16.0); IMM GRAN# 1.92 X1000 (0.0-0.04); IMM GRAN% 6.3 % (0.0-0.5); LYMPH# 0.34 X1000 (1.2-3.4); LYMPH% 1.1 % (20.5-51.1); MCHC 27.8 g/dL (33-37); MCV 96.9 FL (81-99); MONO# 1.07 X1000 (0.11-0.59); MONO% 3.5 % (1.7-9.3); MPV 11.9 FL (7.4-10.4); NEUT# 27.12 X1000 (1.4-6.5); PLT 159 X1000 (130-400); RBC 3.19 XMIL (4.2-5.4); RDW 14.2 % (11.5-14.5); WBC 30.48 X1000 (4.8-10.8)
[2019-09-30 07:17] LABS: AGAP 13; BUN 19 mg/dL (8-22); CALCIUM 9.2 mg/dL (8.8-10.2); CHLORIDE 99 mmol/L (98-107); COSMO 285; CREATININE 0.7 mg/dL (0.5-0.9); ESTIMATED GFR > 60; GLUCOSE 157 mg/dL (70-104); POTASSIUM 4.9 mmol/L (3.5-5.1); SODIUM 140 mmol/L (136-145); TCO2 28 mmol/L (25-35)
[2019-09-30 08:50] LABS: ALLEN TEST YES; BE 8.5 mmoll (-3.0-3.0); BLOOD TYPE ARTERIAL; HCO3-(ACT) 31.6 mmoll (20.0-26.0); METHB 0.7 % (0.0-1.5); O2(CT) 12.6 mL/dL (15.0-23.0); O2HB 97.8 % (95.0-99.0); PO2(98.6) 146 mmHg (60-100); SAMPLE BLOOD; SAO2 100.8 % (95.0-100.0); SRATE 20 BPM; THB 8.9 g/dL (11.5-17.4)
[2019-09-30 08:55] LABS: MODALITY BI PAP; PCO2(98.6) 96 mmHg (35-45); pH(98.6) 7.21 (7.35-7.45)
[2019-09-30] MEDS ORDERED: PERCOCET-10 PO SCH (09:00)
--- NOTE | 2019-09-30 09:09 | PROGRESS NOTE ---
DATE: 09/30/2019 SUBJECTIVE: The patient is definitely more obtunded and lethargic today. Not able to answer my questions appropriately. She looks more tachypneic, using a BiPAP mask. Apparently, as per nursing staff, she had been refusing to use BiPAP yesterday afternoon, even though she said that she is going to use it. Overnight, she has been short of breath and her oxygen needs have increased from 2 L nasal cannula to 5 L nasal cannula. Because of elevated and worsening CO2, she is requiring BiPAP now. OBJECTIVE: Vital Signs: Temperature 98.2 degrees, heart rate 92, respiratory rate 17, blood pressure 95/65, O2 saturation 100% on BiPAP mask. General Examination: This is a chronically ill- appearing, 64-year-old, female lying in bed, in no acute distress. Cardiovascular Examination: S1 and S2 heard. Tachycardic but no murmurs, gallops, or rubs noted. Respiratory Examination: Coarse breath sounds with expiratory wheezing all over both pulmonary jalloh, a little bit worse in comparing with yesterday. The patient is using some accessory muscles. No work of breathing noted. Abdomen: Soft, nontender to palpation. Bowel sounds present. No organomegaly. Extremities: No clubbing, cyanosis, or edema. Peripheral pulses present in both legs. Neurological Examination: The patient is more lethargic. Does not answer questions appropriately. Moves 4 extremities spontaneously. Laboratory Data: White cell count 30.48, hemoglobin 8.6, hematocrit 30.9, platelets 159,000. ABG that shows pH 7.20, with pCO2 of 80, PO2 of 75. The patient was on BiPAP at FiO2 of 38%. Glucose 157. ASSESSMENT AND PLAN: 1. Acute on chronic hypercapnic respiratory failure with respiratory acidosis. Unfortunately, this patient was not using her BiPAP as she was advised to. Now she looks in more respiratory distress. She looks more obtunded. In that regard, we have talked to her and she finally accepted to use BiPAP. Because of her mental status and worsening respiratory acidosis with hypercapnia, I prefer to transfer this patient to the intensive care unit for better monitoring. A CT of the chest has been ordered. We will follow the results. Pulmonary has been consulted. We will follow recommendations. 2. Unspecified pulmonary fibrosis. Aware. We will continue with breathing treatments. Pulmonary has been consulted. 3. Anemia of chronic disease. Stable. We will continue to monitor. 4. History of perforated colon, requiring colostomy. Aware. 5. History of chronic pain secondary to multiple thoracic compression fractures secondary to chronic steroid use. Aware. 6. Disposition. As we mentioned before, because clinically the patient is not getting better, we will transfer this patient to the intensive care unit today. We will await results of CT of the chest and pulmonary consultation as well. cc: Tyrone Nolasco MD
[2019-09-30] MEDS ORDERED: SODIUM BICARBONATE 8.4% 100 MEQ in D5W 1,000 ML IV SCH ×2 (10:18→17:08)
--- NOTE | 2019-09-30 10:21 | Diag Imaging Result Doc PS360 ---
CT THORAX W/CONTRAST - 09/30/2019 INDICATION: pneumonia COMPARISON: 09/29/2019, 04/30/2019 FINDINGS: Lung volumes are severely low. There is severe pulmonary fibrosis stable from prior exams. There is cardiomegaly. There is some hazy interstitial opacity diffusely and bilaterally suggesting mild pulmonary edema. No pneumothorax or significant pleural effusion. Upper abdominal images appear normal. No acute fractures. IMPRESSION: Severe pulmonary fibrosis. Cardiomegaly. Probable mild interstitial pulmonary edema. This exam was performed using automated exposure control, adjustment of mA or kV according to patient size, and/or use of iterative reconstruction technique Electronically signed by Vidal Roberts 09/30/2019 10:18 AM
[2019-09-30] MEDS: ASPIRIN PO SCH (10:49)
[2019-09-30] MEDS: PROTONIX PO SCH (10:49)
[2019-09-30] MEDS: MIRALAX PO SCH (10:49)
[2019-09-30] MEDS: TOPROL XL PO SCH (10:49)
[2019-09-30] MEDS: MUCINEX PO SCH ×2 (10:49→20:43)
[2019-09-30] MEDS: LASIX PO SCH (10:49)
[2019-09-30] MEDS: MAXIPIME 2 GM/NS 2 GM/100 ML IVPB IV SCH ×2 (10:50→23:17)
[2019-09-30] MEDS: PERCOCET-10 PO PRN ×2 (11:23→21:58)
[2019-09-30] MEDS: VANCOMYCIN 1,350 MG in NS 250 ML IV SCH (15:00)
[2019-09-30 16:54] LABS: ALLEN TEST YES; BE 9.7 mmoll (-3.0-3.0); BLOOD TYPE ARTERIAL; HCO3-(ACT) 32.5 mmoll (20.0-26.0); O2(CT) 13.3 mL/dL (15.0-23.0); O2HB 97.2 % (95.0-99.0); PO2(98.6) 152 mmHg (60-100); SAMPLE BLOOD; SAO2 99.9 % (95.0-100.0); SRATE 20 BPM; THB 9.5 g/dL (11.5-17.4)
[2019-09-30 16:57] LABS: MODALITY BI PAP; PCO2(98.6) 103 mmHg (35-45)
[2019-09-30] MEDS ORDERED: LASIX IV ONE (17:07)
[2019-09-30] MEDS: SINEQUAN PO SCH (20:42)
[2019-09-30] MEDS: PRAVACHOL PO SCH (20:43)
[2019-09-30] MEDS: REQUIP PO SCH (20:43)
[2019-09-30] MEDS: MAG-OX PO SCH (20:44)
[2019-09-30] MEDS: MELATONIN PO SCH (20:44)
[2019-09-30] MEDS: LEVAQUIN 750 MG/D5W 750 MG/150 ML IVPB IV SCH (20:55)
[2019-09-30 22:13] LABS: ALLEN TEST YES; BE 18.4 mmoll (-3.0-3.0); BLOOD TYPE ARTERIAL; HCO3-(ACT) 39.3 mmoll (20.0-26.0); METHB 1.4 % (0.0-1.5); O2(CT) 12.7 mL/dL (15.0-23.0); O2HB 96.8 % (95.0-99.0); PO2(98.6) 160 mmHg (60-100); SAMPLE BLOOD; SAO2 99.2 % (95.0-100.0); THB 9.1 g/dL (11.5-17.4); pH(98.6) 7.31 (7.35-7.45)
[2019-09-30 22:15] LABS: MODALITY BI PAP; PCO2(98.6) 95 mmHg (35-45)
[2019-10-01] MEDS: SOLU-MEDROL IV SCH ×3 (01:52→18:26)
[2019-10-01] MEDS: DUONEB (A & A) INH SCH ×6 (03:16→23:12)
[2019-10-01 04:16] LABS: ALLEN TEST YES; BE 20.6 mmoll (-3.0-3.0); BLOOD TYPE ARTERIAL; METHB 1.2 % (0.0-1.5); O2(CT) 12.2 mL/dL (15.0-23.0); O2HB 97.2 % (95.0-99.0); PO2(98.6) 150 mmHg (60-100); SAMPLE BLOOD; SAO2 99.9 % (95.0-100.0); THB 8.7 g/dL (11.5-17.4); pH(98.6) 7.45 (7.35-7.45)
--- NOTE | 2019-10-01 04:19 | PULMONOLOGY CONSULTATION ---
DATE: 09/30/2019 REQUESTING CLINICIAN: Dr. Perry. REASON FOR CONSULTATION: Pneumonia, pulmonary fibrosis, acute respiratory failure. HISTORY OF PRESENT ILLNESS: Ms Harper is a 64-year-old white female with pulmonary fibrosis diagnosed on a biopsy in 1985. Although she has been labeled idiopathic pulmonary fibrosis she clearly has not had a time course consistent with this disease process and most likely has nonspecific interstitial pneumonitis. The patient was evaluated briefly in my office in 2012 and was subsequently referred to the [facility]. She had her initial evaluation but did not maintain followup. The patient has been seen periodically by this practitioner in the hospital but has not had additional followup in my office. The patient's course has been complicated by bronchiectasis with gram-negative organisms. She had severe restrictive physiology in 2012 and is now approaching end-stage disease. She is using a home CPAP/BiPAP type device. The patient presented to the emergency room with several-day history of increased cough with increasing purulent sputum production and increasing shortness of breath. She is requesting not to wear her BiPAP. She does not appear to be in distress despite her laboratory findings. PAST MEDICAL HISTORY: 1. Nonspecific pulmonary fibrosis. 2. Bronchiectasis. 3. History of spontaneous pneumothorax. 4. Diabetes mellitus. 5. Dyslipidemia. 6. Status post cholecystectomy. 7. Status post adenoidectomy. 8. Status post tonsillectomy. 9. Status post colostomy placement for a perforated colon. 10. Gastroesophageal reflux. 11. Seizure disorder. 12. Osteoporosis with multiple vertebral fractures. 13. Chronic kidney disease. SOCIAL HISTORY: No alcohol use. No drug use. She is a never smoker. FAMILY HISTORY: Noncontributory to current presentation. REVIEW OF SYSTEMS: As noted in the HPI. PHYSICAL EXAMINATION: Reveals a chronically ill-appearing female currently wearing her BiPAP device. BP 116/71, heart rate 102, respiratory rate 22, oxygen saturation 100%.HEENT: Pupils are equal and reactive. Oropharynx appears clear but evaluation is limited with BiPAP in place. Neck: Supple. Chest: Reveals crackles and rhonchi bilaterally without significant wheezing. Cardiac: Distant heart sounds. Normal S1, normal S2. Abdomen: Soft with positive bowel sounds. Extremities: Reveal trace edema. LABORATORIES: CT scan of the thorax reveals pulmonary fibrosis, areas of cystic bronchiectasis, cardiomegaly, previous vertebral osteoplasty cement can also be seen on the director of strategic marketing film. White blood count 30,000, hemoglobin 8.6, platelet count 159,000. Sodium 140, potassium 4.9, chloride 99, bicarbonate 28, BUN 19, creatinine 0.7. Arterial blood gas reveals a pH of 7.21, pCO2 of 96, PO2 of 146. Sputum culture is pending. IMPRESSION: A 64-year-old with end-stage lung disease due to a combination of fibrosis and bronchiectasis who presents with 1. Acute on chronic hypoxemic respiratory failure. 2. Acute on chronic hypercapnic respiratory failure. 3. Nonspecific interstitial pneumonitis/pulmonary fibrosis. 4. Exacerbation of bronchiectasis. 5. Osteoporosis. 6. Pulmonary hypertension. DISCUSSION: Unfortunate 64-year-old female with problems outlined above. She is approaching end- stage disease and her CO2 has been elevated into the 70s with prior admissions. It is hoped with BiPAP, bronchial hygiene, and antibiotics she will improve. I will attempt to do everything possible to keep her off mechanical ventilation because it is not clear that she will be successfully extubated. She was previously evaluated at the [facility] but with her end-stage disease, inability to participate in pulmonary rehabilitation and osteoporosis, I doubt that she is a candidate at this juncture. PLAN: 1. Continue BiPAP. 2. Initiate broad-spectrum antibiotics with pseudomonal coverage. 3. Oxygen for hypoxemic respiratory failure. 4. Discontinue saline. She may become hyperchloremic with this fluid which would make her acidosis worse. 5. Small diuretic trial given her known pulmonary hypertension. 6. Consider a palliative care consultation. cc: Demarcus Russell MD
[2019-10-01 04:36] LABS: MODALITY BI PAP; PCO2(98.6) 68 mmHg (35-45)
[2019-10-01 05:33] LABS: HEMATOCRIT 29.2 % (37.0-47.0); IMM GRAN# 0.06 X1000 (0.0-0.04); IMM GRAN% 0.4 % (0.0-0.5); LYMPH# 0.37 X1000 (1.2-3.4); LYMPH% 2.5 % (20.5-51.1); MCH 26.7 PG (27-31); MCHC 27.4 g/dL (33-37); MCV 97.3 FL (81-99); MONO# 0.71 X1000 (0.11-0.59); MONO% 4.8 % (1.7-9.3); NEUT# 13.78 X1000 (1.4-6.5); NEUT% 92.3 % (42.2-75.2); PLT 173 X1000 (130-400); RDW 14.3 % (11.5-14.5); WBC 14.92 X1000 (4.8-10.8)
[2019-10-01 05:45] LABS: AGAP 10; BUN 24 mg/dL (8-22); CALCIUM 9.2 mg/dL (8.8-10.2); CHLORIDE 93 mmol/L (98-107); COSMO 289; CREATININE 0.8 mg/dL (0.5-0.9); ESTIMATED GFR > 60; GLUCOSE 129 mg/dL (70-104); POTASSIUM 4.2 mmol/L (3.5-5.1); SODIUM 142 mmol/L (136-145); TCO2 39 mmol/L (25-35)
[2019-10-01] MEDS ORDERED: LASIX IV ONE (06:00)
[2019-10-01 06:26] LABS: LYMPHS 1 % (21-51); MONO 3 % (1-9); SEGS 96 % (42-75)
[2019-10-01] MEDS: ASPIRIN PO SCH (08:13)
[2019-10-01] MEDS: PROTONIX PO SCH (08:13)
[2019-10-01] MEDS: MUCINEX PO SCH ×2 (08:13→20:03)
[2019-10-01] MEDS: LASIX PO SCH (08:13)
[2019-10-01] MEDS: MIRALAX PO SCH (08:13)
[2019-10-01] MEDS: TOPROL XL PO SCH (08:13)
[2019-10-01] MEDS: PERCOCET-10 PO PRN ×2 (08:14→20:03)
[2019-10-01 10:50] LABS: URINE SOURCE CATH
--- NOTE | 2019-10-01 10:52 | PROGRESS NOTE ---
DATE: 10/01/2019 SUBJECTIVE: The patient is more alert and oriented today. She has actually remembered feeling obtunded and lethargic yesterday. She has been using BiPAP last night and part of the daytime. OBJECTIVE: Vital Signs: Temperature 98.4 degrees, heart rate 72, respiratory rate 22, blood pressure 110/70, and O2 saturation 96% on 4 liters nasal cannula. General: On examination, this is a chronically ill-appearing and frail 65-year-old female lying in bed, in no acute distress. Cardiovascular: S1, S2 heard. Tachycardic. No murmurs, gallops, or rubs noted. Respiratory: On exam, respiratory wheezing and coarse breath sounds noted all over both pulmonary jalloh. A little bit worse in comparing with yesterday. The patient is using some accessory muscles, but no work of breathing noted. Abdomen: Soft. Nontender to palpation. Bowel sounds present. No organomegaly. Extremities: No clubbing, cyanosis, or edema. Peripheral pulses present in both legs. Neurological: Patient is definitely more awake in comparing with yesterday. Speech is coherent. Does answer questions appropriately. Moves 4 extremities spontaneously. LABORATORY DATA: White cell count 14.92, hemoglobin 8, hematocrit 29.2, platelets 173,000, with ABG that shows pH 7.45, with pCO2 of 68, and BMP is unremarkable. ASSESSMENT AND PLAN: 1. Acute on chronic hypercapnic hypoxemic respiratory failure secondary to community-acquired pneumonia. Patient clinically is improving. She has used BiPAP at times yesterday and also all night long. Her numbers are looking better. Of course, CO2 is still elevated at 68. Pulmonary also is following this patient. We will follow recommendations. I think she has end-stage lung disease, but the patient is really adamant to talk about her situation. I think we need to call palliative care services to talk to her and make her aware of her current clinical situation. At this point, we will continue with the same management. 2. Unspecified pulmonary fibrosis, aware. We will continue with the treatment. 3. Anemia of chronic disease. Hemoglobin is stable. We will continue to monitor. 4. History of chronic pain secondary to multiple thoracic compression fractures secondary to chronic steroid use, aware. We will continue to follow. 5. Disposition. I prefer to keep this patient 1 more day in the intensive care unit and monitor her closely, and if she is feeling better then we will transfer her to a regular room tomorrow. cc: Tyrone Nolasco MD MTDD
[2019-10-01 10:57] LABS: BILIRUBIN URINE NEGATIVE (NEGATIVE); BLOOD URINE NEGATIVE (NEGATIVE); COLOR STRAW; GLUCOSE URINE NEGATIVE (NEGATIVE); KETONE URINE NEGATIVE (NEGATIVE); LEUKOCYTES URINE NEGATIVE (NEGATIVE); NITRITE URINE NEGATIVE (NEGATIVE); PROTEIN URINE NEGATIVE (NEGATIVE); SP GRAVITY URINE 1.009; TURBIDITY URINE CLEAR (CLEAR); UROBILINOGEN URINE NORMAL (NORMAL)
[2019-10-01 10:59] LABS: UR EPITHELIAL CELLS <10 /HPF (<10); URINE BACTERIA NEGATIVE /HPF; URINE RBC <10 /HPF (<10); URINE WBC <10 /HPF (<10)
[2019-10-01] MEDS: MAXIPIME 2 GM/NS 2 GM/100 ML IVPB IV SCH ×2 (11:01→22:15)
[2019-10-01] MEDS: VANCOMYCIN 1,350 MG in NS 250 ML IV SCH (15:58)
[2019-10-01] MEDS: MELATONIN PO SCH (20:03)
[2019-10-01] MEDS: PRAVACHOL PO SCH (20:04)
[2019-10-01] MEDS: REQUIP PO SCH (20:04)
[2019-10-01] MEDS: MAG-OX PO SCH (20:04)
[2019-10-01] MEDS: SINEQUAN PO SCH (20:07)
[2019-10-01] MEDS: LEVAQUIN 750 MG/D5W 750 MG/150 ML IVPB IV SCH (20:08)
[2019-10-02] MEDS: SOLU-MEDROL IV SCH ×3 (01:18→17:28)
[2019-10-02] MEDS: DUONEB (A & A) INH SCH ×6 (03:32→22:34)
[2019-10-02] MEDS ORDERED: NS 250 ML ONE (07:58)
[2019-10-02 08:14] LABS: ALLEN TEST NO; BE 26.1 mmoll (-3.0-3.0); BLOOD TYPE ARTERIAL; HCO3-(ACT) 45.3 mmoll (20.0-26.0); METHB 0.9 % (0.0-1.5); O2(CT) 12.9 mL/dL (15.0-23.0); O2HB 97.2 % (95.0-99.0); PO2(98.6) 139 mmHg (60-100); SAMPLE BLOOD; SAO2 99.6 % (95.0-100.0); THB 9.2 g/dL (11.5-17.4); pH(98.6) 7.41 (7.35-7.45)
[2019-10-02 08:17] LABS: MODALITY CANNULA; PCO2(98.6) 86 mmHg (35-45)
[2019-10-02] MEDS: PERCOCET-10 PO PRN ×2 (08:22→17:44)
[2019-10-02] MEDS: MIRALAX PO SCH (08:22)
[2019-10-02] MEDS: MUCINEX PO SCH ×2 (08:22→21:49)
[2019-10-02] MEDS: ASPIRIN PO SCH (08:23)
[2019-10-02] MEDS: TOPROL XL PO SCH (08:23)
[2019-10-02] MEDS: LASIX PO SCH (08:23)
[2019-10-02] MEDS: PROTONIX PO SCH (08:23)
--- NOTE | 2019-10-02 09:18 | PROGRESS NOTE ---
DATE: 10/02/2019 SUBJECTIVE: The patient continues to be alert and awake. According to nursing staff, she had been using BiPAP last night. No acute issues noted. OBJECTIVE: Vitals: Temperature 98.1 degrees, heart rate 77, respiratory rate 13, blood pressure 118/74, O2 saturation 100% on 4 L nasal cannula. General: This is a chronically ill-appearing 64-year-old female lying in bed, in no acute distress. Cardiovascular: S1, S2 heard. Tachycardic, but no murmurs, gallops, or rubs noted. Respiratory: Wheezing and coarse breath sounds noted all over both pulmonary jalloh. Basically, the same in comparing with yesterday. The patient is not using any accessory muscles or having work of breathing. Abdomen: Soft. Nontender to palpation. Bowel sounds present. No organomegaly. Extremities: No clubbing, cyanosis, or edema. Peripheral pulses present in both legs. Neurologic: The patient is awake, alert, moves all 4 extremities. LABORATORY DATA: The ABG shows a pH of 7.41, with pCO2 86, pO2 139. We have checked a CBC and BMP but those are still not available. ASSESSMENT AND PLAN: 1. Acute on chronic hypercapnic and hypoxemic respiratory failure secondary to community-acquired pneumonia. The patient clinically is more stable. She has used BiPAP all night long. Unfortunately her CO2 is very elevated again today. At this point, I think we are going to move this patient to our PVC unit today. Considering her end-stage pulmonary disease we have consulted palliative care team. At this point, the patient is full code but plan to go back home with hospice. 2. Pulmonary fibrosis. Aware. We will continue with the same management. 3. Anemia of chronic disease. Hemoglobin is stable. Continue to monitor. 4. History of chronic pain secondary to multiple thoracic compression fractures, secondary to chronic steroid use. Aware. We will continue to follow. 5. Disposition. As mentioned before, we will transfer this patient to our PCU today. cc: Tyrone Nolasco MD
[2019-10-02 09:37] LABS: ESTIMATED GFR > 60
[2019-10-02 09:38] LABS: INR 0.98; PROTIME 13.1 Seconds (11.0-16.0)
[2019-10-02 09:52] LABS: HEMATOCRIT 30.1 % (37.0-47.0); HEMOGLOBIN 8.3 g/dL (12.0-16.0); LYMPH# 0.41 X1000 (1.2-3.4); MCH 27.3 PG (27-31); MCHC 27.6 g/dL (33-37); MONO# 0.38 X1000 (0.11-0.59); MONO% 5.5 % (1.7-9.3); MPV 11.3 FL (7.4-10.4); NEUT# 6.07 X1000 (1.4-6.5); NEUT% 88.5 % (42.2-75.2); PLT 162 X1000 (130-400); RBC 3.04 XMIL (4.2-5.4); RDW 14.2 % (11.5-14.5); WBC 6.86 X1000 (4.8-10.8)
[2019-10-02 09:56] LABS: AGAP 3; BUN 31 mg/dL (8-22); CALCIUM 9.8 mg/dL (8.8-10.2); CHLORIDE 91 mmol/L (98-107); COSMO 291; CREATININE 0.8 mg/dL (0.5-0.9); GLUCOSE 185 mg/dL (70-104); SODIUM 140 mmol/L (136-145); TCO2 46 mmol/L (25-35)
[2019-10-02 10:02] LABS: BANDS 6 % (0-1); LYMPHS 8 % (21-51); MONO 2 % (1-9); SEGS 84 % (42-75)
[2019-10-02 10:03] LABS: HYPOCHROM 1+
[2019-10-02] MEDS: MAXIPIME 2 GM/NS 2 GM/100 ML IVPB IV SCH ×2 (10:39→23:38)
[2019-10-02] MEDS: VANCOMYCIN 1,350 MG in NS 250 ML IV SCH (15:58)
[2019-10-02] MEDS: MELATONIN PO SCH (21:50)
[2019-10-02] MEDS: REQUIP PO SCH (21:50)
[2019-10-02] MEDS: PRAVACHOL PO SCH (21:50)
[2019-10-02] MEDS: SINEQUAN PO SCH (21:50)
[2019-10-02] MEDS: MAG-OX PO SCH (21:50)
[2019-10-02] MEDS: LEVAQUIN 750 MG/D5W 750 MG/150 ML IVPB IV SCH (22:02)
[2019-10-03] MEDS: SOLU-MEDROL IV SCH ×4 (02:12→17:01)
[2019-10-03] MEDS: DUONEB (A & A) INH SCH ×6 (03:51→23:15)
[2019-10-03 04:32] LABS: ALLEN TEST YES; BE 30.9 mmoll (-3.0-3.0); BLOOD TYPE ARTERIAL; METHB 0.9 % (0.0-1.5); O2HB 96.8 % (95.0-99.0); PO2(98.6) 118 mmHg (60-100); SAMPLE BLOOD; SAO2 99.4 % (95.0-100.0); THB 9.4 g/dL (11.5-17.4); pH(98.6) 7.43 (7.35-7.45)
[2019-10-03 04:37] LABS: MODALITY BI PAP; PCO2(98.6) 90 mmHg (35-45)
[2019-10-03] MEDS ORDERED: NARCAN IV ONE (05:24)
[2019-10-03 06:38] LABS: HEMATOCRIT 31.3 % (37.0-47.0); HEMOGLOBIN 8.6 g/dL (12.0-16.0); IMM GRAN# 0.03 X1000 (0.0-0.04); IMM GRAN% 0.5 % (0.0-0.5); LYMPH# 0.43 X1000 (1.2-3.4); LYMPH% 7.4 % (20.5-51.1); MCH 26.7 PG (27-31); MCHC 27.5 g/dL (33-37); MCV 97.2 FL (81-99); MONO# 0.34 X1000 (0.11-0.59); MONO% 5.8 % (1.7-9.3); MPV 11.3 FL (7.4-10.4); NEUT# 5.02 X1000 (1.4-6.5); NEUT% 86.3 % (42.2-75.2); PLT 156 X1000 (130-400); RBC 3.22 XMIL (4.2-5.4); RDW 14.3 % (11.5-14.5); WBC 5.82 X1000 (4.8-10.8)
[2019-10-03 06:54] LABS: ESTIMATED GFR > 60
[2019-10-03 06:57] LABS: AGAP 7; BUN 37 mg/dL (8-22); CALCIUM 9.6 mg/dL (8.8-10.2); CHLORIDE 91 mmol/L (98-107); COSMO 295; CREATININE 0.8 mg/dL (0.5-0.9); GLUCOSE 159 mg/dL (70-104); POTASSIUM 4.3 mmol/L (3.5-5.1); SODIUM 142 mmol/L (136-145); TCO2 44 mmol/L (25-35)
--- NOTE | 2019-10-03 07:53 | Diag Imaging Result Doc PS360 ---
EXAM: CHEST-2 VIEWS HISTORY: pna TECHNIQUE: Two views COMPARISON: 09/29/2019 FINDINGS: Poor inspiratory effort. There are bilateral infiltrates. These are slightly less prominent. No cardiomegaly. Right-sided PICC line in good position. IMPRESSION: Mild interval improvement. Electronically signed by Moose Morgan 10/03/2019 7:50 AM
[2019-10-03 10:06] LABS: ALLEN TEST YES; BE 30.7 mmoll (-3.0-3.0); BLOOD TYPE ARTERIAL; HCO3-(ACT) 48.8 mmoll (20.0-26.0); METHB 1.3 % (0.0-1.5); O2(CT) 13.6 mL/dL (15.0-23.0); O2HB 94.9 % (95.0-99.0); PO2(98.6) 75 mmHg (60-100); SAMPLE BLOOD; SAO2 97.8 % (95.0-100.0); THB 10.1 g/dL (11.5-17.4); pH(98.6) 7.53 (7.35-7.45)
[2019-10-03] MEDS: LASIX PO SCH (10:06)
[2019-10-03] MEDS: PROTONIX PO SCH (10:06)
[2019-10-03] MEDS: MUCINEX PO SCH ×2 (10:06→21:43)
[2019-10-03] MEDS: ASPIRIN PO SCH (10:06)
[2019-10-03] MEDS: TOPROL XL PO SCH (10:06)
[2019-10-03 10:07] LABS: MODALITY BI PAP; PCO2(98.6) 69 mmHg (35-45)
[2019-10-03] MEDS ORDERED: LOPRESSOR IV PRN (10:07)
[2019-10-03] MEDS: MIRALAX PO SCH (10:08)
[2019-10-03] MEDS: OFIRMEV 1000 MG/ISOTONIC SOLN 1,000 MG/100 ML BOTTLE IV SCH ×3 (10:20→21:43)
--- NOTE | 2019-10-03 11:04 | PROGRESS NOTE ---
DATE: 10/03/2019 SUBJECTIVE: The patient is definitely more confused using BiPAP mask. According to nursing staff, she has been very confused in the morning around 6, so ordered 1 dose of Narcan and patient was more awake. Currently is still confused although definitely much more awake. No other issues noted as per nursing staff overnight. OBJECTIVE: Vital Signs: Temperature 100.4 degrees, heart rate 106, respiratory rate 22, blood pressure 139/88, O2 saturation 96% on BiPAP. General: This is a chronically ill appearing, and frail, 64-year-old female looking older than her stated age lying in bed, in no acute distress. Cardiovascular: S1, S2 heard. Tachycardic. No murmurs, gallops, or rubs noted. Respiratory: Exam wheezing and coarse breath sounds noted all over both pulmonary. Feels basically the same compared with yesterday. The patient is not using any accessory muscles or having work of breathing. Abdomen: Soft. Nontender to palpation. Bowel sounds present. No organomegaly. Extremities: No clubbing, cyanosis, or edema. Peripheral pulses present in both legs. Neurological: Patient is awake, alert, moves 4 extremities. LABORATORY DATA: White cell count 5.92, hemoglobin 8.6, hematocrit 31.3 platelets 156,000 with ABG that shows pH above 53 with pCO2 of 69 PO2 75. No more creatinine. ASSESSMENT AND PLAN: 1. Acute on chronic hypercapnic, hypoxemic respiratory failure secondary to community-acquired pneumonia. Patient is on broad-spectrum antibiotics. She has been more obtunded today and the CO2 level was very high around 90s today. She was given 1 dose of Narcan and she woke up a little bit more. All her home medication has been stopped. We are providing Tylenol for fever and for pain. We will continue to monitor this patient closely. 2. Pulmonary fibrosis aware. Will continue with the same management. 3. Anemia of chronic disease. Hemoglobin is stable. We will continue to monitor CBC daily. 4. History of chronic pain secondary to multiple thoracic compression fractures secondary to chronic steroid use. Aware. We are not gone going to use any opiates because of respiratory depression. 5. Code status. Do not resuscitate level 1. DISPOSITION: At this point, we will continue to monitor this patient closely in the PVC unit. Her prognosis is poor. cc: Tyrone Nolasco MD
[2019-10-03] MEDS: MUCOMYST 20% INH SCH ×2 (11:36→19:25)
[2019-10-03] MEDS: MAXIPIME 2 GM/NS 2 GM/100 ML IVPB IV SCH ×2 (12:18→23:50)
[2019-10-03] MEDS: VANCOMYCIN 1,350 MG in NS 250 ML IV SCH (15:29)
[2019-10-03] MEDS: LEVAQUIN 750 MG/D5W 750 MG/150 ML IVPB IV SCH (21:42)
[2019-10-03] MEDS: REQUIP PO SCH (21:43)
[2019-10-03] MEDS: MELATONIN PO SCH (21:43)
[2019-10-03] MEDS: SINEQUAN PO SCH (21:43)
[2019-10-03] MEDS: MAG-OX PO SCH (21:43)
[2019-10-03] MEDS: PRAVACHOL PO SCH (21:43)
[2019-10-04] MEDS: DUONEB (A & A) INH SCH ×6 (03:25→23:15)
[2019-10-04] MEDS: OFIRMEV 1000 MG/ISOTONIC SOLN 1,000 MG/100 ML BOTTLE IV SCH ×4 (05:15→21:42)
[2019-10-04] MEDS: SOLU-MEDROL IV SCH ×3 (05:16→21:44)
[2019-10-04 06:11] LABS: BASO# 0.02 X1000 (0.0-0.2); BASO% 0.2 % (0.0-0.8); HEMATOCRIT 30.5 % (37.0-47.0); HEMOGLOBIN 8.7 g/dL (12.0-16.0); IMM GRAN# 0.08 X1000 (0.0-0.04); IMM GRAN% 0.7 % (0.0-0.5); LYMPH# 1.37 X1000 (1.2-3.4); LYMPH% 11.9 % (20.5-51.1); MCH 26.8 PG (27-31); MCHC 28.5 g/dL (33-37); MCV 93.8 FL (81-99); MONO# 2.06 X1000 (0.11-0.59); MONO% 17.9 % (1.7-9.3); MPV 11.2 FL (7.4-10.4); NEUT# 7.95 X1000 (1.4-6.5); NEUT% 69.3 % (42.2-75.2); PLT 162 X1000 (130-400); RBC 3.25 XMIL (4.2-5.4); RDW 14.4 % (11.5-14.5); WBC 11.48 X1000 (4.8-10.8)
[2019-10-04 06:34] LABS: ESTIMATED GFR > 60
[2019-10-04 06:35] LABS: AGAP 7; BUN 32 mg/dL (8-22); CALCIUM 9.5 mg/dL (8.8-10.2); CHLORIDE 90 mmol/L (98-107); COSMO 285; CREATININE 0.8 mg/dL (0.5-0.9); GLUCOSE 116 mg/dL (70-104); POTASSIUM 3.7 mmol/L (3.5-5.1); SODIUM 139 mmol/L (136-145); TCO2 42 mmol/L (25-35)
[2019-10-04] MEDS: MUCOMYST 20% INH SCH ×2 (07:54→19:49)
[2019-10-04] MEDS: MIRALAX PO SCH (08:24)
[2019-10-04] MEDS: PROTONIX PO SCH (08:25)
[2019-10-04] MEDS: TOPROL XL PO SCH (08:25)
[2019-10-04] MEDS: ASPIRIN PO SCH (08:25)
[2019-10-04] MEDS: LASIX PO SCH (08:25)
[2019-10-04] MEDS: MUCINEX PO SCH ×2 (08:25→21:43)
[2019-10-04 09:29] LABS: ALLEN TEST YES; BE 22.4 mmoll (-3.0-3.0); BLOOD TYPE ARTERIAL; HCO3-(ACT) 42.4 mmoll (20.0-26.0); METHB 1.4 % (0.0-1.5); O2(CT) 13.4 mL/dL (15.0-23.0); O2HB 95.7 % (95.0-99.0); PO2(98.6) 108 mmHg (60-100); SAMPLE BLOOD; SAO2 98.8 % (95.0-100.0); THB 9.8 g/dL (11.5-17.4); pH(98.6) 7.49 (7.35-7.45)
[2019-10-04 09:33] LABS: MODALITY CANNULA; PCO2(98.6) 64 mmHg (35-45)
[2019-10-04] MEDS: MAXIPIME 2 GM/NS 2 GM/100 ML IVPB IV SCH ×2 (11:04→22:47)
--- NOTE | 2019-10-04 11:39 | PROGRESS NOTE ---
DATE: 10/04/2019 SUBJECTIVE: The patient is not using BiPAP today. Is a little bit confused, but less in comparing with yesterday. It looks that she is breathing better today. OBJECTIVE: Vital Signs: Temperature 98.2 degrees, heart rate 113, respiratory rate 24, blood pressure 154/77, O2 saturation 95% on 4 L nasal cannula. General examination: This is a chronically ill-appearing and frail, 65-year-old female looking older than her stated age, lying in bed in no acute distress. Cardiovascular exam: S1, S2 heard. Tachycardic with no murmurs, gallops, or rubs noted. Respiratory exam: Wheezing and coarse breath sounds noted all over multiple pulmonary jalolh. It is basically the same in comparing with yesterday. The patient is not using any accessory muscles or having work of breathing. Abdomen: Soft, nontender to palpation. Bowel sounds present. No organomegaly. Extremities: No clubbing, cyanosis, or edema. Peripheral pulses present in both legs. Neurological exam: The patient is awake, a little bit lethargic, but moves 4 extremities. Follows commands. LABORATORY DATA: White cell count 11.40, hemoglobin 8.7, hematocrit 30.5, platelets 162 with ABG that shows pH 7.3, now with pCO2 64, PO2 108. Normal BMP. ASSESSMENT AND PLAN: 1. Acute on chronic hypercapnic and hypoxemic respiratory failure secondary to community-acquired pneumonia. The patient is a little bit less obtunded today. CO2 is 64 today. At this point, we will continue with current medications. He is not spiking any fever. We will continue to monitor. 2. Pulmonary fibrosis, aware. We will continue with same management. Pulmonary is following this patient. 3. Anemia of chronic disease. Hemoglobin continues to be stable. We will continue to check complete blood count daily. 4. History of chronic pain secondary to multiple thoracic compression fractures secondary to chronic steroid use. Aware. We are avoiding opiates as much as we can because of respiratory depression. 5. Code status. Do not resuscitate level 1. 6. Disposition: At this point, we will continue to monitor this patient closely. cc: Tyrone Nolasco MD
[2019-10-04] MEDS: ZANAFLEX PO PRN (12:25)
[2019-10-04] MEDS: VANCOMYCIN 1,350 MG in NS 250 ML IV SCH (14:17)
--- NOTE | 2019-10-04 19:22 | PROVIDER DOCUMENTATION ---
This chart was entered by Jazzy Mott Scribe, acting as scribe for Perry Abernathy MD. HPI-Respiratory General - General Chief Complaint: SEPSIS ALERT - D Stated Complaint: SHORTNESS OF BREATH Time Seen by Provider: 09/29/19 10:29 Source: patient, family (son) Allergies/Adverse Reactions: Patient Allergies Allergy/AdvReac Type Severity Reaction Status Date / Time methocarbamol [From Robaxin] Allergy Unknown Verified 06/05/19 12:22 Sulfa (Sulfonamide AdvReac RASH Verified 06/05/19 12:22 Antibiotics) Home Medications: Home Medication List Medication Instructions Recorded Confirmed Last Taken Type Aspirin 81 mg PO QAM 08/02/13 09/29/19 12/14/18 09:00 History 81 mg Ropinirole HCl [Requip] 1.5 mg PO QHS 04/20/17 09/29/19 04/29/19 21:00 History Pravastatin Sodium 20 mg PO QHS 05/14/17 09/29/19 04/29/19 History Guaifenesin E.r. [Mucinex] 600 mg PO BID #10 tab 01/17/18 09/29/19 12/14/18 09:00 Rx 600mg Melatonin 10 mg PO HS #90 tab 01/17/18 09/29/19 12/13/18 21:00 Rx 10mg Biotin 1,000 mcg PO DAILY 02/17/18 09/29/19 12/14/18 09:00 History 1000mcg Doxepin HCl 100 mg PO HS 02/17/18 09/29/19 04/29/19 History Magnesium Oxide [Diasense 400 mg PO HS 02/17/18 09/29/19 12/14/18 09:00 History Magnesium] 400mg Metoprolol Succinate E.r. [Toprol 25 mg PO DAILY #30 tab 04/09/18 09/29/19 Rx Xl] Furosemide [Lasix] 40 mg PO DAILY 12/16/18 09/29/19 04/30/19 History Prednisone 10 mg PO DAILY 12/16/18 09/29/19 04/30/19 History Albuterol 2.5MG/Ipratrop 0.5MG 3 ml INH Q2H PRN PRN 05/01/19 09/29/19 04/30/19 History [Duoneb (A & A)] Pantoprazole [Protonix] 40 mg PO DAILY 05/01/19 09/29/19 04/30/19 History Tizanidine HCl [Zanaflex] 4 mg PO TID PRN 05/01/19 09/29/19 04/30/19 History Acetaminophen [Tylenol] 1,000 mg PO Q8H PRN PRN tab 05/07/19 09/29/19 Unknown Rx Meloxicam [Mobic] 15 mg PO DAILY 06/05/19 09/29/19 Unknown History Polyethylene Glycol 3350 [Miralax] 17 gm PO DAILY 06/05/19 09/29/19 Unknown History Oxycodone/APAP 10 mg/325 mg 10 mg PO TID 09/29/19 09/29/19 Unknown History [Percocet-10] - History of Present Illness-Resp Nature of Presenting Problem: pt is a 64 yowf brought to the ED by her son complaining of SOB. Pt states that she started coughing last night and this morning around 5:30 am starting experiencing SOB. Pt is alert and nontoxic in appearance. Quality of Pain: reports: dull (ears and throat) Severity in ED: reports: mild Onset/Duration: reports: abrupt, 4-6 hours ago Timing: reports: still present Cough Quality/Degree: reports: mild, productive cough Current Respiratory Medication Therapy: Initiated see nurses note Modifying Factors: worse with: exertion Associated Symptoms: reports: cough, earache, fever/chills (Pt states low grade) , nasal drainage, shortness of breath, sore throat, other (nauseous) Review of Systems - Adult - REVIEW OF SYSTEMS - ADULT Constitutional: reports: see HPI, fever Eyes: reports: no symptoms reported Ears, Nose, Mouth & Throat: reports: see HPI, ear pain, throat pain (pt says from cough) Cardiovascular: reports: no symptoms reported Respiratory: reports: cough, shortness of breath Gastrointestinal: reports: see HPI, nausea Genitourinary: reports: no symptoms reported Musculoskeletal: reports: no symptoms reported Integumentary: reports: no symptoms reported Neurological: reports: no symptoms reported Psychiatric: reports: no symptoms reported Endocrine: reports: no symptoms reported Hematologic/Lymphatic: reports: no symptoms reported Allergic/Immunologic: reports: no symptoms reported All Other Systems: Reviewed and Negative Past History - Adult - PAST MEDICAL HISTORY-ADULT Review of Records: reports: Old Records Reviewed, Nursing Assessment Review, Medications Reviewed, Social history reviewed & non-contributory. Major Childhood Illnesses: reports: denies history Cardiovascular: reports: CAD, hyperlipidemia Respiratory: reports: COPD, sleep apnea, other (idiopathic pulmonary fibrosis) Gastrointestinal: reports: GERD Obstetrical/Gynecological: reports: denies history Genitourinary: reports: kidney disease Musculoskeletal: reports: denies history Neurological: reports: Seizures/Epilepsy Psychiatric: reports: depression Endocrine/Immune: reports: Diabetes Other Conditions: reports: denies history - PRIOR SURGERIES/PROCEDURES Surgical/Procedure History: reports: cholecystectomy, hysterectomy, tonsillectomy - IMMUNIZATION STATUS Childhood Immunizations: See Nurse Assessment Flu Vaccine: See Nurse Assessment - FAMILY HISTORY Family History: reviewed, not pertinent - SOCIAL HISTORY Smoking: non-smoker Living Situation: family (son) Physical Exam-General - PHYSICAL EXAM-ADULT Initial Vital Signs Reviewed: Yes (HR 146, resp 26, O2 92 ) - CONSTITUTIONAL General Appearance: alert, mild distress - EYES Eyes: PERRL/EOMI - HEAD, EARS, NOSE, MOUTH & THROAT HENMT: moist mucous membranes - NECK Neck: non-tender, full range of motion - RESPIRATORY Respiratory: respiratory distress (mild), other (defused mild "creaky" sounds) - CARDIOVASCULAR Cardiovascular: tachycardia - GASTROINTESTINAL (ABDOMEN) Abdominal Exam: non tender, soft - MUSCULOSKELETAL Back Exam: no CVA tenderness, no vertebral tenderness Extremity: non-tender, normal gait - SKIN Integumentary: normal color, normal turgor, warm/dry - PSYCHIATRIC Psych/Mental Status: normal mood/affect, normal thought content, normal thought process, oriented x 3 Progress - PLAN OF CARE/RESULTS Progress/Plan/Lab Results: Orders Category Date Time Status Admit - [facility] Routine AdmDCTranf 09/29/19 14:01 Active Cardiac Monitoring DIRECTED Care 09/29/19 10:25 Completed IV Insertion ORDERED Care 09/29/19 10:25 Completed IV Insertion ORDERED Care 09/29/19 10:35 Completed Intake and Output-Strict ORDERED Care 09/29/19 10:35 Active Notify MD of + Sepsis Screen NOW Care 09/29/19 10:25 Completed Notify MD/PA/CARSON for exam NOW Care 09/29/19 10:35 Completed Notify Physician As Ordered Care 09/29/19 10:25 Active Up in Chair TID Care 09/29/19 13:23 Active Regular Diet Diet 09/29/19 14:18 Active CHEST-1 VIEW [RAD] Stat Exams 09/29/19 10:25 Completed ABG [RESP] Routine Lab 09/29/19 14:15 Completed BLOOD CULTURE [BLDCUL] Stat Lab 09/29/19 10:54 Results CBC WITH DIFF [HEME] Stat Lab 09/29/19 10:43 Completed CK PROFILE [SP CHEM] Stat Lab 09/29/19 10:43 Completed COMPREHENSIVE METABOLIC PANEL [CHEM] Stat Lab 09/29/19 10:43 Completed DIRECT STREP Stat Lab 09/29/19 13:24 Completed Flu Swab [INFLUENZA SCREEN A/B] Stat Lab 09/29/19 11:44 Completed LACTATE, PLASMA [CHEM] Lab 09/29/19 13:57 Completed LACTATE, PLASMA [CHEM] Lab 09/29/19 16:12 Completed LACTATE, PLASMA [CHEM] Q3H Lab 09/29/19 10:43 Completed PROTIME WITH INR [COAG] Stat Lab 09/29/19 10:43 Completed PTT [COAG] Stat Lab 09/29/19 10:43 Completed SPUTUM CULTURE WITH GRAM STAIN [RM] Routine Lab 09/29/19 16:00 Completed TROPONIN T Stat Lab 09/29/19 10:43 Completed URINALYSIS W/POSS RFLX CULT [URINALYSIS] Stat Lab 09/29/19 11:42 Completed 0.9% Sodium Chloride Inj [Ns] 1,000 ml Med 09/29/19 10:35 Discontinued IV As Directed mls/hr 0.9% Sodium Chloride Inj [Ns] 500 ml Med 09/29/19 10:35 Discontinued IV 999 mls/hr Albuterol 2.5MG/Ipratrop 0.5MG [Duoneb (A & A)] Med 09/29/19 12:32 Active 3 ml INH Q2H PRN PRN Albuterol 2.5MG/Ipratrop 0.5MG [Duoneb (A & A)] Med 09/29/19 15:30 Active 3 ml INH RTQ4H Aspirin Med 09/30/19 09:00 Active 81 mg PO QAM CefEPIME 2 GM/NS [Maxipime 2 gm/Ns] Med 09/29/19 23:00 Active 2 gm in 100 ml IV Q12H CefEPIME [Maxipime] 2 gm Med 09/29/19 10:35 Discontinued 0.9% Sodium Chloride Inj [Ns] 100 ml IV NOW Doxepin [Sinequan] Med 09/29/19 21:00 Active 100 mg PO HS Furosemide [Lasix] Med 09/30/19 09:00 Active 40 mg PO DAILY Guaifenesin E.r. [Mucinex] Med 09/29/19 21:00 Active 600 mg PO BID Levofloxacin 750 mg/D5w [Levaquin 750 mg/D5w] Med 09/29/19 13:30 Active 750 mg in 150 ml IV Q24H Magnesium Oxide [Mag-Ox] Med 09/29/19 21:00 Active 400 mg PO HS Melatonin Med 09/29/19 21:00 Active 10 mg PO HS Methylprednisolone Sod Succ [Solu-Medrol] Med 09/29/19 13:30 Discontinued 40 mg IV Q6H Metoprolol Succinate E.r. [Toprol Xl] Med 09/30/19 09:00 Active 25 mg PO DAILY Ondansetron [Zofran] Med 09/29/19 13:19 Active 4 mg IV Q4H PRN PRN PRAVAstatin [Pravachol] Med 09/29/19 21:00 Active 20 mg PO QHS Pantoprazole [Protonix] Med 09/30/19 09:00 Active 40 mg PO DAILY Pharmacy Order [Vancomycin IV Per Pharmacy] Med 09/29/19 13:30 Active 1 each MISC DIRECTED Phenol 1.4% [place] [Chloraseptic [place]] Med 09/29/19 13:22 Active 1 ml MT PRN PRN Polyethylene Glycol 3350 [Miralax] Med 09/30/19 09:00 Active 17 gm PO DAILY Ropinirole [Requip] Med 09/29/19 21:00 Active 1.5 mg PO QHS Tizanidine [Zanaflex] Med 09/29/19 12:32 Active 4 mg PO TID PRN PRN Vancomycin 1 gm/Ns Med 09/29/19 10:35 Discontinued 1 gm in 250 ml IV NOW Vancomycin 1,350 mg Med 09/30/19 15:00 Active 0.9% Sodium Chloride Inj [Ns] 250 ml IV Q24H Vancomycin 650 mg Med 09/29/19 15:00 Discontinued 0.9% Sodium Chloride Inj [Ns] 250 ml IV ONCE Aerosol Treatments Routine Ot 09/29/19 12:33 Completed Aerosol Treatments Routine Ot 09/29/19 13:20 Completed Aerosol Treatments Stat Ot 09/29/19 12:33 Completed Incentive Spirometer RTQ4H.[facility] 09/29/19 15:30 Completed Incentive Spirometer RTQ4H.[facility] 09/29/19 19:30 Completed Incentive Spirometer RTQ4H.[facility] 09/29/19 23:30 Completed Incentive Spirometer RTQ4H.[facility] 09/30/19 07:30 Completed Incentive Spirometer RTQ4H.[facility] 09/30/19 11:30 Completed Incentive Spirometer RTQ4H.[facility] 09/30/19 15:30 Completed Incentive Spirometer RTQ4H.[facility] 09/30/19 19:30 Completed Incentive Spirometer RTQ4H.[facility] 09/30/19 23:30 Completed Incentive Spirometer RTQ4H.[facility] 10/01/19 07:30 Completed Incentive Spirometer RTQ4H.[facility] 10/01/19 11:30 Completed Incentive Spirometer RTQ4H.[facility] 10/01/19 15:30 Completed Incentive Spirometer RTQ4H.[facility] 10/01/19 19:30 Completed Incentive Spirometer RTQ4H.[facility] 10/01/19 23:30 Completed Incentive Spirometer RTQ4H.[facility] 10/02/19 07:30 Completed Incentive Spirometer RTQ4H.[facility] 10/02/19 11:30 Completed Oxygen Device Stat [facility] 09/29/19 10:25 Completed EKG [EKG] Stat Ther 09/29/19 10:25 Draft Transfer/Admit Order [TRANSFER] Routine Transfer 09/29/19 14:34 Completed Result Diagrams: 10/04/19 05:56 10/04/19 05:56 - EKG 1 Time of EKG reading by physician:: 10:46 EKG Read and Signed by:: Perry Abernathy EKG Interpretation (*Must complete 3 of following elements*): Abnormal Rate: 140 Rhythm: Sinus tachycardia [place]: left (deviation) Comments: Possible left atrial enlargement, left ventricular hypertrophy - XRAY 1 XRAY Study: Chest Impression: See EMR Report (CHEST-1 VIEW - 09/29/2019 INDICATION: shortness of breat COMPARISON: 06/05/2019 FINDINGS: Stable critically low lung volumes. Stable coarse interstitial opacities diffusely and bilaterally. Heart size remains grossly normal. No pneumothorax or large pleural effusion. IMPRESSION: No change from prior. Electronically signed by Vidal Roberts 09/29/2019 11:28 AM 09/29/19 1128 Interpreting Physician: Vidal Roberts MD Dictated Date/Time: 09/29/19 1128 cc: Perry Abernathy MD; José Miguel Krueger MD) Departure - Departure Date of Disposition Decision: 09/29/19 Time of Disposition Decision: 11:08 DIAGNOSIS: Sepsis Qualifiers: Sepsis type: sepsis due to unspecified organism Sepsis acute organ dysfunction status: without acute organ dysfunction Qualified Code(s): A41.9 - Sepsis, unspecified organism Bilateral pneumonia Qualifiers: Pneumonia type: due to unspecified organism Lung location: unspecified part of lung Qualified Code(s): J18.9 - Pneumonia, unspecified organism Disposition: ADMITTED INPATIENT 09 Certified Medical Emergency: Emergent Condition: Stable - Critical Care Note This patient required my direct & personal management of CC.: No Attestation - Physician/ LORENZO Attestation Patient care was provided by Advanced Practice Provider:: No The physician spent face to face time with patient:: Yes Advanced Practice Provider documentation review:: Supervising physician onsite and consulted in the evaluation and care of this patient. The physician did have a face to face encounter with the patient. This chart was documented by the indicated scribe, (Jazzy Mott Scribe) and accurately reflects the services I performed and decisions made by me, Perry Abernathy MD, as attested by the provider's signature.
[2019-10-04] MEDS: LEVAQUIN 750 MG/D5W 750 MG/150 ML IVPB IV SCH (21:42)
[2019-10-04] MEDS: REQUIP PO SCH (21:43)
[2019-10-04] MEDS: MAG-OX PO SCH (21:43)
[2019-10-04] MEDS: SINEQUAN PO SCH (21:43)
[2019-10-04] MEDS: MELATONIN PO SCH (21:43)
[2019-10-04] MEDS: PRAVACHOL PO SCH (21:43)
[2019-10-05] MEDS: DUONEB (A & A) INH SCH ×6 (03:23→22:37)
[2019-10-05 04:52] LABS: ALLEN TEST YES; BLOOD TYPE ARTERIAL; HCO3-(ACT) 41.3 mmoll (20.0-26.0); O2HB 96.3 % (95.0-99.0); PO2(98.6) 100 mmHg (60-100); SAMPLE BLOOD; SRATE 20 BPM; THB 9.5 g/dL (11.5-17.4); pH(98.6) 7.45 (7.35-7.45)
[2019-10-05 04:53] LABS: PCO2(98.6) 69 mmHg (35-45)
[2019-10-05 04:54] LABS: MODALITY BI PAP
[2019-10-05 06:05] LABS: HEMATOCRIT 31.7 % (37.0-47.0); IMM GRAN# 0.08 X1000 (0.0-0.04); IMM GRAN% 1.2 % (0.0-0.5); LYMPH# 0.78 X1000 (1.2-3.4); LYMPH% 11.6 % (20.5-51.1); MCH 26.4 PG (27-31); MCHC 28.4 g/dL (33-37); MONO% 10.4 % (1.7-9.3); MPV 11.6 FL (7.4-10.4); NEUT# 5.16 X1000 (1.4-6.5); NEUT% 76.8 % (42.2-75.2); PLT 162 X1000 (130-400); RBC 3.41 XMIL (4.2-5.4); RDW 14.4 % (11.5-14.5); WBC 6.72 X1000 (4.8-10.8)
[2019-10-05] MEDS: SOLU-MEDROL IV SCH ×4 (06:09→21:19)
[2019-10-05] MEDS: MUCOMYST 20% INH SCH ×2 (08:04→19:48)
[2019-10-05] MEDS: LASIX PO SCH (08:41)
[2019-10-05] MEDS: MIRALAX PO SCH (08:41)
[2019-10-05] MEDS: TOPROL XL PO SCH (08:41)
[2019-10-05] MEDS: PROTONIX PO SCH (08:41)
[2019-10-05] MEDS: ASPIRIN PO SCH (08:41)
[2019-10-05] MEDS: MUCINEX PO SCH ×2 (08:41→20:10)
[2019-10-05] MEDS ORDERED: ULTRAM PO PRN (09:19)
--- NOTE | 2019-10-05 09:58 | EKG Report ---
Test Performed on : 10/05/2019 08:51:44 AM Test Reason : chest pain Blood Pressure : / mmHG Vent. Rate : 081 BPM Atrial Rate : 081 BPM P-R Int : 120 ms QRS Dur : 092 ms QT Int : 344 ms P-R-T Axes : 031 -23 018 degrees QTc Int : 399 ms Normal sinus rhythm. Voltage criteria for left ventricular hypertrophy Abnormal ECG When compared with ECG of 29-SEP-2019 10:39, (Unconfirmed) Vent. rate has decreased BY 59 BPM Confirmed by Fam HOLDER, Miguelangel Agudelo ([id number]) on 10/08/2019 9:27:12 AM
--- NOTE | 2019-10-05 11:11 | PROGRESS NOTE ---
DATE: 10/05/2019 SUBJECTIVE: Patient reports feeling better. She is more alert and awake to my examination, definitely much better in comparing with yesterday. She reports that she is complaining badly of current back pain. We will request her pain medications to be restarted. OBJECTIVE: Vital Signs: Temperature is 98.2, heart rate 61, respiratory rate 20, blood pressure 147/69, O2 saturation 100% on BiPAP. General: This is a chronically ill-appearing and frail 65- year-old female looking older than her stated age, lying in bed, in no acute distress. Cardiovascular: S1, S2 heard. Tachycardic but no murmurs, gallops, or rubs noted. Respiratory: Wheezing and coarse breath sounds noted all over both pulmonary jalloh but definitely much better in comparing with yesterday. Patient is not using any accessory muscles or having work of breathing. Abdomen: Soft, nontender to palpation. Bowel sounds present. No organomegaly. Extremities: No clubbing, cyanosis, or edema. Peripheral pulses present in both legs. Neurological: The patient is more alert and awake. Moves 4 extremities spontaneously, follow commands. LABORATORY DATA: White count 5.92, hemoglobin 8.6, hematocrit 31.3, platelets 156, with ABG that shows pH 7.53 with pCO2 69, PO2 of 75. BMP unremarkable. ASSESSMENT AND PLAN: 1. Acute on chronic hypercapnic hypoxemic respiratory failure secondary to community-acquired pneumonia. Patient clinically looks better. More oriented with CO2 that is better in comparing with yesterday. At this point, we will continue with breathing treatments. She is not spiking any fever. We will continue to monitor this patient closely here in the PVC unit. 2. Pulmonary fibrosis, aware. We will continue with same management. Pulmonary is following this patient. 3. Anemia of chronic disease. Hemoglobin continues to be stable. We will continue to check CBC daily. 4. History of chronic pain secondary to multiple thoracic compression fractures secondary to chronic steroid use. At this point, we will be cautious restarting any pain medications. She has been on Percocet 10 mg p.o. q.8 hours. Considering that she has been on this medication for a while, we will restart half of the dose that she usually has. Patient and family has been explained in depth about the relationship between pain medications on chronic respiratory failure. They acknowledged understanding. At this point, we will proceed with Percocet 5 mg p.o. 6 to 8 hours p.r.n. 5. Code status. Do not resuscitate level 1. 6. Disposition. At this point, we will continue to monitor this patient closely. cc: Tyrone Nolasco MD
[2019-10-05] MEDS: MAXIPIME 2 GM/NS 2 GM/100 ML IVPB IV SCH ×2 (11:20→21:00)
[2019-10-05] MEDS: PERCOCET-5 PO PRN ×2 (11:58→20:09)
[2019-10-05] MEDS: VANCOMYCIN 1,350 MG in NS 250 ML IV SCH (15:26)
[2019-10-05] MEDS: PRAVACHOL PO SCH (20:09)
[2019-10-05] MEDS: REQUIP PO SCH (20:09)
[2019-10-05] MEDS: SINEQUAN PO SCH (20:09)
[2019-10-05] MEDS: MELATONIN PO SCH (20:09)
[2019-10-05] MEDS: LEVAQUIN 750 MG/D5W 750 MG/150 ML IVPB IV SCH (20:09)
[2019-10-05] MEDS: MAG-OX PO SCH (20:10)
[2019-10-06] MEDS: MAXIPIME 2 GM/NS 2 GM/100 ML IVPB IV SCH ×3 (02:32→22:11)
[2019-10-06] MEDS: ZANAFLEX PO PRN (02:39)
[2019-10-06] MEDS: DUONEB (A & A) INH SCH ×6 (02:56→23:35)
[2019-10-06] MEDS: PERCOCET-5 PO PRN ×3 (04:25→21:32)
[2019-10-06] MEDS: SOLU-MEDROL IV SCH ×3 (05:52→21:30)
[2019-10-06 06:04] LABS: BASO# 0.01 X1000 (0.0-0.2); BASO% 0.1 % (0.0-0.8); HEMATOCRIT 29.5 % (37.0-47.0); HEMOGLOBIN 8.5 g/dL (12.0-16.0); IMM GRAN# 0.16 X1000 (0.0-0.04); IMM GRAN% 1.8 % (0.0-0.5); LYMPH# 0.97 X1000 (1.2-3.4); LYMPH% 10.8 % (20.5-51.1); MCH 26.6 PG (27-31); MCHC 28.8 g/dL (33-37); MCV 92.2 FL (81-99); MONO# 1.05 X1000 (0.11-0.59); MONO% 11.7 % (1.7-9.3); MPV 11.7 FL (7.4-10.4); NEUT# 6.76 X1000 (1.4-6.5); NEUT% 75.6 % (42.2-75.2); PLT 164 X1000 (130-400); RDW 14.5 % (11.5-14.5); WBC 8.95 X1000 (4.8-10.8)
[2019-10-06] MEDS: MUCOMYST 20% INH SCH ×2 (08:29→19:47)
[2019-10-06] MEDS: ASPIRIN PO SCH (08:51)
[2019-10-06] MEDS: MUCINEX PO SCH ×2 (08:51→21:31)
[2019-10-06] MEDS: TOPROL XL PO SCH (08:51)
[2019-10-06] MEDS: LASIX PO SCH (08:51)
[2019-10-06] MEDS: PROTONIX PO SCH (08:51)
[2019-10-06] MEDS: MIRALAX PO SCH (08:52)
--- NOTE | 2019-10-06 11:22 | PROVIDER PROGRESS NOTE ---
Progress Note Pulmonary additional note: I have seen the case, reviewed the EMR, labs, latest images and other medical teams notes. Also reviewed the [employer] notes and signed necessary form(s). I have noted changes in condition if any from yesterday and did orders if needed. Please see also signed progress sheet. Prognosis: Poor given end stage nature of lung disease. Since yesterday, She remained in Bipap in major part. PaCo2 is 69. I reviewed Dr. Perry and palliative Nurse notes I asked event staff member about condition changes and if they have any needs in regard to today conditions. I spent more than 30 minutes in this process.
--- NOTE | 2019-10-06 12:21 | PROGRESS NOTE ---
DATE: 10/06/2019 SUBJECTIVE: The patient reports breathing better. She continues to be more alert and awake, able to have a good conversation. She does not have shortness short of breath when she talks. Back pain is under control. OBJECTIVE: Vitals: Temperature 98.0, heart rate 77, respiratory rate 20, blood pressure 117/70, O2 saturation 100% on high-flow nasal cannula. General: This is a chronically ill-appearing, frail, 64-year-old female looking older than her stated age, lying in bed in no acute distress. Cardiovascular: S1, S2 heard. Tachycardic. No murmurs, gallops, or rubs noted. Respiratory: Minimal wheezing and coarse breath sounds noted in both pulmonary jalloh. Patient is not using any accessory muscles or having work of breathing. Abdomen: Soft, nontender to palpation. Bowel sounds present. No organomegaly. Extremities: No clubbing, cyanosis, or edema. Peripheral pulses present in both legs. Neurological: Patient is more alert and awake. Moves 4 extremities spontaneously. LABORATORY DATA: No labs. ASSESSMENT AND PLAN: 1. Acute on chronic hypercapnic and hypoxemic respiratory failure secondary to community-acquired pneumonia. The patient during the last 2 days continues to improve. Clinically she looks fine. At this point, we will continue with current of oxygen supplementation on high-flow nasal cannula. 2. Pulmonary fibrosis. Aware. We will continue with the same management. 3. Anemia of chronic disease. Hemoglobin has not been checked today but we will plan to check it tomorrow. No signs of bleeding. 4. History of chronic pain secondary to multiple thoracic compression fractures secondary to chronic steroid use. We have restarted Percocet but is half of her usual dosage, in this case 5 mg p.o. 2 times per day. 5. Code status is DO NOT RESUSCITATE LEVEL 1. DISPOSITION: We will continue to monitor this patient closely. cc: Tyrone Nolasco MD
[2019-10-06] MEDS: VANCOMYCIN 1,350 MG in NS 250 ML IV SCH (15:46)
[2019-10-06] MEDS: REQUIP PO SCH (21:30)
[2019-10-06] MEDS: MELATONIN PO SCH (21:30)
[2019-10-06] MEDS: SINEQUAN PO SCH (21:30)
[2019-10-06] MEDS: PRAVACHOL PO SCH (21:31)
[2019-10-06] MEDS: MAG-OX PO SCH (21:31)
[2019-10-06] MEDS: LEVAQUIN 750 MG/D5W 750 MG/150 ML IVPB IV SCH (21:31)
[2019-10-07] MEDS: DUONEB (A & A) INH SCH ×6 (03:41→22:59)
[2019-10-07] MEDS: SOLU-MEDROL IV SCH ×3 (05:42→21:49)
--- NOTE | 2019-10-07 08:25 | PROGRESS NOTE ---
DATE: 10/07/2019 SUBJECTIVE: The patient reports feeling fine. She continues to require oxygen by high-flow nasal cannula. She denies any shortness of breath. Back pain continues to be under control. OBJECTIVE: Vital Signs: Temperature 97.9 degrees, heart rate 61, respiratory rate 16, blood pressure 109/67, O2 saturation 100% on high-flow nasal cannula. General: This is a chronically ill-appearing and frail, 64-year-old, female, looking older than her stated age, lying in bed in no acute distress. Cardiovascular: S1, S2 heard. Tachycardic, but no murmurs, gallops, or rubs noted. Respiratory: Minimal wheezing and rhonchi noted in both pulmonary jalloh. The patient is not using any accessory muscles or having work of breathing. Abdomen: Soft, nontender to palpation. Bowel sounds present. No organomegaly. Extremities: No clubbing, cyanosis, or edema. Peripheral pulses present in both legs. Neurological: The patient is more alert and awake. Moves all 4 extremities spontaneously. LABORATORY DATA: None. ASSESSMENT AND PLAN: 1. Acute on chronic hypercapnic hypoxemic respiratory failure secondary to community-acquired pneumonia. The patient, during the last 3 days, has been oriented, awake. She is requiring her bilevel positive airway pressure at night. Not feeling short of breath, so at this point, will continue with current antibiotic management; in this case, it is vancomycin, levofloxacin, and cefepime. Today is day #8 of all those medication. Will continue to monitor this patient closely. 2. Pulmonary fibrosis. Aware. Will continue with the same management. 3. Anemia of chronic disease. Hemoglobin is stable during the last few days. 4. History of chronic pain secondary to multiple thoracic compression fractures due to chronic steroid use. We have all the home doses of Percocet, in this case is 5 mg by mouth every 8 hours as needed. 5. Code status. DO NOT RESUSCITATE level 1. 6. Disposition. At this point, will continue to monitor this patient here in the hospital. Tomorrow, will discuss with Palliative Care and family what we are going to do with this patient. She has been previously on hospice, so will see if she wants to go there again or not. cc: Tyrone Nolasco MD
[2019-10-07] MEDS: TOPROL XL PO SCH (08:37)
[2019-10-07] MEDS: LASIX PO SCH (08:37)
[2019-10-07] MEDS: MUCINEX PO SCH ×2 (08:38→21:49)
[2019-10-07] MEDS: MUCOMYST 20% INH SCH ×2 (08:38→20:01)
[2019-10-07] MEDS: MIRALAX PO SCH (08:38)
[2019-10-07] MEDS: PROTONIX PO SCH (08:38)
[2019-10-07] MEDS: ASPIRIN PO SCH (08:38)
[2019-10-07] MEDS: PERCOCET-5 PO PRN ×2 (08:43→18:17)
[2019-10-07] MEDS: MAXIPIME 2 GM/NS 2 GM/100 ML IVPB IV SCH ×2 (10:54→22:00)
--- NOTE | 2019-10-07 11:20 | PROVIDER PROGRESS NOTE ---
Progress Note Pulmonary additional note: I have seen the case, reviewed the EMR, labs, latest images and other medical teams notes. Also reviewed the [employer] notes and signed necessary form(s). I have noted changes in condition if any from yesterday and did orders. Please see also signed progress sheet. Prognosis: Guarded poor for end stage lung disease. DNRI Since yesterday, She is tolerating High flow cannula I reviewed notes from Dr. Perry. Palliative care discussions and was in past on hospice. Respiratory failure. DNRI End stage COPD and pulmonary fibrosis I asked staffing account manager about condition changes and if they have any needs in regard to today conditions. I spent 32 minutes in this process.
[2019-10-07] MEDS: VANCOMYCIN 1,350 MG in NS 250 ML IV SCH (15:02)
[2019-10-07] MEDS: REQUIP PO SCH (21:48)
[2019-10-07] MEDS: LEVAQUIN 750 MG/D5W 750 MG/150 ML IVPB IV SCH (21:48)
[2019-10-07] MEDS: PRAVACHOL PO SCH (21:49)
[2019-10-07] MEDS: ZANAFLEX PO PRN (21:49)
[2019-10-07] MEDS: MAG-OX PO SCH (21:49)
[2019-10-07] MEDS: MELATONIN PO SCH (21:49)
[2019-10-07] MEDS: SINEQUAN PO SCH (21:51)
[2019-10-08] MEDS: DUONEB (A & A) INH SCH ×3 (03:38→11:44)
[2019-10-08] MEDS: PERCOCET-5 PO PRN (05:13)
[2019-10-08] MEDS: SOLU-MEDROL IV SCH (05:13)
[2019-10-08 07:28] VITALS: BP 122/72
[2019-10-08] MEDS: MUCOMYST 20% INH SCH (08:26)
[2019-10-08] MEDS: LASIX PO SCH (08:53)
[2019-10-08] MEDS: TOPROL XL PO SCH (08:53)
[2019-10-08] MEDS: MUCINEX PO SCH (08:53)
[2019-10-08] MEDS: ASPIRIN PO SCH (08:53)
[2019-10-08] MEDS: MIRALAX PO SCH (08:53)
[2019-10-08] MEDS: PROTONIX PO SCH (08:53)
--- NOTE | 2019-10-09 10:28 | DISCHARGE SUMMARY ---
ADMISSION DATE: 09/29/2019 DISCHARGE DATE: 10/08/2019 PRIMARY CARE PROVIDER: Dr. José Miguel Krueger. CONSULTATIONS: Dr. Demarcus Russell with Pulmonology. PERTINENT PROCEDURES: Chest CT, severe pulmonary fibrosis, cardiomegaly, probable mild interstitial pulmonary edema. DISCHARGE DIAGNOSES: 1. Acute on chronic hypercapnic hypoxemic respiratory failure secondary to community-acquired pneumonia. The patient is a DNR level 1 again with end-stage COPD and pulmonary fibrosis. The patient will be discharged with [facility] home [facility] or possible hospice with limited therapy and they did express desire for portable DNR. 2. Pulmonary fibrosis, aware. 3. Anemia of chronic disease. Hemoglobin and hematocrit stable. 4. Chronic pain secondary to multiple thoracic compression fractures due to chronic steroid use. Continue home regimen. 5. Code status DNR level 1. Again, the patient was to discharge home with [facility] hosp[facility] versus Home Health. They have spoken about both. They are mulling over a portable DNR. HOSPITAL COURSE: Briefly, Ms. Harper is a 64-year-old female with a history of unspecified pulmonary fibrosis, bronchial stasis, spontaneous pneumothorax, diabetes mellitus, dyslipidemia, GERD, seizure disorder, chronic kidney disease, osteoporosis with multiple vertebral fractures secondary to steroid use, obstructive sleep apnea, perforated colon, who came to the ED with dyspnea on exertion, blood-tinged sputum, subjective fever and was found to be in chronic hypercapnic hypoxemic respiratory failure, was started on supplemental O2 and exacerbation of bronchial stasis. Initiated on IV antibiotics. Pulmonary consult and started on BiPAP. She does use CPAP and BiPAP type device at home. She has been evaluated by the [facility]. Dr. Russell felt with her end-stage disease and inability to participate in pulmonary rehabilitation, osteoporosis that she is not a candidate at this juncture, but he did hope to hold off with mechanical intervention with BiPAP and broad-spectrum antibiotics and aggressive pulmonary toilet and hygiene. [employer] Developer and Palliative Care was brought on board. The patient did make herself a DNR level 1. There were talks of a portable DNR as well as going home with hospice. I believe they were going back and forth between home health and [facility]. She will be discharged home today it looks well with [facility] home health and DME with [facility] and to discuss the portable DNR. VITAL SIGNS: At time of discharge, temperature is 98.2 degrees, heart rate 83, respirations 16, blood pressure 122/72, O2 is 100% on 4 L nasal cannula. DISCHARGE DIET: Regular. DISCHARGE MEDICATIONS: 1. Pravastatin 20 mg p.o. at bedtime. 2. Requip 1.5 mg p.o. at bedtime. 3. Aspirin 81 mg p.o. q.a.m. 4. Biotin 1000 mcg p.o. q.a.m. 5. Magnesium oxide 400 mg p.o. at bedtime. 6. Xratygt167 mg p.o. at bedtime. 7. DuoNeb 3 mL inhaled q.2 hours p.r.n. 8. Lasix 40 mg p.o. daily. 9. MiraLAX 17 g p.o. daily. 10. Mobic 15 mg p.o. daily. 11. Prednisone 10 mg p.o. daily. 12. Protonix 40 mg p.o. daily. 13. Zanaflex 4 mg p.o. t.i.d. p.r.n. 14. Levaquin 750 mg p.o. daily for 7 days. 15. Melatonin 10 mg p.o. at bedtime. 16. Mucinex 600 mg p.o. b.i.d. 17. Percocet 5, 1 tab p.o. q.6 hours p.r.n. 18. Toprol-XL 25 mg p.o. daily. 19. Tylenol 1000 mg p.o. q.8 hours p.r.n. FOLLOW-UP: Ms. Harper is being discharged home with [facility] and [facility]. There were discussions of home health or hospice as well as discussion for portable DNR. She can follow up with her primary care provider, José Miguel Krueger, in the next 1 to 2 weeks. She can return to the ED or call 911 for any worsening of symptoms. Dictated by CARSON Baez for Tyrone Nolasco MD Addendum: Patient seen and examined by myself. Agree with CARSON note. It reflects my assessment and plan. Patient is being discharged in stable condition. Will be followed by Home health team upon discharge. cc: Tyrone Nolasco MD [facility]
== END 2019-10-08 15:31 | disposition home health service (06) | DRG 190 ==
LOC: ED 10:19 → 2N 14:40 → ICU 09-30 10:18 → 2N 10-02 17:17
PROVIDERS: ATTEND Internal Medicine

== ENCOUNTER 2019-11-15 21:11 | Inpatient (IN) ==
--- NOTE | 2019-11-15 22:40 | EKG Report ---
Test Performed on : 11/15/2019 9:24:05 PM Test Reason : CP Blood Pressure : / mmHG Vent. Rate : 110 BPM Atrial Rate : 110 BPM P-R Int : 124 ms QRS Dur : 088 ms QT Int : 308 ms P-R-T Axes : 033 -35 031 degrees QTc Int : 416 ms Sinus tachycardia. Possible Left atrial enlargement Left axis deviation Left ventricular hypertrophy Abnormal ECG When compared with ECG of 05-OCT-2019 08:51, No significant change was found Unconfirmed Result
[2019-11-16 00:13] LABS: ALLEN TEST YES; BE 18.6 mmoll (-3.0-3.0); BLOOD TYPE ARTERIAL; HCO3-(ACT) 39.5 mmoll (20.0-26.0); METHB 0.7 % (0.0-1.5); O2HB 97.1 % (95.0-99.0); PO2(98.6) 154 mmHg (60-100); SAMPLE BLOOD; SAO2 99.8 % (95.0-100.0); THB 9.3 g/dL (11.5-17.4); pH(98.6) 7.23 (7.35-7.45)
[2019-11-16 00:19] LABS: MODALITY CANNULA; PCO2(98.6) 119 mmHg (35-45)
[2019-11-16] MEDS ORDERED: NARCAN IV ONE (00:23)
--- NOTE | 2019-11-16 00:33 | PROVIDER DOCUMENTATION ---
This chart was entered by Cristina Perdomo Scribe, acting as scribe for Bea Garnica MD. HPI-General Adult - General Chief Complaint: Back Pain Stated Complaint: SOB, CHEST PAIN Time Seen by Provider: 11/15/19 23:18 Source: patient Allergies/Adverse Reactions: Patient Allergies Allergy/AdvReac Type Severity Reaction Status Date / Time methocarbamol [From Robaxin] Allergy Unknown Verified 06/05/19 12:22 Sulfa (Sulfonamide AdvReac RASH Verified 06/05/19 12:22 Antibiotics) Home Medications: Home Medication List Medication Instructions Recorded Confirmed Last Taken Type Aspirin 81 mg PO QAM 08/02/13 09/29/19 12/14/18 09:00 History 81 mg Ropinirole HCl [Requip] 1.5 mg PO QHS 04/20/17 09/29/19 04/29/19 21:00 History Pravastatin Sodium 20 mg PO QHS 05/14/17 09/29/19 04/29/19 History Guaifenesin E.r. [Mucinex] 600 mg PO BID #10 tab 01/17/18 09/29/19 12/14/18 09:00 Rx 600mg Melatonin 10 mg PO HS #90 tab 01/17/18 09/29/19 12/13/18 21:00 Rx 10mg Biotin 1,000 mcg PO DAILY 02/17/18 09/29/19 12/14/18 09:00 History 1000mcg Doxepin HCl 100 mg PO HS 02/17/18 09/29/19 04/29/19 History Magnesium Oxide [Diasense 400 mg PO HS 02/17/18 09/29/19 12/14/18 09:00 History Magnesium] 400mg Metoprolol Succinate E.r. [Toprol 25 mg PO DAILY #30 tab 04/09/18 09/29/19 04/30/19 Rx Xl] Furosemide [Lasix] 40 mg PO DAILY 12/16/18 09/29/19 04/30/19 History Prednisone 10 mg PO DAILY 12/16/18 09/29/19 04/30/19 History Albuterol 2.5MG/Ipratrop 0.5MG 3 ml INH Q2H PRN PRN 05/01/19 09/29/19 04/30/19 History [Duoneb (A & A)] Pantoprazole [Protonix] 40 mg PO DAILY 05/01/19 09/29/19 04/30/19 History Tizanidine HCl [Zanaflex] 4 mg PO TID PRN 05/01/19 09/29/19 04/30/19 History Acetaminophen [Tylenol] 1,000 mg PO Q8H PRN PRN tab 05/07/19 09/29/19 Unknown Rx Meloxicam [Mobic] 15 mg PO DAILY 06/05/19 09/29/19 Unknown History Polyethylene Glycol 3350 [Miralax] 17 gm PO DAILY 06/05/19 09/29/19 Unknown History Levofloxacin [Levaquin] 750 mg PO DAILY #7 tab 10/08/19 Unknown Rx Oxycodone/APAP 5 mg/325 mg 1 tab PO Q6H PRN PRN #30 tab 10/08/19 Unknown Rx [Percocet-5] - History of Present Illness -Gen Adult Nature of Presenting Problems: pt is a 64 yr old female presenting with family and hospice nurse, hospice nurse reports pt initially called her due to shortness of breath, fatigue and chest pain x 2-3 days. family reports pt hx of elevated CO2 and that she usually presents similar to this. pt very fatigued, drowsy. hospice nurse reports she instructed pt to take .5mg morphine prior to coming to ER. pt is on 4l o2 at home and uses bipap at home. Location of Pain/Injury: reports: chest, back Pain Radiation: reports: no radiation Onset/Duration: reports: 3 days ago Timing: reports: gone now Context/Activities at Onset: reports: light activity Modifying Factors: improves with: other medication (morphine-pain resolved) Associated Symptoms: reports: back/neck pain, chest pain, dizziness, fatigue, malaise, shortness of breath, weakness. denies: fever/chills, nausea, vomiting Similar Symptoms Previously?: Yes Recently seen or treated by another doctor?: No Review of Systems - Adult - REVIEW OF SYSTEMS - ADULT Constitutional: reports: fatique. denies: chills, fever Eyes: denies: blurred vision, double vision Ears, Nose, Mouth & Throat: reports: no symptoms reported Cardiovascular: reports: chest pain. denies: palpitations, syncope Respiratory: reports: dyspnea on exertion, shortness of breath. denies: cough Gastrointestinal: denies: abdominal pain, diarrhea, nausea, vomiting Genitourinary: denies: dysuria, frequency, flank pain Musculoskeletal: denies: back pain, muscle weakness Integumentary: reports: no symptoms reported Neurological: denies: dizziness/vertigo, headache/migraines, syncope Psychiatric: denies: no symptoms reported Endocrine: reports: no symptoms reported Hematologic/Lymphatic: reports: no symptoms reported Allergic/Immunologic: reports: no symptoms reported All Other Systems: Reviewed and Negative Past History - Adult - PAST MEDICAL HISTORY-ADULT Review of Records: reports: Old Records Reviewed, Nursing Assessment Review, Medications Reviewed, Social history reviewed & non-contributory. Major Childhood Illnesses: reports: denies history Cardiovascular: reports: CAD, hyperlipidemia Respiratory: reports: COPD, sleep apnea, other (idiopathic pulmonary fibrosis) Gastrointestinal: reports: GERD Obstetrical/Gynecological: reports: denies history Genitourinary: reports: kidney disease Musculoskeletal: reports: denies history Neurological: reports: Seizures/Epilepsy Psychiatric: reports: depression Endocrine/Immune: reports: Diabetes Other Conditions: reports: denies history - PRIOR SURGERIES/PROCEDURES Surgical/Procedure History: reports: cholecystectomy, hysterectomy, tonsillectomy - IMMUNIZATION STATUS Childhood Immunizations: See Nurse Assessment Flu Vaccine: See Nurse Assessment - FAMILY HISTORY Family History: reviewed, not pertinent - SOCIAL HISTORY Smoking: non-smoker Substance Use: alcohol Alcohol Use Frequency: occasionally Living Situation: family Physical Exam-General - PHYSICAL EXAM-ADULT Initial Vital Signs Reviewed: Yes - CONSTITUTIONAL General Appearance: no apparent distress, thin, slow to respond - EYES Eyes: PERRL/EOMI - HEAD, EARS, NOSE, MOUTH & THROAT HENMT: normocephalic/atraumatic. negative: moist mucous membranes (dry oral) - NECK Neck: non-tender, full range of motion, supple, normal inspection - RESPIRATORY Respiratory: chest non-tender, no respiratory distress, decreased breath sounds, crackles (left) - CARDIOVASCULAR Cardiovascular: normal peripheral pulses, regular rate, rhythm, no gallop - GASTROINTESTINAL (ABDOMEN) Abdominal Exam: normal bowel sounds, non tender, soft - LYMPHATIC Lymphatic: no adenopathy - MUSCULOSKELETAL Back Exam: normal inspection, no CVA tenderness, no vertebral tenderness Extremity: normal range of motion, non-tender, normal inspection, no pedal edema - SKIN Integumentary: normal turgor, warm/dry, pallor - NEUROLOGIC Neurologic: grossly normal, no motor/sensory deficits Progress - PLAN OF CARE/RESULTS Progress/Plan/Lab Results: Vital Signs - 8 hr 11/15/19 21:15 Temperature 98.8 F Pulse Rate 66 Respiratory Rate 20 Blood Pressure 135/86 O2 Sat by Pulse Oximetry 98 Orders Category Date Time Status Cardiac Monitoring DIRECTED Care 11/15/19 23:38 Active Oxygen Therapy- ED Nursing DIRECTED Care 11/15/19 23:38 Active Saline Loc NOW Care 11/15/19 23:38 Active CHEST-PORTABLE [RAD] Stat Exams 11/15/19 23:51 Ordered CHEST-PORTABLE [RAD] Stat Exams 11/15/19 23:[address] T-SPINE/L-SPINE W/O CON [CT] Stat Exams 11/15/19 21:58 Taken ABG [RESP] Routine Lab 11/15/19 23:39 Ordered CBC WITH ELECTRONIC DIFF [HEME] Stat Lab 11/15/19 23:38 Uncollected CK PROFILE [SP CHEM] Stat Lab 11/15/19 23:38 Uncollected COMPREHENSIVE METABOLIC PANEL [CHEM] Stat Lab 11/15/19 23:38 Uncollected PRO B-NATRIURETIC PEPTIDE Stat Lab 11/15/19 23:38 Uncollected PROTIME WITH INR [COAG] Stat Lab 11/15/19 23:38 Uncollected PTT [COAG] Stat Lab 11/15/19 23:38 Uncollected TROPONIN T HIGH SENSITIVITY Stat Lab 11/15/19 23:38 Uncollected URINALYSIS W/POSS RFLX CULT [URINALYSIS] Stat Lab 11/15/19 22:00 Uncollected URINE DRUG SCREEN Stat Lab 11/15/19 23:51 Uncollected CP/SOB/Palp >45 yrs of Age Stat Oth 11/15/19 23:38 Ordered EKG [EKG] Stat Ther 11/15/19 21:24 Draft Patient CO2 to 119 and improved with Narcan. She likely has been taking too much opiod medication and has caused worsening of her acute on chronic hypercarbia. She is a DNR and does not want intubation or ventilation but will take bipap. Spoke to Dr Tracy operations professional for hospitalist who accepted patient for admission. Further orders to be placed by his team. Result Diagrams: 11/16/19 00:30 02/14/20 00:30 - EKG 1 Time of EKG reading by physician:: 21:26 EKG Read and Signed by:: Bea Garnica EKG Interpretation (*Must complete 3 of following elements*): Abnormal Rate: 110 Rhythm: Sinus tachycardia [place]: left QRS: LVH UT Interval: normal ST Wave: normal - CT/MRI 1 CT Study: Lumbar Spine, other (thoracic spine) Impression: Abnormal (multilevel compression fractures in the thoracic and lumbar spine with no new compression deformity compared with 04/30/19) Comparison with other Films: no changes (04/30/19) - CONSULTS/PCP/HOSPITALIST Notification #1 *Consult/PCP/Hospitalist*: Dr Tracy Time Discussed: 00:31 Consult Disposition: Admit Departure - Departure Date of Disposition Decision: 11/16/19 Time of Disposition Decision: 00:31 DIAGNOSIS: COPD exacerbation, Interstitial lung disease, Hypercapnia, Acute respiratory acidosis, Congestive heart failure (CHF), Altered mental status, Opioid overdose Disposition: ADMITTED INPATIENT 09 Certified Medical Emergency: Emergent Condition: Critical - Critical Care Note This patient required my direct & personal management of CC.: Yes Total Time (mins): 75 Critical Care Statement: This patient required my direct personal management to treat or rule out processes, the absence of which, could potentiallly result in sudden, clinically significant life or limb threatening deterioration. Attestation - Physician/ LORENZO Attestation Patient care was provided by Advanced Practice Provider:: No The physician spent face to face time with patient:: Yes Advanced Practice Provider documentation review:: Supervising physician onsite and consulted in the evaluation and care of this patient. The physician did have a face to face encounter with the patient. This chart was documented by the indicated scribe, (Cristina Perdomo Scribe) and accurately reflects the services I performed and decisions made by me, Bea Garnica MD, as attested by the provider's signature.
[2019-11-16 00:50] LABS: EOS# 0.05 X1000 (0.0-0.7); EOS% 0.4 % (0.0-10.0); HEMATOCRIT 33.5 % (37.0-47.0); HEMOGLOBIN 9.1 g/dL (12.0-16.0); IMM GRAN# 0.05 X1000 (0.0-0.04); IMM GRAN% 0.4 % (0.0-0.5); LYMPH# 2.17 X1000 (1.2-3.4); LYMPH% 16.2 % (20.5-51.1); MCH 27.3 PG (27-31); MCHC 27.2 g/dL (33-37); MCV 100.6 FL (81-99); MONO# 2.06 X1000 (0.11-0.59); MONO% 15.4 % (1.7-9.3); MPV 11.3 FL (7.4-10.4); NEUT# 9.03 X1000 (1.4-6.5); NEUT% 67.6 % (42.2-75.2); PLT 216 X1000 (130-400); RBC 3.33 XMIL (4.2-5.4); RDW 14.6 % (11.5-14.5); WBC 13.36 X1000 (4.8-10.8)
[2019-11-16 00:58] LABS: INR 0.9; PROTIME 12.2 Seconds (11.0-16.0)
[2019-11-16 00:59] LABS: PTT 27.2 Seconds (22.3-41.8)
[2019-11-16] MEDS ORDERED: VANCOMYCIN IV PER PHARMACY MISC SCH (01:15)
[2019-11-16] MEDS ORDERED: ZOFRAN IV PRN (01:26)
[2019-11-16 01:37] LABS: ESTIMATED GFR > 60
[2019-11-16 01:48] LABS: AGAP 9; ALB/GLOB RATIO 1.5; ALKALINE PHOSPHATASE 107 U/L (32-104); BUN 13 mg/dL (8-22); CALCIUM 9.4 mg/dL (8.8-10.2); CHLORIDE 91 mmol/L (98-107); CK PROFILE 25 U/L (24-173); COSMO 285; CREATININE 0.9 mg/dL (0.5-0.9); GLUCOSE 137 mg/dL (70-104); GOT 15 U/L (10-30); GPT 13 U/L (10-36); POTASSIUM 4.5 mmol/L (3.5-5.1); SODIUM 142 mmol/L (136-145); TCO2 42 mmol/L (25-35); TOTAL BILIRUBIN 0.21 mg/dL (0.20-1.00); TOTAL PROTEIN 6.6 g/dL (6.3-8.3)
[2019-11-16] MEDS: LEVAQUIN 750 MG/D5W 750 MG/150 ML IVPB IV SCH (02:55)
[2019-11-16] MEDS: LOVENOX SUBQ SCH (02:56)
[2019-11-16] MEDS: NS 1,000 ML IV SCH ×2 (02:56→20:26)
[2019-11-16 03:11] LABS: URINE SOURCE CATH
[2019-11-16 03:16] LABS: BILIRUBIN URINE NEGATIVE (NEGATIVE); BLOOD URINE NEGATIVE (NEGATIVE); COLOR YELLOW; GLUCOSE URINE NEGATIVE (NEGATIVE); KETONE URINE NEGATIVE (NEGATIVE); LEUKOCYTES URINE NEGATIVE (NEGATIVE); NITRITE URINE NEGATIVE (NEGATIVE); PROTEIN URINE TRACE mg/dL (NEGATIVE); SP GRAVITY URINE 1.013; TURBIDITY URINE CLEAR (CLEAR); UROBILINOGEN URINE NORMAL (NORMAL)
[2019-11-16 03:17] LABS: UR EPITHELIAL CELLS <10 /HPF (<10); URINE BACTERIA NEGATIVE /HPF; URINE RBC <10 /HPF (<10); URINE WBC <10 /HPF (<10)
[2019-11-16] MEDS ORDERED: VANCOMYCIN 1,600 MG in NS 250 ML IV ONE (03:30)
[2019-11-16] MEDS: DUONEB (A & A) INH SCH ×4 (03:59→21:50)
[2019-11-16 04:19] LABS: ALLEN TEST YES; BE 18.9 mmoll (-3.0-3.0); BLOOD TYPE ARTERIAL; HCO3-(ACT) 39.7 mmoll (20.0-26.0); METHB 1.2 % (0.0-1.5); O2(CT) 12.6 mL/dL (15.0-23.0); O2HB 95.9 % (95.0-99.0); PO2(98.6) 109 mmHg (60-100); SAMPLE BLOOD; SAO2 99.1 % (95.0-100.0); SRATE 12 BPM; THB 9.2 g/dL (11.5-17.4); pH(98.6) 7.22 (7.35-7.45)
[2019-11-16 04:20] LABS: PCO2(98.6) 123 mmHg (35-45)
[2019-11-16 04:21] LABS: MODALITY BI PAP
[2019-11-16] MEDS ORDERED: NS 500 ML IV ONE (04:32)
[2019-11-16 04:47] LABS: UR AMPHETAMINES QUAL NONE DETECTED (NONE DETECT); UR BARBITUATES QUAL NONE DETECTED (NONE DETECT); UR BENZODIAZEPIN QUAL NONE DETECTED (NONE DETECT); UR CANNABINOIDS QUAL NONE DETECTED (NONE DETECT); UR COCAINE QUAL NONE DETECTED (NONE DETECT); UR METHADONE QUAL NONE DETECTED (NONE DETECT); UR OPIATES QUAL PRESUMPTIVE POSITIVE (NONE DETECT); UR OXYCODONE QUAL PRESUMPTIVE POSITIVE (NONE DETECT); UR PCP QUAL NONE DETECTED (NONE DETECT)
--- NOTE | 2019-11-16 06:27 | Diag Imaging Result Doc PS360 ---
CT T-SPINE/L-SPINE W/O CON - 11/15/2019 INDICATION: back pain, history of compression fractures COMPARISON: 09/30/2019, 04/30/2019 FINDINGS: There are stable vertebroplasty at T10 and T11. Stable multilevel compression fractures at T4, T6, T7, T8, T9, and all the levels from T12-L5. These are all central compression fractures indicating osteoporotic fractures. No bony retropulsion or central canal stenosis. Soft tissues in the abdomen remain clear. Stable severe pulmonary fibrosis in the lungs. IMPRESSION: 1. Numerous compression fractures throughout the spine. No new fractures. 2. Severe pulmonary fibrosis. This exam was performed using automated exposure control, adjustment of mA or kV according to patient size, and/or use of iterative reconstruction technique Electronically signed by Vidal Roberts 11/16/2019 6:25 AM
[2019-11-16 07:00] LABS: HEMOGLOBIN A1C 5.4 % (4.8-6.0)
[2019-11-16] MEDS: HUMALOG SUBQ SCH ×4 (07:00→20:26)
--- NOTE | 2019-11-16 07:01 | HISTORY AND PHYSICAL ---
CHIEF COMPLAINT: Back pain, shortness of breath, chest pain. HISTORY OF PRESENT ILLNESS: This is a 64-year-old female that has a pulmonary fibrosis. She had been on hospice. The hospice nurse had told the emergency room the patient called her with shortness of breath, fatigue and chest pain for the last two to three days. The family had said that she has a history of elevated CO2, usually presents similar to how she is tonight. She is somewhat drowsy, oriented only to person and place. The hospice nurse had told the patient to take 0.5 mg of morphine prior to coming to the ER. She was noted in the ER to be hypercapnic with respiratory acidosis. Her CO2 was 119, pH of 7.23. Otherwise her laboratory data was grossly normal. There was imaging completed in the emergency room, which was for the most part the same as previous studies. CT of the lumbar and T-spine showed multilevel compression fractures. No new compression deformity when compared with old studies. EKG, she was tachycardic with a rate of 110. At any rate, the patient does want to be admitted. However, she is going to remain a DNR level 1 per the family. She will be placed on PVC for further evaluation and treatment. PAST MEDICAL HISTORY: End-stage COPD, pulmonary fibrosis, unspecified, bronchiectasis, history of spontaneous pneumothorax, diabetes mellitus, dyslipidemia, GERD, seizure disorder, chronic kidney disease, osteoporosis with multiple vertebral fractures, obstructive sleep apnea, history of perforated colon. PREVIOUS SURGICAL HISTORY: Colostomy secondary to perforated colon, cholecystectomy, adenoidectomy, tonsillectomy. SOCIAL HISTORY: No tobacco, alcohol or illicit drugs. FAMILY HISTORY: This could not be reviewed as the patient is altered and the family was not at the bedside during my interview. HOME MEDICATIONS: The son had taken the home medications home. Nursing had contacted him. He will bring these back to the hospital today and a list can be obtained. ALLERGIES: Methocarbamol and sulfa antibiotics. REVIEW OF SYSTEMS: A 14-point review of systems was conducted with the patient. Pertinent positives listed above in the HPI. She denied all other systems but please note she is altered, so this may not be fully comprehensive. PHYSICAL EXAMINATION: VITAL SIGNS: Temperature 98.8, pulse 100, respirations 15, blood pressure 106/65, and oxygen saturation is 100% on BiPAP. GENERAL: Alerted 64-year-old female, oriented to person and place. She is in no acute distress on BiPAP. HEENT: Head is atraumatic an normocephalic. The pupils are equal, round, and reactive to light. Extraocular eye movement is intact. The sclerae are nonicteric. The conjunctivae are pale. The oral mucosa is moist. NECK: Supple. No JVD. No thyromegaly. The trachea is midline. No cervical lymphadenopathy. CARDIAC: S1, S2 appreciated. No murmurs, gallops, or rubs. LUNGS: Coarse crepitations noted throughout bilateral airfields. Decreased bilaterally. Symmetric rise and fall with respirations. ABDOMEN: Soft, nondistended, nontender. Bowel sounds present in all four quadrants. Normoactive. No pulsatile masses. No organomegaly. EXTREMITIES: No cyanosis, clubbing, or edema. 2+ pedal pulses bilaterally. GENITOURINARY: No bladder distention, patient voids, otherwise deferred. NEUROLOGICAL: Oriented to person and place. Disoriented to time and situation. Cranial nerves II through XII appear to be grossly intact. DIAGNOSTIC DATA: Chest x-ray shows chronic pulmonary fibrosis and changes related to COPD. White blood cell count 13.36, hemoglobin 9.1, hematocrit 33.5, platelet count 216,000. ABG: pH 7.23, pCO2 119, pO2 154, bicarb 39.5. Sodium 142, potassium 4.5, chloride 91, carbon dioxide 42, BUN 13, creatinine 0.9, glucose 137. ASSESSMENT: 1. Acute respiratory failure with respiratory acidosis. 2. Pulmonary fibrosis, unspecified. 3. History of previous cultures revealing Pseudomonas and Stenotrophomonas. 4. Mild leukocytosis. 5. Chest pain. 6. Anemia of chronic disease. 7. Chronic pain syndrome secondary to multiple T-spine fractures. PLAN: Admit the patient to PVC. Continue BiPAP. She is a DNR level 1. We will cover at this time with Levaquin and vancomycin. Recheck ABGs. The patient will receive 1 mg of Narcan. We will continue home medications once they have been reconciled. Further recommendations per the patient's clinical course. Dictated by CARSON Perla for Florencio Tracy MD I have performed a face to face diagnostic evaluation. Labs/xrays- reviewed. Exam: Chest-rhonchi, CV- regular. A/P- Acute respiratory failure, Pulmonry fibrosis- Admit, BIPAP, IV ABX. Dr. Tracy cc: CARSON Perla MD MTDD
--- NOTE | 2019-11-16 07:23 | Diag Imaging Result Doc PS360 ---
EXAM: CHEST-PORTABLE HISTORY: end stage COPD, SOB, chest pain, AMS TECHNIQUE: Single view COMPARISON: 10/03/2019 FINDINGS: Poor inspiratory effort. There are increased interstitial markings throughout both lungs. These are more prominent in the apices and right base. There is apical pleural thickening. There are several old right rib fractures. No pleural effusions identified. The right-sided PICC line has been removed. IMPRESSION: Bilateral increased interstitial markings likely due to a combination of fibrosis and acute infiltrates. Electronically signed by Moose Morgan 11/16/2019 7:21 AM
--- NOTE | 2019-11-16 10:43 | PROGRESS NOTE ---
DATE: 11/16/2019 SUBJECTIVE: Ms. Harper was on BiPAP. Respiration rate is around 30 to 40 and she was lethargic. She is responsive to pain and touch. This is a 64-year-old who has a history of pulmonary fibrosis. Apparently, she had been on hospice. They were concerned and brought her in because she has had more shortness of breath and elevated CO2 and respiratory acidosis. Her CO2 was 119, pH 7.23. CT of the lumbar and CS and T-spine showed multilevel compression fractures. No new compression abnormality. She complained of some back pain. PAST MEDICAL HISTORY: End-stage COPD, pulmonary fibrosis, specific bronchiectasis, history of spontaneous pneumothorax, diabetes mellitus type 2, hyperlipidemia, gastroesophageal reflux disease. Seizure disorder. Chronic kidney disease. Osteoporosis, multiple vertebral fractures. Obstructive sleep apnea. PAST SURGICAL HISTORY: She has had a colostomy secondary to perforated colon. Cholecystectomy. Adenoidectomy and tonsillectomy. ASSESSMENT/PLAN: So, admitted with respiratory failure, respiratory acidosis, pulmonary fibrosis. Previous cultures had grown Pseudomonas and Stenotrophomonas. She has mild leukocytosis. Continue present antibiotics and BiPAP. She has significant kyphosis and anemia of chronic disease. cc: Addy Martinez MD
[2019-11-16 11:59] LABS: ALLEN TEST YES; BE 15.5 mmoll (-3.0-3.0); BLOOD TYPE ARTERIAL; METHB 0.8 % (0.0-1.5); O2(CT) 12.5 mL/dL (15.0-23.0); O2HB 96.5 % (95.0-99.0); PO2(98.6) 98 mmHg (60-100); SAMPLE BLOOD; SAO2 99.5 % (95.0-100.0); SRATE 20 BPM; THB 9.1 g/dL (11.5-17.4); pH(98.6) 7.28 (7.35-7.45)
[2019-11-16 12:00] LABS: MODALITY BI PAP
[2019-11-16 12:02] LABS: PCO2(98.6) 96 mmHg (35-45)
[2019-11-17] MEDS: LOVENOX SUBQ SCH (00:05)
[2019-11-17] MEDS: MORPHINE IV PRN (00:05)
[2019-11-17] MEDS: LEVAQUIN 750 MG/D5W 750 MG/150 ML IVPB IV SCH (00:05)
[2019-11-17] MEDS: DUONEB (A & A) INH SCH ×4 (03:30→22:55)
[2019-11-17] MEDS: VANCOMYCIN 1,150 MG in NS 250 ML IV SCH (03:56)
[2019-11-17] MEDS: HUMALOG SUBQ SCH ×4 (06:43→20:49)
--- NOTE | 2019-11-17 12:21 | PROGRESS NOTE ---
DATE: 11/17/2019 Ms. Harper is breathing better. She feels much better. She has been able to swallow. She is requesting regular food. OBJECTIVE: She remains afebrile, temperature 98.3 degrees, pulse 112, respirations 30, blood pressure 130/78. Pupils are equal and round.Lungs: Clear in all lung jalloh. Cardiovascular: Regular rhythm and rate without murmur or S3. Abdomen: Soft. Skin: Warm and dry. ASSESSMENT AND PLAN: 1. Admitted with acute respiratory failure, respiratory acidosis, pulmonary fibrosis. Previous cultures have grown out Pseudomonas and Stenotrophomonas. Mild leukocytosis was noted. She is clinically much better, is using BiPAP. She is on antibiotics and bronchodilators. 2. She had some chest pain. I do not see any sign of cardiac ischemia. 3. Anemia of chronic disease. 4. Chronic pain syndrome. She is requesting regular food, been on a diabetic diet. She is on Levaquin 750 mg IV every 24 hours, Lovenox 40 mg subcutaneous every 24 hours, and vancomycin 1,550 mg IV every 24 hours. cc: Addy Martinez MD [facility]
[2019-11-17] MEDS ORDERED: BLISTEX MEDICATED BERRY LIP BALM TOP ONE (13:14)
[2019-11-17] MEDS: NS 1,000 ML IV SCH (17:15)
[2019-11-18] MEDS: LOVENOX SUBQ SCH ×2 (00:01→20:59)
[2019-11-18] MEDS: LEVAQUIN 750 MG/D5W 750 MG/150 ML IVPB IV SCH ×2 (00:01→20:59)
[2019-11-18] MEDS: NS 1,000 ML IV SCH ×3 (03:06→20:59)
[2019-11-18] MEDS: DUONEB (A & A) INH SCH ×4 (03:55→22:50)
[2019-11-18] MEDS: VANCOMYCIN 1,150 MG in NS 250 ML IV SCH (04:08)
[2019-11-18] MEDS: HUMALOG SUBQ SCH ×4 (06:42→21:58)
[2019-11-18] MEDS: MORPHINE IV PRN ×2 (07:15→22:56)
--- NOTE | 2019-11-18 09:02 | PROGRESS NOTE ---
DATE: 11/18/2019 SUBJECTIVE: She is breathing comfortably and doing much better, but complaining of her pain, and frustrated that we will not give her pain medicine. I had a long discussion with her, and I explained that she was lethargic and struggling to breathe, and that she has presented several times that way, and that this pain medicine works against her breathing and her lung clearance and her cough, and she says she does not care, she wants to be on the morphine, so I will put her back on her morphine 15 mg twice a day. OBJECTIVE: Vital Signs: Temperature 98.7 degrees, pulse 90, respirations 16, blood pressure 130/71. HEENT: Pupils are equal and round. Lungs: Clear in all lung jalloh. Cardiovascular: Regular rhythm and rate without murmur or S3. Abdomen: Soft, nondistended. ASSESSMENT AND PLAN: 1. End-stage chronic obstructive pulmonary disease, pulmonary fibrosis, nonspecific bronchiectasis. She has had a history of spontaneous pneumothorax in the past. Presented again with hypercapnic hypoxemic respiratory failure. She was on cyclic bilevel positive airway pressure. She is doing better. Air exchange is improved. 2. Chronic pain, and insists on going back on her pain medicine. 3. Diabetes mellitus type 2. Sugar is under good control. 4. History of seizure disorder. 5. Chronic kidney disease. 6. Osteoporosis with multiple vertebral fractures. 7. Obstructive sleep apnea. 8. History of perforated colon in the past. REVIEW OF ORDERS: She is on Levaquin 750 mg IV every 24 hours. Will check another chest x-ray in the morning. She is on vancomycin 1150 mg IV every 24 hours, and I will put her back on her morphine at 15 mg twice a day. cc: Addy Martinez MD
[2019-11-18] MEDS: OXY IR PO PRN (13:21)
[2019-11-18] MEDS ORDERED: VANCOMYCIN 1,150 MG in NS 250 ML IV SCH (22:00)
[2019-11-19] MEDS: DUONEB (A & A) INH SCH ×4 (03:40→22:57)
[2019-11-19] MEDS: VANCOMYCIN 1,500 MG in NS 250 ML IV SCH (04:33)
[2019-11-19] MEDS: OXY IR PO PRN ×2 (06:40→20:29)
[2019-11-19] MEDS: HUMALOG SUBQ SCH ×4 (06:41→22:08)
--- NOTE | 2019-11-19 08:33 | Diag Imaging Result Doc PS360 ---
CHEST-PORTABLE - 11/19/2019 INDICATION: copd, pneumonia COMPARISON: 11/16/2019 FINDINGS: There has been slight improvement in the right upper lobe. Otherwise stable coarse, heterogeneous infiltrates diffusely and bilaterally. Heart size remains top normal. No large pleural effusion. Stable low lung volumes. IMPRESSION: Slight improvement in aeration of the right upper lobe. Electronically signed by Vidal Roberts 11/19/2019 8:31 AM
--- NOTE | 2019-11-19 09:17 | PROGRESS NOTE ---
DATE: 11/19/2019 SUBJECTIVE: Ms. Harper feels better today. The pain is under better control. Will take her Negrete catheter out. Continue physical therapy. She was on hospice, so we are going to need to see if we can get oxygen again for her at home. She is eating well. Bowels are moving. OBJECTIVE: Vital Signs: Temp 98.6 degrees, pulse 99, respirations 17, blood pressure 122/74. HEENT: Pupils are equal and round. Lungs: Clear in all lung jalloh. Cardiovascular: Regular rhythm and rate without murmur or S3. Abdomen: Soft. Skin: Warm and dry. Urine output is 4200 mL. IMAGING AND LABORATORY DATA: Blood sugar 67, 113, and 87. Chest x-ray: Slight improvement in aeration in the right upper lobe. ASSESSMENT AND PLAN: 1. End-stage chronic obstructive pulmonary disease with fibrosis, nonspecific bronchiectasis. She has had a past history of spontaneous pneumothorax in the past. She is going to need to go home with oxygen. We are going to start physical therapy. Will stop her Negrete catheter. 2. Chronic pain. She seems to be more comfortable. She is back on some pain medications, and seems to be doing well at this point. 3. Diabetes mellitus type 2. Sugar is under good control. 4. History of seizure disorder. 5. Chronic kidney disease, stable. 6. Osteoporosis, multiple vertebral fractures. 7. Obstructive sleep apnea. 8. History of perforated colon in the past. REVIEW OF ORDERS: I do not see any change. Will stop her Negrete catheter. Continue Levaquin. Initiate physical therapy. Will ask Respiratory to document her eligibility for oxygen, and ask [employer] [employer] to help us try and get oxygen at home. cc: Addy Martinez MD
[2019-11-19] MEDS: NS 1,000 ML IV SCH ×2 (15:46→20:25)
[2019-11-19] MEDS: TYLENOL PO PRN (20:34)
[2019-11-19] MEDS: LOVENOX SUBQ SCH (20:34)
[2019-11-19] MEDS: LEVAQUIN 750 MG/D5W 750 MG/150 ML IVPB IV SCH (20:34)
[2019-11-20] MEDS: DUONEB (A & A) INH SCH ×4 (03:24→21:20)
[2019-11-20] MEDS: TYLENOL PO PRN (06:11)
[2019-11-20] MEDS: NS 1,000 ML IV SCH ×2 (08:25→12:58)
[2019-11-20] MEDS: HUMALOG SUBQ SCH ×4 (08:25→21:00)
[2019-11-20] MEDS: VANCOMYCIN 1,500 MG in NS 250 ML IV SCH (08:25)
[2019-11-20] MEDS: OXY IR PO PRN ×2 (08:26→20:54)
[2019-11-20] MEDS: MORPHINE IV PRN ×2 (11:55→16:12)
--- NOTE | 2019-11-20 14:11 | PROGRESS NOTE ---
DATE: 11/20/2019 SUBJECTIVE: This morning, Ms. Harper refers to be doing fairly okay. She continues to be on 4 L of supplemental oxygen. OBJECTIVE: Vital Signs: Blood pressure is 116/71, pulse of 98, respirations 21, temperature 97.6 degrees. General: Ms. Harper is a 64-year-old, female. She is in bed. She is on supplemental oxygen. She does not seem to be in any distress. HEENT: Mucosa is pink and moist. Anicteric. Acyanotic. Neck: Supple. Chest: Air entry is bilaterally reduced. There is some diffuse expiratory rhonchi and wet crackles in both lung jalloh. Cardiovascular: Regular rate and rhythm. There is a 2/6 aortic systolic murmur radiating to the neck. GI: Abdomen is soft. Extremities: No pedal edema. STAGE SET DESIGNER: The patient is awake, alert, oriented. There is no focal deficit. IMAGING: A chest x-ray, which was done yesterday, shows slight improvement in aeration of the right upper lobe. MEDICATIONS: Current medications have all been reviewed. LABORATORY DATA: No laboratory data. ASSESSMENT: 1. Acute on chronic hypoxemic respiratory failure. The patient is on 4 liters of supplemental oxygen now. 2. Severe advanced pulmonary fibrosis. 3. Bronchospasm secondary to exacerbation of bronchiectasis. 4. History of pulmonary hypertension secondary to long-standing interstitial lung disease. For now, we are going to continue with the current antimicrobial therapy. I have added steroids. Will continue with the bronchodilation, and I have also consulted Pulmonary Medicine to evaluate Ms. Harper. Of note, I understand Ms. Harper was on hospice before. However, she has revoked hospice. She rather wants to go home on home health. die try out worker is aware and is going to be arranging for home oxygen. cc: Danny Muñoz MD
[2019-11-20] MEDS: SOLU-MEDROL IV SCH ×2 (14:29→21:00)
[2019-11-20] MEDS: LOVENOX SUBQ SCH (20:54)
[2019-11-20] MEDS: LEVAQUIN 750 MG/D5W 750 MG/150 ML IVPB IV SCH (20:54)
[2019-11-21] MEDS: MORPHINE IV PRN ×4 (00:17→18:22)
[2019-11-21] MEDS: DUONEB (A & A) INH SCH ×4 (03:15→21:53)
[2019-11-21] MEDS: VANCOMYCIN 1,500 MG in NS 250 ML IV SCH (04:58)
[2019-11-21] MEDS: HUMALOG SUBQ SCH ×4 (06:04→20:44)
[2019-11-21] MEDS: SOLU-MEDROL IV SCH ×2 (09:18→20:45)
[2019-11-21] MEDS ORDERED: OXY IR PO PRN (09:21)
[2019-11-21 09:57] LABS: ALLEN TEST NO; BE 14.3 mmoll (-3.0-3.0); BLOOD TYPE ARTERIAL; HCO3-(ACT) 36.1 mmoll (20.0-26.0); METHB 0.9 % (0.0-1.5); O2(CT) 11.5 mL/dL (15.0-23.0); O2HB 97.3 % (95.0-99.0); PO2(98.6) 129 mmHg (60-100); SAMPLE BLOOD; SAO2 100.8 % (95.0-100.0); THB 8.2 g/dL (11.5-17.4)
[2019-11-21 09:58] LABS: MODALITY CANNULA; PCO2(98.6) 66 mmHg (35-45)
--- NOTE | 2019-11-21 15:03 | PROVIDER PROGRESS NOTE ---
Progress Note Patient has been seen and examined. A full dictation to follow.
--- NOTE | 2019-11-21 18:10 | PROGRESS NOTE ---
DATE: 11/21/2019 SUBJECTIVE: This morning Ms. Harper refers to be doing fairly okay. Denies any new complaints. She continues to be on supplemental oxygen. She said she was evaluated early on by Dr. Bernal. OBJECTIVE: Vital signs: Blood pressure is 137/80, pulse of 83, respiration is 19, temperature 98.6 degrees. General: Ms. Harper is a 64-year-old female. She is in bed, not seemingly distressed. HEENT: Mucosa is pink and moist. Anicteric. Acyanotic. Neck: Supple. Chest: Good air entry bilaterally. There is diffuse end expiratory rhonchi and some wet crackles in both lungs posteriorly. Cardiovascular: Regular rate and rhythm. There is a 2/6 aortic systolic murmur radiating to the neck. GI: Abdomen is soft. There is an old midline infraumbilical scar. There is also an ostomy on the left side. Extremities: No pedal edema. GANG WORKER: Patient is awake, alert, oriented. There is no focal deficit. LABORATORY DATA: ABG this morning, pCO2 is 66, which seems to be patient's baseline. MEDICATIONS: Have also been reviewed. ASSESSMENT: 1. Acute on chronic hypoxemic respiratory failure. Patient continues to be on supplemental oxygen. 2. Acute on chronic hypercarbic respiratory failure. Patient's pCO2 is down to 66, which seems to be her baseline. 3. Severe advanced pulmonary fibrosis with exacerbation. 4. Bronchospasm secondary to pulmonary fibrosis/bronchiectasis exacerbation. This seems to have improved. The patient is on steroids, antimicrobial coverage, and bronchodilation. 5. Pulmonary hypertension, most likely due to longstanding interstitial lung disease. 6. Status post open sigmoid colon resection and creation of end colostomy. This was due to perforated viscus. It was done by Dr. Hernandez on December 15, 2018. The patient is very comfortable with the care of her ostomy bag. PLAN: So in general, I think Ms. Harper is doing fair. Her pCO2 this morning shows it was 66, much better than where she was when she got admitted. She has been evaluated by Pulmonary Medicine today. I am waiting for their final recommendations. I think Ms Harper is fairly stable to be discharged once she gets all of her medical supplies arranged. cc: Danny Muñoz MD
[2019-11-21] MEDS: LOVENOX SUBQ SCH (20:45)
[2019-11-21] MEDS: LEVAQUIN 750 MG/D5W 750 MG/150 ML IVPB IV SCH (20:45)
--- NOTE | 2019-11-21 22:02 | PULMONOLOGY CONSULTATION ---
DATE: 11/21/2019 REQUESTING PROVIDER: Danny Muñoz MD. REASON FOR CONSULTATION: Severe pulmonary fibrosis. HISTORY OF PRESENT ILLNESS: This is a 64-year-old, female, with a medical history of chronic hypoxic respiratory failure, pulmonary fibrosis, bronchiectasis, COPD, diabetes mellitus type 2, dyslipidemia, gastroesophageal reflux disease, osteoporosis, chronic kidney disease, obstructive sleep apnea, congestive heart failure, and depression. She apparently has had multiple admissions to our facility annually since 2017, secondary to pulmonary fibrosis. She presented to the ER on 11/16/2019, with INCOMPLETE REPORT - DICTATION ENDS HERE Dictated by CARSON Gonzalez for Paola Bernal MD cc: CARSON Gonzalez MD
--- NOTE | 2019-11-21 22:27 | PULMONOLOGY CONSULTATION ---
DATE: 11/21/2019 REQUESTING PROVIDER: Danny Muñoz MD REASON FOR CONSULTATION: Severe pulmonary fibrosis. HISTORY OF PRESENT ILLNESS: This is a 64-year-old female with a complicated medical history including idiopathic pulmonary fibrosis, bronchiectasis, COPD, diabetes mellitus type 2, dyslipidemia, gastroesophageal reflux disease, seizure disorder osteoporosis, chronic kidney disease, obstructive sleep apnea, congestive heart failure, and depression. She has been having multiple hospital admissions annually since 2017. Her last admission is from 09/29/2019 to 10/08/2019 with pulmonary fibrosis and bronchiectasis exacerbation. She presented to the ER on 11/15/2019 with shortness of breath, fatigue and chest pain for 2 to 3 days. Initial work up in the ER revealed acute respiratory failure with uncompensated respiratory acidosis, mild leukocytosis, and bronchiectasis exacerbation with bronchospasm. She has been on levofloxacin since admission. Vancomycin has been placed since 11/19/[address] Muñoz started IV Solu Medrol yesterday, i.e. 11/20/19. Initial pCO2 was up to 119. The patient has been on the BiPAP at bedtime and as needed. Her pCO2 this morning dropped to 66 with compensated respiratory acidosis. The patient currently is lying in bed with no acute distress noted. She is on nasal cannula at 4 L and tolerates well. She states she is feeling okay. She still feels tired with shortness of breath with any light activities. She denies any pain at this time. She appears depressive with a flat face. Later, when we discussed about the adjustment of her pain medication as narcotic could contribute to her worsened CO2 retention at presentation, She became some anxious. She has been on morphine 5 to 20 mcg q.1 hour as needed and oxycodone 15 mg q.6 hours as needed at home. We encourage her to take these narcotics as little as possible. Currently, we cut down her active oxycodone from 15 mg down to 5 mg p.o. q.12 hours. The patient reports no fever, chills, nausea, vomiting, bowel habit change, coughs, urination discomfort, recently noticeable weight change, pedal edema, dyspnea, or paroxysmal nocturnal dyspnea. PAST MEDICAL HISTORY: 1. Chronic hypoxic respiratory failure on continuous home oxygen at 4 L. 2. Idiopathic pulmonary fibrosis diagnosed on a biopsy in 1985. On prednisone 10mg daily at home. 3. End-stage COPD. 4. Bronchiectasis. 5. History of spontaneous pneumothorax. 6. Diabetes mellitus type 2. 7. Dyslipidemia. 8. History of perforated viscus. 9. Gastroesophageal reflux disease. 10. Seizure disorder. 11. Osteoporosis with multiple vertebral fractures. 12. Chronic kidney disease. 13. Obstructive sleep apnea, on BiPAP therapy at home. 14. Depression. 15. Chronic pain syndrome with morphine and oxycodone at home. PAST SURGICAL HISTORY: 1. Lung biopsy in 1985. 2. Cholecystectomy. 3. Adenoidectomy. 4. Tonsillectomy. 5. Colostomy placement on 12/15/2018 secondary to perforated colon. 6. Hysterectomy. SOCIAL HISTORY: The patient apparently lives at home with her son on home hospice care. She has no history of alcohol, tobacco, or illicit drug use. She is a never smoker. FAMILY HISTORY: Positive for lung cancer, diabetes mellitus, coronary artery disease, and cystic fibrosis. ALLERGIES: Methocarbamol and sulfa. REVIEW OF SYSTEMS: A 10-point review of systems was conducted and the pertinent is listed within the HPI, otherwise noncontributory. PHYSICAL EXAMINATION: Vital Signs: Temperature 98.2 degrees, blood pressure 140/75, pulse 95, respiratory rate 20, oxygen saturation 100% on nasal cannula at 4 L. General: Chronically ill- appearing, lying in bed on nasal cannula at 4 L total with no acute distress noted. HEENT: Atraumatic, normocephalic. Trachea midline. Mucosa pink and moist. Respiratory: Diminished air entry bilaterally with dry crackles bilaterally. Cardiovascular: Regular rate and rhythm with systolic murmur noted. Gastrointestinal: Soft. Nontender. Positive bowel sounds in all 4 quadrants. Extremities: No pedal edema. No cyanosis. Neurologic: Alert and oriented x 3. Speech fluent. Follow commands. LABORATORIES: ABG: pH 7.40, pCO2 66, pO2 129, HCO3 36.1, Base Excess 14.3, and Oxyhemoglobin 97.3. IMAGING DATA: CT T-spine/L-spine w/o contrast on 11/16/2019 revealed numerous compression fractures throughout the spine with no new fractures and stable severe pulmonary fibrosis. ASSESSMENT: This is a 64-year-old female with a complicated medical history including idiopathic pulmonary fibrosis, bronchiectasis, COPD, diabetes mellitus type 2, dyslipidemia, gastroesophageal reflux disease, seizure disorder osteoporosis, chronic kidney disease, obstructive sleep apnea, congestive heart failure, and depression. She has been admitted to [facility] since 11/15/2019 for acute respiratory failure secondary to severe advanced idiopathic pulmonary fibrosis, COPD and bronchiectasis with acute exacerbation. 1. Acute on chronic respiratory failure, hypoxemic and hypercapnic. Improving. Patient currently is on NC at 4 which is patient's baseline oxygen demand. ABG this morning showed pCO2 decreased to 66 from 96 yesterday morning and respiratory acidosis was compensated. 2. Severe advanced idiopathic pulmonary fibrosis, COPD and bronchiectasis with recurrent exacerbation. 3. Obstructive sleep apnea. BiPAP setting 22/05 is same as patient's BiPAP setting at home. 4. Chronic pain syndrome with morphine and oxycodone at home, which may partially contribute to patient's significantly worsening hypercapnia and lethargy at presentation. 5. DNR 1 PLAN: 1. Supplemental oxygen. BiPAP at bedtime and as needed. 2. We decrease oxycodone from 15 mg BID as needed to 5 mg BID as needed. 3. Antibiotics including Levaquin and Vancomycin have been ordered. 4. Solu-Medrol and bronchodilators have been ordered. We will consider to start tapering down Solu-Medrol tomorrow if patient keeps improving clinically. 5. We follow up with ABG and CXR. 6. Further recommendations pending hospital course. Thank you for the courtesy of this consult. Dr. Bernal did the examination, evaluation, management and orders. CARSON did the dictation for Dr. Bernal according to his direction. Total evaluation time in minutes: 34. Dictated by CARSON Gonzalez for Paola Bernal MD cc: CARSON Gonzalez MD [facility]
[2019-11-22] MEDS: MORPHINE IV PRN ×3 (02:20→12:50)
[2019-11-22] MEDS: DUONEB (A & A) INH SCH ×2 (03:48→11:44)
[2019-11-22 04:40] LABS: BLOOD TYPE ARTERIAL; SAMPLE BLOOD
[2019-11-22] MEDS: VANCOMYCIN 1,500 MG in NS 250 ML IV SCH (05:20)
[2019-11-22 06:08] LABS: PCO2(98.6) 61 mmHg (35-45); PO2(98.6) 115 mmHg (60-100)
[2019-11-22 06:09] LABS: ALLEN TEST YES; BE 10.5 mmoll (-3.0-3.0); MODALITY BI PAP
[2019-11-22 06:10] LABS: HCO3-(ACT) 39.7 mmoll (20.0-26.0)
[2019-11-22] MEDS: HUMALOG SUBQ SCH ×2 (06:33→11:43)
--- NOTE | 2019-11-22 07:21 | Diag Imaging Result Doc PS360 ---
EXAM: CHEST-1 VIEW INDICATION: SOB TECHNIQUE: One view COMPARISON: 11/19/2019 FINDINGS: Lung volumes are slightly lower than the previous study. Coarse heterogeneous infiltrates bilaterally are unchanged. No new consolidation is identified. Cardiac silhouette is stable. IMPRESSION: Slightly lower lung volumes. Stable chest, otherwise. Electronically signed by Johann Valerio 11/22/2019 7:19 AM
[2019-11-22] MEDS: SOLU-MEDROL IV SCH (08:04)
[2019-11-22 08:25] LABS: SRATE 20 BPM
[2019-11-22 11:40] VITALS: BP 128/70
--- NOTE | 2019-11-22 15:57 | PROVIDER PROGRESS NOTE ---
Progress Note Dr. Bernal Progress Note/Pulmonary and or critical care Subjective: The patient is sitting at the edge of the bed on NC 3L with some SOB noted. She apparently has been up and prepares for discharging home. She states she is feeling better. Her son is at the bedside. Input was appreciated from Dr. Muñoz and other teams on the case. Objective: Vital Signs: T 97.5 (no fever in last 24 hours), SD 97, RR 21, BP 105/67 and SaO2 100% on NC 3L. Physical Examination: General: chronically ill appearing. Sitting at the edge of the bed with some SOB noted. HEENT: Normocephalic. Trachea midline. Mucosa pink and moist Chest: Increased work of breathing, but no accessory muscle use noted. Symmetrical excursion. Dry crackles bilaterally. CVS: Regular rate and rhythm with S1 and S2 appreciated. Abdomen: Soft. Nontender. Bowel sounds present in all 4 quadrants. Extremities: No pedal edema. Neurologic: A/O x3. Speech fluent. Follow commands. Labs and Radiology: Laboratory Results 11/21/19 11/21/19 11/22/19 15:55 20:21 02:49 Specimen Type Sample Site pH pCO2 pO2 HCO3 Base Excess Addy Test A-a O2 Difference Lactate Liter Flow Blood Gas Modality Vent Mode Spontaneous Rate FiO2 % Inspiratory BiPAP Expiratory BiPAP POC Glucose 172 H 172 H Random Vancomycin 7.90 11/22/19 11/22/19 11/22/19 04:30 06:30 11:38 Specimen Type ARTERIAL Sample Site R RADIAL pH 7.40 pCO2 61 H* pO2 115 H HCO3 39.7 H Base Excess 10.5 H Addy Test YES A-a O2 Difference 23.0 Lactate 0.90 Liter Flow 15.0 Blood Gas Modality BI PAP Vent Mode BIPAP Spontaneous Rate 20 FiO2 % 30.0 Inspiratory BiPAP 14.0 Expiratory BiPAP 6.0 POC Glucose 135 H 175 H Random Vancomycin Assessment: Acute on chronic hypoxemic respiratory failure. Severe advanced pulmonary fibrosis, End-stage COPD and Bronchiectasis with acute exacerbation. CXR today shows slightly lower lung volumes, stable, otherwise. THANH. Chronic pain syndrome with morphine and oxycodone at home. Aware. DNR1 Prognosis is guarded. Plan: Supplemental oxygen. BiPAP at bedtime and as needed. Antibiotics including Levaquin and Vancomycin. Bronchodilators. IV Solu-Medrol. We advise patient to take narcotics at the lowest dosage as needed at home for pain control. Discharge planning per Dr. Muñoz. Evaluation time in minutes: 34 minutes.
[2019-11-22] MEDS ORDERED: VANCOMYCIN 1,500 MG in NS 250 ML IV SCH (23:00)
--- NOTE | 2019-11-23 17:25 | DISCHARGE SUMMARY ---
ADMISSION DATE: 11/15/2019 DISCHARGE DATE: 11/22/2019 DISPOSITION: Home with [facility] and [facility]. FOLLOWUP: 1. José Miguel Krueger MD. 2. Paola Bernal MD. CONSULTATION DURING THIS ADMISSION: Pulmonary Medicine was consulted, patient was seen by Dr. Bernal. INVASIVE PROCEDURES DONE DURING THIS ADMISSION: None. IMAGING STUDIES OF SIGNIFICANCE: Thoracolumbar spine x-ray did show numerous compression fractures throughout the spine. No new fractures. Severe pulmonary fibrosis. A chest x-ray showed slight improvement in aeration of the right upper lobe. A repeat chest x-ray this morning shows stable slightly low lung volumes, stable chest, otherwise unremarkable. ADMISSION DIAGNOSES: 1. Respiratory failure with respiratory acidosis. 2. Pulmonary fibrosis. 3. Previous culture showing Pseudomonas and Stenotrophomonas. DISCHARGE DIAGNOSES: 1. Acute on chronic hypoxemic respiratory failure. 2. Acute on chronic hypercarbic respiratory failure. 3. Severe advanced pulmonary fibrosis with exacerbation. 4. Bronchospasm secondary to pulmonary fibrosis/bronchiectasis exacerbation. 5. Pulmonary hypertension secondary to longstanding interstitial lung disease. 6. Status post sigmoid colon resection and creation of end-colostomy. DISCHARGE MEDICATIONS: 1. Aspirin 81 mg p.o. daily. 2. Ropinirole 2 mg p.o. at bedtime. 3. Biotin. 4. Doxepin 100 mg p.o. at bedtime. 5. Furosemide 40 mg p.o. daily. 6. Guaifenesin. 7. Magnesium sulfate. 8. Melatonin 10 mg p.o. at bedtime. 9. Meloxicam 50 mg p.o. daily. 10. Metoprolol 25 mg p.o. daily. 11. Morphine liquid. 12. Oxycodone. 13. Pantoprazole 40 mg p.o. daily. 14. Pravastatin 20 mg p.o. daily. 15. Prednisone 10 mg p.o. daily. 16. Tizanidine 4 mg p.o. 3 times per day. 17. Levofloxacin 500 p.o. daily for 7 days. PRESENTING COMPLAINT: Back pain, shortness of breath. HISTORY OF PRESENTING COMPLAINT: Ms. Harper is a 64-year-old, female who has a history of end-stage pulmonary fibrosis, who came to the emergency department because of shortness of breath. The patient was evaluated and was found to be in both hypoxemic and hypercarbic respiratory failure, pCO2 of 119. She was admitted to [facility] for further medical care. HOSPITAL COURSE: Ms. Harper was admitted to the [facility], was initially started on BiPAP therapy, started on broad-spectrum IV antibiotic and Respiratory Therapy consulted. She did improve during the hospital course. Pulmonary Medicine was consulted, patient was seen by Dr. Bernal. Her breathing progressively got better. Repeat blood gases did show a pCO2 came all the way down to 61, which we think that is her baseline. rack production worker was also consulted for home to oxygen. I understand Ms. Harper was at home at one time on hospice; however, she had revoked hospice and wants to go home on home health. This has also been arranged for her. We think Ms. Harper is as stable as we can get her. She has been advised to be extremely judicious with the use of benzodiazepines and narcotics, since that could also be potentially affecting her respiratory status. All the discharge instructions have been discussed with her. She voiced understanding. Time spent for discharge is 38 minutes. cc: MD José Miguel Guo MD Raphael K. Quansah, MD
== END 2019-11-22 14:29 | disposition home health service (06) | DRG 196 ==
LOC: ED 21:11 → SUATTDRO 21:15 → EDIPHOLD 11-16 03:26 → SUATTDRO 11-16 03:26 → 2N 11-16 07:45
PROVIDERS: ATTEND Internal Medicine